=== PATIENT | male | born 1960 | race Caucasian/White ===

== ENCOUNTER → 2018-04-26 | Outpatient (CLI) | payer BC ==
--- NOTE | 2018-04-27 08:30 | CT ---
EXAMINATION TYPE: CT sinus wo con DATE OF EXAM: 04/26/2018 COMPARISON: HISTORY: WEISS WITH SINUS PRESSURE CT DLP: 636.[address] of the paranasal sinuses was performed in the axial and coronal planes. Bone and soft tissue settings are submitted. The paranasal sinuses demonstrate normal aeration and development. Mucous retention cyst right maxillary sinus. Mucosal thickening bilateral maxillary sinuses and to a lesser extent the ethmoid air cells. Remaining sinuses are well-aerated. The osteal meatal units are patent bilaterally. The nasal septum is midline. No bony destructive changes are seen within the field of view. IMPRESSION: Chronic maxillary and ethmoidal sinusitis.
== END ==
LOC: RADCTMAIN 16:45
PROVIDERS: ATTEND Otolaryngology
DX: J32.0 Chronic maxillary sinusitis (principal); J32.2 Chronic ethmoidal sinusitis
CPT/HCPCS: 70486

== ENCOUNTER → 2019-12-08 | Outpatient (CLI) | payer BC ==
--- NOTE | 2019-12-08 10:07 | US ---
EXAMINATION TYPE: US scrotum with doppler. Grayscale and color Doppler Duplex imaging performed of t he scrotum. DATE OF EXAM: 12/08/2019 COMPARISON: NONE CLINICAL HISTORY: N50.819 testicular pain. Intermittent sharp right testicular pain x couple weeks EXAM MEASUREMENTS: TESTICLES: Right Testicle: 4.2 x 2.3 x 3.2 cm Left Testicle: 5.1 x 2.5 x 3.0 cm EPIDIDYMIS HEAD: Right Epididymis: 0.7 x 1.2 x 1.7 cm Left Epididymis: 0.8 x 1.4 x1.3 cm Doppler performed to assess for testicular vascularity; good bilateral color flow and waveforms are s een. There is no evidence of testicular torsion. Presence of hydroceles: right 4.0cm, left 4.3cm Presence of varicoceles: no IMPRESSION: 1. Bilateral hydroceles.
== END | disposition home or self-care (01) ==
LOC: RADUSWWP 09:20
PROVIDERS: ATTEND Family Medicine
DX: N43.3 Hydrocele, unspecified (principal)
CPT/HCPCS: 76870; 93975

== ENCOUNTER 2020-03-21 21:44 | Observation (INO) | payer BC ==
--- NOTE | 2020-03-21 22:11 | ED ---
Chest Pain HPI - General Chief Complaint: Chest Pain Stated Complaint: Chest Pain Time Seen by Provider: 03/21/20 21:59 Source: patient Mode of arrival: ambulatory Limitations: no limitations - History of Present Illness Initial Comments: This patient is 60-year-old man who presents to be evaluated for right upper chest pain. The patient states that it came on to 3 hours before arriving here. He states that he was just at rest, and he noticed a pressure at the right upper chest. The patient states that he phoned his sister who is a nurse who recommended he be evaluated. The patient states the pain is much better though still there. He has had approximately 3 weeks of exertional dyspnea. Patient otherwise has no anginal symptoms. Patient does note he had a stent placed about 7 years ago at the time he was having some jaw pain. MD Complaint: chest pain Onset/Timin -: hour(s) Onset: during rest Pain Location: right chest Pain Radiation: none Severity: moderate Quality: heaviness Consistency: intermittent Improves With: nothing Worsens With: nothing Anginal Symptoms: dyspnea Treatments Prior to Arrival: none - Related Data Home Medications Medication Instructions Recorded Confirmed Aspirin 81 mg PO DAILY 11/22/13 11/22/13 Cyclobenzaprine [Flexeril] 10 mg PO DAILY 11/22/13 11/22/13 Enalapril [Vasotec] 5 mg PO DAILY 11/22/13 11/22/13 Insulin Glargine [Lantus] 40 units SQ HS 11/22/13 11/22/13 Levothyroxine Sodium [Synthroid] 0.5 mg PO DAILY 11/22/13 11/22/13 Metoprolol Succinate [Toprol XL] 25 mg PO BID 11/22/13 11/22/13 Simvastatin [Zocor] 40 mg PO HS 11/22/13 11/22/13 Zolpidem [Ambien] 10 mg PO HS 11/22/13 11/22/13 metFORMIN HCL [Glucophage] 850 mg PO BID 11/22/13 11/22/13 Previous Rx's Medication Instructions Recorded Hydrocodone/Acetaminophen [[place] 1 each PO Q4HR PRN #20 tab 11/22/13 5-325] Ibuprofen [Motrin] 800 mg PO Q6HR PRN #20 tab 11/22/13 Allergies Allergy/AdvReac Type Severity Reaction Status Date / Time No Known Allergies Allergy Verified 03/21/20 21:53 Review of Systems ROS Statement: Those systems with pertinent positive or pertinent negative responses have been documented in the HPI. ROS Other: All systems not noted in ROS Statement are negative. Constitutional: Denies: fever, chills Respiratory: Denies: cough, dyspnea, wheezes Cardiovascular: Reports: as per HPI, chest pain, dyspnea on exertion. Denies: palpitations, orthopnea, edema, syncope Gastrointestinal: Denies: abdominal pain, nausea, vomiting Genitourinary: Denies: dysuria, hematuria Musculoskeletal: Denies: back pain Skin: Denies: rash Neurological: Denies: headache, weakness, numbness EKG Findings - EKG Results: EKG: interpreted by MADELAINE, sinus rhythm (Rate 66 bpm), normal axis, normal QRS, normal ST/T Past Medical History Past Medical History: Coronary Artery Disease (CAD), Diabetes Mellitus Additional Past Medical History / Comment(s): sciatica History of Any Multi-Drug Resistant Organisms: None Reported Past Surgical History: Back Surgery, Heart Catheterization With Stent, Tonsillectomy Past Psychological History: No Psychological Hx Reported Smoking Status: Former smoker Past Alcohol Use History: None Reported Past Drug Use History: None Reported General Exam Limitations: no limitations General appearance: alert, in no apparent distress Head exam: Present: atraumatic, normocephalic Eye exam: Present: normal appearance. Absent: scleral icterus, conjunctival injection ENT exam: Present: normal oropharynx Neck exam: Present: normal inspection Respiratory exam: Present: normal lung sounds bilaterally. Absent: respiratory distress, wheezes, rales, rhonchi, stridor Cardiovascular Exam: Present: regular rate, normal rhythm, systolic murmur (Grade 3/6 systolic ejection murmur). Absent: diastolic murmur, rubs, gallop GI/Abdominal exam: Present: soft. Absent: distended, tenderness, guarding, rebound, rigid, mass Extremities exam: Present: normal inspection, normal capillary refill. Absent: pedal edema, calf tenderness Back exam: Present: normal inspection. Absent: CVA tenderness (R), CVA tenderness (L) Neurological exam: Present: alert Skin exam: Present: warm, dry, intact, normal color. Absent: rash Course Vital Signs 03/21/20 03/21/20 21:49 22:17 Temperature 98.2 F Pulse Rate 69 Pulse Rate [ 81 Denial Resolution Specialist ] Respiratory 16 Rate Blood Pressure 111/69 O2 Sat by Pulse 95 Oximetry Disposition Clinical Impression: Chest pain Disposition: ADMITTED IP TO THIS HOSP Condition: Good Instructions (If sedation given, give patient instructions): Chest Pain (ED) Is patient prescribed a controlled substance at d/c from ED?: No Referrals: Aria Mckinney MD [Primary Care Provider] - 1-2 days
[2020-03-21 22:14] LABS: Basophils # (A) 0.1 k/uL (0-0.2); Basophils % (A) 1 %; Eosinophils # (A) 0.4 k/uL (0-0.7); Eosinophils % (A) 4 %; HCT 48.8 % (39.0-53.0); HGB 15.9 gm/dL (13.0-17.5); Lymphocytes # (A) 3.2 k/uL (1.0-4.8); Lymphocytes % (A) 33 %; MCH 29.4 pg (25.0-35.0); MCHC 32.6 g/dL (31.0-37.0); MCV 90.3 fL (80.0-100.0); Mean Platelet Volume 6.7; Monocytes # (A) 0.7 k/uL (0-1.0); Monocytes % (A) 7 %; Neutrophils # (A) 5.3 k/uL (1.3-7.7); Neutrophils % (A) 54 %; Platelet Count 316 k/uL (150-450); RDW 12.4 % (11.5-15.5); WBC 9.8 k/uL (3.8-10.6)
[2020-03-21 22:27] LABS: ALT 30 U/L (4-49); AST 49 U/L (17-59); African American GFR (CKD) >90 (>60 ml/min/1.73 sqM); Albumin 4.6 g/dL (3.5-5.0); Alkaline Phosphatase 46 U/L (38-126); Amylase 95 U/L (30-110); Anion Gap 8 mmol/L; Blood Urea Nitrogen 25 mg/dL (9-20); Calcium 10.1 mg/dL (8.4-10.2); Carbon Dioxide 25 mmol/L (22-30); Chloride 103 mmol/L (98-107); Glucose 109 mg/dL (74-99); Lipase 167 U/L (23-300); Non-African American GFR(CKD) 80 (>60 ml/min/1.73 sqM); Potassium 4.6 mmol/L (3.5-5.1); Sodium 136 mmol/L (137-145); Total Bilirubin 0.6 mg/dL (0.2-1.3); Total Protein 7.4 g/dL (6.3-8.2)
[2020-03-21 22:31] LABS: D-Dimer 0.19 mg/L FEU (<0.60); Partial Thromboplastin Time 23.9 sec (22.0-30.0); Prothrombin Time 10.2 sec (9.0-12.0)
--- NOTE | 2020-03-21 23:14 | XR ---
EXAMINATION TYPE: XR chest 2V DATE OF EXAM: 03/21/2020 COMPARISON: NONE HISTORY: Right-sided chest pain TECHNIQUE: 2 views FINDINGS: Heart is normal. Lungs are clear of infiltrate. There is no heart failure. There are no hil ar masses. There are chest leads. Bony thorax is intact. IMPRESSION: No active cardiopulmonary disease. Normal heart.
[2020-03-21] MEDS ORDERED: NITROGLYCERIN SL TABS 0.4 MG TAB SUBLINGUAL PRN (23:46)
[2020-03-22] MEDS ORDERED: HYDROcodone/APAP 5-325MG 1 EACH TAB PO PRN (00:03)
--- NOTE | 2020-03-22 02:55 | P.HPIM ---
History of Present Illness H&P Date: 03/22/20 Chief Complaint: Chest pain 60-year-old male with history of coronary artery disease status post CABG and stents most recent stent 7 years ago Patient comes in after experiencing right-sided chest pain lasting an hour and a half around dinnertime not related to any activity, not associated with any nausea vomiting no sweating no palpitations. However he did feel that was heavy to breathe pain felt heavy over the right side of the chest rated at 7 out of 10 in severity and nonradiating. Resolved when he got to the ED and received some medications aspirin and nitro. Patient felt that the pain was similar to his most recent heart attack about 7 years ago. He otherwise reports that recently he's been having some exertional dyspnea that results with resting. 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 Otherwise patient denies any GI bleeding denies any fevers chills coughing denies any upper respiratory infection symptoms In the ED troponins were negative 2 EKG showed no acute changes patient admitted for close monitoring Review of Systems Pertinent positives as noted in HPI. All other systems were reviewed and are negative Past Medical History Past Medical History: Coronary Artery Disease (CAD), Diabetes Mellitus Additional Past Medical History / Comment(s): sciatica History of Any Multi-Drug Resistant Organisms: None Reported Past Surgical History: Back Surgery, Heart Catheterization With Stent, Tonsillectomy Date of Last Stent Placement:: 2012 Past Psychological History: No Psychological Hx Reported Smoking Status: Former smoker Past Alcohol Use History: None Reported Past Drug Use History: None Reported - Past Family History Family Family Medical History: Coronary Artery Disease (CAD) Medications and Allergies Home Medications Medication Instructions Recorded Confirmed Type Aspirin 81 mg PO DAILY 11/22/13 11/22/13 History Cyclobenzaprine [Flexeril] 10 mg PO DAILY 11/22/13 11/22/13 History Enalapril [Vasotec] 5 mg PO DAILY 11/22/13 11/22/13 History Hydrocodone/Acetaminophen [[place] 1 each PO Q4HR PRN #20 tab 11/22/13 Rx 5-325] Ibuprofen [Motrin] 800 mg PO Q6HR PRN #20 tab 11/22/13 Rx Insulin Glargine [Lantus] 40 units SQ HS 11/22/13 11/22/13 History Levothyroxine Sodium [Synthroid] 0.5 mg PO DAILY 11/22/13 11/22/13 History Metoprolol Succinate [Toprol XL] 25 mg PO BID 11/22/13 11/22/13 History Simvastatin [Zocor] 40 mg PO HS 11/22/13 11/22/13 History Zolpidem [Ambien] 10 mg PO HS 11/22/13 11/22/13 History metFORMIN HCL [Glucophage] 850 mg PO BID 11/22/13 11/22/13 History Allergies Allergy/AdvReac Type Severity Reaction Status Date / Time No Known Allergies Allergy Verified 03/21/20 21:53 Physical Exam Vitals: Vital Signs Temp Pulse Pulse Resp BP BP Pulse Ox 03/22/20 00:25 98 F 55 L 18 122/78 98 03/22/20 00:00 61 21 126/82 96 03/21/20 23:00 61 19 121/85 96 03/21/20 22:17 81 03/21/20 22:00 68 19 124/68 97 03/21/20 21:49 98.2 F 69 16 111/69 95 Intake and Output 03/21/20 03/21/20 03/22/20 14:59 22:59 06:59 Other: Weight 99.79 kg 99.79 kg Constitutional: No acute distress, conversant, pleasant Eyes: Anicteric sclerae, moist conjunctiva, no lid-lag Pupils equal round reactive to light ENMT: NC/AT Oropharynx clear, no erythema,or exudates Neck: Supple, FROM, no masses, or JVD No carotid bruits No thyromegaly Lungs: Clear to auscultation Clear to percussion Normal respiratory effort, no accessory muscle use Cardiovascular: Heart regular in rate and rhythm, Systolic murmur, no, gallops, or rubs No peripheral edema Abdominal: Soft Nontender, no guarding, rebound or rigidity Abdomen moving with respiration Normoactive bowel sounds No hepatomegaly, No splenomegaly No palpable mass No abdominal wall hernia noted Skin: Normal temperature, tone, texture, turgor No induration No subcutaneous nodules No rash, lesions No ulcers Extremities: No digital cyanosis No clubbing Pedal pulses intact and symmetrical Radial pulses intact and symmetrical No calf tenderness Psychiatric: Alert and oriented to person, place and time Appropriate affect fair judgement Neuro Muscles Strength 5/5 in all 4 extremities Sensation to light touch grossly present throughout Cranial nerves II-XII grossly intact No focal sensory deficits Lymphatics: no palpable cervical or supraclavicular , or inguinal lymph nodes Results CBC & Chem 7: 03/21/20 22:07 03/21/20 22:07 Labs: Abnormal Lab Results - Last 24 Hours (Table) 03/21/20 Range/Units 22:07 Sodium 136 L (137-145) mmol/L BUN 25 H (9-20) mg/dL Glucose 109 H (74-99) mg/dL Assessment and Plan Assessment: Atypical chest pain rule out acute coronary syndrome Systolic murmur concerning for aortic valvular abnormalities, patient reported that he had established care with cardiology who performed echocardiogram about 2 weeks ago and he is aware of this valvular abnormalities Cardiac monitoring Trend troponins EKG no acute ST changes Aspirin, nitro, statin Cardiology consult Chronic conditions Obstructive sleep apnea patient did not bring his CPAP machine Hypertension resume home meds Diabetes mellitus insulin sliding scale CODE STATUS: Full code DVT prophylaxis: Heparin Subcu 3 times a day Discussed with: Patient, ER, RN Anticipated length of stay less than [address]: Home A total of 65 minutes was spent on the care of this complex patient more than 50% of the time was spent in counseling and care coordination.
[2020-03-22 04:51] LABS: Cholesterol 158 mg/dL (<200); HDL Cholesterol 35 mg/dL (40-60); LDL Cholesterol,Calculated 63 mg/dL (0-99); Triglycerides 299 mg/dL (<150)
[2020-03-22 07:01] LABS: Glucose,Whole Blood 87 mg/dL (75-99)
[2020-03-22] MEDS ORDERED: INSULIN ASPART (NovoLOG) 100 UNIT/ML VIAL SQ SCH (07:30)
[2020-03-22] MEDS ORDERED: HEPARIN SODIUM,PORCINE 5,000 UNIT/ML 1 ML VIAL SQ SCH (08:00)
[2020-03-22 08:27] VITALS: BP 129/85; PULSE 63; RESP 14; TEMP 97.8
[2020-03-22] MEDS ORDERED: ASPIRIN 81 MG PO SCH (09:00)
[2020-03-22] MEDS ORDERED: ASPIRIN 325 MG TAB PO SCH (09:00)
[2020-03-22] MEDS ORDERED: metFORMIN 850 MG TAB PO SCH (09:00)
[2020-03-22] MEDS ORDERED: lisinopriL 10 MG TAB PO SCH (09:00)
[2020-03-22] MEDS ORDERED: LEVOTHYROXINE 50 MCG TAB PO SCH (09:00)
[2020-03-22] MEDS ORDERED: METOPROLOL SUCCINATE (ER) 25 MG TAB.ER.24H PO SCH (09:00)
--- NOTE | 2020-03-22 11:21 | P.DS ---
Providers Date of admission: 03/22/20 00:00 Expected date of discharge: 03/22/20 Attending physician: Crystal Casas MD Consults: 03/21/20 23:47 Consult Physician Routine Consulting Provider: Partha Vargas Consult Reason/Comments: chest pain Do you want consulting provider notified?: Yes Primary care physician: [facility] Course: This is a 60-year-old male with past medical history significant for coronary artery disease status post CABG and stent placement most recently 7 years ago that presented to the emergency room with chest pain. Patient was evaluated in the ER in 12-lead EKG showed no acute ischemic changes. Patient was placed on observation and serial troponin were negative 3 sets. He was seen and evaluated by cardiology and no further testing was recommended at this time. ACS ruled out. Patient will follow-up with Dr. Vargas in the office as directed. Simvastatin was discontinued and patient was started on Lipitor. Below is a dose of his medical problems 1. Chest pain, ACS ruled out 2. Essential hypertension, blood pressure well-controlled 3. Hyperlipidemia discontinue Zocor. Lipitor 4. Coronary artery disease status post CABG and stent placement: Continue optimal medical management Patient will be discharged home in a stable condition. For further details about this hospitalization please refer to the electronic chart. Patient Condition at Discharge: Fair Plan - Discharge Summary Discharge Rx Participant: Yes New Discharge Prescriptions: New Atorvastatin [Lipitor] 40 mg PO HS #30 tab Continue Insulin Glargine [Lantus] 35 units SQ HS Metoprolol Succinate [Toprol XL] 25 mg PO BID Aspirin 81 mg PO DAILY metFORMIN HCL 1,000 mg PO BID Gabapentin 300 mg PO TID Enalapril [Vasotec] 20 mg PO BID Dapagliflozin Propanediol [Farxiga] 10 mg PO DAILY Liraglutide [Victoza 3-Andi] 1.8 mg SQ DAILY Cholecalciferol [Vitamin D3 (25 Mcg = 1000 Iu)] 1,000 unit PO DAILY Ascorbic Acid [Vitamin C] 500 mg PO DAILY Loratadine [Claritin] 10 mg PO DAILY Discontinued Simvastatin [Zocor] 40 mg PO HS Discharge Medication List Aspirin 81 mg PO DAILY 11/22/13 [History] Insulin Glargine [Lantus] 35 units SQ HS 11/22/13 [History] Metoprolol Succinate [Toprol XL] 25 mg PO BID 11/22/13 [History] Ascorbic Acid [Vitamin C] 500 mg PO DAILY 03/22/20 [History] Atorvastatin [Lipitor] 40 mg PO HS #30 tab 03/22/20 [Rx] Cholecalciferol [Vitamin D3 (25 Mcg = 1000 Iu)] 1,000 unit PO DAILY 03/22/20 [History] Dapagliflozin Propanediol [Farxiga] 10 mg PO DAILY 03/22/20 [History] Enalapril [Vasotec] 20 mg PO BID 03/22/20 [History] Gabapentin 300 mg PO TID 03/22/20 [History] Liraglutide [Victoza 3-Andi] 1.8 mg SQ DAILY 03/22/20 [History] Loratadine [Claritin] 10 mg PO DAILY 03/22/20 [History] metFORMIN HCL 1,000 mg PO BID 03/22/20 [History] Follow up Appointment(s)/Referral(s): Partha Vargas MD [STAFF PHYSICIAN] - 04/03/20 4:30 pm Patient Instructions/Handouts: Chest Pain (ED) Discharge Disposition: HOME SELF-CARE
--- NOTE | 2020-03-22 13:30 | P.CRDCN ---
History of Present Illness History of present illness: HISTORY OF PRESENTING ILLNESS This is a pleasant 60-year-old male past medical history significant for coronary artery disease status post PCI in 2013, hypertension, dyslipidemia and diabetes mellitus. He follows in the office with Dr. Vargas. We have been asked to see in consultation for chest pain. He states yesterday he developed right sided chest pain that felt like a heavy tight pressure in the chest. Initially was intermittent, then after a couple hours of coming and going it was more constant in nature. There was no radiation or associated symptoms. The discomfort was not exacerbated by activity or exertion. He continues to have mild discomfort in the right anterior chest wall. He was recently seen in the office and underwent an echocardiogram revealing preserved LV systolic function with ejection fraction 50% with hypokinesia of the lateral wall at the mid wall with the remainder of the LV functioning normally, aortic valve is moderately calcified with moderate aortic stenosis felt. Of 1.73 and a mean gradient of 19 mmHg with mild mitral regurgitation noted. DIAGNOSTICS EKG reveals sinus mechanism with no acute ST or T wave abnormalities noted. Chest xray negative for an acute cardiopulmonary process. Laboratory reviewed, CBC unremarkable, d-dimer 0.19, sodium 136, potassium 4.6, creatinine 1.01, magnesium 2.0, cardiac enzymes negative 3, LDL 63, HDL 35 and triglycerides 299. Current cardiac medications include Toprol 25 mg twice a day, enalapril 20 mg twice a day, aspirin 81 mg daily and simvastatin 40 mg daily. REVIEW OF SYSTEMS At the time of my exam: CONSTITUTIONAL: Denies fever or chills. CARDIOVASCULAR: Denies chest pain, shortness of breath, orthopnea, PND or palpitations. RESPIRATORY: Denies cough. GASTROINTESTINAL: Denies abdominal pain, diarrhea, constipation, nausea or vomiting. MUSCULOSKELETAL: Denies myalgias. NEUROLOGIC: Denies numbness, tingling or weakness. ENDOCRINE: Denies fatigue, weight change, polydipsia or polyurina. GENITOURINARY: Denies burning, hematuria or urgency with micturation. HEMATOLOGIC: Denies history of anemia or bleeding. PHYSICAL EXAMINATION Blood pressure 129/85 heart rate 63 afebrile and maintaining oxygen saturation on room air. CONSTITUTIONAL: No apparent distress. HEENT: Head is normocephalic. Pupils are equal, round. Sclerae anicteric. Mucous membranes of the mouth are moist. No JVD. No carotid bruit. CHEST EXAMINATION: Lungs are clear to auscultation. No chest wall tenderness is noted on palpation or with deep breathing. HEART EXAMINATION: Regular rate and rhythm. S1, S2 heard. Systolic ejection murmur at the base and apex, no gallops or rub. ABDOMEN: Soft, nontender. Positive bowel sounds. EXTREMITIES: 2+ peripheral pulses, no lower extremity edema and no calf t enderness. NEUROLOGIC EXAMINATION: Patient is awake, alert and oriented x3. ASSESSMENT Chest pain, atypical for angina. Acute coronary event has been ruled out. History of coronary artery disease Hypertension Dyslipidemia Diabetes mellitus PLAN Pain is atypical for angina unlikely related to musculoskeletal strain. An acute coronary event has been ruled out. Change simvastatin to [id number] mg daily. Consider vascepa for lowering of triglycerides. Stable for discharge from a cardiac perspective. Follow-up in the office with Dr. Vargas upon discharge. Thank you kindly for this consultation. Nurse Practitioner note has been reviewed, I agree with a documented findings and plan of care. Patient was seen and examined. Past Medical History Past Medical History: Coronary Artery Disease (CAD), Diabetes Mellitus Additional Past Medical History / Comment(s): sciatica History of Any Multi-Drug Resistant Organisms: None Reported Past Surgical History: Back Surgery, Heart Catheterization With Stent, Tonsillectomy Date of Last Stent Placement:: 2012 Past Psychological History: No Psychological Hx Reported Smoking Status: Former smoker Past Alcohol Use History: None Reported Past Drug Use History: None Reported - Past Family History Family Family Medical History: Coronary Artery Disease (CAD) Medications and Allergies Home Medications Medication Instructions Recorded Confirmed Type Aspirin 81 mg PO DAILY 11/22/13 03/22/20 History Insulin Glargine [Lantus] 35 units SQ HS 11/22/13 03/22/20 History Metoprolol Succinate [Toprol XL] 25 mg PO BID 11/22/13 03/22/20 History Ascorbic Acid [Vitamin C] 500 mg PO DAILY 03/22/20 03/22/20 History Atorvastatin [Lipitor] 40 mg PO HS #30 tab 03/22/20 Rx Cholecalciferol [Vitamin D3 (25 1,000 unit PO DAILY 03/22/20 03/22/20 History Mcg = 1000 Iu)] Dapagliflozin Propanediol [Farxiga] 10 mg PO DAILY 03/22/20 03/22/20 History Enalapril [Vasotec] 20 mg PO BID 03/22/20 03/22/20 History Gabapentin 300 mg PO TID 03/22/20 03/22/20 History Liraglutide [Victoza 3-Andi] 1.8 mg SQ DAILY 03/22/20 03/22/20 History Loratadine [Claritin] 10 mg PO DAILY 03/22/20 03/22/20 History metFORMIN HCL 1,000 mg PO BID 03/22/20 03/22/20 History Allergies Allergy/AdvReac Type Severity Reaction Status Date / Time No Known Allergies Allergy Verified 03/22/20 07:55 Physical Exam Vitals: Vital Signs Temp Pulse Pulse Resp BP BP Pulse Ox 03/22/20 03:00 97.2 F L 65 18 117/67 97 03/22/20 00:25 98 F 55 L 18 122/78 98 03/22/20 00:00 61 21 126/82 96 03/21/20 23:00 61 19 121/85 96 03/21/20 22:17 81 03/21/20 22:00 68 19 124/68 97 03/21/20 21:49 98.2 F 69 16 111/69 95 Intake and Output 03/21/20 03/22/20 03/22/20 22:59 06:59 14:59 Intake Total 0 Balance 0 Intake: Blood Product 0 Other: Voiding Method Toilet # Voids 1 Weight 99.79 kg 99.79 kg Results 03/21/20 22:07 03/21/20 22:07 Cardiac Enzymes 03/21/20 03/21/20 03/22/20 Range/Units 22:07 22:07 01:05 AST 49 (17-59) U/L Troponin I <0.012 <0.012 (0.000-0.034) ng/mL 03/22/20 Range/Units 04:31 AST (17-59) U/L Troponin I <0.012 (0.000-0.034) ng/mL Coagulation 03/21/20 Range/Units 22:07 PT 10.2 (9.0-12.0) sec APTT 23.9 (22.0-30.0) sec Lipids 03/22/20 Range/Units 04:31 Triglycerides 299 H (<150) mg/dL Cholesterol 158 (<200) mg/dL HDL Cholesterol 35 L (40-60) mg/dL CBC 03/21/20 Range/Units 22:07 WBC 9.8 (3.8-10.6) k/uL RBC 5.40 (4.30-5.90) m/uL Hgb 15.9 (13.0-17.5) gm/dL Hct 48.8 (39.0-53.0) % Plt Count 316 (150-450) k/uL Comprehensive Metabolic Panel 03/21/20 Range/Units 22:07 Sodium 136 L (137-145) mmol/L Potassium 4.6 (3.5-5.1) mmol/L Chloride 103 (98-107) mmol/L Carbon Dioxide 25 (22-30) mmol/L BUN 25 H (9-20) mg/dL Creatinine 1.01 (0.66-1.25) mg/dL Glucose 109 H (74-99) mg/dL Calcium 10.1 (8.4-10.2) mg/dL AST 49 (17-59) U/L ALT 30 (4-49) U/L Alkaline Phosphatase 46 (38-126) U/L Total Protein 7.4 (6.3-8.2) g/dL Albumin 4.6 (3.5-5.0) g/dL Current Medications Generic Name Dose Route Start Last Admin Trade Name Freq PRN Reason Stop Dose Admin Hydrocodone Bitart/Acetaminophen 1 each 03/22/20 00:03 Hydrocodone/Apap 5-325mg 1 Each Tab PO Q4HR PRN Pain Aspirin 81 mg 03/22/20 09:00 Aspirin 81 Mg PO DAILY [facility] Atorvastatin Calcium 20 mg 03/22/20 21:00 Atorvastatin 20 Mg Tab PO HS [facility] Heparin Sodium (Porcine) 5,000 unit 03/22/20 08:00 Heparin Sodium,Porcine 5,000 Unit/Ml 1 Ml Vial SQ Q8HR [facility] Insulin Aspart 0 unit 03/22/20 07:30 03/22/20 05:41 Insulin Aspart (Novolog) 100 Unit/Ml Vial SQ Not Given AC-TID [facility] Protocol Insulin Detemir 40 unit 03/22/20 21:00 Insulin Detemir (Levemir) 100 Unit/Ml Syr SQ HS [facility] Levothyroxine Sodium 500 mcg 03/22/20 09:00 Levothyroxine 50 Mcg Tab PO DAILY [facility] Lisinopril 10 mg 03/22/20 09:00 Lisinopril 10 Mg Tab PO DAILY [facility] Metoprolol Succinate 25 mg 03/22/20 09:00 Metoprolol Succinate (Er) 25 Mg Tab.Er.24h PO BID [facility] Nitroglycerin 0.4 mg 03/21/20 23:46 Nitroglycerin Sl Tabs 0.4 Mg Tab SUBLINGUAL Q5M PRN Chest Pain Zolpidem Tartrate 10 mg 03/22/20 21:00 Zolpidem 10 Mg Tab PO HS [facility] Intake and Output 03/21/20 03/22/20 03/22/20 22:59 06:59 14:59 Intake Total 0 Balance 0 Intake: Blood Product 0 Other: Voiding Method Toilet # Voids 1 Weight 99.79 kg 99.79 kg 03/21/20 22:07 03/21/20 22:07
[2020-03-22] MEDS ORDERED: ATORVASTATIN 40 MG TAB PO SCH (21:00)
[2020-03-22] MEDS ORDERED: ATORVASTATIN 20 MG TAB PO SCH (21:00)
[2020-03-22] MEDS ORDERED: INSULIN DETEMIR (LEVEMIR) 100 UNIT/ML SYR SQ SCH (21:00)
[2020-03-22] MEDS ORDERED: ZOLPIDEM 10 MG TAB PO SCH (21:00)
== END 2020-03-22 11:43 | disposition home or self-care (01) ==
LOC: EC 21:44 → 6NMEDSUR 03-22 → 3NCARDOBS 03-22 00:18
PROVIDERS: ADMIT Internal Medicine; ATTEND Internal Medicine
DX: R07.89 Other chest pain (principal); R68.84 Jaw pain; R06.00 Dyspnea, unspecified; R01.1 Cardiac murmur, unspecified; I25.10 Atherosclerotic heart disease of native coronary artery without angina pectoris; Z95.1 Presence of aortocoronary bypass graft; Z95.5 Presence of coronary angioplasty implant and graft; I10 Essential (primary) hypertension; G47.33 Obstructive sleep apnea (adult) (pediatric); Z99.89 Dependence on other enabling machines and devices; I35.0 Nonrheumatic aortic (valve) stenosis; E78.5 Hyperlipidemia, unspecified; I25.2 Old myocardial infarction; E11.9 Type 2 diabetes mellitus without complications; M54.30 Sciatica, unspecified side; Z87.891 Personal history of nicotine dependence; Z79.82 Long term (current) use of aspirin; Z79.4 Long term (current) use of insulin; Z79.899 Other long term (current) drug therapy; Z79.891 Long term (current) use of opiate analgesic; Z79.1 Long term (current) use of non-steroidal anti-inflammatories (NSAID); Z79.890 Hormone replacement therapy; Z82.49 Family history of ischemic heart disease and other diseases of the circulatory system
CPT/HCPCS: 96372; 93005 ×2; 99285; 36415; 94660; 85379; 80061; 80053; 82150; 83690; 83735; 84484 ×2; 85025; 85610; 85730; 71046; G0378; J1644

== ENCOUNTER 2022-07-18 11:42 | Day surgery (SDC) | payer BC ==
[2022-07-17 10:19] VITALS: BMI 29.5
[~2022-07-18 11:42] MED LIST: LACTATED RINGERS 1,000 ML IV SCH
[2022-07-18 13:13] VITALS: RESP 16; TEMP 97.5
[2022-07-18 13:27] LABS: Glucose,Whole Blood 111 mg/dL (70-110)
[2022-07-18] MEDS ORDERED: LIDOCAINE 1% (10MG/ML) FOR IV START INTRADERMA ONE (13:27)
[2022-07-18] MEDS ORDERED: PROPOFOL 10 MG/ML 20 ML VIAL IV ONE (14:05)
--- NOTE | 2022-07-18 14:37 | P.PCN ---
Date of Procedure: 07/18/22 Procedure(s) Performed: BRIEF HISTORY: Patient is a 62-year-old pleasant white male scheduled for an elective colonoscopy as a part of screening for colon cancer/positive cologuard. PROCEDURE PERFORMED: Colonoscopy with biopsy and snare polypectomy. PREOPERATIVE DIAGNOSIS: Screening for colon cancer/positive cologuard. IV sedation per Anesthesia. PROCEDURE: After informed consent was obtained, the patient, was brought into the endoscopy unit. IV sedation was administered by Anesthesia under continuous monitoring. Digital rectal examination was normal. Initially the Olympus CF-160 flexible video colonoscope was then inserted in the rectum, gradually advanced into the cecum without any difficulty. Careful examination was performed as the scope was gradually being withdrawn. Ileocecal valve and the appendiceal orifice were visualized and appeared normal. Prep was excellent. Mucosa of the cecum, appeared normal. In the ascending colon there was a 3 mm sessile polyp removed by cold biopsy. In the descending colon there was a 4 mm polyp removed by cold biopsy. In the sigmoid colon there was a 6 mm polyp removed by snare polypectomy. Rest of the ascending colon, transverse colon, descending colon, sigmoid colon, and rectum appeared normal. Retroflexion was performed in the rectum and no lesions were seen. The patient tolerated the procedure well. IMPRESSION: 3 mm ascending colon polyp status post cold biopsy 4 mm descending colon polyp status post cold biopsy 6 mm sigmoid polyp status post polypectomy RECOMMENDATIONS: Findings of this examination were discussed with the patient as well as his family. He was advised to follow with the biopsy results. If the biopsy results and have a repeat colonoscopy in 5 years..
[2022-07-18 15:06] VITALS: BP 127/75; PULSE 64
== END 2022-07-18 15:20 | disposition home or self-care (01) ==
LOC: ORWHC2ENDO 11:42
PROVIDERS: ATTEND Internal Medicine Gastroenterology
DX: D12.2 Benign neoplasm of ascending colon (principal); D12.4 Benign neoplasm of descending colon; D12.5 Benign neoplasm of sigmoid colon; I25.2 Old myocardial infarction; I25.10 Atherosclerotic heart disease of native coronary artery without angina pectoris; Z95.5 Presence of coronary angioplasty implant and graft; I10 Essential (primary) hypertension; E78.5 Hyperlipidemia, unspecified; Z87.891 Personal history of nicotine dependence; E11.9 Type 2 diabetes mellitus without complications; F12.20 Cannabis dependence, uncomplicated; Z79.02 Long term (current) use of antithrombotics/antiplatelets; Z79.82 Long term (current) use of aspirin; Z79.84 Long term (current) use of oral hypoglycemic drugs; Z79.1 Long term (current) use of non-steroidal anti-inflammatories (NSAID); Z79.811 Long term (current) use of aromatase inhibitors; Z98.890 Other specified postprocedural states
CPT/HCPCS: 45385; 45380; 88305; J2704

== ENCOUNTER 2022-10-06 11:03 | Observation (INO) | payer BC ==
[2022-10-06] MEDS ORDERED: NITROGLYCERIN SL TABS 0.4 MG TAB SUBLINGUAL STA (11:43)
[2022-10-06] MEDS ORDERED: SODIUM CHLORIDE 0.9% 500 ML 500 ML IV STA (11:43)
[2022-10-06] MEDS ORDERED: ASPIRIN 81 MG PO STA (11:43)
--- NOTE | 2022-10-06 11:45 | ED ---
General Adult HPI - General Chief complaint: Chest Pain Stated complaint: chest pain going into the neck Time Seen by Provider: 10/06/22 11:40 Source: patient, family, RN notes reviewed, old records reviewed Mode of arrival: ambulatory Limitations: no limitations - History of Present Illness Initial comments: Patient is a 62-year-old male with past medical history remarkable for COPD with prior stent 10 years ago, hypertension, hyperlipidemia, diabetes who presents emergency Department complaining of chest pain. Patient states he initially had chest pain last night. Was sharp, left-sided at that time at approximately 11 PM. Was a little diaphoretic at that time. Took 2 nitroglycerin tablets which resolved his pain. States he woke up this morning and had some chest pressure sensation located across his entire chest. It is not severe. Presents this morning over concern for his chest discomfort and his history of heart attacks. Denies any shortness breath, abdominal pain, nausea, vomiting, diarrhea, fevers, chills, cough. No other acute complaints at this time. Currently states his chest pressure is very mild. - Related Data Home Medications Medication Instructions Recorded Confirmed Aspirin 81 mg PO DAILY 11/22/13 10/06/22 Dapagliflozin Propanediol [Farxiga] 10 mg PO DAILY 03/22/20 10/06/22 Enalapril [Vasotec] 20 mg PO BID 03/22/20 10/06/22 Gabapentin 300 mg PO TID 03/22/20 10/06/22 metFORMIN HCL [Glucophage] 1,000 mg PO BID 03/22/20 10/06/22 Simvastatin [Zocor] 40 mg PO HS 07/17/22 10/06/22 Fish Oil/Dha/Epa [Fish Oil 1,200 1 cap PO BID 10/06/22 10/06/22 mg Fish Oil] Fluticasone Nasal [place] [Flonase 1 spray EA NOSTRIL DAILY PRN 10/06/22 10/06/22 Nasal [place]] Allergies Allergy/AdvReac Type Severity Reaction Status Date / Time No Known Allergies Allergy Verified 10/06/22 12:13 Review of Systems ROS Statement: Those systems with pertinent positive or pertinent negative responses have been documented in the HPI. Review of Systems: CONST: Denies fever EYES: Denies blurry vision ENT: Denies nasal congestion C/V: Endorses mild chest pressure RESP: Denies shortness of breath GI: Denies abdominal pain : Denies dysuria SKIN: Denies rash. MSK: Denies joint pain. NEURO: Denies headache ROS Other: All systems not noted in ROS Statement are negative. Past Medical History Past Medical History: Coronary Artery Disease (CAD), Diabetes Mellitus, Hyperlipidemia, Hypertension, Myocardial Infarction ([place]) Additional Past Medical History / Comment(s): sciatica Last Myocardial Infarction Date:: 2012 History of Any Multi-Drug Resistant Organisms: None Reported Past Surgical History: Back Surgery, Heart Catheterization With Stent, Tonsillectomy Additional Past Surgical History / Comment(s): COLONOSCOPY Past Anesthesia/Blood Transfusion Reactions: No Reported Reaction Date of Last Stent Placement:: 2012 Past Psychological History: No Psychological Hx Reported Smoking Status: Former smoker Past Alcohol Use History: None Reported Past Drug Use History: None Reported - Past Family History Family Family Medical History: Coronary Artery Disease (CAD) General Exam - General Exam Comments Initial Comments: General: Appears in no acute distress. HEAD: Normal with no signs of head trauma. EYES: PERRLA, EOMI, conjunctiva normal, no discharge. ENT: Hearing grossly intact, normal oropharynx. RESPIRATORY: Clear breath sounds bilaterally. No wheezes, rales, or rhonchi. C/V: Regular rate and rhythm. S1 and S2 auscultated, no edema, peripheral pulses 2+ and intact throughout ABD: Abd is soft, nontender, nondistended EXT: Normal range of motion, no obvious deformity SKIN: No rashes or lesions observed on exposed skin. NEURO: Alert and oriented 4. No focal deficits. Limitations: no limitations Course Vital Signs 10/06/22 10/06/22 10/06/22 11:17 11:22 12:00 Temperature 98.0 F Pulse Rate 68 62 59 L Respiratory 20 18 Rate Blood Pressure 138/83 138/83 138/80 O2 Sat by Pulse 97 96 95 Oximetry 10/06/22 10/06/22 10/06/22 12:30 13:00 13:30 Temperature Pulse Rate 54 L 56 L 58 L Respiratory 20 18 20 Rate Blood Pressure 109/72 127/75 143/82 O2 Sat by Pulse 96 95 96 Oximetry 10/06/22 10/06/22 14:00 14:27 Temperature 98.0 F Pulse Rate 68 Respiratory 20 Rate Blood Pressure 159/92 O2 Sat by Pulse 96 Oximetry Medical Decision Making - Medical Decision Making Was pt. sent in by a medical professional or institution (, PA, HOUSEKEEPING AID, urgent care, hospital, or skilled nursing...) When possible be specific @ -No Did you speak to anyone other than the patient for history (EMS, parent, family, police, friend...)? What history was obtained from this source @ -No Did you review nursing and triage notes (agree or disagree)? Why? @ -I reviewed and agree with nursing and triage notes Were old charts reviewed (outside hosp., previous admission, EMS record, old EKG, old radiological studies, urgent care reports/EKG's, skilled nursing records)? Report findings @ -Old EKGs reviewed from February 2020 Differential Diagnosis (chest pain, altered mental status, abdominal pain women, abdominal pain men, vaginal bleeding, weakness, fever, dyspnea, syncope, headache, dizziness, GI bleed, back pain, seizure, CVA, palpatations, mental health, musculoskeletal)? @ -Differential Chest Pain: Stable Angina, Unstable Angina, STEMI, NSTEMI Aortic Dissection, Pneumothorax, Musculoskeletal, Esophageal Spasm GERD, Cholecystitis, Pancreatitis, Zoster, this is not meant to be an all-inclusive list. EKG interpreted by me (3pts min.). @ -As above X-rays interpreted by me (1pt min.). @ -Chest x-ray reveals no obvious acute cardio pulmonary process. CT interpreted by me (1pt min.). @ -None done U/S interpreted by me (1pt. min.). @ -None done What testing was considered but not performed or refused? (CT, X-rays, U/S, labs)? Why? @ -None What meds were considered but not given or refused? Why? @ -None Did you discuss the management of the patient with other professionals (professionals i.e. , PA, HOUSEKEEPING AID, lab, RT, psych nurse, social media strategist, cloth wire weaver, teacher, public relations officer, ed case manager)? Give summary @ -Discussed with the admitting physician, Dr. Blankenship who accepted the patient. Was smoking cessation discussed for >3mins.? @ -No Was critical care preformed (if so, how long)? @ -Yes, 35 minutes Were there social determinants of health that impacted care today? How? (Homelessness, low income, unemployed, alcoholism, drug addiction, transportation, low edu. Level, literacy, decrease access to med. care, detention, rehab)? @ -No Was there de-escalation of care discussed even if they declined (Discuss DNR or withdrawal of care, Hospice)? DNR status @ -No What co-morbidities impacted this encounter? (DM, HTN, Smoking, COPD, CAD, Cancer, CVA, ARF, Chemo, Hep., AIDS, mental health diagnosis, sleep apnea, morbid obesity)? @ -History of CAD with single previous cardiac stent Was patient admitted / discharged? Hospital course, mention meds given and route, prescriptions, significant lab abnormalities, going to OR and other pertinent info. @ -Based on the patient's presentation and physical exam, I'm concerned for acute pulmonary etiology for his current symptoms. We will obtain cardiac labs, EKG, chest x-ray. Patient was in agreement this plan. He will receive an aspirin, additional nitroglycerin tablets to see if it helps with this very mild chest pressure. He was in agreement this plan. Vital signs within acceptable limits. EKG shows J-point elevation but no signs concerning for ST segment elevation at this time as does appear within acceptable limits. There is new T-wave inversions in the lateral precordial leads. Repeat EKG over an hour later shows no dynamic changes. Patient does have a history of J-point elevation in V2 and V3. One nitroglycerin tablet did help with the patient's symptoms and therefore he was placed on nitro glycerin ointment. Patient's labs are remarkable for troponin of 0.012. Remainder of the labs are within acceptable limits. Chest x-ray shows no obvious findings. I updated the patient. He is symptom-free at this time. We will however based on his heart score being moderate admit him for cardiac observation. I will place him on a heparin drip empirically for acs. We will continue to monitor his troponin. Echo was ordered. Cardiology is consulted. Patient was in agreement this plan. I spoke with the admitting physician, Dr. Blankenship accepted the patient. Undiagnosed new problem with uncertain prognosis? @ -No Drug Therapy requiring intensive monitoring for toxicity (Heparin, Nitro, Insulin, Cardizem)? @ -Heparin Were any procedures done? @ -No Diagnosis/symptom? @ -Chest pain, relieved with nitroglycerin, T-wave inversions Acute, or Chronic, or Acute on Chronic? @ -Acute Uncomplicated (without systemic symptoms) or Complicated (systemic symptoms)? @ -Complicated Side effects of treatment? @ -No Exacerbation, Progression, or Severe Exacerbation? @ -No Poses a threat to life or bodily function? How? (Chest pain, [place], [place], pneumonia, PE, COPD, DKA, ARF, appy, cholecystitis, CVA, Diverticulitis, Homicidal, Suicidal, threat to staff... and all critical care pts) @ -Yes, potentially could result in significant morbidity and mortality. - Lab Data Result diagrams: 10/06/22 11:44 10/06/22 11:44 Lab Results 10/06/22 10/06/22 10/06/22 Range/Units 11:44 11:44 11:44 WBC 6.8 (3.8-10.6) k/uL RBC 5.51 (4.30-5.90) m/uL Hgb 16.7 (13.0-17.5) gm/dL Hct 47.4 (39.0-53.0) % MCV 86.1 (80.0-100.0) fL MCH 30.3 (25.0-35.0) pg MCHC 35.2 (31.0-37.0) g/dL RDW 12.7 (11.5-15.5) % Plt Count 210 (150-450) k/uL MPV 7.3 Neutrophils % 63 % Lymphocytes % 23 % Monocytes % 7 % Eosinophils % 4 % Basophils % 0 % Neutrophils # 4.3 (1.3-7.7) k/uL Lymphocytes # 1.6 (1.0-4.8) k/uL Monocytes # 0.5 (0-1.0) k/uL Eosinophils # 0.3 (0-0.7) k/uL Basophils # 0.0 (0-0.2) k/uL PT 10.3 (9.0-12.0) sec INR 1.0 (<1.2) APTT 24.0 (22.0-30.0) sec Sodium 136 L (137-145) mmol/L Potassium 4.5 (3.5-5.1) mmol/L Chloride 103 (98-107) mmol/L Carbon Dioxide 22 (22-30) mmol/L Anion Gap 11 mmol/L BUN 21 H (9-20) mg/dL Creatinine 0.63 L (0.66-1.25) mg/dL Est GFR (CKD-EPI)AfAm >90 (>60 ml/min/1.73 sqM) Est GFR (CKD-EPI)NonAf >90 (>60 ml/min/1.73 sqM) Glucose 186 H (74-99) mg/dL Calcium 9.4 (8.4-10.2) mg/dL Magnesium 1.9 (1.6-2.3) mg/dL Total Bilirubin 0.6 (0.2-1.3) mg/dL AST 36 (17-59) U/L ALT 31 (4-49) U/L Alkaline Phosphatase 44 (38-126) U/L Troponin I (0.000-0.034) ng/mL NT-Pro-B Natriuret Pep pg/mL Total Protein 6.8 (6.3-8.2) g/dL Albumin 4.2 (3.5-5.0) g/dL 10/06/22 10/06/22 Range/Units 11:44 11:44 WBC (3.8-10.6) k/uL RBC (4.30-5.90) m/uL Hgb (13.0-17.5) gm/dL Hct (39.0-53.0) % MCV (80.0-100.0) fL MCH (25.0-35.0) pg MCHC (31.0-37.0) g/dL RDW (11.5-15.5) % Plt Count (150-450) k/uL MPV Neutrophils % % Lymphocytes % % Monocytes % % Eosinophils % % Basophils % % Neutrophils # (1.3-7.7) k/uL Lymphocytes # (1.0-4.8) k/uL Monocytes # (0-1.0) k/uL Eosinophils # (0-0.7) k/uL Basophils # (0-0.2) k/uL PT (9.0-12.0) sec INR (<1.2) APTT (22.0-30.0) sec Sodium (137-145) mmol/L Potassium (3.5-5.1) mmol/L Chloride (98-107) mmol/L Carbon Dioxide (22-30) mmol/L Anion Gap mmol/L BUN (9-20) mg/dL Creatinine (0.66-1.25) mg/dL Est GFR (CKD-EPI)AfAm (>60 ml/min/1.73 sqM) Est GFR (CKD-EPI)NonAf (>60 ml/min/1.73 sqM) Glucose (74-99) mg/dL Calcium (8.4-10.2) mg/dL Magnesium (1.6-2.3) mg/dL Total Bilirubin (0.2-1.3) mg/dL AST (17-59) U/L ALT (4-49) U/L Alkaline Phosphatase (38-126) U/L Troponin I 0.012 (0.000-0.034) ng/mL NT-Pro-B Natriuret Pep 65 pg/mL Total Protein (6.3-8.2) g/dL Albumin (3.5-5.0) g/dL - EKG Data -: EKG Interpreted by Me EKG Comments: 12-lead Electrocardiogram Interpretation Note EKG was reviewed and interpreted by myself. 12-lead ECG performed at 1117 is interpreted by me as revealing sinus bradycardia at a rate of 59 beats per min irving. [place] is normal. RI interval is 144 ms, QRS duration is 102 ms the QTC is 390 ms.. Patient appears to J-point elevation as well as new or T wave inversions in V5 and V6. J-point elevation appears chronically compared with EKGs from February 2020. J-point elevation seen then in leads V2 through V3. Currently appears to be in V2, V3 and possibly V4.. R wave progression across the precordium was satisfactory. By my interpretation this EKG is non-diagnostic for acute ischemia. 12-lead Electrocardiogram Interpretation Note EKG was reviewed and interpreted by myself. 12-lead ECG performed at 1249 is interpreted by me as revealing sinus bradycardia at a rate of 54 beats per minute. [place] is normal. RI interval is 147 ms, QRS ration is 102 ms, QTc is 390 ms.. Patient has what appears to be J-point elevation as well as T-wave inversions in lateral precordial leads. Patient does have a history of some J- point elevation in V2-V4 an EKG from 2019. T-wave inversions appear more acute. No dynamic changes from earlier EKG.. R wave progression across the precordium was satisfactory. Critical Care Time Critical Care Time: Yes Total Critical Care Time: 35 Critical Care Time: Upon my evaluation, this patient had a high probability of imminent or life-thre atening deterioration due to chest pain, heparin initiation, which required my direct attention, intervention, and personal management. I have personally provided 35 minutes of critical care time exclusive of time spent on separately billable procedures. Time includes review of laboratory data, radiology results, discussion with consultants, and monitoring for poten tial decompensation. Interventions were performed as documented in my note. Disposition Clinical Impression: Chest pain Disposition: ADMITTED IP TO THIS HOSP Condition: Stable Time of Disposition: 13:00
[2022-10-06 12:02] LABS: ALT 31 U/L (4-49); AST 36 U/L (17-59); African American GFR (CKD) >90 (>60 ml/min/1.73 sqM); Albumin 4.2 g/dL (3.5-5.0); Alkaline Phosphatase 44 U/L (38-126); Anion Gap 11 mmol/L; Blood Urea Nitrogen 21 mg/dL (9-20); Calcium 9.4 mg/dL (8.4-10.2); Carbon Dioxide 22 mmol/L (22-30); Chloride 103 mmol/L (98-107); Glucose 186 mg/dL (74-99); Magnesium 1.9 mg/dL (1.6-2.3); Non-African American GFR(CKD) >90 (>60 ml/min/1.73 sqM); Potassium 4.5 mmol/L (3.5-5.1); Sodium 136 mmol/L (137-145); Total Bilirubin 0.6 mg/dL (0.2-1.3); Total Protein 6.8 g/dL (6.3-8.2)
[2022-10-06 12:05] LABS: Prothrombin Time 10.3 sec (9.0-12.0)
[2022-10-06 12:07] LABS: Basophils % (A) 0 %; Eosinophils # (A) 0.3 k/uL (0-0.7); Eosinophils % (A) 4 %; HCT 47.4 % (39.0-53.0); HGB 16.7 gm/dL (13.0-17.5); Lymphocytes # (A) 1.6 k/uL (1.0-4.8); Lymphocytes % (A) 23 %; MCH 30.3 pg (25.0-35.0); MCHC 35.2 g/dL (31.0-37.0); MCV 86.1 fL (80.0-100.0); Mean Platelet Volume 7.3; Monocytes # (A) 0.5 k/uL (0-1.0); Monocytes % (A) 7 %; Neutrophils # (A) 4.3 k/uL (1.3-7.7); Neutrophils % (A) 63 %; Platelet Count 210 k/uL (150-450); RBC 5.51 m/uL (4.30-5.90); RDW 12.7 % (11.5-15.5); WBC 6.8 k/uL (3.8-10.6)
--- NOTE | 2022-10-06 12:11 | XR ---
EXAMINATION TYPE: XR chest 2V DATE OF EXAM: 10/06/2022 COMPARISON: NONE TECHNIQUE: PA and lateral views submitted. HISTORY: Chest Pain FINDINGS: The lungs are clear and there is no pneumothorax, pleural effusion, or focal pneumonia. Heart size normal and no overt failure. Osseous structures demonstrate hypertrophic and degenerative changes of the spine. Hyperinflation suggests COPD. IMPRESSION: 1. No acute process.
[2022-10-06] MEDS ORDERED: HEPARIN SODIUM 1,000 UN/ML (10ML VL) IV PRN (12:57)
[2022-10-06] MEDS ORDERED: HEPARIN SODIUM 1,000 UN/ML (10ML VL) IV ONE (12:57)
[2022-10-06] MEDS ORDERED: HEPARIN SOD,PORK IN 0.45% NACL 25,000 UNIT in 0.45% NACL 1 250ML.BAG IV SCH (13:00)
[2022-10-06] MEDS ORDERED: FLUTICASONE 50MCG/SPRAY NASAL 16GM EA NOSTRIL PRN (13:23)
[2022-10-06] MEDS ORDERED: NALOXONE 0.4 MG/ML 1 ML VIAL IV PRN (13:43)
[2022-10-06 16:29] LABS: Glucose,Whole Blood 169 mg/dL (70-110)
[2022-10-06] MEDS: GABAPENTIN 300 MG CAP PO SCH ×2 (17:12→19:46)
[2022-10-06] MEDS: NITROGLYCERIN OINT 1 INCH/GM PACKET TOPICAL SCH ×2 (17:12→23:35)
[2022-10-06] MEDS: metFORMIN 500 MG TAB PO SCH (17:12)
[2022-10-06] MEDS: lisinopriL 20 MG TAB PO SCH (19:46)
[2022-10-06 19:58] LABS: Glucose,Whole Blood 102 mg/dL (70-110)
[2022-10-06] MEDS: ATORVASTATIN 20 MG TAB PO SCH (20:23)
--- NOTE | 2022-10-06 23:19 | P.HPIM ---
History of Present Illness H&P Date: 10/06/22 Chief Complaint: Chest pain This is a pleasant 62-year-old patient follows Dr. Cruz. Chronic stable medical conditions include sciatica, hypertension, hyperlipidemia, diabetes. Patient in 2012 had a stent placed by Dr. Khan. Also 6 months ago underwent a nuclear stress is that was negative. Last night patient developed sharp sternal pain with some pain radiating to the neck. I'll for 2 hours patient took a nitroglycerin that relieved the pain. This morning patient again developed a heaviness in the chest pain under the left arm. Tired. This was similar to his prior presentation. Decided to come to the ER. Initial troponin is negative. Cardiac consulted. Review of systems: GEN.: Tired EYES: None HEENT: None NECK: None RESPIRATORY: None CARDIOVASCULAR: As above GASTROINTESTINAL: None GENITOURINARY: None MUSCULOSKELETAL: None LYMPHATICS: None HEMATOLOGICAL: None PSYCHIATRY: None NEUROLOGICAL: None Past medical history to include: CAD with stent 2013, diabetes, hypertension, hyperlipidemia, sciatica, back surgery 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 No alcohol. Does take marijuana at night Physical examination: VITAL SIGNS: 98.2, 60, 19, 1 46 x 39, 97% room air] GENERAL: BMI 30.4, declining but awake not in distress. EYES: Pupils equal. Conjunctiva normal. HEENT: External appearance of nose and ears normal, oral cavity grossly normal. NECK: JVD not raised; masses not palpable. HEART: First and second heart sounds are normal; no edema. LUNGS: Respiratory rate normal; clear to auscultation. ABDOMEN: Soft, nontender, liver spleen not palpable, no masses palpable. PSYCH: Alert and oriented x3; mood and affect normal. MUSCULOSKELETAL:No Clubbing/cyanosis;muscles-grossly intact NEUROLOGICAL: Cranial nerves grossly intact; no facial asymmetry, power and sensation grossly intact. LYMPHATICS: No lymph nodes palpable in the axilla and neck INVESTIGATIONS, reviewed in the clinical context: White count 6.8 hemoglobin 16.7 platelets 210 sodium 136 potassium 4.5 BUN 21 creatinine 0.6 Troponin I: 0.012, less than 0.012, 0.012 Chest x-ray film personally reviewed by me-mild hyperinflation EKG tracing personally reviewed by me: Normal sinus rhythm. Q waves in 1 aVL and V6 to V5. Abnormal T waves in the same lateral leads. Assessment and plan: -Unstable angina in a patient known coronary artery disease. Presentation similar to his prior heart attack. Pain was present after relief with nitroglycerin A Telemetry. Serial enzymes. Cardiology consulted. Will probably need a nuclear stress test and/or cardiac catheterization based on presentation Aspirin. Nitropaste. Cardiology consulted. Telemetry. -Diabetes mellitus type 2 on oral hypoglycemic farxiga Glucophage. Follow Accu-Cheks with sliding scale -Hyperlipidemia Zocor 40 mg daily at bedtime -Essential hypertension Vasotec 20 mg twice a day -IV heparin monitoring Follow PTT Care was discussed with the patient. Questions answered. Cardiology consulted. Past Medical History Past Medical History: Coronary Artery Disease (CAD), Diabetes Mellitus, Hyperlipidemia, Hypertension, Myocardial Infarction ([place]) Additional Past Medical History / Comment(s): sciatica Last Myocardial Infarction Date:: 2012 History of Any Multi-Drug Resistant Organisms: None Reported Past Surgical History: Back Surgery, Heart Catheterization With Stent, Tonsillectomy Additional Past Surgical History / Comment(s): COLONOSCOPY Past Anesthesia/Blood Transfusion Reactions: No Reported Reaction Date of Last Stent Placement:: 2012 Past Psychological History: No Psychological Hx Reported Smoking Status: Former smoker Past Alcohol Use History: None Reported Past Drug Use History: None Reported - Past Family History Family Family Medical History: Coronary Artery Disease (CAD) Medications and Allergies Home Medications Medication Instructions Recorded Confirmed Type Aspirin 81 mg PO DAILY 11/22/13 10/06/22 History Dapagliflozin Propanediol [Farxiga] 10 mg PO DAILY 03/22/20 10/06/22 History Enalapril [Vasotec] 20 mg PO BID 03/22/20 10/06/22 History Gabapentin 300 mg PO TID 03/22/20 10/06/22 History metFORMIN HCL [Glucophage] 1,000 mg PO BID 03/22/20 10/06/22 History Simvastatin [Zocor] 40 mg PO HS 07/17/22 10/06/22 History Fish Oil/Dha/Epa [Fish Oil 1,200 1 cap PO BID 10/06/22 10/06/22 History mg Fish Oil] Fluticasone Nasal [place] [Flonase 1 spray EA NOSTRIL DAILY PRN 10/06/22 10/06/22 History Nasal [place]] Allergies Allergy/AdvReac Type Severity Reaction Status Date / Time No Known Allergies Allergy Verified 10/06/22 12:13 Physical Exam Vitals: Vital Signs Temp Pulse Resp BP Pulse Ox 10/06/22 14:45 97.8 F 20 97 10/06/22 14:27 98.0 F 10/06/22 14:00 68 20 159/92 96 10/06/22 13:30 58 L 20 143/82 96 10/06/22 13:00 56 L 18 127/75 95 10/06/22 12:30 54 L 20 109/72 96 10/06/22 12:00 59 L 18 138/80 95 10/06/22 11:22 62 138/83 96 10/06/22 11:17 98.0 F 68 20 138/83 97 Intake and Output 10/06/22 10/06/22 10/06/22 06:59 14:59 22:59 Other: Weight 90.718 kg Results CBC & Chem 7: 10/06/22 11:44 10/06/22 11:44 Labs: Abnormal Lab Results - Last 24 Hours (Table) 10/06/22 Range/Units 11:44 Sodium 136 L (137-145) mmol/L BUN 21 H (9-20) mg/dL Creatinine 0.63 L (0.66-1.25) mg/dL Glucose 186 H (74-99) mg/dL
[2022-10-07 06:11] LABS: Glucose,Whole Blood 121 mg/dL (70-110)
[2022-10-07] MEDS: metFORMIN 500 MG TAB PO SCH ×2 (06:29→17:12)
[2022-10-07 08:04] LABS: Prothrombin Time 10.6 sec (9.0-12.0)
[2022-10-07] MEDS ORDERED: CAFFEINE CITRATE 60 MG/3 ML VIAL IV PRN ×2 (08:24→08:50)
[2022-10-07] MEDS ORDERED: AMINOPHYLLINE 500 MG/20 ML VIAL IV PRN ×2 (08:24→08:50)
[2022-10-07] MEDS ORDERED: REGADENOSON 0.4 MG/5 ML SYRINGE IV PRN ×2 (08:24→08:50)
[2022-10-07 08:26] LABS: African American GFR (CKD) >90 (>60 ml/min/1.73 sqM); Anion Gap 6 mmol/L; Blood Urea Nitrogen 19 mg/dL (9-20); Calcium 9.1 mg/dL (8.4-10.2); Carbon Dioxide 27 mmol/L (22-30); Chloride 104 mmol/L (98-107); Glucose 135 mg/dL (74-99); Non-African American GFR(CKD) >90 (>60 ml/min/1.73 sqM); Potassium 4.2 mmol/L (3.5-5.1); Sodium 137 mmol/L (137-145)
[2022-10-07] MEDS: GABAPENTIN 300 MG CAP PO SCH ×3 (08:46→20:29)
[2022-10-07] MEDS: ASPIRIN 81 MG PO SCH (08:46)
[2022-10-07] MEDS: DAPAGLIFLOZIN PROPANEDIOL 10 MG TABLET PO SCH (08:46)
[2022-10-07] MEDS: lisinopriL 20 MG TAB PO SCH ×2 (08:46→20:29)
[2022-10-07 08:47] LABS: Basophils % (A) 0 %; Eosinophils # (A) 0.5 k/uL (0-0.7); Eosinophils % (A) 7 %; HGB 17.3 gm/dL (13.0-17.5); Lymphocytes # (A) 2.6 k/uL (1.0-4.8); Lymphocytes % (A) 36 %; MCH 30.3 pg (25.0-35.0); MCHC 34.6 g/dL (31.0-37.0); MCV 87.4 fL (80.0-100.0); Mean Platelet Volume 7.3; Monocytes # (A) 0.5 k/uL (0-1.0); Monocytes % (A) 7 %; Neutrophils # (A) 3.5 k/uL (1.3-7.7); Neutrophils % (A) 47 %; Platelet Count 202 k/uL (150-450); RBC 5.72 m/uL (4.30-5.90); RDW 12.8 % (11.5-15.5); WBC 7.4 k/uL (3.8-10.6)
[2022-10-07] MEDS: NITROGLYCERIN OINT 1 INCH/GM PACKET TOPICAL SCH ×4 (08:48→21:31)
[2022-10-07] MEDS ORDERED: HYDROmorphone 0.5 MG/0.5 ML SYRINGE IVP STA (09:58)
[2022-10-07 11:43] LABS: Glucose,Whole Blood 123 mg/dL (70-110)
--- NOTE | 2022-10-07 12:24 | P.CRDCN ---
History of Present Illness Consult date: 10/07/22 Consult reason: atrial fibrillation (With RVR) History of present illness: HISTORY OF PRESENTING ILLNESS This is a 62-year-old male patient of Dr. Vargas with past medical history significant for coronary artery disease status post PCI in 2012, aortic stenosis, hypertension, dyslipidemia and diabetes mellitus. We have been asked to see in consultation for chest pain. Patient states that he developed left- sided chest pain into the left arm that started while he was at rest. That he woke up in the morning had chest pain again located in the entire chest but not as severe. He thought that this was similar to chest pain he had in the past w ith PCI. EKG reveals sinus rhythm with no acute ST or T wave abnormalities noted. Chest xray negative for an acute cardiopulmonary process. WBC 7.4, hemoglobin 17.3, platelet count 202. Electrolytes normal. BUN 19 creatinine 0.73. Troponins negative 3. ProBNP 65 Current cardiac medications include aspirin 81 mg daily, Vasotec 20 mg twice daily, simvastatin 40 mg at bedtime. Patient is also on Farxiga 10 mg daily, metformin 1000 mg bid. PCI stent in the proximal circumflex 07/2012 Echocardiogram 05/2022 EF 45%, mild AR, moderate left ear, dilated aorta at 3.8 cm Lexiscan stress test 04/2020 moderate basal inferior scar REVIEW OF SYSTEMS At the time of my exam: CONSTITUTIONAL: Denies fever or chills. CARDIOVASCULAR: Denies chest pain, shortness of breath, orthopnea, PND or palpitations. RESPIRATORY: Denies cough. GASTROINTESTINAL: Denies abdominal pain, diarrhea, constipation, nausea or vomiting. MUSCULOSKELETAL: Denies myalgias. NEUROLOGIC: Denies numbness, tingling or weakness. ENDOCRINE: Denies fatigue, weight change, polydipsia or polyurina. GENITOURINARY: Denies burning, hematuria or urgency with micturation. HEMATOLOGIC: Denies history of anemia or bleeding. PHYSICAL EXAMINATION VS reviewed CONSTITUTIONAL: No apparent distress. HEENT: Head is normocephalic. Pupils are equal, round. Sclerae anicteric. Mucous membranes of the mouth are moist. No JVD. No carotid bruit. CHEST EXAMINATION: Lungs are clear to auscultation. No chest wall tenderness is noted on palpation or with deep breathing. HEART EXAMINATION: Regular rate and rhythm. S1, S2 heard. Systolic ejection murmur at the base and apex, no gallops or rub. ABDOMEN: Soft, nontender. Positive bowel sounds. EXTREMITIES: 2+ peripheral pulses, no lower extremity edema and no calf tenderness. NEUROLOGIC EXAMINATION: Patient is awake, alert and oriented x3. ASSESSMENT Chest pain, atypical for angina. Acute coronary event has been ruled out. History of coronary artery disease Hypertension Dyslipidemia Diabetes mellitus PLAN Pain is atypical for angina unlikely, pain related to musculoskeletal strain. An acute coronary event has been ruled out. Discontinue heparin drip Continue home cardiac medications Patient will be scheduled for Lexiscan stress test tomorrow as he had coffee this morning. If stress test is within normal limits, patient will be cleared for discharge home tomorrow and may follow-up in the office with Dr. Vargas. Thank you kindly for this consultation. Nurse Practitioner note has been reviewed, I agree with a documented findings and plan of care. Patient was seen and examined. Past Medical History Past Medical History: Coronary Artery Disease (CAD), Diabetes Mellitus, Hyperlipidemia, Hypertension, Myocardial Infarction (DE) Additional Past Medical History / Comment(s): sciatica Last Myocardial Infarction Date:: 2012 History of Any Multi-Drug Resistant Organisms: None Reported Past Surgical History: Back Surgery, Heart Catheterization With Stent, Tonsillectomy Additional Past Surgical History / Comment(s): COLONOSCOPY Past Anesthesia/Blood Transfusion Reactions: No Reported Reaction Date of Last Stent Placement:: 2012 Past Psychological History: No Psychological Hx Reported Smoking Status: Former smoker Past Alcohol Use History: None Reported Past Drug Use History: None Reported - Past Family History Family Family Medical History: Coronary Artery Disease (CAD) Medications and Allergies Home Medications Medication Instructions Recorded Confirmed Type Aspirin 81 mg PO DAILY 11/22/13 10/06/22 History Dapagliflozin Propanediol [Farxiga] 10 mg PO DAILY 03/22/20 10/06/22 History Enalapril [Vasotec] 20 mg PO BID 03/22/20 10/06/22 History Gabapentin 300 mg PO TID 03/22/20 10/06/22 History metFORMIN HCL [Glucophage] 1,000 mg PO BID 03/22/20 10/06/22 History Simvastatin [Zocor] 40 mg PO HS 07/17/22 10/06/22 History Fish Oil/Dha/Epa [Fish Oil 1,200 1 cap PO BID 10/06/22 10/06/22 History mg Fish Oil] Fluticasone Nasal [place] [Flonase 1 spray EA NOSTRIL DAILY PRN 10/06/22 10/06/22 History Nasal [place]] Allergies Allergy/AdvReac Type Severity Reaction Status Date / Time No Known Allergies Allergy Verified 10/06/22 12:13 Physical Exam Vitals: Vital Signs Temp Pulse Pulse Resp BP BP Pulse Ox 10/07/22 09:45 61 152/77 10/07/22 08:53 98 10/07/22 08:00 98.1 F 63 18 142/74 96 10/07/22 03:54 98.3 F 65 18 137/71 97 10/06/22 23:36 98.1 F 64 19 126/62 96 10/06/22 20:00 98.2 F 60 19 146/79 97 10/06/22 14:46 62 20 10/06/22 14:45 97.8 F 62 20 128/79 97 10/06/22 14:27 98.0 F 10/06/22 14:00 68 20 159/92 96 10/06/22 13:30 58 L 20 143/82 96 10/06/22 13:00 56 L 18 127/75 95 10/06/22 12:30 54 L 20 109/72 96 Intake and Output 10/06/22 10/07/22 10/07/22 22:59 06:59 14:59 Intake Total 240.167 180 Balance 240.167 180 Intake: Intake, IV Titration 60.167 Amount Heparin Sod,Pork in 0.45% 60.167 NaCl 25,000 unit In 0.45 % NaCl 1 250ml.bag @ 11. 023 UNITS/KG/HR 10 mls/hr IV .Q24H [facility] Rx#: [id number] Oral 180 180 Other: Voiding Method Toilet Toilet Toilet # Voids 1 2 Results 10/07/22 07:18 10/07/22 07:18 Cardiac Enzymes 10/06/22 10/06/22 10/06/22 Range/Units 11:44 15:32 18:26 Troponin I 0.012 <0.012 0.012 (0.000-0.034) ng/mL 10/07/22 Range/Units 10:04 Troponin I <0.012 (0.000-0.034) ng/mL Coagulation 10/06/22 10/07/22 10/07/22 Range/Units 18:26 00:28 07:18 PT 10.6 (9.0-12.0) sec APTT 37.8 H 48.3 H (22.0-30.0) sec 10/07/22 Range/Units 07:18 PT (9.0-12.0) sec APTT 49.9 H (22.0-30.0) sec CBC 10/07/22 Range/Units 07:18 WBC 7.4 (3.8-10.6) k/uL RBC 5.72 (4.30-5.90) m/uL Hgb 17.3 (13.0-17.5) gm/dL Hct 50.0 (39.0-53.0) % Plt Count 202 (150-450) k/uL Comprehensive Metabolic Panel 10/07/22 Range/Units 07:18 Sodium 137 (137-145) mmol/L Potassium 4.2 (3.5-5.1) mmol/L Chloride 104 (98-107) mmol/L Carbon Dioxide 27 (22-30) mmol/L BUN 19 (9-20) mg/dL Creatinine 0.73 (0.66-1.25) mg/dL Glucose 135 H (74-99) mg/dL Calcium 9.1 (8.4-10.2) mg/dL Current Medications Generic Name Dose Route Start Last Admin Trade Name Freq PRN Reason Stop Dose Admin Aminophylline 100 mg 10/07/22 08:50 Aminophylline 500 Mg/20 Ml Vial IV 10/07/22 12:50 ONCE PRN Patient Response Aspirin 81 mg 10/07/22 09:00 10/07/22 08:46 Aspirin 81 Mg PO 81 mg DAILY [facility] Administration Atorvastatin Calcium 20 mg 10/06/22 21:00 10/06/22 20:23 Atorvastatin 20 Mg Tab PO Not Given HS [facility] Caffeine Citrate 60 mg 10/07/22 08:50 Caffeine Citrate 60 Mg/3 Ml Vial IV 10/07/22 12:50 ONCE PRN Patient Response Dapagliflozin 10 mg 10/07/22 09:00 10/07/22 08:46 Dapagliflozin Propanediol 10 Mg Tablet PO 10 mg DAILY [facility] Administration Fluticasone Propionate 1 spray 10/06/22 13:23 Fluticasone 50mcg/[place] Nasal 16gm EA NOSTRIL DAILY PRN Allergy Symptoms Gabapentin 300 mg 10/06/22 16:00 10/07/22 08:46 Gabapentin 300 Mg Cap PO 300 mg TID [facility] Administration Heparin Sodium (Porcine) 0 unit 10/06/22 12:57 Heparin Sodium 1,000 Un/Ml (10ml Vl) IV PER PROTOCOL PRN Low PTT Protocol Heparin Sodium/Sodium Chloride 250 mls @ 10 mls/hr 10/06/22 13:00 10/06/22 19:48 25,000 unit/ Sodium Chloride IV 13.23 units/kg/hr .Q24H [facility] 12 mls/hr Titration Protocol 11.023 UNITS/KG/HR Lisinopril 40 mg 10/06/22 21:00 10/07/22 08:46 Lisinopril 20 Mg Tab PO 40 mg BID [facility] Administration Metformin HCl 1,000 mg 10/06/22 17:30 10/07/22 06:29 Metformin 500 Mg Tab PO 1,000 mg BID-W/MEALS [facility] Administration Naloxone HCl 0.2 mg 10/06/22 13:43 Naloxone 0.4 Mg/Ml 1 Ml Vial IV Q2M PRN Opioid Reversal Nitroglycerin 0.5 inch 10/06/22 16:00 10/07/22 09:46 Nitroglycerin Oint 1 Inch/Gm Packet TOPICAL 0.5 inch Q8HR [facility] Administration Regadenoson 0.4 mg 10/07/22 08:50 Regadenoson 0.4 Mg/5 Ml Syringe IV 10/07/22 12:50 ONCE PRN Per Protocol Intake and Output 10/06/22 10/07/22 10/07/22 22:59 06:59 14:59 Intake Total 240.167 180 Balance 240.167 180 Intake: Intake, IV Titration 60.167 Amount Heparin Sod,Pork in 0.45% 60.167 NaCl 25,000 unit In 0.45 % NaCl 1 250ml.bag @ 11. 023 UNITS/KG/HR 10 mls/hr IV .Q24H [facility] Rx#: [id number] Oral 180 180 Other: Voiding Method Toilet Toilet Toilet # Voids 1 2 10/07/22 07:18 10/07/22 07:18
[2022-10-07 16:25] LABS: Glucose,Whole Blood 103 mg/dL (70-110)
--- NOTE | 2022-10-07 17:22 | CA ---
Transthoracic Echo Report Name: Manuel Cano Age: 62 Gender: M : 1960 Exam Date: 10/07/2022 08:01 Exam Location: [facility] Ht (in): 68 Wt (lb): 200 Ordering Physician: Noam Ledesma MD Attending/Referring Phys: Hospice Consultant Kristin Flowers RDCS Procedure CPT: Indications: Chest Pain Cardiac Hx: Technical Quality: Fair Contrast 1: Total Dose (mL): Contrast 2: Total Dose (mL): MEASUREMENTS (Male / Female) Normal Values 2D ECHO LV Diastolic Diameter PLAX 4.5 cm 4.2 - 5.9 / 3.9 - 5.3 cm LV Systolic Diameter PLAX 2.9 cm IVS Diastolic Thickness 1.7 cm 0.6 - 1.0 / 0.6 - 0.9 cm LVPW Diastolic Thickness 1.4 cm 0.6 - 1.0 / 0.6 - 0.9 cm LV Relative Wall Thickness 0.7 RV Internal Dim ED PLAX 2.9 cm LVOT Diameter 2.0 cm LA Volume 92.7 cm??? 18 - 58 / 22 - 52 cm??? M-MODE Aortic Root Diameter MM 3.7 cm LA Systolic Diameter MM 4.6 cm LA Ao Ratio MM 1.3 AV Cusp Separation MM 1.2 cm DOPPLER AV Peak Velocity 414.4 cm/s AV Peak Gradient 68.7 mmHg AV Mean Velocity 277.2 cm/s AV Mean Gradient 38.9 mmHg AV Velocity Time Integral 94.3 cm LVOT Peak Velocity 109.2 cm/s LVOT Peak Gradient 4.8 mmHg LVOT Velocity Time Integral 29.6 cm LVOT Stroke Volume 90.8 cm??? LVOT Stroke Volume Index 44.4 ml/m??? LVOT Cardiac Index 2664.2 cm???/min???m??? AV Area Cont Eq vti 1.0 cm??? AV Area Cont Eq pk 0.8 cm??? MV Peak Velocity 161.4 cm/s MV Peak Gradient 10.4 mmHg MV Mean Velocity 85.5 cm/s MV Mean Gradient 3.5 mmHg MV Velocity Time Integral 44.2 cm MV Area PHT 4.0 cm??? Mitral E Point Velocity 116.8 cm/s Mitral A Point Velocity 133.6 cm/s Mitral E to A Ratio 0.9 MV Deceleration Time 183.3 ms MV E' Velocity 4.0 cm/s Mitral E to MV E' Ratio 29.3 TR Peak Velocity 254.0 cm/s TR Peak Gradient 25.8 mmHg Right Ventricular Systolic Press 30.8 mmHg FINDINGS Left Ventricle Severely increased left ventricular wall thickness. Left ventricular cavity size normal. Normal left ventricular systolic function with no obvious regional wall motion abnormalities. Left ventricular ejection fraction is estimated at 55-60 %. Right Ventricle Normal right ventricular size and function. Right ventricular systolic pressure within normal limits. Right Atrium Normal right atrial size. Left Atrium Severely increased left atrial volume. Mildly increased left atrial area. Mitral Valve Structurally normal mitral valve. Mitral valve thickened. Mild mitral annular calcification. Mild mitral regurgitation. Aortic Valve [id number] aortic stenosis with a peak gradient of 69 mmHg and a mean gradient of 39 mmHg. Trace aortic regurgitation. Tricuspid Valve Structurally normal tricuspid valve. Mild tricuspid regurgitation. Pulmonic Valve Structurally normal pulmonic valve. Pericardium No pericardial effusion. Aorta Normal size aortic root and proximal ascending aorta. CONCLUSIONS Preserved LV systolic function Heavily calcified aortic valve with severe stenosis Previewed by: Dr. Eric Sharma MD (Electronically Signed) Final Date: 07 October 2022 17:21
--- NOTE | 2022-10-07 19:18 | P.PN ---
Progress Note - Text Progress Note Date: 10/07/22 Chief Complaint: Chest pain This is a pleasant 62-year-old patient follows Dr. Cruz. Chronic stable medical conditions include sciatica, hypertension, hyperlipidemia, diabetes. Patient in 2012 had a stent placed by Dr. Khan. Also 6 months ago underwent a nuclear stress is that was negative. Last night patient developed sharp sternal pain with some pain radiating to the neck. I'll for 2 hours patient took a nitroglycerin that relieved the pain. This morning patient again developed a heaviness in the chest pain under the left arm. Tired. This was similar to his prior presentation. Decided to come to the ER. Initial troponin is negative. Cardiac consulted. Admitted with unstable angina. 10/07/2022: Patient scheduled for a stress test tomorrow. Had some episode of chest pressure earlier today. Has a Nitropaste. Seen by cardiology. IV heparin was discontinued by currently. 4 nuclear stress test tomorrow. Active Medications Aspirin (Aspirin 81 Mg) 81 mg PO DAILY [facility] Last Admin: 10/07/22 08:46 Dose: 81 mg Atorvastatin Calcium (Atorvastatin 20 Mg Tab) 20 mg PO HS [facility] Last Admin: 10/06/22 20:23 Dose: Not Given Dapagliflozin (Dapagliflozin Propanediol 10 Mg Tablet) 10 mg PO DAILY [facility] Last Admin: 10/07/22 08:46 Dose: 10 mg Fluticasone Propionate (Fluticasone 50mcg/[place] Nasal 16gm) 1 spray EA NOSTRIL DAILY PRN PRN Reason: Allergy Symptoms Gabapentin (Gabapentin 300 Mg Cap) 300 mg PO TID [facility] Last Admin: 10/07/22 17:12 Dose: 300 mg Lisinopril (Lisinopril 20 Mg Tab) 40 mg PO BID [facility] Last Admin: 10/07/22 08:46 Dose: 40 mg Metformin HCl (Metformin 500 Mg Tab) 1,000 mg PO BID-W/MEALS [facility] Last Admin: 10/07/22 17:12 Dose: 1,000 mg Naloxone HCl (Naloxone 0.4 Mg/Ml 1 Ml Vial) 0.2 mg IV Q2M PRN PRN Reason: Opioid Reversal Nitroglycerin (Nitroglycerin Oint 1 Inch/Gm Packet) 0.5 inch TOPICAL Q8HR [facility] Last Admin: 10/07/22 17:12 Dose: 0.5 inch Past medical history to include: CAD with stent 2013, diabetes, hypertension, hyperlipidemia, sciatica, back surgery 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 No alcohol. Does take marijuana at night Physical examination: VITAL SIGNS: 98.1, 63, 16, 142/74, 96 when room air GENERAL: BMI 30.4, up in a recliner, comfortable EYES: Pupils equal. Conjunctiva normal. HEENT: External appearance of nose and ears normal, oral cavity grossly normal. NECK: JVD not raised; masses not palpable. HEART: First and second heart sounds are normal; no edema. LUNGS: Respiratory rate normal; clear to auscultation. ABDOMEN: Soft, nontender, liver spleen not palpable, no masses palpable. PSYCH: Alert and oriented x3; mood and affect normal. INVESTIGATIONS, reviewed in the clinical context: October 07: White count 7.4 hemoglobin 17.3 platelets 202 potassium 4.2 creatinine 0.73 White count 6.8 hemoglobin 16.7 platelets 210 sodium 136 potassium 4.5 BUN 21 creatinine 0.6 Troponin I: 0.012, less than 0.012, 0.012 Chest x-ray film personally reviewed by me-mild hyperinflation EKG tracing personally reviewed by me: Normal sinus rhythm. Q waves in 1 aVL and V6 to V5. Abnormal T waves in the same lateral leads. Assessment and plan: -Unstable angina in a patient known coronary artery disease. Presentation similar to his prior heart attack. relief with nitroglycerin A: Uncontrolled, episode of chest pressure this morning Telemetry. Serial enzymes. Cardiology consulted. Aspirin. Nitropaste. Follow with Cardiology . Telemetry. 4 nuclear stress test tomorrow -Diabetes mellitus type 2 on oral hypoglycemic farxiga Glucophage. Follow Accu-Cheks with sliding scale -Hyperlipidemia Zocor 40 mg daily at bedtime -Essential hypertension Vasotec 20 mg twice a day -IV heparin discontinued Discussed with patient, family at the bedside. 4 nuclear stress test tomorrow.
[2022-10-07] MEDS: ATORVASTATIN 20 MG TAB PO SCH (19:49)
[2022-10-07 20:02] LABS: Glucose,Whole Blood 103 mg/dL (70-110)
[2022-10-08 05:58] LABS: Glucose,Whole Blood 126 mg/dL (70-110)
[2022-10-08] MEDS: metFORMIN 500 MG TAB PO SCH (06:05)
[2022-10-08] MEDS: DAPAGLIFLOZIN PROPANEDIOL 10 MG TABLET PO SCH (07:43)
[2022-10-08] MEDS: lisinopriL 20 MG TAB PO SCH (07:43)
[2022-10-08] MEDS: GABAPENTIN 300 MG CAP PO SCH (07:43)
[2022-10-08] MEDS: ASPIRIN 81 MG PO SCH (07:43)
[2022-10-08] MEDS: NITROGLYCERIN OINT 1 INCH/GM PACKET TOPICAL SCH (07:47)
[2022-10-08 08:00] VITALS: RESP 18; TEMP 98.4
--- NOTE | 2022-10-08 10:54 | P.PN ---
Subjective Progress Note Date: 10/08/22 HISTORY OF PRESENTING ILLNESS This is a 62-year-old male patient of Dr. Vargas with past medical history sig nificant for coronary artery disease status post PCI in 2012, aortic stenosis, hypertension, dyslipidemia and diabetes mellitus. We have been asked to see in consultation for chest pain. Patient states that he developed left-sided chest pain into the left arm that started while he was at rest. That he woke up in the morning had chest pain again located in the entire chest but not as severe. He thought that this was similar to chest pain he had in the past with PCI. EKG reveals sinus rhythm with no acute ST or T wave abnormalities noted. Chest xray negative for an acute cardiopulmonary process. WBC 7.4, hemoglobin 17.3, platelet count 202. Electrolytes normal. BUN 19 creatinine 0.73. Troponins negative 3. ProBNP 65 Current cardiac medications include aspirin 81 mg daily, Vasotec 20 mg twice daily, simvastatin 40 mg at bedtime. Patient is also on Farxiga 10 mg daily, metformin 1000 mg bid. PCI stent in the proximal circumflex 07/2012 Echocardiogram 05/2022 EF 45%, mild AR, moderate left ear, dilated aorta at 3.8 cm Lexiscan stress test 04/2020 moderate basal inferior scar 10/08 Patient is scheduled for Lexiscan stress test today. Vital signs at been stable. ASSESSMENT Chest pain, atypical for angina. Acute coronary event has been ruled out. History of coronary artery disease Hypertension Dyslipidemia Diabetes mellitus PLAN Continue home cardiac medications Patient scheduled for Lexiscan stress test today. If stress test is within normal limits, patient will be cleared for discharge home tomorrow and may follow-up in the office with Dr. Vargas. Thank you kindly for this consultation. Nurse Practitioner note has been reviewed, I agree with a documented findings and plan of care. Patient was seen and examined. Objective - Vital Signs Vital signs: Vital Signs Temp 98.4 F 10/08/22 07:45 Pulse 61 10/08/22 07:45 Resp 18 10/08/22 07:45 BP 152/77 10/08/22 07:45 Pulse Ox 96 10/08/22 07:45 FiO2 Intake & Output 10/07/22 10/08/22 10/08/22 18:59 06:59 18:59 Intake Total 660 Balance 660 Intake: Oral 660 Other: Voiding Method Toilet Toilet Toilet # Voids 2 - Labs CBC & Chem 7: 10/07/22 07:18 10/07/22 07:18 Labs: Abnormal Lab Results - Last 24 Hours (Table) 10/07/22 10/08/22 Range/Units 11:42 05:56 POC Glucose (mg/dL) 123 H 126 H (70-110) mg/dL
[2022-10-08 11:36] VITALS: BP 136/79; PULSE 68
[2022-10-08 11:48] LABS: Glucose,Whole Blood 112 mg/dL (70-110)
--- NOTE | 2022-10-08 11:52 | CA ---
Lexiscan Nuclear Stress Test Report Name: Manuel Cano Exam Date: 10/08/2022 09:59 Exam Location: [place] Stress Ht (in): 68 Wt (lb): 200 BSA: 2.04 Ordering Phys: Waleska Dee Referring Phys: WALESKA DEE,, Technologist: Hasmukh Redding Age: 62 Gender: M : 1960 Procedure CPT: Indications: Reflex order-Stress test ICD-10 Codes: Patient History: Medications: SEE CHART Meds past 24 hrs: Pretest Chest Pain: STRESS TEST Lexiscan Protocol Exercise Duration (min:sec): 02:[address] Depressions (mm): Angina Score: Duran Score: Resting HR (bpm): 62 Peak HR (bpm): 98 Resting BP (mmHg): 128 / 71 Peak BP (mmHg): 120 / 66 MPHR: 157 Target HR: 133 % MPHR: 62 METS: 1.0 Total Dose: Peak Dose: Atropine: Double Product: 71226 BP Response: Stress Termination: PROTOCOL COMPLETE Stress Symptoms: NO SYMPTOMS Stress Summary: ECG ANALYSIS Resting ECG: Stress ECG: CONCLUSIONS Baseline heart rate is 60 beats a minute, Baseline blood pressure 128/71 mmHg Baseline EKG showed sinus mechanism normal SC narrow QRS biphasic ST segments and T-wave inversions inferolaterally including lateral precordial leads Patient received Lexiscan infusion per protocol No significant change in heart rate and blood pressure No new EKG changes Nuclear portion of the stress test will be reported separately Dr. Eric Sharma MD (Electronically Signed) Final Date: 08 October 2022 11:51
--- NOTE | 2022-10-08 12:01 | NM ---
EXAMINATION TYPE: NM stress lexiscan cardiolite DATE OF EXAM: 10/08/2022 COMPARISON: NONE HISTORY: Chest pain TECHNIQUE: After the intravenous administration of 10.3 mCi Tc 99m Sestamibi - Cardiolite resting SP ECT images acquired 45 minutes post injection. The patient received 0.4mg Lexiscan, 24.8 mCi Tc 99m Sestamibi - Stress images obtained [address] injection FINDINGS: Review of stress and rest SPECT images demonstrates large area of fixed defect involving the lateral inferior wall. Corresponding abnormal wall motion. Gated analysis an estimated left ventricular ejec tion fraction of 51 %. IMPRESSION: A large predominantly fixed defect involving the lateral inferior wall. Tiny area of stress-induced r eversible ischemia not entirely excluded correlate clinically.
--- NOTE | 2022-10-12 23:26 | P.DS ---
Providers Date of admission: 10/06/22 13:43 Expected date of discharge: 10/12/22 Attending physician: Kuldip Blankenship Consults: 10/06/22 12:57 Consult Physician Urgent Consulting Provider: [facility] Consult Reason/Comments: chest pain Do you want consulting provider notified?: Yes Primary care physician: Cassius Beaumont Hospital Course: Chief Complaint: Chest pain This is a pleasant 62-year-old patient follows Dr. Cruz. Chronic stable medical conditions include sciatica, hypertension, hyperlipidemia, diabetes. Patient in 2012 had a stent placed by Dr. Khan. Also 6 months ago underwent a nuclear stress is that was negative. Last night patient developed sharp sternal pain with some pain radiating to the neck. I'll for 2 hours patient took a nitroglycerin that relieved the pain. This morning patient again developed a heaviness in the chest pain under the left arm. Tired. This was similar to his prior presentation. Decided to come to the ER. Initial troponin is negative. Cardiac consulted. Admitted with unstable angina. 10/07/2022: Patient scheduled for a stress test tomorrow. Had some episode of chest pressure earlier today. Has a Nitropaste. Seen by cardiology. IV heparin was discontinued by currently. 4 nuclear stress test tomorrow. 10/08/2022: No further symptoms. Did ambulate. Stress test showed large fixed defect involving the lateral inferior wall. Tiny area of stress-induced not entirely excluded. Given patient other convincing presenting complaint and history discussed with the patient and starting at 15 mg of Imdur. Told him to return to the ER if symptoms to rebound. 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 Questions answered. Past medical history to include: CAD with stent 2012, diabetes, hypertension, hyperlipidemia, sciatica, back surgery 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 No alcohol. Does take marijuana at night Physical examination: VITAL SIGNS: 98.4, 68, 18, 136/79, 96% room air GENERAL: BMI 30.4, up in a recliner, comfortable EYES: Pupils equal. Conjunctiva normal. HEENT: External appearance of nose and ears normal, oral cavity grossly normal. NECK: JVD not raised; masses not palpable. HEART: First and second heart sounds are normal; no edema. LUNGS: Respiratory rate normal; clear to auscultation. ABDOMEN: Soft, nontender, liver spleen not palpable, no masses palpable. PSYCH: Alert and oriented x3; mood and affect normal. INVESTIGATIONS, reviewed in the clinical context: Lexiscan stress test: Large fixed defect in the anterolateral wall. Tiny reversible area cannot be ruled out. October 07: White count 7.4 hemoglobin 17.3 platelets 202 potassium 4.2 creatinine 0.73 White count 6.8 hemoglobin 16.7 platelets 210 sodium 136 potassium 4.5 BUN 21 creatinine 0.6 Troponin I: 0.012, less than 0.012, 0.012 Chest x-ray film personally reviewed by me-mild hyperinflation EKG tracing personally reviewed by me: Normal sinus rhythm. Q waves in 1 aVL and V6 to V5. Abnormal T waves in the same lateral leads. Assessment and plan: -Possible Unstable angina in a patient known coronary artery disease. Presentation similar to his prior heart attack. relief with nitroglycerin A: Uncontrolled, episode of chest pressure following day. Nuclear stress test showing a large fixed affect. Tiny reversible area cannot be ruled out. Aspirin. . Follow with Dr. Khan. . Imdur ER 50 mg daily added. -Diabetes mellitus type 2 on oral hypoglycemic farxiga Glucophage. Follow Accu-Cheks with sliding scale -Hyperlipidemia Zocor 40 mg daily at bedtime -Essential hypertension Vasotec 20 mg twice a day -IV heparin discontinued Disposition: Home Plan - Discharge Summary Discharge Rx Participant: No New Discharge Prescriptions: New Isosorbide Mononitrate ER [Imdur] 15 mg PO DAILY #30 tab Continue Aspirin 81 mg PO DAILY metFORMIN HCL [Glucophage] 1,000 mg PO BID Gabapentin 300 mg PO TID Enalapril [Vasotec] 20 mg PO BID Dapagliflozin Propanediol [Farxiga] 10 mg PO DAILY Simvastatin [Zocor] 40 mg PO HS Fluticasone Nasal [place] [Flonase Nasal [place]] 1 spray EA NOSTRIL DAILY PRN PRN Reason: Allergy Symptoms Fish Oil/Dha/Epa [Fish Oil 1,200 mg Fish Oil] 1 cap PO BID Discharge Medication List Aspirin 81 mg PO DAILY 11/22/13 [History] Dapagliflozin Propanediol [Farxiga] 10 mg PO DAILY 03/22/20 [History] Enalapril [Vasotec] 20 mg PO BID 03/22/20 [History] Gabapentin 300 mg PO TID 03/22/20 [History] metFORMIN HCL [Glucophage] 1,000 mg PO BID 03/22/20 [History] Simvastatin [Zocor] 40 mg PO HS 07/17/22 [History] Fish Oil/Dha/Epa [Fish Oil 1,200 mg Fish Oil] 1 cap PO BID 10/06/22 [History] Fluticasone Nasal [place] [Flonase Nasal [place]] 1 spray EA NOSTRIL DAILY PRN 10/06/22 [History] Isosorbide Mononitrate ER [Imdur] 15 mg PO DAILY #30 tab 10/08/22 [Rx] Follow up Appointment(s)/Referral(s): Cassius Cruz DO [Primary Care Provider] - 1-2 days (patient to call and make appointment ) Partha Vargas MD [STAFF PHYSICIAN] - 10/22/22 2:45 pm Patient Instructions/Handouts: Chest Pain (DC) Discharge Disposition: HOME SELF-CARE
== END 2022-10-08 14:07 | disposition home or self-care (01) ==
LOC: EC 11:03 → 3SCARD 13:43 → INTOOBSV 13:43 → 3SCARD 14:05 → UNDODISIN 10-08 14:07
PROVIDERS: ADMIT Hospitalist; ATTEND Hospitalist
DX: I25.110 Atherosclerotic heart disease of native coronary artery with unstable angina pectoris (principal); R00.1 Bradycardia, unspecified; J44.9 Chronic obstructive pulmonary disease, unspecified; I10 Essential (primary) hypertension; E78.5 Hyperlipidemia, unspecified; E11.9 Type 2 diabetes mellitus without complications; I25.2 Old myocardial infarction; I77.819 Aortic ectasia, unspecified site; F12.90 Cannabis use, unspecified, uncomplicated; I35.0 Nonrheumatic aortic (valve) stenosis; I08.3 Combined rheumatic disorders of mitral, aortic and tricuspid valves; E66.9 Obesity, unspecified; Z79.82 Long term (current) use of aspirin; Z79.84 Long term (current) use of oral hypoglycemic drugs; Z79.899 Other long term (current) drug therapy; Z87.891 Personal history of nicotine dependence; Z82.49 Family history of ischemic heart disease and other diseases of the circulatory system; Z95.5 Presence of coronary angioplasty implant and graft; Z68.30 Body mass index [BMI] 30.0-30.9, adult
CPT/HCPCS: 96366 ×2; 96375; 96361; 96365; 99291; 36415; 94760 ×2; 93005; 93017; 93306; 83880; 80053; 80048; 83735; 84484 ×2; 85025 ×2; 85610 ×2; 85730 ×2; 71046; 78452; G0378 ×3; A9500; J1644 ×2; J2785; J1170

== ENCOUNTER 2022-10-14 16:55 | Observation (INO) | payer BC ==
--- NOTE | 2022-10-14 17:23 | ED ---
General Adult HPI - General Stated complaint: recheck Time Seen by Provider: 10/14/22 17:23 Source: RN notes reviewed - History of Present Illness Initial comments: 62-year-old male presents to the emergency department with a chief complaint of chest pain. Patient reports coming symptoms of shortness of breath with this. 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 - Related Data Home Medications Medication Instructions Recorded Confirmed Aspirin 81 mg PO DAILY 11/22/13 10/14/22 Dapagliflozin Propanediol [Farxiga] 10 mg PO DAILY 03/22/20 10/14/22 Enalapril [Vasotec] 20 mg PO BID 03/22/20 10/14/22 Gabapentin 300 mg PO TID 03/22/20 10/14/22 metFORMIN HCL [Glucophage] 1,000 mg PO BID 03/22/20 10/14/22 Simvastatin [Zocor] 40 mg PO HS 07/17/22 10/14/22 Fish Oil/Dha/Epa [Fish Oil 1,200 1 cap PO BID 10/06/22 10/14/22 mg Fish Oil] Fluticasone Nasal [place] [Flonase 1 spray EA NOSTRIL DAILY PRN 10/06/22 10/14/22 Nasal [place]] Isosorbide Mononitrate ER [Imdur] 15 mg PO DAILY 10/14/22 10/14/22 Previous Rx's Medication Instructions Recorded Nitroglycerin Sl Tabs [Nitrostat] 0.4 mg SUBLINGUAL Q5M PRN #30 tab 10/16/22 Sennosides [Senokot] 17.2 mg PO HS tab 10/16/22 Allergies Allergy/AdvReac Type Severity Reaction Status Date / Time No Known Allergies Allergy Verified 10/14/22 20:58 Review of Systems ROS Statement: Those systems with pertinent positive or pertinent negative responses have been documented in the HPI. ROS Other: All systems not noted in ROS Statement are negative. Past Medical History Past Medical History: Coronary Artery Disease (CAD), Diabetes Mellitus, Hype rlipidemia, Hypertension, Myocardial Infarction ([place]) Additional Past Medical History / Comment(s): sciatica Last Myocardial Infarction Date:: 2012 History of Any Multi-Drug Resistant Organisms: None Reported Past Surgical History: Back Surgery, Heart Catheterization With Stent, Tonsillectomy Additional Past Surgical History / Comment(s): COLONOSCOPY Past Anesthesia/Blood Transfusion Reactions: No Reported Reaction Date of Last Stent Placement:: 2012 Past Psychological History: No Psychological Hx Reported Smoking Status: Former smoker Past Alcohol Use History: None Reported Past Drug Use History: None Reported - Past Family History Family Family Medical History: Coronary Artery Disease (CAD) General Exam - General Exam Comments Initial Comments: Visual Physical Exam Vital signs reviewed General: Well-appearing, nontoxic, no acute distress. Head: Normocephalic, atraumatic Eyes: PERRLA, EOMI ENT: Airway patent Chest: Nonlabored breathing Skin: No visual rash, normal skin tone Neuro: Alert and oriented 3 Musculoskeletal: No gross abnormalities Course Vital Signs 10/14/22 10/14/22 10/14/22 17:21 21:38 23:44 Temperature 97.9 F Pulse Rate 60 62 62 Respiratory 18 19 18 Rate Blood Pressure 136/85 142/73 133/78 O2 Sat by Pulse 97 96 Oximetry Medical Decision Making - Lab Data Result diagrams: 10/14/22 17:47 10/14/22 17:47 Lab Results 10/14/22 10/14/22 10/14/22 Range/Units 17:47 17:47 17:47 WBC 6.6 (3.8-10.6) k/uL RBC 5.42 (4.30-5.90) m/uL Hgb 16.9 (13.0-17.5) gm/dL Hct 46.9 (39.0-53.0) % MCV 86.5 (80.0-100.0) fL MCH 31.1 (25.0-35.0) pg MCHC 36.0 (31.0-37.0) g/dL RDW 12.3 (11.5-15.5) % Plt Count 222 (150-450) k/uL MPV 7.3 Neutrophils % 48 % Lymphocytes % 35 % Monocytes % 11 % Eosinophils % 3 % Basophils % 1 % Neutrophils # 3.2 (1.3-7.7) k/uL Lymphocytes # 2.3 (1.0-4.8) k/uL Monocytes # 0.7 (0-1.0) k/uL Eosinophils # 0.2 (0-0.7) k/uL Basophils # 0.0 (0-0.2) k/uL PT (9.0-12.0) sec INR (<1.2) APTT (22.0-30.0) sec Sodium 137 (137-145) mmol/L Potassium 4.6 (3.5-5.1) mmol/L Chloride 106 (98-107) mmol/L Carbon Dioxide 20 L (22-30) mmol/L Anion Gap 11 mmol/L BUN 21 H (9-20) mg/dL Creatinine 0.91 (0.66-1.25) mg/dL Est GFR (CKD-EPI)AfAm >90 (>60 ml/min/1.73 sqM) Est GFR (CKD-EPI)NonAf 89 (>60 ml/min/1.73 sqM) Glucose 95 (74-99) mg/dL Calcium 9.1 (8.4-10.2) mg/dL Total Bilirubin 0.8 (0.2-1.3) mg/dL AST 32 (17-59) U/L ALT 30 (4-49) U/L Alkaline Phosphatase 44 (38-126) U/L Troponin I <0.012 (0.000-0.034) ng/mL Total Protein 7.5 (6.3-8.2) g/dL Albumin 4.6 (3.5-5.0) g/dL Urine Color Urine Appearance (Clear) Urine pH (5.0-8.0) Ur Specific [place] (1.001-1.035) Urine Protein (Negative) Urine Glucose (UA) (Negative) Urine Ketones (Negative) Urine Blood (Negative) Urine Nitrite (Negative) Urine Bilirubin (Negative) Urine Urobilinogen (<2.0) mg/dL Ur Leukocyte Esterase (Negative) 10/14/22 10/14/22 Range/Units 17:47 19:58 WBC (3.8-10.6) k/uL RBC (4.30-5.90) m/uL Hgb (13.0-17.5) gm/dL Hct (39.0-53.0) % MCV (80.0-100.0) fL MCH (25.0-35.0) pg MCHC (31.0-37.0) g/dL RDW (11.5-15.5) % Plt Count (150-450) k/uL MPV Neutrophils % % Lymphocytes % % Monocytes % % Eosinophils % % Basophils % % Neutrophils # (1.3-7.7) k/uL Lymphocytes # (1.0-4.8) k/uL Monocytes # (0-1.0) k/uL Eosinophils # (0-0.7) k/uL Basophils # (0-0.2) k/uL PT 11.2 (9.0-12.0) sec INR 1.1 (<1.2) APTT 24.7 (22.0-30.0) sec Sodium (137-145) mmol/L Potassium (3.5-5.1) mmol/L Chloride (98-107) mmol/L Carbon Dioxide (22-30) mmol/L Anion Gap mmol/L BUN (9-20) mg/dL Creatinine (0.66-1.25) mg/dL Est GFR (CKD-EPI)AfAm (>60 ml/min/1.73 sqM) Est GFR (CKD-EPI)NonAf (>60 ml/min/1.73 sqM) Glucose (74-99) mg/dL Calcium (8.4-10.2) mg/dL Total Bilirubin (0.2-1.3) mg/dL AST (17-59) U/L ALT (4-49) U/L Alkaline Phosphatase (38-126) U/L Troponin I (0.000-0.034) ng/mL Total Protein (6.3-8.2) g/dL Albumin (3.5-5.0) g/dL Urine Color Yellow Urine Appearance Clear (Clear) Urine pH 5.0 (5.0-8.0) Ur Specific [place] 1.019 (1.001-1.035) Urine Protein Negative (Negative) Urine Glucose (UA) 4+ H (Negative) Urine Ketones Negative (Negative) Urine Blood Negative (Negative) Urine Nitrite Negative (Negative) Urine Bilirubin Negative (Negative) Urine Urobilinogen <2.0 (<2.0) mg/dL Ur Leukocyte Esterase Negative (Negative) Disposition Disposition: ADMITTED IP TO THIS HOSP
[2022-10-14 18:03] LABS: INR 1.1 (<1.2); Partial Thromboplastin Time 24.7 sec (22.0-30.0); Prothrombin Time 11.2 sec (9.0-12.0)
[2022-10-14 18:09] LABS: ALT 30 U/L (4-49); AST 32 U/L (17-59); African American GFR (CKD) >90 (>60 ml/min/1.73 sqM); Albumin 4.6 g/dL (3.5-5.0); Alkaline Phosphatase 44 U/L (38-126); Anion Gap 11 mmol/L; Blood Urea Nitrogen 21 mg/dL (9-20); Calcium 9.1 mg/dL (8.4-10.2); Carbon Dioxide 20 mmol/L (22-30); Chloride 106 mmol/L (98-107); Glucose 95 mg/dL (74-99); Non-African American GFR(CKD) 89 (>60 ml/min/1.73 sqM); Potassium 4.6 mmol/L (3.5-5.1); Sodium 137 mmol/L (137-145); Total Bilirubin 0.8 mg/dL (0.2-1.3); Total Protein 7.5 g/dL (6.3-8.2)
--- NOTE | 2022-10-14 18:10 | XR ---
EXAMINATION TYPE: XR chest 2V DATE OF EXAM: 10/14/2022 6:05 PM COMPARISON: Chest radiographs from 10/06/2022. TECHNIQUE: XR chest 2V Frontal and lateral views of the chest. CLINICAL INDICATION:Male, 62 years old with history of chest pain; FINDINGS: Lungs/Pleura: There is no evidence of pleural effusion, focal consolidation, or pneumothorax. Pulmonary vascularity: Unremarkable. Heart/mediastinum: Cardiomediastinal silhouette is unremarkable. Musculoskeletal: Multiple level degenerative disc disease changes seen throughout the spine. No acute osseous abnormality. IMPRESSION: No acute cardiopulmonary disease/process.
[2022-10-14 18:15] LABS: Basophils % (A) 1 %; Eosinophils # (A) 0.2 k/uL (0-0.7); Eosinophils % (A) 3 %; HCT 46.9 % (39.0-53.0); HGB 16.9 gm/dL (13.0-17.5); Lymphocytes # (A) 2.3 k/uL (1.0-4.8); Lymphocytes % (A) 35 %; MCH 31.1 pg (25.0-35.0); MCV 86.5 fL (80.0-100.0); Mean Platelet Volume 7.3; Monocytes # (A) 0.7 k/uL (0-1.0); Monocytes % (A) 11 %; Neutrophils # (A) 3.2 k/uL (1.3-7.7); Neutrophils % (A) 48 %; Platelet Count 222 k/uL (150-450); RBC 5.42 m/uL (4.30-5.90); RDW 12.3 % (11.5-15.5); WBC 6.6 k/uL (3.8-10.6)
[2022-10-14 20:04] LABS: Appearance,Urine Clear (Clear); Bilirubin,Urine Negative (Negative); Blood,Urine Negative (Negative); Color,Urine Yellow; Glucose,Urine (UA) 4+ (Negative); Ketones,Urine Negative (Negative); Leukocyte Esterase,Urine Negative (Negative); Nitrite,Urine Negative (Negative); Protein,Urine Negative (Negative); Specific Gravity,Urine 1.019 (1.001-1.035); Urobilinogen,Urine <2.0 mg/dL (<2.0)
[2022-10-14] MEDS ORDERED: NITROGLYCERIN SL TABS 0.4 MG TAB SUBLINGUAL PRN (20:21)
[2022-10-14] MEDS ORDERED: HEPARIN SODIUM 1,000 UN/ML (10ML VL) IV ONE (20:21)
[2022-10-14] MEDS ORDERED: HEPARIN SOD,PORK IN 0.45% NACL 25,000 UNIT in 0.45% NACL 1 250ML.BAG IV SCH (20:30)
[2022-10-14] MEDS: SODIUM CHLORIDE 0.9% 1,000 ML IV SCH (21:31)
[2022-10-14] MEDS ORDERED: DEXTROSE 50% SYRINGE 50 ML IVP PRN ×2 (22:10)
[2022-10-14] MEDS: ATORVASTATIN 20 MG TAB PO SCH (23:25)
[2022-10-14 23:35] LABS: Glucose,Whole Blood 126 mg/dL (70-110)
[2022-10-14] MEDS: GABAPENTIN 300 MG CAP PO SCH (23:42)
[2022-10-15] MEDS: INSULIN ASPART (NovoLOG) 100 UNIT/ML VIAL SQ SCH ×5 (00:13→20:57)
[2022-10-15 06:01] LABS: Glucose,Whole Blood 92 mg/dL (70-110)
[2022-10-15] MEDS: SODIUM CHLORIDE 0.9% 1,000 ML IV SCH ×2 (06:21→17:58)
[2022-10-15] MEDS ORDERED: NITROGLYCERIN SL TABS 0.4 MG TAB SUBLINGUAL PRN (07:40)
[2022-10-15] MEDS ORDERED: ATORVASTATIN 80 MG TAB PO STA (07:40)
[2022-10-15] MEDS ORDERED: ASPIRIN 325 MG TAB PO STA (07:40)
[2022-10-15] MEDS ORDERED: ALPRAZolam 0.25 MG TAB PO PRN (07:40)
[2022-10-15] MEDS ORDERED: ALPRAZolam 0.5 MG TAB PO PRN (07:40)
[2022-10-15] MEDS: DAPAGLIFLOZIN PROPANEDIOL 10 MG TABLET PO SCH (07:49)
[2022-10-15] MEDS: ISOSORBIDE MONONITRATE ER 15 MG TAB PO SCH (08:08)
[2022-10-15] MEDS: lisinopriL 20 MG TAB PO SCH ×2 (08:08→19:51)
[2022-10-15] MEDS: ASPIRIN 325 MG TAB PO SCH (08:09)
--- NOTE | 2022-10-15 08:55 | P.CRDCN ---
History of Present Illness Consult date: 10/15/22 Consult reason: chest pain History of present illness: HISTORY OF PRESENTING ILLNESS This is a 62-year-old male patient of Dr. Vargas with past medical history significant for coronary artery disease status post PCI in 2012, aortic stenosis, hypertension, dyslipidemia and diabetes mellitus. We have been asked to see in consultation for chest pain. Patient was recently hospitalized on 10/06 for chest pain that time he was evaluated and scheduled for Lexiscan stress test which revealed a large predominantly fixed defect involving the lateral i nferior wall. Tiny area of stress-induced reversible ischemia not entirely excluded correlate clinically. Patient was cleared for discharge and follow up with Dr. Vargas and he was scheduled for an appointment on 10/22. Unfortunately, she presented to the emergency center yesterday with complaints of chest pain along with shortness of breath. EKG reveals sinus rhythm with no acute ST or T wave abnormalities noted. Chest xray negative for an acute cardiopulmonary process. CBC is normal. Potassium 4.6, BUN 21 creatinine 0.91. Troponin negative 2. Blood sugar 126. Liver function tests within normal limits. Urine showed 4+ glucose. Current cardiac medications include aspirin 81 mg daily, Vasotec 20 mg twice daily, simvastatin 40 mg at bedtime. Patient is also on Farxiga 10 mg daily, metformin 1000 mg bid. PCI stent in the proximal circumflex 07/2012 Echocardiogram 10/07/2022 revealed preserved LV systolic function. Heavily calcified aortic valve with severe stenosis REVIEW OF SYSTEMS At the time of my exam: CONSTITUTIONAL: Denies fever or chills. CARDIOVASCULAR: Denies chest pain, shortness of breath, orthopnea, PND or palpitations. RESPIRATORY: Denies cough. GASTROINTESTINAL: Denies abdominal pain, diarrhea, constipation, nausea or vomiting. MUSCULOSKELETAL: Denies myalgias. NEUROLOGIC: Denies numbness, tingling or weakness. ENDOCRINE: Denies fatigue, weight change, polydipsia or polyurina. GENITOURINARY: Denies burning, hematuria or urgency with micturation. HEMATOLOGIC: Denies history of anemia or bleeding. PHYSICAL EXAMINATION VS reviewed CONSTITUTIONAL: No apparent distress. HEENT: Head is normocephalic. Pupils are equal, round. Sclerae anicteric. Mucous membranes of the mouth are moist. No JVD. No carotid bruit. CHEST EXAMINATION: Lungs are clear to auscultation. No chest wall tenderness is noted on palpation or with deep breathing. HEART EXAMINATION: Regular rate and rhythm. S1, S2 heard. 4/6 Systolic ejection murmur, no gallops or rub. ABDOMEN: Soft, nontender. Positive bowel sounds. EXTREMITIES: 2+ peripheral pulses, no lower extremity edema and no calf tenderness. NEUROLOGIC EXAMINATION: Patient is awake, alert and oriented x3. ASSESSMENT Chest pain with normal troponins History of coronary artery disease Hypertension Dyslipidemia Diabetes mellitus PLAN Heparin drip may be discontinued Patient scheduled for cardiac catheterization today. If this is found to have no progression of disease, patient will be scheduled for TRAY for further evaluation of the aortic stenosis, Continue home cardiac medications Further recommendations as patient progresses Thank you kindly for this consultation. Nurse Practitioner note has been reviewed, I agree with a documented findings and plan of care. Patient was seen and examined. Past Medical History Past Medical History: Coronary Artery Disease (CAD), Diabetes Mellitus, Hyperlipidemia, Hypertension, Myocardial Infarction ([place]) Additional Past Medical History / Comment(s): sciatica Last Myocardial Infarction Date:: 2012 History of Any Multi-Drug Resistant Organisms: None Reported Past Surgical History: Back Surgery, Heart Catheterization With Stent, Tonsillectomy Additional Past Surgical History / Comment(s): COLONOSCOPY Past Anesthesia/Blood Transfusion Reactions: No Reported Reaction Date of Last Stent Placement:: 2012 Past Psychological History: No Psychological Hx Reported Smoking Status: Former smoker Past Alcohol Use History: None Reported Additional Past Alcohol Use History / Comment(s): QUIT SMOKING 30 YEARS AGO Past Drug Use History: None Reported Additional Drug Use History / Comment(s): USES MARIJUANA AT NIGHT-INSTRUCTED TO REFRAIN FROM USE FOR AT LEAST 24 HOURS PRIOR TO PROCEDURE - Past Family History Family Family Medical History: Coronary Artery Disease (CAD) Medications and Allergies Home Medications Medication Instructions Recorded Confirmed Type Aspirin 81 mg PO DAILY 11/22/13 10/14/22 History Dapagliflozin Propanediol [Farxiga] 10 mg PO DAILY 03/22/20 10/14/22 History Enalapril [Vasotec] 20 mg PO BID 03/22/20 10/14/22 History Gabapentin 300 mg PO TID 03/22/20 10/14/22 History metFORMIN HCL [Glucophage] 1,000 mg PO BID 03/22/20 10/14/22 History Simvastatin [Zocor] 40 mg PO HS 07/17/22 10/14/22 History Fish Oil/Dha/Epa [Fish Oil 1,200 1 cap PO BID 10/06/22 10/14/22 History mg Fish Oil] Fluticasone Nasal [place] [Flonase 1 spray EA NOSTRIL DAILY PRN 10/06/22 10/14/22 History Nasal [place]] Isosorbide Mononitrate ER [Imdur] 15 mg PO DAILY 10/14/22 10/14/22 History Allergies Allergy/AdvReac Type Severity Reaction Status Date / Time No Known Allergies Allergy Verified 10/14/22 20:58 Physical Exam Vitals: Vital Signs Temp Pulse Pulse Resp BP BP Pulse Ox 10/15/22 06:35 97.6 F 53 L 16 148/74 96 10/15/22 01:51 98.1 F 53 L 17 162/88 98 10/14/22 23:44 62 18 133/78 10/14/22 21:38 62 19 142/73 96 10/14/22 17:21 97.9 F 60 18 136/85 97 Intake and Output 10/14/22 10/15/22 10/15/22 22:59 06:59 14:59 Intake Total 82.167 Balance 82.167 Intake: Intake, IV Titration 82.167 Amount Heparin Sod,Pork in 0.45% 82.167 NaCl 25,000 unit In 0.45 % NaCl 1 250ml.bag @ 11. 023 UNITS/KG/HR 10 mls/hr IV .Q24H [facility] Rx#: [id number] Other: Voiding Method Toilet # Voids 2 Weight 90.718 kg 90.718 kg Results 10/14/22 17:47 10/14/22 17:47 Cardiac Enzymes 10/14/22 10/14/22 10/14/22 Range/Units 17:47 17:47 21:03 AST 32 (17-59) U/L Troponin I <0.012 0.013 (0.000-0.034) ng/mL 10/15/22 Range/Units 00:49 AST (17-59) U/L Troponin I 0.017 (0.000-0.034) ng/mL Coagulation 10/14/22 10/15/22 Range/Units 17:47 04:42 PT 11.2 (9.0-12.0) sec APTT 24.7 48.8 H (22.0-30.0) sec CBC 10/14/22 Range/Units 17:47 WBC 6.6 (3.8-10.6) k/uL RBC 5.42 (4.30-5.90) m/uL Hgb 16.9 (13.0-17.5) gm/dL Hct 46.9 (39.0-53.0) % Plt Count 222 (150-450) k/uL Comprehensive Metabolic Panel 10/14/22 Range/Units 17:47 Sodium 137 (137-145) mmol/L Potassium 4.6 (3.5-5.1) mmol/L Chloride 106 (98-107) mmol/L Carbon Dioxide 20 L (22-30) mmol/L BUN 21 H (9-20) mg/dL Creatinine 0.91 (0.66-1.25) mg/dL Glucose 95 (74-99) mg/dL Calcium 9.1 (8.4-10.2) mg/dL AST 32 (17-59) U/L ALT 30 (4-49) U/L Alkaline Phosphatase 44 (38-126) U/L Total Protein 7.5 (6.3-8.2) g/dL Albumin 4.6 (3.5-5.0) g/dL Current Medications Generic Name Dose Route Start Last Admin Trade Name Freq PRN Reason Stop Dose Admin Aspirin 325 mg 10/15/22 09:00 Aspirin 325 Mg Tab PO DAILY [facility] Atorvastatin Calcium 20 mg 10/14/22 22:15 10/14/22 23:25 Atorvastatin 20 Mg Tab PO Not Given HS BENSON Dapagliflozin 10 mg 10/15/22 09:00 Dapagliflozin Propanediol 10 Mg Tablet PO DAILY BENSON Dextrose/Water 25 ml 10/14/22 22:10 Dextrose 50% Syringe 50 Ml IVP PER PROTOCOL PRN Hypoglycemia Protocol Dextrose/Water 50 ml 10/14/22 22:10 Dextrose 50% Syringe 50 Ml IVP PER PROTOCOL PRN Hypoglycemia Protocol Gabapentin 300 mg 10/14/22 22:15 10/14/22 23:42 Gabapentin 300 Mg Cap PO 300 mg TID BENSON Administration Sodium Chloride 1,000 mls @ 100 mls/hr 10/14/22 20:30 10/15/22 06:21 Saline 0.9% IV Not Given .Q10H [facility] Heparin Sodium/Sodium Chloride 250 mls @ 10 mls/hr 10/14/22 20:30 10/15/22 05:48 25,000 unit/ Sodium Chloride IV 11.02 units/kg/hr .Q24H [facility] 10 mls/hr Titration Protocol 11.023 UNITS/KG/HR Insulin Aspart 0 unit 10/14/22 22:10 10/15/22 06:02 Insulin Aspart (Novolog) 100 Unit/Ml Vial SQ Not Given ACHS [facility] Protocol Isosorbide Mononitrate 15 mg 10/15/22 09:00 Isosorbide Mononitrate Er 15 Mg Tab PO DAILY [facility] Lisinopril 40 mg 10/15/22 09:00 Lisinopril 20 Mg Tab PO BID [facility] Nitroglycerin 0.4 mg 10/14/22 20:21 Nitroglycerin Sl Tabs 0.4 Mg Tab SUBLINGUAL Q5M PRN Chest Pain Intake and Output 10/14/22 10/15/22 10/15/22 22:59 06:59 14:59 Intake Total 82.167 Balance 82.167 Intake: Intake, IV Titration 82.167 Amount Heparin Sod,Pork in 0.45% 82.167 NaCl 25,000 unit In 0.45 % NaCl 1 250ml.bag @ 11. 023 UNITS/KG/HR 10 mls/hr IV .Q24H [facility] Rx#: [id number] Other: Voiding Method Toilet # Voids 2 Weight 90.718 kg 90.718 kg 10/14/22 17:47 10/14/22 17:47
[2022-10-15] MEDS ORDERED: IV FLUID CONTINUATION 1,000 ML IV ONE (10:10)
[2022-10-15] MEDS ORDERED: MIDAZOLAM 2 MG/2 ML VIAL IV ONE (10:38)
[2022-10-15] MEDS ORDERED: fentaNYL (PF) 50 MCG/ML 2 ML AMP IV ONE (10:38)
[2022-10-15] MEDS ORDERED: LIDOCAINE 1% INJ 10MG/ML (5 ML VIAL-PF) SQ ONE (10:41)
[2022-10-15] MEDS ORDERED: VERAPAMIL SYRINGE (5 MG/10 ML) INTRAARTER ONE (10:43)
[2022-10-15] MEDS ORDERED: HEPARIN SODIUM 1,000 UN/ML (10ML VL) IV ONE ×2 (10:48)
[2022-10-15] MEDS ORDERED: IOPAMIDOL-370 100ML BTL INJ ONE (11:20)
[2022-10-15 11:27] LABS: Chol/HDL Ratio 3.74 Ratio
[2022-10-15 11:52] LABS: Glucose,Whole Blood 96 mg/dL (70-110)
--- NOTE | 2022-10-15 12:26 | CC ---
CARDIAC CATHETERIZATION REPORT INDICATIONS: Unstable angina. HISTORY OF PRESENT ILLNESS: This is a 62-year-old gentleman with history of coronary artery disease status post angioplasty with stent placement of circumflex coronary artery and aortic stenosis, who was admitted to hospital with chest pain, had a stress test that showed a small area of ischemia involving inferior wall, was discharged home, comes back in with episodes of chest pressure. He also has shortness of breath with activity. Given the persistent symptoms, I advised him to undergo cardiac catheterization. The patient had been explained of risks, benefits and alternatives, understood and accepted. PROCEDURE NOTE: After obtaining informed consent, left heart catheterization and coronary angiogram were performed via right radial artery using standard Javier catheters. The patient tolerated the procedure well without any obvious immediate complications. The patient received moderate conscious sedation. Total sedation time was 24 minutes. The right radial artery access was obtained using Seldinger technique. A 6-Greek sheath was placed. Catheters and wires were floated into the ascending aorta under fluoroscopic guidance. The patient received verapamil and IV heparin per protocol and a TR band was placed for hemostasis. FINDINGS: 1. Right Coronary Artery: Right coronary artery is totally occluded in its midportion with extensive [id number] collaterals. 2. Left Main Coronary Artery: Left main coronary artery is a normal-sized vessel and is free of stenosis, divides into left anterior descending coronary artery and circumflex coronary artery. Circ was previously stented and the stented segment appears patent. There is a 30% to 40% stenosis in the circumflex coronary artery beyond the stent. The diagonal branch also has a 30% to 40% focal stenosis. CONCLUSION: 1. Patent stent within the circumflex coronary artery. 2. 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 PLAN: The patient does not have significant obstructive CAD to explain his symptoms. The right coronary artery occlusion seems to be chronic as on the previous angiogram also we see collaterals from left to right, but there was no right coronary angiogram at that time. The patient has severe aortic stenosis on an echocardiogram that was done on recent admission. It is possible his symptoms are related to it. I will perform a transesophageal echo on him tomorrow and if necessary refer him to cardiothoracic surgeon. MMODL / IJN: [id number] /
[2022-10-15 17:22] LABS: Glucose,Whole Blood 91 mg/dL (70-110)
[2022-10-15] MEDS: ATORVASTATIN 20 MG TAB PO SCH (19:51)
[2022-10-15] MEDS: GABAPENTIN 300 MG CAP PO SCH (19:51)
[2022-10-15 20:47] LABS: Glucose,Whole Blood 168 mg/dL (70-110)
[2022-10-15] MEDS ORDERED: SENNOSIDES 8.6 MG TAB PO SCH (21:00)
--- NOTE | 2022-10-15 21:44 | P.HPIM ---
History of Present Illness H&P Date: 10/14/22 Chief Complaint: Chest pain This is a pleasant 62-year-old patient follows Dr. Cruz. Chronic stable medical conditions include sciatica, hypertension, hyperlipidemia, diabetes. 2012 had a stent placed by Dr. Khan. Also 6 months ago underwent a nuclear stress is that was negative. Patient was just here from October 06 through October 12. Presented with chest pain. Nuclear stress test was negative. Showing some jona-infarct possible ischemia. Discharged on Imdur 15 mg. Patient was discharged. Continue to have chest pain with radiation. Especially with activity. Went to his family doctor's office. He consented to the ER. Patient be admitted with unstable angina. IV heparin. Made nothing by mouth after midnight for possible cardiac cath tomorrow. 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 No alcohol. Does take marijuana at night Physical examination: VITAL SIGNS: 97.9, 16, 18, 136/85, 97% room air] GENERAL: BMI 30.4, in bed, comfortable EYES: Pupils equal. Conjunctiva normal. HEENT: External appearance of nose and ears normal, oral cavity grossly normal. NECK: JVD not raised; masses not palpable. HEART: First and second heart sounds are normal; no edema. LUNGS: Respiratory rate normal; clear to auscultation. ABDOMEN: Soft, nontender, liver spleen not palpable, no masses palpable. PSYCH: Alert and oriented x3; mood and affect normal. MUSCULOSKELETAL:No Clubbing/cyanosis;muscles-grossly intact NEUROLOGICAL: Cranial nerves grossly intact; no facial asymmetry, power and sensation grossly intact. LYMPHATICS: No lymph nodes palpable in the axilla and neck INVESTIGATIONS, reviewed in the clinical context: October 14: White count 6.6-year-old woman 16.9 platelets 222 potassium 4.6 creatinine 0.91 Troponin I less than 0.012 EKG tracing personally reviewed by me-flipped T waves in a lateral leads Chest x-ray film personally reviewed by me-mild hyperinflation Lexiscan stress test [October 08]: Large fixed defect in the anterolateral wall. Tiny reversible area cannot be ruled out. Assessment and plan: -Possible Unstable angina in a patient known coronary artery disease. Presentation similar to his prior heart attack. relief with nitroglycerin A: Unstable angina Nuclear stress test showing a large fixed affect. Recently. Tiny reversible area cannot be ruled out. Aspirin. . IV heparin. Cartilage E consulted. From a cardiac cath in the morning -Diabetes mellitus type 2 on oral hypoglycemic farxiga Glucophage hold. Follow Accu-Cheks with sliding scale -Hyperlipidemia Zocor 40 mg daily at bedtime -Essential hypertension Vasotec 20 mg twice a day -IV heparin Discussed. Possible cardiac cath in the morning. Past Medical History Past Medical History: Coronary Artery Disease (CAD), Diabetes Mellitus, Hyperlip idemia, Hypertension, Myocardial Infarction ([place]) Additional Past Medical History / Comment(s): sciatica Last Myocardial Infarction Date:: 2012 History of Any Multi-Drug Resistant Organisms: None Reported Past Surgical History: Back Surgery, Heart Catheterization With Stent, Tonsillectomy Additional Past Surgical History / Comment(s): COLONOSCOPY Past Anesthesia/Blood Transfusion Reactions: No Reported Reaction Date of Last Stent Placement:: 2012 Past Psychological History: No Psychological Hx Reported Smoking Status: Former smoker Past Alcohol Use History: None Reported Past Drug Use History: None Reported - Past Family History Family Family Medical History: Coronary Artery Disease (CAD) Medications and Allergies Home Medications Medication Instructions Recorded Confirmed Type Aspirin 81 mg PO DAILY 11/22/13 10/14/22 History Dapagliflozin Propanediol [Farxiga] 10 mg PO DAILY 03/22/20 10/14/22 History Enalapril [Vasotec] 20 mg PO BID 03/22/20 10/14/22 History Gabapentin 300 mg PO TID 03/22/20 10/14/22 History metFORMIN HCL [Glucophage] 1,000 mg PO BID 03/22/20 10/14/22 History Simvastatin [Zocor] 40 mg PO HS 07/17/22 10/14/22 History Fish Oil/Dha/Epa [Fish Oil 1,200 1 cap PO BID 10/06/22 10/14/22 History mg Fish Oil] Fluticasone Nasal [place] [Flonase 1 spray EA NOSTRIL DAILY PRN 10/06/22 10/14/22 History Nasal [place]] Isosorbide Mononitrate ER [Imdur] 15 mg PO DAILY 10/14/22 10/14/22 History Allergies Allergy/AdvReac Type Severity Reaction Status Date / Time No Known Allergies Allergy Verified 10/14/22 20:58 Physical Exam Vitals: Vital Signs Temp Pulse Resp BP Pulse Ox 10/14/22 21:38 62 19 142/73 96 10/14/22 17:21 97.9 F 60 18 136/85 97 Intake and Output 10/14/22 10/14/22 10/14/22 06:59 14:59 22:59 Other: Weight 90.718 kg Results CBC & Chem 7: 10/14/22 17:47 10/14/22 17:47 Labs: Abnormal Lab Results - Last 24 Hours (Table) 10/14/22 10/14/22 Range/Units 17:47 19:58 Carbon Dioxide 20 L (22-30) mmol/L BUN 21 H (9-20) mg/dL Urine Glucose (UA) 4+ H (Negative)
--- NOTE | 2022-10-15 21:46 | P.PN ---
Progress Note - Text Progress Note Date: 10/15/22 Chief Complaint: Chest pain This is a pleasant 62-year-old patient follows Dr. Cruz. Chronic stable medical conditions include sciatica, hypertension, hyperlipidemia, diabetes. 2012 had a stent placed by Dr. Khan. Also 6 months ago underwent a nuclear stress is that was negative. Patient was just here from October 06 through October 12. Presented with chest pain. Nuclear stress test was negative. Showing some jona-infarct possible ischemia. Discharged on Imdur 15 mg. Patient was discharged. Continue to have chest pain with radiation. Especially with activity. Went to his family doctor's office. He consented to the ER. Patient be admitted with unstable angina. IV heparin. Made nothing by mouth after midnight for possible cardiac cath tomorrow. October 15: Patient underwent a cardiac catheterization today. No blockage. No significant aortic stenosis. Cardiac ALLERGIES planning to proceed with TRAY tomorrow. Discussed with the patient and family the bedside. Questions answered. Active Medications Alprazolam (Alprazolam 0.25 Mg Tab) 0.25 mg PO Q6HR PRN PRN Reason: Mild Anxiety Alprazolam (Alprazolam 0.5 Mg Tab) 0.5 mg PO Q6HR PRN PRN Reason: Moderate Anxiety Aspirin (Aspirin 325 Mg Tab) 325 mg PO DAILY [facility] Last Admin: 10/15/22 08:09 Dose: 325 mg Atorvastatin Calcium (Atorvastatin 20 Mg Tab) 20 mg PO HS [facility] Last Admin: 10/15/22 19:51 Dose: Not Given Dapagliflozin (Dapagliflozin Propanediol 10 Mg Tablet) 10 mg PO DAILY [facility] Last Admin: 10/15/22 07:49 Dose: Not Given Dextrose/Water (Dextrose 50% Syringe 50 Ml) 25 ml IVP PER PROTOCOL PRN; Protocol PRN Reason: Hypoglycemia Dextrose/Water (Dextrose 50% Syringe 50 Ml) 50 ml IVP PER PROTOCOL PRN; Protocol PRN Reason: Hypoglycemia Gabapentin (Gabapentin 300 Mg Cap) 300 mg PO TID [facility] Last Admin: 10/15/22 19:51 Dose: 300 mg Sodium Chloride (Saline 0.9%) 1,000 mls @ 100 mls/hr IV .Q10H [facility] Last Admin: 10/15/22 17:58 Dose: Not Given Heparin Sodium (Porcine) 10, (000 unit/ Sodium Chloride) 1,001 mls @ 999 mls/hr IRRIGATION ONCE PRN PRN Reason: INTRA-OP Stop: 10/16/22 23:00 Heparin Sodium (Porcine) 2,500 (unit/ Sodium Chloride) 250.5 mls @ 250 mls/hr IRRIGATION ONCE PRN PRN Reason: INTRA-OP Stop: 10/16/22 23:00 Insulin Aspart (Insulin Aspart (Novolog) 100 Unit/Ml Vial) 0 unit SQ ACHS [facility]; Protocol Last Admin: 10/15/22 20:57 Dose: Not Given Isosorbide Mononitrate (Isosorbide Mononitrate Er 15 Mg Tab) 15 mg PO DAILY [facility] Last Admin: 10/15/22 08:08 Dose: 15 mg Lisinopril (Lisinopril 20 Mg Tab) 40 mg PO BID [facility] Last Admin: 10/15/22 19:51 Dose: 40 mg Nitroglycerin (Nitroglycerin Sl Tabs 0.4 Mg Tab) 0.4 mg SUBLINGUAL Q5M PRN PRN Reason: Chest Pain Nitroglycerin (Nitroglycerin Sl Tabs 0.4 Mg Tab) 0.4 mg SUBLINGUAL Q5M PRN PRN Reason: Chest Pain Senna (Sennosides 8.6 Mg Tab) 17.2 mg PO HS [facility] Last Admin: 10/15/22 19:51 Dose: 17.2 mg Past medical history to include: CAD with stent 2012, diabetes, hypertension, hyperlipidemia, sciatica, back surgery 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 No alcohol. Does take marijuana at night Physical examination: VITAL SIGNS: 97.9, 60, 18, 136/85, 97% room air GENERAL: BMI 30.4, in bed, comfortable EYES: Pupils equal. Conjunctiva normal. HEENT: External appearance of nose and ears normal, oral cavity grossly normal. NECK: JVD not raised; masses not palpable. HEART: First and second heart sounds are normal; no edema. LUNGS: Respiratory rate normal; clear to auscultation. ABDOMEN: Soft, nontender, liver spleen not palpable, no masses palpable. PSYCH: Alert and oriented x3; mood and affect normal. MUSCULOSKELETAL:No Clubbing/cyanosis;muscles-grossly intact INVESTIGATIONS, reviewed in the clinical context: October 14: White count 6.6-year-old woman 16.9 platelets 222 potassium 4.6 creatinine 0.91 Troponin I less than 0.012, 0.013, 0.017 EKG tracing personally reviewed by me-flipped T waves in a lateral leads Chest x-ray film personally reviewed by me-mild hyperinflation Lexiscan stress test [October 08]: Large fixed defect in the anterolateral wall. Tiny reversible area cannot be ruled out. Assessment and plan: -Possible Unstable angina in a patient known coronary artery disease. Presentation similar to his prior heart attack. relief with nitroglycerin A: Unstable angina Nuclear stress test showing a large fixed affect. Recently. Tiny reversible area cannot be ruled out. Cardiac catheterization shows: No major obstruction. Patient stent. Significant aortic stenosis. Plan for TRAY tomorrow. -Diabetes mellitus type 2 on oral hypoglycemic farxiga Glucophage hold. Follow Accu-Cheks with sliding scale -Hyperlipidemia Zocor 40 mg daily at bedtime -Essential hypertension Vasotec 20 mg twice a day -IV heparin monitoring Continue current medications. Discuss. TRAY in the morning.
[2022-10-16] MEDS: SODIUM CHLORIDE 0.9% 1,000 ML IV SCH ×2 (02:57→11:59)
[2022-10-16 05:59] LABS: Glucose,Whole Blood 103 mg/dL (70-110)
[2022-10-16] MEDS: INSULIN ASPART (NovoLOG) 100 UNIT/ML VIAL SQ SCH ×2 (06:00→12:38)
[2022-10-16] MEDS ORDERED: HEPARIN SODIUM,PORCINE 10,000 UNIT in SODIUM CHLORIDE 0.9% 1,000 ML IRRIGATION PRN (07:00)
[2022-10-16] MEDS ORDERED: HEPARIN SODIUM,PORCINE 2,500 UNIT in SODIUM CHLORIDE 0.9% 250 ML IRRIGATION PRN (07:00)
[2022-10-16] MEDS: lisinopriL 20 MG TAB PO SCH (09:59)
[2022-10-16] MEDS: ASPIRIN 325 MG TAB PO SCH (09:59)
[2022-10-16] MEDS: DAPAGLIFLOZIN PROPANEDIOL 10 MG TABLET PO SCH (09:59)
[2022-10-16] MEDS: ISOSORBIDE MONONITRATE ER 15 MG TAB PO SCH (09:59)
[2022-10-16] MEDS: GABAPENTIN 300 MG CAP PO SCH (10:00)
[2022-10-16] MEDS ORDERED: fentaNYL (PF) 50 MCG/ML 2 ML AMP ONE (10:25)
[2022-10-16] MEDS ORDERED: SODIUM CHLORIDE 0.9% 500 ML 500 ML IV ONE (10:48)
[2022-10-16] MEDS ORDERED: BENZOCAINE SPRAY 1 CAN TOPICAL ONE (10:56)
[2022-10-16] MEDS ORDERED: MIDAZOLAM 2 MG/2 ML VIAL IV ONE (11:00)
[2022-10-16] MEDS ORDERED: fentaNYL (PF) 50 MCG/ML 2 ML AMP IV ONE (11:00)
[2022-10-16 12:35] LABS: Glucose,Whole Blood 119 mg/dL (70-110)
[2022-10-16 12:41] VITALS: TEMP 98
[2022-10-16 12:43] VITALS: BP 113/63; PULSE 56; RESP 16
--- NOTE | 2022-10-16 12:48 | P.PN ---
Subjective Progress Note Date: 10/16/22 HISTORY OF PRESENTING ILLNESS This is a 62-year-old male patient of Dr. Vargas with past medical history sig nificant for coronary artery disease status post PCI in 2012, aortic stenosis, hypertension, dyslipidemia and diabetes mellitus. We have been asked to see in consultation for chest pain. Patient was recently hospitalized on 10/06 for chest pain that time he was evaluated and scheduled for Lexiscan stress test which revealed a large predominantly fixed defect involving the lateral inferior wall. Tiny area of stress-induced reversible ischemia not entirely excluded correlate clinically. Patient was cleared for discharge and follow up with Dr. Vargas and he was scheduled for an appointment on 10/22. Unfortunately, she presented to the emergency center yesterday with complaints of chest pain along with shortness of breath. EKG reveals sinus rhythm with no acute ST or T wave abnormalities noted. Chest xray negative for an acute cardiopulmonary process. CBC is normal. Potassium 4.6, BUN 21 creatinine 0.91. Troponin negative 2. Blood sugar 126. Liver function tests within normal limits. Urine showed 4+ glucose. Current cardiac medications include aspirin 81 mg daily, Vasotec 20 mg twice daily, simvastatin 40 mg at bedtime. Patient is also on Farxiga 10 mg daily, metformin 1000 mg bid. PCI stent in the proximal circumflex 07/2012 Echocardiogram 10/07/2022 revealed preserved LV systolic function. Heavily calcified aortic valve with severe stenosis 10/16 Today, patient underwent TRAY PHYSICAL EXAMINATION VS reviewed CONSTITUTIONAL: No apparent distress. HEENT: Head is normocephalic. Pupils are equal, round. Sclerae anicteric. Mucous membranes of the mouth are moist. No JVD. No carotid bruit. CHEST EXAMINATION: Lungs are clear to auscultation. No chest wall tenderness is noted on palpation or with deep breathing. HEART EXAMINATION: Regular rate and rhythm. S1, S2 heard. 4/6 Systolic ejection murmur, no gallops or rub. ABDOMEN: Soft, nontender. Positive bowel sounds. EXTREMITIES: 2+ peripheral pulses, no lower extremity edema and no calf tenderness. NEUROLOGIC EXAMINATION: Patient is awake, alert and oriented x3. ASSESSMENT Chest pain with normal troponins History of coronary artery disease Hypertension Dyslipidemia Diabetes mellitus PLAN Patient is cleared for discharge from cardiology and may follow-up in the office in 3 weeks. Continue current cardiac medications. Nurse Practitioner note has been reviewed, I agree with a documented findings and plan of care. Patient was seen and examined. Objective - Vital Signs Vital signs: Vital Signs Temp 98 F 10/16/22 11:25 Pulse 56 L 10/16/22 12:42 Resp 16 10/16/22 12:42 BP 113/63 10/16/22 12:42 Pulse Ox 95 10/16/22 12:42 FiO2 Intake & Output 10/15/22 10/16/22 10/16/22 18:59 06:59 18:59 Intake Total 580 100 Balance 580 100 Intake: IV 100 100 Oral 480 Other: Voiding Method Toilet # Voids 1 2 - Labs CBC & Chem 7: 10/14/22 17:47 10/14/22 17:47 Labs: Abnormal Lab Results - Last 24 Hours (Table) 10/15/22 10/16/22 Range/Units 20:45 12:33 POC Glucose (mg/dL) 168 H 119 H (70-110) mg/dL
--- NOTE | 2022-10-16 16:20 | P.DS ---
Providers Date of admission: 10/14/22 20:22 Expected date of discharge: 10/16/22 Attending physician: Kuldip Blankenship Consults: 10/14/22 20:22 Consult Physician Routine Consulting Provider: Partha Vargas Consult Reason/Comments: chest pain Do you want consulting provider notified?: Yes Primary care physician: [facility] Course: Chief Complaint: Chest pain This is a pleasant 62-year-old patient follows Dr. Cruz. Chronic stable medical conditions include sciatica, hypertension, hyperlipidemia, diabetes. 2012 had a stent placed by Dr. Khan. Also 6 months ago underwent a nuclear stress is that was negative. Patient was just here from October 06 through October 12. Presented with chest pain. Nuclear stress test was negative. Showing some jona-infarct possible ischemia. Discharged on Imdur 15 mg. Patient was discharged. Continue to have chest pain with radiation. Especially with activity. Went to his family doctor's office. He consented to the ER. Patient be admitted with unstable angina. IV heparin. Made nothing by mouth after midnight for possible cardiac cath tomorrow. October 15: Patient underwent a cardiac catheterization today. No blockage. significant aortic stenosis. Cardiac ALLERGIES planning to proceed with TRAY tomorrow. Discussed with the patient and family the bedside. Questions answered. October 16: Patient underwent TRAY today. Formal report pending. Significant aortic stenosis. 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 More details as per surgery. He will follow-up with his weaving supervisor in the office. Also discussed with his and sister. Told to take it easy with his activity outpatient. 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 No alcohol. Does take marijuana at night Physical examination: VITAL SIGNS: 98, 56, 16, 113/73, 95% room air GENERAL: BMI 30.4, in bed, comfortable EYES: Pupils equal. Conjunctiva normal. HEENT: External appearance of nose and ears normal, oral cavity grossly normal. NECK: JVD not raised; masses not palpable. HEART: First and second heart sounds are normal; no edema. LUNGS: Respiratory rate normal; clear to auscultation. ABDOMEN: Soft, nontender, liver spleen not palpable, no masses palpable. PSYCH: Alert and oriented x3; mood and affect normal. MUSCULOSKELETAL:No Clubbing/cyanosis;muscles-grossly intact INVESTIGATIONS, reviewed in the clinical context: October 14: White count 6.6-year-old woman 16.9 platelets 222 potassium 4.6 creatinine 0.91 Troponin I less than 0.012, 0.013, 0.017 EKG tracing personally reviewed by me-flipped T waves in a lateral leads Chest x-ray film personally reviewed by me-mild hyperinflation Lexiscan stress test [October 08]: Large fixed defect in the anterolateral wall. Tiny reversible area cannot be ruled out. Assessment and plan: -Possible Unstable angina in a patient known coronary artery disease. Presentation similar to his prior heart attack. relief with nitroglycerin A: Unstable angina Nuclear stress test showing a large fixed affect. Recently. Tiny reversible area cannot be ruled out. Cardiac catheterization shows: No major obstruction. Patient stent. Significant aortic stenosis. TRAY: Formal results pending -Significant aortic stenosis Follow-up with cardiology/cardiothoracic surgery outpatient -Diabetes mellitus type 2 on oral hypoglycemic farxiga Glucophage hold. Follow Accu-Cheks with sliding scale -Hyperlipidemia Zocor 40 mg daily at bedtime -Essential hypertension Vasotec 20 mg twice a day Disposition: Home Plan - Discharge Summary New Discharge Prescriptions: New Nitroglycerin Sl Tabs [Nitrostat] 0.4 mg SUBLINGUAL Q5M PRN #30 tab PRN Reason: Chest Pain Sennosides [Senokot] 17.2 mg PO HS tab Continue Aspirin 81 mg PO DAILY metFORMIN HCL [Glucophage] 1,000 mg PO BID Gabapentin 300 mg PO TID Enalapril [Vasotec] 20 mg PO BID Dapagliflozin Propanediol [Farxiga] 10 mg PO DAILY Simvastatin [Zocor] 40 mg PO HS Isosorbide Mononitrate ER [Imdur] 15 mg PO DAILY Fluticasone Nasal [place] [Flonase Nasal [place]] 1 spray EA NOSTRIL DAILY PRN PRN Reason: Allergy Symptoms Fish Oil/Dha/Epa [Fish Oil 1,200 mg Fish Oil] 1 cap PO BID Discharge Medication List Aspirin 81 mg PO DAILY 11/22/13 [History] Dapagliflozin Propanediol [Farxiga] 10 mg PO DAILY 03/22/20 [History] Enalapril [Vasotec] 20 mg PO BID 03/22/20 [History] Gabapentin 300 mg PO TID 03/22/20 [History] metFORMIN HCL [Glucophage] 1,000 mg PO BID 03/22/20 [History] Simvastatin [Zocor] 40 mg PO HS 07/17/22 [History] Fish Oil/Dha/Epa [Fish Oil 1,200 mg Fish Oil] 1 cap PO BID 10/06/22 [History] Fluticasone Nasal [place] [Flonase Nasal [place]] 1 spray EA NOSTRIL DAILY PRN 10/06/22 [History] Isosorbide Mononitrate ER [Imdur] 15 mg PO DAILY 10/14/22 [History] Nitroglycerin Sl Tabs [Nitrostat] 0.4 mg SUBLINGUAL Q5M PRN #30 tab 10/16/22 [Rx] Sennosides [Senokot] 17.2 mg PO HS tab 10/16/22 [Rx] Follow up Appointment(s)/Referral(s): Cassius Cruz DO [Primary Care Provider] - 1-2 days Partha Vargas MD [STAFF PHYSICIAN] - 10/22/22 2:45 pm Patient Instructions/Handouts: *Surgery [facility] - After Heart Catheterization - [place] Instructions, Transesophageal Echocardiogram (DC) Activity/Diet/Wound Care/Special Instructions: dc if ok with cardiology Discharge Disposition: HOME SELF-CARE
--- NOTE | 2022-10-16 22:20 | ECHOT ---
TRANSESOPHAGEAL ECHOCARDIOGRAM INDICATIONS: Aortic stenosis. PROCEDURE NOTE: After obtaining informed consent, transesophageal echocardiogram is performed in left lateral position using an Omniplane probe. Local and IV sedation were obtained using Xylocaine spray, Versed, and fentanyl. Total sedation time was 10 minutes. FINDINGS: 1. Aortic valve is a bicuspid valve, heavily calcified with severe restriction in leaflet mobility with a planimetry valve area of 0.5 square cm consistent with severe aortic stenosis. There is mild aortic regurgitation noted. Aorta shows [id number]-[id number] atherosclerotic changes. There is no evidence of aortic aneurysm. 2. Mitral valve appears anatomically normal. There is mild mitral regurgitation noted. Tricuspid valve shows mild tricuspid regurgitation. Interatrial septum, there is no evidence of riry-aw-asfnd shunt by color-flow Doppler or [id number]-[id number] shunt by agitated saline contrast study. 3. Left ventricle has normal size and systolic function. 4. Left atrium appears mildly enlarged, right atrium right ventricle seen within normal limits. 5. Interatrial septum, there is no evidence of pdig-ib-srszc shunt by color-flow Doppler or gcvwv-wu-lokg shunt by agitated saline contrast study. CONCLUSION: Severe aortic stenosis involving a bicuspid aortic valve with a planimetry valve area of 0.5 sq cm. PLAN: Patient will follow up with Dr. Vargas next week to discuss about his aortic valve replacement options. The patient had a cardiac catheterization yesterday. MMODL / IJN: [id number] /
== END 2022-10-16 13:20 | disposition home or self-care (01) ==
LOC: EC 16:55 → 6NMEDSUR 20:22
PROVIDERS: ADMIT Hospitalist; ATTEND Hospitalist
DX: R07.89 Other chest pain (principal); Q23.1 Congenital insufficiency of aortic valve; I25.10 Atherosclerotic heart disease of native coronary artery without angina pectoris; I10 Essential (primary) hypertension; E78.5 Hyperlipidemia, unspecified; I25.2 Old myocardial infarction; E11.9 Type 2 diabetes mellitus without complications; M54.30 Sciatica, unspecified side; Z79.82 Long term (current) use of aspirin; Z79.84 Long term (current) use of oral hypoglycemic drugs; Z79.899 Other long term (current) drug therapy; Z87.891 Personal history of nicotine dependence; Z95.5 Presence of coronary angioplasty implant and graft; Z98.890 Other specified postprocedural states; Z82.49 Family history of ischemic heart disease and other diseases of the circulatory system
CPT/HCPCS: 96366 ×2; 96376; 96365; 99285; 36415; 93005; 93312; 93320; 93325; 93454; 80061; 80053; 84484 ×2; 85025; 85610; 85730 ×3; 81003; 71046; G0378 ×3; C1769; C1894; J2250 ×2; J2001; J3010 ×2; J1644 ×3; Q9967

== ENCOUNTER → 2022-10-29 | Outpatient (CLI) | payer BC ==
[2022-10-29 10:22] LABS: Partial Thromboplastin Time 24.8 sec (22.0-30.0); Prothrombin Time 10.8 sec (9.0-12.0)
--- NOTE | 2022-10-29 10:26 | P.PN ---
Progress Note - Text Progress Note Date: 10/29/22 5 meter walk test completed without difficulty: #1 3.07 sec #2 2.70 sec #3 2.85 sec STS risk to be calculated and discussed with the patient once testing has been completed.
--- NOTE | 2022-10-29 13:44 | US ---
EXAMINATION TYPE: US carotid duplex BILAT DATE OF EXAM: 10/29/2022 COMPARISON: NONE CLINICAL INDICATION: Male, 62 years old with history of OPEN HEART; open heart TECHNIQUE: Carotid duplex ultrasound examination. Indirect Doppler criteria was utilized. FINDINGS: EXAM MEASUREMENTS: RIGHT: Peak Systolic Velocity (PSV) cm/sec ----- Right CCA: 53.3 ----- Right ICA: 102.6 ----- Right ECA: 162.8 ICA/CCA ratio: 2.0 RIGHT: End Diastole cm/sec ----- Right CCA: 13.9 ----- Right ICA: 22.3 ----- Right ECA: 18.9 LEFT: Peak Systolic Velocity (PSV) cm/sec ----- Left CCA: 59.9 ----- Left ICA: 118.5 ----- Left ECA: 138.3 ICA/CCA ratio: 2.0 LEFT: End Diastole cm/sec ----- Left CCA: 17.7 ----- Left ICA: 24.1 ----- Left ECA: 23.6 VERTEBRALS (direction of flow): Right Vertebral: Antegrade Left Vertebral: Antegrade Rhythm: Normal KITCHEN HELPER NOTES: Herterogenous plaque bilateral bulbs with no significant stenosis seen IMPRESSION: Heterogeneous plaque bilaterally with findings suggestive of a 50-69% stenosis bilaterally. Criteria for Assigning % of Stenosis / Diameter reduction (Estimation based on the indirect measurements of the internal carotid artery velocities (ICA PSV). 1. Normal (no stenosis)=ICA PSV < 125 cm/s: ratio < 2.0: ICA EDV<40 cm/s. 2. Less than 50% stenosis=ICA PSV < 125 cm/s: ratio < 2.0: ICA EDV<40 cm/s. 3. 50 to 69% stenosis=ICA PSV of 125 to 230 cm/s: ration 2.0 ? 4.0: ICA EDV 40-100 cm/s. 4. Greater than 70% stenosis to near occlusion= ICA PSV > 230 cm/s: ratio > 4.0: ICA EDV > 100 cm/s. 5. Near occlusion= ICA PSV velocities may be low or undetectable: variable ratio and ICA EDV. 6. Total occlusion=unable to detect flow.
--- NOTE | 2022-10-29 15:28 | US ---
EXAMINATION TYPE: US vein mapping BILAT DATE OF EXAM: 10/29/2022 11:09 AM COMPARISON: NONE CLINICAL INDICATION: Male, 62 years old with history of OPEN HEART; open heart SIDE PERFORMED: Bilateral TECHNIQUE: Lower extremity saphenous vein is examined and measured utilizing real time linear array sonography. Patient History: Heart Disease: y Discoloration: n Hypertension: y Diabetes: y Varicosities: n Edema: n DUPLEX FINDINGS: Greater Saphenous: Color flow seen Measurements in mm: Right Greater Saphenous: Groin: 7.3 x 7.2 mm High Thigh: 3.0 x 3.9 mm Mid Thigh: 3.3 x 4.4 mm Above Knee: 2.8 x 3.5 mm Knee: 2.3 x 3.1 mm Below Knee: 2.9 x 3.3 mm Mid Calf: 2.4 x 4.2 mm At Ankle: 2.8 x 5.0 mm Left Greater Saphenous: Groin: 5.4 x 6.8 mm High Thigh: 2.8 x 3.0 mm Mid Thigh: 2.7 x 3.1 mm Above Knee: 2.9 x 3.2 mm Knee: 3.5 x 4.1 mm Below Knee: 3.1 x 4.8 mm Mid Calf: 1.9 x 4.1 mm At Ankle: 2.9 x 3.7 mm IMPRESSION: 1. Bilateral GSV measurements listed above. 2. Performing surgeon to determine viability as conduit.
--- NOTE | 2022-10-29 15:29 | US ---
EXAMINATION TYPE: Pre-Operative Non-Invasive Evaluation of the hand for Potential Radial Artery Melissa sosa, Measurements only DATE OF EXAM: 10/29/2022 10:43 AM CLINICAL INDICATION: Male, 62 years old with history of OPEN HEART; open heart SIDE PERFORMED: Bilat TECHNIQUE: Radial artery is measured utilizing real time linear array sonography. Dominant hand: Right Duplex Findings: Radial Artery: Color flow seen Measurements in mm, transverse view: Right Radial Proximal: 3.3 x 4.1 mm Mid: 3.0 x 3.3 mm Distal: 2.9 x 3.5 mm Left Radial Proximal: 3.5 x 4.2 mm Mid: 2.9 x 3.9 mm Distal: 2.6 x 2.9 mm IMPRESSION: 1. Bilateral radial artery measurements listed above. 2. Performing surgeon to determine viability as conduit.
[2022-10-29 15:46] LABS: Appearance,Urine Clear (Clear); Bilirubin,Urine Negative (Negative); Blood,Urine Negative (Negative); Color,Urine Yellow (Yellow); Ketones,Urine Negative (Negative); Nitrite,Urine Negative (Negative); Specific Gravity,Urine 1.019 (1.001-1.030); Urobilinogen,Urine 0.2 (0.2,1.0)
[2022-10-29 15:52] LABS: HCT 46.6 % (39.6-50.0); HGB 16.1 g/dL (13.0-17.0); MCHC 34.5 g/dL (32.0-37.0); MCV 86.8 fL (80.0-97.0); Mean Platelet Volume 10.1 fL (9.5-12.2); NRBC Per 100 WBC 0 /100 WBCS (0.0-0.0); Platelet Count 228 X 10*3/uL (140-440); RBC 5.37 X 10*6/uL (4.40-5.60); RDW 12.4 % (11.5-14.5); WBC 6.99 X 10*3/uL (4.50-10.00)
[2022-10-29 16:09] LABS: ALT 26 U/L (10-49); AST 38 U/L (14-35); Albumin 4.7 g/dL (3.8-4.9); Albumin/Globulin Ratio 1.96 (1.60-3.17); Alkaline Phosphatase 48 U/L (41-126); BUN/Creat Ratio 25.56 Ratio (12.00-20.00); Calcium 10.3 mg/dL (8.7-10.3); Carbon Dioxide 23.2 mmol/L (20.0-27.5); Chloride 102 mmol/L (96-109); Chol/HDL Ratio 2.91 Ratio; Globulin 2.4 g/dL (1.6-3.3); Glucose 117 mg/dL (70-110); Magnesium 1.9 mg/dL (1.5-2.4); Non-African American GFR(CKD) 90.6 (60.0-200.0); Potassium 4.3 mmol/L (3.5-5.5); Sodium 138 mmol/L (135-145); Total Protein 7.1 g/dL (6.2-8.2); VLDL Calculation 16.24 mg/dL (5.00-40.00)
[2022-10-29 19:01] LABS: Hepatitis A Antibody IgM Nonreactive (Nonreactive); Hepatitis B Core IgM Nonreactive (Nonreactive); Hepatitis B Surface Antigen Nonreactive (Nonreactive); Hepatitis C IgG Antibody Nonreactive (Nonreactive)
[2022-10-29 23:29] LABS: Microalbumin Creatinine Ratio <30 mg/g Creat (0-30); Urine Creatinine 32.8 mg/dL (39.0-259.0)
--- NOTE | 2022-10-31 07:31 | US ---
EXAMINATION TYPE: US arterial LE multi level DATE OF EXAM: 10/29/2022 12:41 PM CLINICAL INDICATION: Male, 62 years old with history of OPEN HEART; open heart History of: Smoker: n Hypertension: y Diabetic: y Hyperlipidemia: n TIA/CVA: y Previous Vascular Surgery: n CAD: n [place]: n Vascular Ulcers: n Claudication: n Gangrene: n Doppler Waveforms: Right: Multiphasic Left: Multiphasic Ankle-Brachial Indices: Right: 1.0 Left: 1.0 Toe Brachial Indices: Right: 0.8 Left: 0.8 IMPRESSION: Normal ankle-brachial indices bilaterally. No evidence for significant peripheral arteri al disease.
== END | disposition home or self-care (01) ==
LOC: LABWHC1 09:01
PROVIDERS: ATTEND Thoracic Surgery (Cardiothoracic Vascular Surgery)
DX: E11.65 Type 2 diabetes mellitus with hyperglycemia (principal); E78.5 Hyperlipidemia, unspecified
CPT/HCPCS: 36415; 80053; 80061; 80074; 81003; 82043; 82570; 83036; 83735; 84443; 85027; 85610; 85730; 87070; 87086; 93880; 93923; 93930; 93970; 94150

== ENCOUNTER 2022-11-04 05:33 | Inpatient (IN) | payer BC ==
[~2022-11-04 05:33] MED LIST changes: +ALBUMIN HUMAN 25% 50 ML IV ONE; +ALBUMIN HUMAN 5% 500 ML IVPB ONE; +ASPIRIN 325 MG TAB PO ONE; +ATORVASTATIN 10 MG TAB PO ONE; +CALCIUM CHLORIDE 100 MG/ML 10 ML SYRINGE IV ONE; +CARDIOPLEGIC SOLN (K+ 16 MEQ/L 1,000 ML with SODIUM BICARB (1 MEQ/ML) 20 ML, LIDOCAINE ... PERFUSION ONE; +CHLORHEXIDINE GLUCONATE 15 ML CUP MUCOUS MEM ONE; +CLEVIDIPINE BUTYRATE 25 MG in EMPTY BAG 1 BAG IV ONE; +DILTIAZEM 125 MG in SODIUM CHLORIDE 0.9% 100 ML IV ONE; +HEPARIN SODIUM 1,000 UN/ML (10ML VL) IV ONE; +HEPARIN SODIUM,PORCINE 5,000 UNIT in SODIUM CHLORIDE 0.9% 500 ML 500 ML IV ONE; +INSULIN REGULAR 100 UNIT in SODIUM CHLORIDE 0.9% 100 ML IV ONE; +LACTATED RINGERS 1,000 ML IV ONE; -LACTATED RINGERS 1,000 ML IV SCH; +MAGNESIUM SULFATE 16.24 MEQ in EMPTY SYRINGE 1 SYR IV ONE; +MANNITOL 25% 12.5 GM/50 ML VIAL IV ONE; +METOPROLOL TARTRATE 12.5 MG TAB PO ONE; +NITROGLYCERIN SL TABS 0.4 MG TAB SUBLINGUAL ONE; +NITROGLYCERIN-D5W PMX 25 MG/250 ML BTL IV ONE; +NITROGLYCERIN-D5W PMX 50 MG in DEXTROSE/WATER 1 250ML.BAG IV ONE; +NOREPINEPHRINE 4 MG in SODIUM CHLORIDE 0.9% 250 ML IV ONE; +PAPAVERINE 360 MG in SODIUM CHLORIDE 0.9% 90 ML IV ONE; +PHENYLEPHRINE 10 MG/ML VIAL IV ONE; +PHENYLEPHRINE 40 MG in SODIUM CHLORIDE 0.9% 250 ML IV ONE; +PROTAMINE SULFATE 10 MG/ML 25 ML VIAL IV ONE; +PROTAMINE SULFATE 250 MG in EMPTY BAG 1 BAG IV ONE; +SODIUM BICARB 8.4% 50 ML SYR (1 MEQ/ML) IV ONE; +SODIUM CHLORIDE 0.9% 1,000 ML IV ONE; +TRANEXAMIC ACID 2,000 MG in SODIUM CHLORIDE 0.9% 80 ML IV ONE; +ceFAZolin 1,000 MG in SODIUM CHLORIDE 0.9% IRRIGATIO 1,000 ML IRRIGATION ONE; +propofoL 1,000 MG/100 ML VIAL IV ONE
[2022-11-04] MEDS ORDERED: LACTATED RINGERS 1,000 ML IV ONE (05:45)
[2022-11-04 06:18] LABS: Glucose,Whole Blood 106 mg/dL (70-110)
[2022-11-04] MEDS ORDERED: ONDANSETRON 4 MG/2 ML VIAL ONE (06:23)
[2022-11-04] MEDS ORDERED: LIDOCAINE 2% SYG (PF) 100 MG/5 ML ONE (07:44)
[2022-11-04] MEDS ORDERED: MIDAZOLAM HCL 10 MG/10 ML VIAL ONE (07:44)
[2022-11-04] MEDS ORDERED: ALBUMIN HUMAN 5% (12.5gm) 250 ML BOTTLE IVPB ONE (07:44)
[2022-11-04] MEDS ORDERED: HEPARIN SODIUM,PORCINE 5,000 UNIT/ML 1 ML VIAL ONE (07:44)
[2022-11-04] MEDS ORDERED: PROTAMINE SULFATE 10 MG/ML 5 ML VIAL IV ONE (07:44)
[2022-11-04] MEDS ORDERED: ePHEDrine 50 MG/ML 1 ML VIAL ONE (07:44)
[2022-11-04] MEDS ORDERED: PHENYLEPHRINE-0.9% NACL SYG 1,000 MCG/10 ML SYRINGE ONE (07:44)
[2022-11-04] MEDS ORDERED: MAGNESIUM SULFATE 4 MEQ/ML 10ML VIAL ONE (07:44)
[2022-11-04] MEDS ORDERED: PROTAMINE SULFATE 10 MG/ML 25 ML VIAL IV ONE (07:44)
[2022-11-04] MEDS ORDERED: NITROGLYCERIN-D5W PMX 25 MG/250 ML BTL IV ONE (07:44)
[2022-11-04] MEDS ORDERED: fentaNYL (PF) 50 MCG/ML 50 ML VIAL ONE (07:44)
[2022-11-04] MEDS ORDERED: PROPOFOL 10 MG/ML 20 ML VIAL IV ONE (07:44)
[2022-11-04] MEDS ORDERED: TRANEXAMIC ACID IN NACL,ISO-OS 1,000 MG/100 ML BAG ONE (07:44)
[2022-11-04] MEDS ORDERED: ELECTROLYTE-R (PH 7.4) 1,000 ML IV.SOLN IV ONE (07:44)
[2022-11-04] MEDS ORDERED: CALCIUM CHLORIDE 100 MG/ML 10 ML SYRINGE ONE (07:44)
[2022-11-04] MEDS ORDERED: VECURONIUM 10 MG VIAL IV ONE (07:44)
[2022-11-04] MEDS ORDERED: HEPARIN SODIUM,PORCINE 10,000 UNIT/ML 1 ML VIAL ONE (07:44)
[2022-11-04 08:45] LABS: ABG Ionized Calcium 4.7 mg/dL (4.5-5.3); ABG Oxygen Saturation 97.8 % (94-97); ABG PCO2 36 mmHg (35-45); ABG PH 7.43 (7.35-7.45); ABG PO2 216 mmHg (83-108); ABG Potassium Whole Blood 3.7 mmol/L (3.4-4.5); ABG Sodium Whole Blood 141 mmol/L (135-146)
[2022-11-04 08:46] LABS: ABG HCO3 23 mmol/L (21-25); ABG Ionized Calcium 4.7 mg/dL (4.5-5.3); ABG Oxygen Saturation 97.9 % (94-97); ABG PCO2 35 mmHg (35-45); ABG PH 7.43 (7.35-7.45); ABG PO2 214 mmHg (83-108); ABG Potassium Whole Blood 3.7 mmol/L (3.4-4.5); ABG Sodium Whole Blood 141 mmol/L (135-146); ABG TCO2 24 mmol/L (19-24)
[2022-11-04 08:59] LABS: ABG HCO3 24 mmol/L (21-25); ABG Ionized Calcium 4.7 mg/dL (4.5-5.3); ABG Oxygen Saturation 99.1 % (94-97); ABG PCO2 40 mmHg (35-45); ABG PH 7.38 (7.35-7.45); ABG PO2 187 mmHg (83-108); ABG Potassium Whole Blood 3.8 mmol/L (3.4-4.5); ABG Sodium Whole Blood 140 mmol/L (135-146); ABG TCO2 25 mmol/L (19-24)
[2022-11-04 09:39] LABS: Glucose,Whole Blood 117 mg/dL (70-110)
[2022-11-04 10:00] LABS: Glucose,Whole Blood 116 mg/dL (70-110)
[2022-11-04 10:03] LABS: ABG HCO3 23 mmol/L (21-25); ABG Ionized Calcium 4.7 mg/dL (4.5-5.3); ABG PCO2 40 mmHg (35-45); ABG PH 7.37 (7.35-7.45); ABG PO2 194 mmHg (83-108); ABG Potassium Whole Blood 3.8 mmol/L (3.4-4.5); ABG Sodium Whole Blood 140 mmol/L (135-146); ABG TCO2 24 mmol/L (19-24)
[2022-11-04 10:50] LABS: ABG HCO3 25 mmol/L (21-25); ABG Ionized Calcium 4.1 mg/dL (4.5-5.3); ABG PCO2 34 mmHg (35-45); ABG PH 7.46 (7.35-7.45); ABG Potassium Whole Blood 4.4 mmol/L (3.4-4.5); ABG Sodium Whole Blood 138 mmol/L (135-146); ABG TCO2 26 mmol/L (19-24)
[2022-11-04 10:56] LABS: Glucose,Whole Blood 109 mg/dL (70-110)
[2022-11-04 11:32] LABS: ABG HCO3 22 mmol/L (21-25); ABG Ionized Calcium 4.4 mg/dL (4.5-5.3); ABG Oxygen Saturation 98.6 % (94-97); ABG PCO2 32 mmHg (35-45); ABG PH 7.45 (7.35-7.45); ABG PO2 352 mmHg (83-108); ABG Potassium Whole Blood 4.3 mmol/L (3.4-4.5); ABG Sodium Whole Blood 139 mmol/L (135-146); ABG TCO2 23 mmol/L (19-24)
[2022-11-04 11:37] LABS: Glucose,Whole Blood 122 mg/dL (70-110)
[2022-11-04 12:02] LABS: ABG HCO3 23 mmol/L (21-25); ABG Ionized Calcium 4.5 mg/dL (4.5-5.3); ABG Oxygen Saturation 99.6 % (94-97); ABG PCO2 37 mmHg (35-45); ABG PO2 323 mmHg (83-108); ABG Potassium Whole Blood 4.7 mmol/L (3.4-4.5); ABG Sodium Whole Blood 139 mmol/L (135-146); ABG TCO2 24 mmol/L (19-24)
[2022-11-04 12:09] LABS: Glucose,Whole Blood 124 mg/dL (70-110)
[2022-11-04 13:16] LABS: ABG HCO3 22 mmol/L (21-25); ABG Ionized Calcium 4.9 mg/dL (4.5-5.3); ABG PCO2 37 mmHg (35-45); ABG PH 7.39 (7.35-7.45); ABG Potassium Whole Blood 4.5 mmol/L (3.4-4.5); ABG Sodium Whole Blood 139 mmol/L (135-146); ABG TCO2 23 mmol/L (19-24)
[2022-11-04 14:02] LABS: ABG HCO3 22 mmol/L (21-25); ABG Ionized Calcium 4.3 mg/dL (4.5-5.3); ABG Oxygen Saturation 98.1 % (94-97); ABG PCO2 37 mmHg (35-45); ABG PH 7.38 (7.35-7.45); ABG PO2 105 mmHg (83-108); ABG Potassium Whole Blood 3.9 mmol/L (3.4-4.5); ABG Sodium Whole Blood 141 mmol/L (135-146); ABG TCO2 23 mmol/L (19-24)
[2022-11-04 14:03] LABS: ABG Base Excess 0.6 mmol/L; ABG Hematocrit 46 % (34.0-46.0)
[2022-11-04 14:05] LABS: ABG Base Excess 1.4 mmol/L; ABG Hematocrit 46 % (34.0-46.0)
[2022-11-04 14:07] LABS: ABG Base Excess 2.1 mmol/L; ABG Hematocrit 45 % (34.0-46.0)
[2022-11-04 14:08] LABS: ABG Hematocrit 31 % (34.0-46.0); ABG PO2 >420 mmHg (83-108)
[2022-11-04 14:09] LABS: ABG Hematocrit 36 % (34.0-46.0)
[2022-11-04 14:10] LABS: ABG Base Excess 1.9 mmol/L; ABG Hematocrit 36 % (34.0-46.0)
[2022-11-04 14:13] LABS: ABG Hematocrit 36 % (34.0-46.0)
[2022-11-04] MEDS ORDERED: IPRATROPIUM-ALBUTEROL 3 ML NEB INHALATION PRN (14:30)
[2022-11-04] MEDS ORDERED: DEXMEDETOMIDINE/0.9% NACL(PMX) 400 MCG in EMPTY BAG 1 BAG IV SCH (14:30)
[2022-11-04] MEDS ORDERED: DEXTROSE 5% IN WATER 100 ML with AMIODARONE 150 MG IV PRN (14:30)
[2022-11-04] MEDS ORDERED: INSULIN REGULAR 100 UNIT in SODIUM CHLORIDE 0.9% 100 ML IV SCH (14:30)
[2022-11-04] MEDS ORDERED: AMIODARONE 360 MG in DEXTROSE 5% IN WATER 200 ML IV PRN ×2 (14:30)
[2022-11-04] MEDS ORDERED: ONDANSETRON 4 MG/2 ML VIAL IVP PRN (14:30)
[2022-11-04] MEDS ORDERED: AMIODARONE 450 MG in DEXTROSE 5% IN WATER 250 ML IV PRN ×2 (14:30)
[2022-11-04] MEDS ORDERED: NITROGLYCERIN-D5W PMX 50 MG in DEXTROSE/WATER 1 250ML.BAG IV SCH (14:30)
[2022-11-04] MEDS ORDERED: BENZOCAINE/MENTHOL LOZENG 1 EACH LOZENGE MUCOUS MEM PRN (14:30)
[2022-11-04] MEDS ORDERED: METOCLOPRAMIDE 5 MG/ML 2 ML VIAL IVP PRN (14:30)
[2022-11-04] MEDS ORDERED: DEXTROSE 50% SYRINGE 50 ML IVP PRN ×2 (14:30)
[2022-11-04] MEDS ORDERED: hydrALAZINE HCL 20 MG/ML 1 ML VIAL IVP PRN (14:30)
[2022-11-04] MEDS ORDERED: DILTIAZEM 125 MG in SODIUM CHLORIDE 0.9% 100 ML IV SCH (14:30)
[2022-11-04] MEDS ORDERED: Magnesium Replacement Protocol 1 EACH MISC MISCELLANE PRN (14:30)
[2022-11-04] MEDS ORDERED: CLEVIDIPINE BUTYRATE 25 MG in EMPTY BAG 1 BAG IV SCH (14:30)
[2022-11-04] MEDS ORDERED: Potassium Replacement Protocol 1 EACH MISC MISCELLANE PRN (14:30)
[2022-11-04] MEDS ORDERED: MD COMMUNICATION TO PHARMACY 1 EACH MISC PO PRN (14:43)
[2022-11-04 14:59] LABS: Glucose,Whole Blood 94 mg/dL (70-110)
[2022-11-04] MEDS: PHENYLEPHRINE 40 MG in SODIUM CHLORIDE 0.9% 250 ML IV SCH (15:00)
[2022-11-04] MEDS: LACTATED RINGERS 1,000 ML IV SCH (15:00)
--- NOTE | 2022-11-04 15:06 | P.OP ---
Date of Procedure: 11/04/22 Preoperative Diagnosis: Aortic stenosis, coronary artery disease Postoperative Diagnosis: Same Procedure(s) Performed: Aortic valve replacement with 27 mm Avalus bovine pericardial valve, CABG 4 with sequential CALVIN to LAD and diagonal, left radial artery graft to third obtuse marginal (distal circumflex), saphenous vein graft to descending coronary artery, endovascular left radial harvest, endovascular left greater saphenous vein harvest, ligation of the left atrial appendage with 35 mm AtriCure clip, epi-aortic ultrasound Implants: 27 mm bovine pericardial valve (Medtronic Avalus) Anesthesia: GETA Surgeon: Melquiades Wolf Coke Burner #1: Dharmesh Yao Estimated Blood Loss (ml): 500 IV fluids (ml): 2,500 Urine output (ml): 300 Pathology: other (Aortic valve) Condition: stable Disposition: ICU Indications for Procedure: 59 male presents with shortness of breath and was found to have left main coronary artery stenosis, stenosis of the diagonal coronary artery, complete occlusion of the right coronary artery and severe ossific aortic stenosis. It was unclear if this was bicuspid or tricuspid valve. It was felt best served by surgery his young age and low risk. Elective surgery was scheduled. Operative Findings: Aorta was less than 4 cm in diameter but thin. Aortic valve was tricuspid and heavily calcified. Coronary targets were good. Conduits were adequate. Radial was somewhat short to reach the distal circumflex coronary artery was decided to take him off the CALVIN proximally rather than try to stretch it to the aorta. LV was hypertrophic hyperdynamic. Description of Procedure: The patient was brought to the operating room and placed supine on the operating table. Gen. anesthesia was induced. Interventional monitoring lines been started preoperative holding area. Anterior torso bilateral lower extremities and left upper extremity were sterilely prepped and draped. TRAY left greater saphenous vein was harvested from the left thigh using endovascular vein harvest technique. Simultaneously the left radial artery was harvested from the forearm using endovascular harvest technique. Simultaneously midline sternotomy was performed a left hemisternum was retracted upwards and the left internal mammary artery harvested on a vascularized pedicle, left intact on its origin from the subclavian and divided distally. Left pleural space was drained with a 32- Nepali chest tube. Standard sternal retractor was placed. Pericardium was opened in the midline. Heart was exposed with pericardial sutures. Epi-aortic ultrasound was performed and the majority the ascending aorta was felt to be relatively normal. There was some calcification in the root of the aorta. Patient was heparinized and cannulated for cardiopulmonary bypass with a 7 mm soft flow cannula in the distal ascending aorta and a two-stage venous cannula through the right atrium into the inferior vena cava. Antegrade and retrograde cardioplegia line was placed in standard fashion. Patient was placed on cardiopulmonary bypass and stabilized. Pursestring suture was placed in the right superior pulmonary vein. 35mm AtriCure was applied to the base of the left atrial appendage. Aorta was crossclamped and the heart was arrested with cold crystalloid cardioplegia followed by retrograde cardioplegia. We dosing w ith retrograde cardioplegia was performed at appropriate time intervals. We began with the saphenous vein graft to the posterior descending coronary artery. Posterior descending coronary artery was a 1.5 mm vessel which was fairly proximally. It easily accepted a 1.5 mm probe proximally and distally. Saphenous vein was anastomosed in end-to-side fashion with running 7-0 Prolene suture. On completion anastomosis suture was tied with good result and hemostasis following probing the anastomosis to confirm patency. The graft was flushed with cold blood cardioplegia which flowed easily and there was no significant leak. Large obtuse marginal branch which was third obtuse marginal branch was identified and opened. It was just past the obtuse margin on the inferior wall of the heart. It was a 1.75 mm vessel and easily probed proximally and distally. Radial artery and been prepared on the back table was anastomosed in end-to-side fashion with running 7-0 Prolene suture. On completion anastomosis vessel was probed and anastomosis patency confirmed. Suture was tied with good result and hemostasis with insufflation with cold blood cardioplegia. Radial graft was wrapped around the left side of the heart and was just a little short for the ascending aorta. It was decided we would likely bring this off the CALVIN. Left internal mammary artery was now brought through a/and the per icardium into the pericardial space. The LAD was grafted fairly proximally. There was 2.5 mm vessel. Side to side anastomosis between the CALVIN and LAD was performed with running 8-0 Prolene suture. Patient stenosis it was probed and noted to be is tied and inflow opened briefly and good hemostasis noted. DONALD pedicle was tacked surrounding epicardium with 6-0 silk suture. Distal portion of the CALVIN was now used to graft the diagonal midportion. The diagonal was a 1.5 mm vessel. Was opened and side anastomosis between the CALVIN and the diagonal was performed with running completion anastomosis it was probed and noted be patent. Suture was tied with good resultant hemostasis. Inflow was opened briefly graft was noted to flow well no leaks. CALVIN was re-occluded with bulldog clamp and the DONALD pedicle was tacked surrounding epicardium with 6-0 silk sutures. Length of the CALVIN graft was good and there was no kinking. Next the aorta was opened transversely. The aortic valve was visualized it was a heavily calcified tricuspid valve. The valve was excised and the annulus decalcified. There was calcium extending down onto the base of the anterior leaflet of the mitral valve and decalcified. The annulus was sized and a 27 mm bovine pericardial valve (Medtronic Avalus) was chosen appropriately washed. Differential valve sutures of 2-0 Tycron were placed with pledgets on the ventricular side. These were passed through the sewing ring of the valve and it was seated without difficulty. She is were tied and cut and the valve was noted to seat well. Coronary ostia were well above the valve annulus. Copious irrigation of the aortic root vent performed intermittently throughout the valve excision and debridement. The annulus was again irrigated now. Aorta was closed with a 2 layer running closure of 4-0 Prolene suture. This was reinforced with some CoSeal. Oxygen anastomosis of the vein graft off the ascending aorta was performed with running 6-0 Prolene suture to a 4 mm punch hole. On completion of this the patient was placed in Trendelenburg and the cross-clamp was removed. The vein graft was de-aired with a needle hole and flow was opened to the posterior descending coronary artery. Radial artery graft was now jumped off the CALVIN as it entered the pericardial space. Longitudinal incision was performed and the CALVIN and the anastomosis was performed side and to the radial artery using running 8-0 Prolene suture. On completion it was de-aired by backbleeding and suture was tied and the inflow was open. Atrial and ventricular pacing wires were placed and the patient was paced. Good hemostasis was noted throughout. Retrograde cardioplegia line was removed. De-airing was performed under TRAY guidance with a 18-gauge Angiocath in the apex of the left ventricle. Once good de-airing had been completed Angiocath was removed and the aortic vent line was removed and pursestring suture tied with good result and hemostasis. Patient had been cooled to 34 and was rewarmed to systemic temperature. We then weaned from cardiopulmonary bypass without the use of inotropic support. Ventricular function appeared good although the LV was quite hypertrophic and stiff. Patient responded well to volume support. Heparin was reversed with protamine and the patient was decannulated in standard fashion. Aortic cannulation site was reinforced with a 40 pledgeted suture. Good hemostasis was obtained throughout. Left pleural space was drained with 32-Nepali chest tube. The mediastinum was drained with 236-Nepali chest tubes. This was irrigated with antibiotic solution. Sternum was closed with 8 sternal wires. Fascia was closed with 0 Ethibond. Subcutaneous and subcuticular closed with layers of Vicryl suture in the arm leg and chest. Dry sterile dressings were applied the patient was transferred to the ICU in stable condition.
[2022-11-04 15:15] LABS: Ionized Calcium 4.9 mg/dL (4.5-5.3)
[2022-11-04 15:22] LABS: Glucose,Whole Blood 83 mg/dL (70-110)
[2022-11-04 15:22] LABS: ALT 20 U/L (4-49); AST 58 U/L (17-59); African American GFR (CKD) >90 (>60 ml/min/1.73 sqM); Albumin 3.4 g/dL (3.5-5.0); Alkaline Phosphatase 26 U/L (38-126); Anion Gap 11 mmol/L; Blood Urea Nitrogen 16 mg/dL (9-20); Calcium 7.6 mg/dL (8.4-10.2); Carbon Dioxide 21 mmol/L (22-30); Chloride 108 mmol/L (98-107); Glucose 91 mg/dL (74-99); Magnesium 3.8 mg/dL (1.6-2.3); Non-African American GFR(CKD) >90 (>60 ml/min/1.73 sqM); Potassium 4.1 mmol/L (3.5-5.1); Sodium 140 mmol/L (137-145); Total Bilirubin 0.8 mg/dL (0.2-1.3); Total Protein 5.1 g/dL (6.3-8.2)
[2022-11-04 15:24] LABS: Basophils % (A) 0 %; Eosinophils # (A) 0.1 k/uL (0-0.7); Eosinophils % (A) 1 %; HCT 36.5 % (39.0-53.0); Lymphocytes # (A) 1.5 k/uL (1.0-4.8); Lymphocytes % (A) 15 %; MCH 29.8 pg (25.0-35.0); MCHC 33.3 g/dL (31.0-37.0); MCV 89.5 fL (80.0-100.0); Mean Platelet Volume 7.2; Monocytes # (A) 0.4 k/uL (0-1.0); Monocytes % (A) 4 %; Neutrophils # (A) 7.8 k/uL (1.3-7.7); Neutrophils % (A) 78 %; Platelet Count 128 k/uL (150-450); RBC 4.08 m/uL (4.30-5.90); RDW 12.6 % (11.5-15.5); WBC 9.9 k/uL (3.8-10.6)
[2022-11-04 15:25] LABS: HGB 12.2 gm/dL (13.0-17.5)
--- NOTE | 2022-11-04 15:27 | XR ---
EXAMINATION TYPE: XR chest 1V portable DATE OF EXAM: 11/04/2022 3:19 PM COMPARISON: Chest radiographs from 10/14/2022 TECHNIQUE: XR chest 1V portable Portable AP radiograph of the chest. CLINICAL INDICATION:Male, 62 years old with history of Post Operative Cardiac Surgery; FINDINGS: Lungs/Pleura: No sizable pleural effusion or pneumothorax. Bibasilar linear atelectasis. Pulmonary vascularity: Unremarkable. Heart/mediastinum: Cardiomediastinal silhouette is enlarged. Left atrial appendage occlusion device. Post CABG changes. Musculoskeletal: No acute osseous pathology. Midline sternotomy wires are noted. Other findings: None Lines/Tubes: Endotracheal tube with distal tip 4.9 cm above the marli Nasogastric tube with its distal tip and side-port projecting under the diaphragm. Right IJ [place]-Marnie catheter identified with distal tip at the region of the main pulmonary artery. Mediastinal drain identified. Left chest tube identified with tip directed towards the hilum. IMPRESSION: Postop cardiac surgery. Appropriate position of support lines and tubes without evidence for pneumoth orax. Bibasilar linear atelectasis.
[2022-11-04 15:29] LABS: INR 1.2 (<1.2); Partial Thromboplastin Time 29.2 sec (22.0-30.0); Prothrombin Time 12.4 sec (9.0-12.0)
[2022-11-04] MEDS ORDERED: MUPIROCIN 2% OINT 22 GM TUBE NASAL ONE (15:30)
[2022-11-04 15:31] LABS: Glucose,Whole Blood 82 mg/dL (70-110)
[2022-11-04 15:43] LABS: ABG Base Excess -3.7 mmol/L; ABG HCO3 22 mmol/L (21-25); ABG PCO2 43 mmHg (35-45); ABG PH 7.33 (7.35-7.45); ABG PO2 242 mmHg (83-108); ABG TCO2 24 mmol/L (19-24); Allen Test Performed? Yes
[2022-11-04 15:49] LABS: Glucose,Whole Blood 87 mg/dL (70-110)
[2022-11-04] MEDS: IPRATROPIUM-ALBUTEROL 3 ML NEB INHALATION SCH ×2 (16:23→20:27)
[2022-11-04] MEDS: ALBUMIN HUMAN 5% 250 ML in EMPTY BAG 1 BAG IVPB PRN (16:38)
[2022-11-04 16:48] LABS: Glucose,Whole Blood 92 mg/dL (70-110)
[2022-11-04] MEDS: GABAPENTIN 300 MG CAP PO SCH ×2 (17:06→21:41)
[2022-11-04] MEDS: HEPARIN SODIUM,PORCINE/PF 5,000 UNIT/0.5 ML SYRINGE SQ SCH ×2 (17:07→23:53)
[2022-11-04] MEDS: ACETAMINOPHEN IV (For NPO) 1,000 MG in EMPTY BAG 1 BAG IVPB SCH ×2 (17:35→23:14)
[2022-11-04] MEDS: KETOROLAC 15 MG/ML 1 ML VIAL IVP SCH ×2 (17:36→23:53)
[2022-11-04 17:57] LABS: Glucose,Whole Blood 113 mg/dL (70-110)
[2022-11-04 18:02] LABS: Basophils % (A) 0 %; Eosinophils # (A) 0.1 k/uL (0-0.7); Eosinophils % (A) 1 %; HCT 32.8 % (39.0-53.0); HGB 10.9 gm/dL (13.0-17.5); Lymphocytes # (A) 0.9 k/uL (1.0-4.8); Lymphocytes % (A) 9 %; MCH 29.9 pg (25.0-35.0); MCHC 33.3 g/dL (31.0-37.0); MCV 89.9 fL (80.0-100.0); Mean Platelet Volume 9.2; Monocytes # (A) 0.8 k/uL (0-1.0); Monocytes % (A) 8 %; Neutrophils # (A) 8.2 k/uL (1.3-7.7); Neutrophils % (A) 82 %; Platelet Count 130 k/uL (150-450); RBC 3.65 m/uL (4.30-5.90); RDW 12.7 % (11.5-15.5); WBC 10.1 k/uL (3.8-10.6)
[2022-11-04] MEDS ORDERED: CARDIOPLEGIC SOLN (K+ 16 MEQ/L 1,000 ML with SODIUM BICARB (1 MEQ/ML) 20 ML, LIDOCAINE ... PERFUSION ONE ×3 (18:15)
--- NOTE | 2022-11-04 18:23 | P.CNPUL ---
History of Present Illness Consult date: 11/04/22 Chief complaint: Postthoracotomy, well-developed placement and bypass surgery History of present illness: I am seeing this 62-year-old male patient in the intensive care unit following his cardiac surgery. The patient is known to have symptomatic aortic stenosis and coronary artery disease. The patient underwent four-vessel bypass surgery including CALVIN to LAD and diagonal, radial graft to acute marginal, SVG to descending coronary artery and the patient also underwent a 27 mm bovine pericardial valve insertion. Currently the patient is in the intensive care unit. The patient is sedated on propofol. The patient has, comfortable and sickness a mechanical ventilator. The patient was assist-control at the rate of 14, tidal volume of 500, FiO2 of 100% with a PEEP of 5. The blood gas showed a pH of 7.33 with a pCO2 of 43 and pO2 of 242. FiO2 was dropped down to 50% and the patient's rate is currently at 20. Chest x-ray shows adequate expansion of both lungs clear no pneumothorax. Leroy-Marnie catheter was advanced. ET tube is in a good location. The patient has mediastinal and left pleural chest tube. No pneumothorax and no air leak. The patient has put out approximately 200 mL from the mediastinal and the left pleural chest tubes. Estimated blood loss intraoperatively was 500 mL and the patient's current hemoglobin is at 10.9. The current hemodynamic parameters showed PEA pressures of 38/15, cardiac operative 5.4 with an index of 2.7. The patient is on a Cardizem drip at 5 mg an hour regarding the radial harvesting. The patient is producing adequate amount of urine output. Cardiac rhythm is sinus. Review of Systems ROS unobtainable: due to endotracheal tube Past Medical History Past Medical History: Coronary Artery Disease (CAD), Diabetes Mellitus, Hyperlipidemia, Hypertension, Myocardial Infarction ([place]) Additional Past Medical History / Comment(s): sciatica Last Myocardial Infarction Date:: 2012 History of Any Multi-Drug Resistant Organisms: None Reported Past Surgical History: Back Surgery, Heart Catheterization With Stent, Tonsillectomy Additional Past Surgical History / Comment(s): COLONOSCOPY Past Anesthesia/Blood Transfusion Reactions: No Reported Reaction Date of Last Stent Placement:: 2012 Past Psychological History: No Psychological Hx Reported Smoking Status: Former smoker Past Alcohol Use History: None Reported Past Drug Use History: None Reported - Past Family History Family Family Medical History: Coronary Artery Disease (CAD) Medications and Allergies Home Medications Medication Instructions Recorded Confirmed Type Aspirin 81 mg PO DAILY 11/22/13 11/04/22 History Dapagliflozin Propanediol [Farxiga] 10 mg PO DAILY 03/22/20 11/04/22 History Enalapril [Vasotec] 20 mg PO BID 03/22/20 11/04/22 History Gabapentin 300 mg PO TID 03/22/20 11/04/22 History metFORMIN HCL [Glucophage] 1,000 mg PO BID 03/22/20 11/04/22 History Simvastatin [Zocor] 40 mg PO HS 07/17/22 11/04/22 History Fish Oil/Dha/Epa [Fish Oil 1,200 1 cap PO BID 10/06/22 11/04/22 History mg Fish Oil] Fluticasone Nasal [place] [Flonase 1 spray EA NOSTRIL DAILY 10/06/22 11/04/22 History Nasal [place]] Isosorbide Mononitrate ER [Imdur] 15 mg PO DAILY 10/14/22 11/04/22 History Nitroglycerin Sl Tabs [Nitrostat] 0.4 mg SUBLINGUAL Q5M PRN #30 tab 10/16/22 11/04/22 Rx Fexofenadine HCl [Nancy Allergy] 180 mg PO DAILY 10/29/22 11/04/22 History Allergies Allergy/AdvReac Type Severity Reaction Status Date / Time atorvastatin [From Lipitor] AdvReac muscle Verified 11/04/22 05:58 aches Physical Exam Vitals: Vital Signs Temp Pulse Pulse Resp BP BP Pulse Ox 11/04/22 18:00 98.8 F 64 20 99 11/04/22 17:45 66 20 100 11/04/22 17:30 66 20 98 11/04/22 17:25 11/04/22 17:15 65 20 99 11/04/22 17:00 98.6 F 65 20 99 11/04/22 16:45 61 20 99 11/04/22 16:33 11/04/22 16:30 64 14 99 11/04/22 16:24 65 14 11/04/22 16:15 65 14 98 11/04/22 16:00 98.1 F 69 14 99 11/04/22 15:52 11/04/22 15:45 69 14 100 11/04/22 15:30 80 14 100 11/04/22 15:15 80 14 100 11/04/22 15:00 97.3 F L 80 14 11/04/22 14:57 11/04/22 14:56 14 11/04/22 05:45 97.8 F 60 16 128/73 144/86 98 FiO2 11/04/22 18:00 11/04/22 17:45 11/04/22 17:30 11/04/22 17:25 50 11/04/22 17:15 11/04/22 17:00 50 11/04/22 16:45 11/04/22 16:33 60 11/04/22 16:30 11/04/22 16:24 11/04/22 16:15 11/04/22 16:00 50 11/04/22 15:52 60 11/04/22 15:45 11/04/22 15:30 11/04/22 15:15 11/04/22 15:00 11/04/22 14:57 100 11/04/22 14:56 11/04/22 05:45 Intake and Output 11/04/22 11/04/22 11/04/22 06:59 14:59 22:59 Intake Total 200 348 688.655 Output Total 1185 1605 Balance 200 -837 -916.345 Intake: IV 200 54 536 ACETAMINOPHEN IV (For NPO 100 ) 1,000 mg In Empty Bag 1 bag @ 400 mls/hr IVPB Q6HR [facility] Rx#:[id number] Albumin Human 5% 250 ml 250 In Empty Bag 1 bag @ 250 mls/hr IVPB Q1HR PRN Rx#: [id number] LR 150 Pressure bags 36 Intake, IV Titration 152.655 Amount Phenylephrine 40 mg In 26.530 Sodium Chloride 0.9% 250 ml @ 0.5 MCG/KG/MIN 16.65 mls/hr IV .[id number] [facility] Rx#:[id number] ceFAZolin 2 gm In Sodium 50 Chloride 0.9% 50 ml @ 100 mls/hr IVPB Q8HR [facility] Rx# :[id number] propofoL 1,000 mg In 76.125 Empty Bag 1 bag @ Titrate IV .Q0M [facility] Rx#: [id number] Blood Product 294 Platelet Pheresis Pas 294 Psoralen Unit [id number] Output: Chest Tube Drainage 590 L. plural 250 MS x2 340 Urine 685 1015 Estimated Blood Loss 500 Other: Voiding Method Indwelling Catheter Weight 87.4 kg ABP, PAP, CO, CI - Last 8 Hours Arterial Blood Pressure 100/48 Arterial Blood Pressure 106/51 Arterial Blood Pressure 102/51 Arterial Blood Pressure 113/56 Arterial Blood Pressure 101/46 Arterial Blood Pressure 94/43 Arterial Blood Pressure 95/43 Arterial Blood Pressure 94/44 Arterial Blood Pressure 94/44 Arterial Blood Pressure 103/49 Arterial Blood Pressure 110/55 Arterial Blood Pressure 116/59 Arterial Blood Pressure 0/0 Pulmonary Artery Pressure 38/15 Pulmonary Artery Pressure 33/15 Pulmonary Artery Pressure 41/13 Pulmonary Artery Pressure 45/17 Pulmonary Artery Pressure 31/11 Pulmonary Artery Pressure 26/9 Pulmonary Artery Pressure 25/10 Pulmonary Artery Pressure 29/11 Pulmonary Artery Pressure 32/3 Pulmonary Artery Pressure 32/3 Pulmonary Artery Pressure 33/14 Pulmonary Artery Pressure 34/15 Pulmonary Artery Pressure 32/12 Cardiac Output 5.0 Cardiac Output 5.4 Cardiac Output 5 Cardiac Output 5.8 Cardiac Index 2.5 Cardiac Index 2.7 Cardiac Index 2.5 Cardiac Index 2.9 Gen. appearance the patient is calm comfortable, sedated on propofol, intubated on a mechanical ventilator. Orogastric and orotracheal tube was in place. Head exam was generally normal. There was no scleral icterus or corneal arcus. Mucous membranes were moist. Neck was supple and without jugular venous distension, thyromegaly, or carotid bruits. Carotids were easily palpable bilaterally. There was no adenopathy. The patient has a Cordis in the right internal jugular on with a Leroy-Marnie catheter in place. Lungs were clear to auscultation and percussion, and with normal diaphragmatic excursion. No wheezes or rales were noted. Patient has a mediastinal left pleural chest tube. Cardiac exam revealed the PMI to be normally situated and sized. The rhythm was regular and no extrasystoles were noted during several minutes of auscultation. The first and second heart sounds were normal and physiologic splitting of the second heart sound was noted. There were no murmurs, rubs, clicks, or gallops. Sternum is stable and intact and the incision wound is dry clean Abdominal exam revealed normal bowel sounds. The abdomen was soft, non-tender, and without masses, organomegaly, or appreciable enlargement of the abdominal aorta. Examination of the extremities revealed easily palpable radial, femoral and pedal pulses. There was no cyanosis, clubbing or edema. Examination of the skin revealed no evidence of significant rashes, suspicious appearing nevi or other concerning lesions. Neurologically, the patient is neurologically sedated. Cranial nerves are essentially intact. Results - Laboratory Findings CBC and BMP: 11/04/22 17:58 11/04/22 14:56 ABG ABG pH 7.33 (7.35-7.45) L 11/04/22 15:39 ABG pCO2 43 mmHg (35-45) 11/04/22 15:39 ABG pO2 242 mmHg (83-108) H 11/04/22 15:39 ABG O2 Saturation 98.0 % (94-97) H 11/04/22 15:39 PT/INR, D-dimer PT 12.4 sec (9.0-12.0) H 11/04/22 14:56 INR 1.2 (<1.2) H 11/04/22 14:56 Abnormal lab findings: Abnormal Labs 10/29/22 11/04/22 11/04/22 09:18 08:30 09:37 RBC Hgb Hct Plt Count Neutrophils # Lymphocytes # PT INR ABG pH ABG pO2 216 H ABG O2 Saturation 97.8 H Chloride Carbon Dioxide POC Glucose (mg/dL) 117 H Calcium Magnesium Alkaline Phosphatase Total Protein Albumin Crossmatch See Detail 11/04/22 11/04/22 11/04/22 09:59 11:35 12:07 RBC Hgb Hct Plt Count Neutrophils # Lymphocytes # PT INR ABG pH ABG pO2 ABG O2 Saturation Chloride Carbon Dioxide POC Glucose (mg/dL) 116 H 122 H 124 H Calcium Magnesium Alkaline Phosphatase Total Protein Albumin Crossmatch 11/04/22 11/04/22 11/04/22 14:56 14:56 14:56 RBC 4.08 L Hgb 12.2 L D Hct 36.5 L Plt Count 128 L Neutrophils # 7.8 H Lymphocytes # PT 12.4 H INR 1.2 H ABG pH ABG pO2 ABG O2 Saturation Chloride 108 H Carbon Dioxide 21 L POC Glucose (mg/dL) Calcium 7.6 L Magnesium 3.8 H Alkaline Phosphatase 26 L Total Protein 5.1 L Albumin 3.4 L Crossmatch 11/04/22 11/04/22 11/04/22 15:39 17:56 17:58 RBC 3.65 L Hgb 10.9 L Hct 32.8 L Plt Count 130 L Neutrophils # 8.2 H Lymphocytes # 0.9 L PT INR ABG pH 7.33 L ABG pO2 242 H ABG O2 Saturation 98.0 H Chloride Carbon Dioxide POC Glucose (mg/dL) 113 H Calcium Magnesium Alkaline Phosphatase Total Protein Albumin Crossmatch - Diagnostic Findings Chest x-ray: image reviewed Assessment and Plan Plan: Multivessel coronary disease, post elective cardiac surgery which involved four- vessel bypass surgery involving CALVIN to LAD and diagonal and the radial artery graft to acute marginal and saphenous vein graft to descending, postop day #0. The patient is hemodynamically stable adequate cardiac output and index Aortic valve replacement, 27 mm bovine pericardial valve, post abdominal was 0. Surgery was done for severe aortic stenosis Postthoracotomy, currently intubated on a mechanical ventilator, chest tubes are in place output is minimal without evidence of any air leak, chest x-ray and blood gases were noted Diabetes mellitus2 Hypertension Hyperlipidemia Plan This is a ventilator changes were done Chest x-ray and blood gases were noted Wean off the sedation Assessment parameters Assess readiness to wean and proceed with a spontaneous breathing trial Continue Cardizem drip Monitor output from the chest tubes The patient is hemodynamically stable. Anticipate extubation within the next few hours. Time with Patient: Greater than 30
[2022-11-04 19:00] LABS: Glucose,Whole Blood 110 mg/dL (70-110)
[2022-11-04 19:13] LABS: ABG PO2 >420 mmHg (83-108)
[2022-11-04 19:14] LABS: ABG Base Excess 2.5 mmol/L; ABG Hematocrit 33 % (34.0-46.0)
[2022-11-04 19:35] LABS: ABG Base Excess -5.4 mmol/L; ABG HCO3 21 mmol/L (21-25); ABG Oxygen Saturation 96.7 % (94-97); ABG PCO2 40 mmHg (35-45); ABG PH 7.32 (7.35-7.45); ABG PO2 114 mmHg (83-108); ABG TCO2 22 mmol/L (19-24); Allen Test Performed? Yes
[2022-11-04 20:06] LABS: Glucose,Whole Blood 131 mg/dL (70-110)
[2022-11-04 20:45] LABS: Basophils % (A) 0 %; Eosinophils % (A) 0 %; HCT 33.8 % (39.0-53.0); HGB 11.4 gm/dL (13.0-17.5); Lymphocytes # (A) 0.6 k/uL (1.0-4.8); Lymphocytes % (A) 6 %; MCH 30.4 pg (25.0-35.0); MCHC 33.7 g/dL (31.0-37.0); MCV 90.4 fL (80.0-100.0); Mean Platelet Volume 7.4; Monocytes # (A) 0.6 k/uL (0-1.0); Monocytes % (A) 6 %; Neutrophils # (A) 9.3 k/uL (1.3-7.7); Neutrophils % (A) 87 %; Platelet Count 160 k/uL (150-450); RBC 3.74 m/uL (4.30-5.90); RDW 12.7 % (11.5-15.5); WBC 10.7 k/uL (3.8-10.6)
[2022-11-04] MEDS ORDERED: ATORVASTATIN 20 MG TAB PO SCH (21:00)
[2022-11-04] MEDS: SIMVASTATIN 40MG TAB PO SCH (21:41)
[2022-11-04 21:57] LABS: Glucose,Whole Blood 128 mg/dL (70-110)
[2022-11-04 23:09] LABS: Glucose,Whole Blood 126 mg/dL (70-110)
--- NOTE | 2022-11-04 23:55 | P.ANPRN ---
Procedure Note - Anesthesia - TRAY Intraop Pre Bypass TRAY Intraop - Anesthesia Indication: CABG / AVR Date of Procedure: 11/04/22 Pre-operative Diagnosis: CAD and severe aortic valve stenosis Post-operative Diagnosis: same Surgeon: Melquiades Wolf Left Ventricle: LVH Ejection Fraction: Normal Regional Wall Motion Abnormalities: None Left Ventricle Hypertrophy: Yes R. Ventricle Function: Normal Aortic Valve: Annulus 3.0cm, LVOT 2.9, sinus 3.9. junction 3.3, ascending 3.9, mean PG 27, peak PG 45 Anatomy: Trileaflet Aortic Stenosis: Severe Aortic Regurgitation: None Mitral Stenosis: None Mitral Regurgitation: Mild Tricuspid Stenosis: None Tricuspid Regurgitation: Mild Pulmonic Stenosis: None Pulmonic Regurgitation: None R. Atrial Dilation: No R. Atrial PFO: No L. Atrial Dilation: Yes Aortic Dissection: No Aortic Calcification: None Plural Effusion: None - TRAY Intraop Post Bypass TRAY Intraop Post Bypass Procedure Performed: CABG and AVR Ejection Fraction: Normal Regional Wall Motion Abnormalities: None R. Ventricle Function: Normal Aortic Valve: bioprosthesis in appropriate position. No AI. No rocking. No perivalvular leak Mitral Valve: Unchanged Tricuspid: Unchanged Pulmonic: Unchanged Aortic Dissection: No
[2022-11-05 01:03] LABS: Glucose,Whole Blood 140 mg/dL (70-110)
[2022-11-05 02:04] LABS: Glucose,Whole Blood 137 mg/dL (70-110)
[2022-11-05] MEDS ORDERED: HYDROcodone/APAP 10-325MG 1 EACH TAB PO PRN (02:05)
[2022-11-05] MEDS ORDERED: ACETAMINOPHEN TAB 500 MG TAB PO PRN (02:05)
[2022-11-05 04:10] LABS: Glucose,Whole Blood 129 mg/dL (70-110)
[2022-11-05 04:21] LABS: Basophils % (A) 0 %; Eosinophils % (A) 0 %; HCT 29.9 % (39.0-53.0); Lymphocytes # (A) 0.9 k/uL (1.0-4.8); Lymphocytes % (A) 10 %; MCH 30.2 pg (25.0-35.0); MCHC 33.5 g/dL (31.0-37.0); Mean Platelet Volume 8.1; Monocytes # (A) 0.7 k/uL (0-1.0); Monocytes % (A) 7 %; Neutrophils # (A) 7.5 k/uL (1.3-7.7); Neutrophils % (A) 82 %; Platelet Count 130 k/uL (150-450); RBC 3.32 m/uL (4.30-5.90); RDW 12.9 % (11.5-15.5); WBC 9.1 k/uL (3.8-10.6)
[2022-11-05 04:25] LABS: Ionized Calcium 4.8 mg/dL (4.5-5.3)
[2022-11-05 04:35] LABS: ALT 21 U/L (4-49); AST 72 U/L (17-59); African American GFR (CKD) >90 (>60 ml/min/1.73 sqM); Albumin 3.3 g/dL (3.5-5.0); Alkaline Phosphatase 28 U/L (38-126); Anion Gap 11 mmol/L; Blood Urea Nitrogen 18 mg/dL (9-20); Calcium 7.6 mg/dL (8.4-10.2); Carbon Dioxide 21 mmol/L (22-30); Chloride 105 mmol/L (98-107); Glucose 120 mg/dL (74-99); Magnesium 2.2 mg/dL (1.6-2.3); Non-African American GFR(CKD) >90 (>60 ml/min/1.73 sqM); Potassium 4.1 mmol/L (3.5-5.1); Sodium 137 mmol/L (137-145); Total Bilirubin 0.5 mg/dL (0.2-1.3); Total Protein 5.1 g/dL (6.3-8.2)
[2022-11-05 05:37] LABS: Glucose,Whole Blood 141 mg/dL (70-110)
[2022-11-05] MEDS: ALBUMIN HUMAN 5% 250 ML in EMPTY BAG 1 BAG IVPB PRN (05:45)
[2022-11-05] MEDS: KETOROLAC 15 MG/ML 1 ML VIAL IVP SCH ×3 (06:21→18:08)
[2022-11-05 06:42] LABS: Glucose,Whole Blood 138 mg/dL (70-110)
--- NOTE | 2022-11-05 08:16 | XR ---
EXAMINATION TYPE: XR chest 1V portable DATE OF EXAM: 11/05/2022 COMPARISON: 11/04/2022 HISTORY: Postop cardiac surgery TECHNIQUE: Single frontal view of the chest is obtained. FINDINGS: ET and NG tube have been removed. [place]-Marnie catheter is in position. Mediastinal drain not ed. Postsurgical changes of cardiomegaly and left lower lobe and small effusion. Tiny right pleural e ffusion. No overt failure or sizable pneumothorax. IMPRESSION: 1. Interval removal of ET and NG tube. 2. Postsurgical changes and small bilateral effusions and left basilar infiltrate stable.
[2022-11-05] MEDS: IPRATROPIUM-ALBUTEROL 3 ML NEB INHALATION SCH ×4 (08:19→20:46)
[2022-11-05 08:21] LABS: Glucose,Whole Blood 204 mg/dL (70-110)
[2022-11-05] MEDS: PHENYLEPHRINE 40 MG in SODIUM CHLORIDE 0.9% 250 ML IV SCH (08:21)
[2022-11-05] MEDS: HYDROcodone/APAP 5-325MG 1 EACH TAB PO PRN ×3 (08:33→20:44)
[2022-11-05] MEDS: HEPARIN SODIUM,PORCINE/PF 5,000 UNIT/0.5 ML SYRINGE SQ SCH ×2 (08:33→16:30)
[2022-11-05] MEDS: CLOPIDOGREL 75 MG TAB PO SCH (08:35)
[2022-11-05] MEDS: GABAPENTIN 300 MG CAP PO SCH ×3 (08:35→21:48)
[2022-11-05] MEDS: METOPROLOL TARTRATE 12.5 MG TAB PO SCH ×2 (08:35→21:48)
[2022-11-05] MEDS: ASPIRIN 325 MG TAB PO SCH (08:35)
--- NOTE | 2022-11-05 08:37 | P.PN ---
Subjective Progress Note Date: 11/05/22 Principal diagnosis: Aortic stenosis, coronary artery disease. Previous medical history of coronary artery disease with previous myocardial infarction and PCI, hypertension, hyper lipidemia, TIA in 2015, [id number]-zufueneno diabetes, previous tobacco dependence, obstructive sleep apnea with home CPAP use, nightly marijuana use POD #1 aortic valve replacement with a 27 mm Avalus bovine pericardial valve, coronary artery bypass graft 4 with sequential left internal mammary artery to the left anterior descending artery and diagonal artery, left radial artery to the third obtuse marginal (distal circumflex), reverse saphenous vein graft to the descending coronary artery, endovascular left radial artery and left greater saphenous vein harvest, ligation of the left atrial appendage with a 35 mm AtriCure clip, epi-aortic ultrasound Postoperative acute blood loss anemia and thrombocytopenia, expected given hemodilution and cardiopulmonary bypass pump The patient was seen and examined this morning sitting up in a recliner in the intensive care unit with Dr. Wolf while eating breakfast. He was successfully extubated last night at 8 PM. Remains in sinus rhythm, hemodynamically stable although freshly off IV Zhou-Synephrine. IV Cardizem and nitroglycerin infusing for vessel spasm prophylaxis. Currently on 4 L nasal cannula with oxygen saturation in the mid 90s. Able to achieve 1250 mL on incentive spirometry. States postoperative pain is controlled with current medication regimen, denies shortness of breath. Right internal jugular [place]/Cordis, right radial arterial line, mediastinal/left pleural chest tubes all remain. No other new concerns. Objective - Vital Signs Vital signs: Vital Signs Temp 99.5 F 11/05/22 04:00 Pulse 89 11/05/22 07:00 Resp 15 11/05/22 07:00 BP 97/52 11/04/22 22:30 Pulse Ox 96 11/05/22 07:00 FiO2 40 11/04/22 19:45 Intake & Output 11/04/22 11/05/22 11/05/22 18:59 06:59 18:59 Intake Total 0805.416 2151.742 63.329 Output Total 2940 1895 95 Balance -1881.570 -268.258 -31.671 Weight 92.3 kg Intake: IV 590 779 59 ACETAMINOPHEN IV (For NPO 100 ) 1,000 mg In Empty Bag 1 bag @ 400 mls/hr IVPB Q6HR [facility] Rx#:[id number] Albumin Human 5% 250 ml 250 In Empty Bag 1 bag @ 250 mls/hr IVPB Q1HR PRN Rx#: [id number] CO/CI 130 LR 150 550 50 Pressure bags 36 99 9 Intake, IV Titration 174.430 47.742 4.329 Amount Dexmedetomidine/0.9% NaCl 3.642 (Pmx) 400 mcg In Empty Bag 1 bag @ Titrate IV . Q0M [facility] Rx#:[id number] Insulin Regular 100 unit 0.9 In Sodium Chloride 0.9% 100 ml @ Per Protocol IV .Q0M [facility] Rx#:[id number] Phenylephrine 40 mg In 42.653 46.842 4.329 Sodium Chloride 0.9% 250 ml @ 0.5 MCG/KG/MIN 16.65 mls/hr IV .[id number] [facility] Rx#:[id number] ceFAZolin 2 gm In Sodium 50 Chloride 0.9% 50 ml @ 100 mls/hr IVPB Q8HR [facility] Rx# :[id number] propofoL 1,000 mg In 78.135 Empty Bag 1 bag @ Titrate IV .Q0M [facility] Rx#: [id number] Oral 800 Blood Product 294 Platelet Pheresis Pas 294 Psoralen Unit [id number] Output: Chest Tube Drainage 640 520 20 L. plural 270 160 0 MS x2 370 360 20 Urine 1800 1375 75 Estimated Blood Loss 500 Other: Voiding Method Indwelling Catheter Indwelling Catheter ABP, PAP, CO, CI - Last Documented Arterial Blood Pressure 126/50 Pulmonary Artery Pressure 26/12 Cardiac Output 6 Cardiac Index 3 - Exam CONSTITUTIONAL: Appears comfortable, cooperative, no acute distress RESPIRATORY: Lungs sounds diminished bilaterally. Respirations even, nonlabored. Currently on 4 L nasal cannula with oxygen saturation 96%. Able to achieve 1250 mL on incentive spirometry. Strong cough. CARDIOVASCULAR: S1, S2 present. Regular rate and rhythm, sinus rhythm on telemetry. Sternum stable. Palpable peripheral pulses bilaterally. No edema present. No calf pain or tenderness noted. Heart hugger in place with patient demonstrating appropriate use. Antiembolism stockings, SCDs present. GASTROINTESTINAL: Abdomen soft, nontender, nondistended. Hypoactive bowel sounds present 4 quadrants. Tolerating clear liquid diet. Positive flatus GENITOURINARY: Hodges present draining clear, yellow urine. Output overnight 50-175 mL per hour INTEGUMENTARY: Skin is warm and dry with evidence of good perfusion. Anterior chest incision well approximated and covered with dry intact dressing. Left radial artery harvest site as well as left lower extremity EVH site well approximated without redness or drainage. NEUROLOGIC: Cranial nerves II through XII intact MUSKULOSKELETAL: Able to move all extremities, strength equal bilaterally, gait normal PSYCHIATRIC: Alert and oriented to person place and time, appropriate affect, intact judgment and insight INVASIVE LINES AND TUBES: Mediastinal/left pleural chest tubes present and connected to wall suction, no air leaks present. Mediastinal tube with 200 mL serosanguineous drainage overnight, 850 mL since surgery. Left pleural chest tube with 100 mL serosanguineous drainage overnight, 450 mL since surgery. A/V epicardial pacemaker wires present, connected to generator, backup rate 60 bpm. Right internal jugular [place]/Cordis, right radial arterial line present. Last CO/CI 6.0/3.0, PA 21/13, CVP 5. - Allied health notes Allied health notes reviewed: nursing - Labs CBC & Chem 7: 11/05/22 04:00 11/05/22 04:00 Labs: Abnormal Lab Results - Last 24 Hours (Table) 10/29/22 11/04/22 11/04/22 Range/Units 09:18 08:30 09:01 WBC (3.8-10.6) k/uL RBC (4.30-5.90) m/uL Hgb (13.0-17.5) gm/dL Hct (39.0-53.0) % Plt Count (150-450) k/uL Neutrophils # (1.3-7.7) k/uL Lymphocytes # (1.0-4.8) k/uL PT (9.0-12.0) sec INR (<1.2) ABG pH (7.35-7.45) ABG pCO2 (35-45) mmHg ABG pO2 216 H 214 H (83-108) mmHg ABG Total CO2 (19-24) mmol/L ABG O2 Saturation 97.8 H 97.9 H (94-97) % ABG Hematocrit (34.0-46.0) % ABG Potassium (3.4-4.5) mmol/L ABG Ionized Calcium (4.5-5.3) mg/dL Hemoglobin (13.0-17.5) gm/dL Chloride (98-107) mmol/L Carbon Dioxide (22-30) mmol/L Glucose (74-99) mg/dL POC Glucose (mg/dL) (70-110) mg/dL Calcium (8.4-10.2) mg/dL Magnesium (1.6-2.3) mg/dL AST (17-59) U/L Alkaline Phosphatase (38-126) U/L Total Protein (6.3-8.2) g/dL Albumin (3.5-5.0) g/dL Arterial Blood Potassium (3.4-4.5) mmol/L Crossmatch See Detail 11/04/22 11/04/22 11/04/22 Range/Units 09:01 09:37 09:59 WBC (3.8-10.6) k/uL RBC (4.30-5.90) m/uL Hgb (13.0-17.5) gm/dL Hct (39.0-53.0) % Plt Count (150-450) k/uL Neutrophils # (1.3-7.7) k/uL Lymphocytes # (1.0-4.8) k/uL PT (9.0-12.0) sec INR (<1.2) ABG pH (7.35-7.45) ABG pCO2 (35-45) mmHg ABG pO2 187 H (83-108) mmHg ABG Total CO2 25 H (19-24) mmol/L ABG O2 Saturation 99.1 H (94-97) % ABG Hematocrit (34.0-46.0) % ABG Potassium (3.4-4.5) mmol/L ABG Ionized Calcium (4.5-5.3) mg/dL Hemoglobin (13.0-17.5) gm/dL Chloride (98-107) mmol/L Carbon Dioxide (22-30) mmol/L Glucose (74-99) mg/dL POC Glucose (mg/dL) 117 H 116 H (70-110) mg/dL Calcium (8.4-10.2) mg/dL Magnesium (1.6-2.3) mg/dL AST (17-59) U/L Alkaline Phosphatase (38-126) U/L Total Protein (6.3-8.2) g/dL Albumin (3.5-5.0) g/dL Arterial Blood Potassium (3.4-4.5) mmol/L Crossmatch 11/04/22 11/04/22 11/04/22 Range/Units 10:53 11:34 11:35 WBC (3.8-10.6) k/uL RBC (4.30-5.90) m/uL Hgb (13.0-17.5) gm/dL Hct (39.0-53.0) % Plt Count (150-450) k/uL Neutrophils # (1.3-7.7) k/uL Lymphocytes # (1.0-4.8) k/uL PT (9.0-12.0) sec INR (<1.2) ABG pH 7.46 H (7.35-7.45) ABG pCO2 34 L (35-45) mmHg ABG pO2 194 H >420 H (83-108) mmHg ABG Total CO2 26 H (19-24) mmol/L ABG O2 Saturation 98.0 H 100.0 H (94-97) % ABG Hematocrit 31 L (34.0-46.0) % ABG Potassium (3.4-4.5) mmol/L ABG Ionized Calcium 4.1 L (4.5-5.3) mg/dL Hemoglobin 10.2 L (13.0-17.5) gm/dL Chloride (98-107) mmol/L Carbon Dioxide (22-30) mmol/L Glucose (74-99) mg/dL POC Glucose (mg/dL) 122 H (70-110) mg/dL Calcium (8.4-10.2) mg/dL Magnesium (1.6-2.3) mg/dL AST (17-59) U/L Alkaline Phosphatase (38-126) U/L Total Protein (6.3-8.2) g/dL Albumin (3.5-5.0) g/dL Arterial Blood Potassium (3.4-4.5) mmol/L Crossmatch 11/04/22 11/04/22 11/04/22 Range/Units 12:04 12:07 13:18 WBC (3.8-10.6) k/uL RBC (4.30-5.90) m/uL Hgb (13.0-17.5) gm/dL Hct (39.0-53.0) % Plt Count (150-450) k/uL Neutrophils # (1.3-7.7) k/uL Lymphocytes # (1.0-4.8) k/uL PT (9.0-12.0) sec INR (<1.2) ABG pH (7.35-7.45) ABG pCO2 32 L (35-45) mmHg ABG pO2 352 H 323 H (83-108) mmHg ABG Total CO2 (19-24) mmol/L ABG O2 Saturation 98.6 H 99.6 H (94-97) % ABG Hematocrit (34.0-46.0) % ABG Potassium 4.7 H (3.4-4.5) mmol/L ABG Ionized Calcium 4.4 L (4.5-5.3) mg/dL Hemoglobin 11.8 L 11.6 L (13.0-17.5) gm/dL Chloride (98-107) mmol/L Carbon Dioxide (22-30) mmol/L Glucose (74-99) mg/dL POC Glucose (mg/dL) 124 H (70-110) mg/dL Calcium (8.4-10.2) mg/dL Magnesium (1.6-2.3) mg/dL AST (17-59) U/L Alkaline Phosphatase (38-126) U/L Total Protein (6.3-8.2) g/dL Albumin (3.5-5.0) g/dL Arterial Blood Potassium 4.7 H (3.4-4.5) mmol/L Crossmatch 11/04/22 11/04/22 11/04/22 Range/Units 14:03 14:56 14:56 WBC (3.8-10.6) k/uL RBC 4.08 L (4.30-5.90) m/uL Hgb 12.2 L D (13.0-17.5) gm/dL Hct 36.5 L (39.0-53.0) % Plt Count 128 L (150-450) k/uL Neutrophils # 7.8 H (1.3-7.7) k/uL Lymphocytes # (1.0-4.8) k/uL PT 12.4 H (9.0-12.0) sec INR 1.2 H (<1.2) ABG pH (7.35-7.45) ABG pCO2 (35-45) mmHg ABG pO2 (83-108) mmHg ABG Total CO2 (19-24) mmol/L ABG O2 Saturation 98.1 H (94-97) % ABG Hematocrit (34.0-46.0) % ABG Potassium (3.4-4.5) mmol/L ABG Ionized Calcium 4.3 L (4.5-5.3) mg/dL Hemoglobin 11.8 L (13.0-17.5) gm/dL Chloride (98-107) mmol/L Carbon Dioxide (22-30) mmol/L Glucose (74-99) mg/dL POC Glucose (mg/dL) (70-110) mg/dL Calcium (8.4-10.2) mg/dL Magnesium (1.6-2.3) mg/dL AST (17-59) U/L Alkaline Phosphatase (38-126) U/L Total Protein (6.3-8.2) g/dL Albumin (3.5-5.0) g/dL Arterial Blood Potassium (3.4-4.5) mmol/L Crossmatch 11/04/22 11/04/22 11/04/22 Range/Units 14:56 15:39 17:56 WBC (3.8-10.6) k/uL RBC (4.30-5.90) m/uL Hgb (13.0-17.5) gm/dL Hct (39.0-53.0) % Plt Count (150-450) k/uL Neutrophils # (1.3-7.7) k/uL Lymphocytes # (1.0-4.8) k/uL PT (9.0-12.0) sec INR (<1.2) ABG pH 7.33 L (7.35-7.45) ABG pCO2 (35-45) mmHg ABG pO2 242 H (83-108) mmHg ABG Total CO2 (19-24) mmol/L ABG O2 Saturation 98.0 H (94-97) % ABG Hematocrit (34.0-46.0) % ABG Potassium (3.4-4.5) mmol/L ABG Ionized Calcium (4.5-5.3) mg/dL Hemoglobin (13.0-17.5) gm/dL Chloride 108 H (98-107) mmol/L Carbon Dioxide 21 L (22-30) mmol/L Glucose (74-99) mg/dL POC Glucose (mg/dL) 113 H (70-110) mg/dL Calcium 7.6 L (8.4-10.2) mg/dL Magnesium 3.8 H (1.6-2.3) mg/dL AST (17-59) U/L Alkaline Phosphatase 26 L (38-126) U/L Total Protein 5.1 L (6.3-8.2) g/dL Albumin 3.4 L (3.5-5.0) g/dL Arterial Blood Potassium (3.4-4.5) mmol/L Crossmatch 11/04/22 11/04/22 11/04/22 Range/Units 17:58 18:30 19:30 WBC (3.8-10.6) k/uL RBC 3.65 L (4.30-5.90) m/uL Hgb 10.9 L (13.0-17.5) gm/dL Hct 32.8 L (39.0-53.0) % Plt Count 130 L (150-450) k/uL Neutrophils # 8.2 H (1.3-7.7) k/uL Lymphocytes # 0.9 L (1.0-4.8) k/uL PT (9.0-12.0) sec INR (<1.2) ABG pH 7.32 L (7.35-7.45) ABG pCO2 (35-45) mmHg ABG pO2 >420 H 114 H (83-108) mmHg ABG Total CO2 (19-24) mmol/L ABG O2 Saturation 100.0 H (94-97) % ABG Hematocrit 33 L (34.0-46.0) % ABG Potassium (3.4-4.5) mmol/L ABG Ionized Calcium (4.5-5.3) mg/dL Hemoglobin 10.7 L (13.0-17.5) gm/dL Chloride (98-107) mmol/L Carbon Dioxide (22-30) mmol/L Glucose (74-99) mg/dL POC Glucose (mg/dL) (70-110) mg/dL Calcium (8.4-10.2) mg/dL Magnesium (1.6-2.3) mg/dL AST (17-59) U/L Alkaline Phosphatase (38-126) U/L Total Protein (6.3-8.2) g/dL Albumin (3.5-5.0) g/dL Arterial Blood Potassium (3.4-4.5) mmol/L Crossmatch 11/04/22 11/04/22 11/04/22 Range/Units 20:02 20:04 21:56 WBC 10.7 H (3.8-10.6) k/uL RBC 3.74 L (4.30-5.90) m/uL Hgb 11.4 L (13.0-17.5) gm/dL Hct 33.8 L (39.0-53.0) % Plt Count (150-450) k/uL Neutrophils # 9.3 H (1.3-7.7) k/uL Lymphocytes # 0.6 L (1.0-4.8) k/uL PT (9.0-12.0) sec INR (<1.2) ABG pH (7.35-7.45) ABG pCO2 (35-45) mmHg ABG pO2 (83-108) mmHg ABG Total CO2 (19-24) mmol/L ABG O2 Saturation (94-97) % ABG Hematocrit (34.0-46.0) % ABG Potassium (3.4-4.5) mmol/L ABG Ionized Calcium (4.5-5.3) mg/dL Hemoglobin (13.0-17.5) gm/dL Chloride (98-107) mmol/L Carbon Dioxide (22-30) mmol/L Glucose (74-99) mg/dL POC Glucose (mg/dL) 131 H 128 H (70-110) mg/dL Calcium (8.4-10.2) mg/dL Magnesium (1.6-2.3) mg/dL AST (17-59) U/L Alkaline Phosphatase (38-126) U/L Total Protein (6.3-8.2) g/dL Albumin (3.5-5.0) g/dL Arterial Blood Potassium (3.4-4.5) mmol/L Crossmatch 11/04/22 11/05/22 11/05/22 Range/Units 23:07 01:02 02:03 WBC (3.8-10.6) k/uL RBC (4.30-5.90) m/uL Hgb (13.0-17.5) gm/dL Hct (39.0-53.0) % Plt Count (150-450) k/uL Neutrophils # (1.3-7.7) k/uL Lymphocytes # (1.0-4.8) k/uL PT (9.0-12.0) sec INR (<1.2) ABG pH (7.35-7.45) ABG pCO2 (35-45) mmHg ABG pO2 (83-108) mmHg ABG Total CO2 (19-24) mmol/L ABG O2 Saturation (94-97) % ABG Hematocrit (34.0-46.0) % ABG Potassium (3.4-4.5) mmol/L ABG Ionized Calcium (4.5-5.3) mg/dL Hemoglobin (13.0-17.5) gm/dL Chloride (98-107) mmol/L Carbon Dioxide (22-30) mmol/L Glucose (74-99) mg/dL POC Glucose (mg/dL) 126 H 140 H 137 H (70-110) mg/dL Calcium (8.4-10.2) mg/dL Magnesium (1.6-2.3) mg/dL AST (17-59) U/L Alkaline Phosphatase (38-126) U/L Total Protein (6.3-8.2) g/dL Albumin (3.5-5.0) g/dL Arterial Blood Potassium (3.4-4.5) mmol/L Crossmatch 11/05/22 11/05/22 11/05/22 Range/Units 04:00 04:00 04:08 WBC (3.8-10.6) k/uL RBC 3.32 L (4.30-5.90) m/uL Hgb 10.0 L (13.0-17.5) gm/dL Hct 29.9 L (39.0-53.0) % Plt Count 130 L (150-450) k/uL Neutrophils # (1.3-7.7) k/uL Lymphocytes # 0.9 L (1.0-4.8) k/uL PT (9.0-12.0) sec INR (<1.2) ABG pH (7.35-7.45) ABG pCO2 (35-45) mmHg ABG pO2 (83-108) mmHg ABG Total CO2 (19-24) mmol/L ABG O2 Saturation (94-97) % ABG Hematocrit (34.0-46.0) % ABG Potassium (3.4-4.5) mmol/L ABG Ionized Calcium (4.5-5.3) mg/dL Hemoglobin (13.0-17.5) gm/dL Chloride (98-107) mmol/L Carbon Dioxide 21 L (22-30) mmol/L Glucose 120 H (74-99) mg/dL POC Glucose (mg/dL) 129 H (70-110) mg/dL Calcium 7.6 L (8.4-10.2) mg/dL Magnesium (1.6-2.3) mg/dL AST 72 H (17-59) U/L Alkaline Phosphatase 28 L (38-126) U/L Total Protein 5.1 L (6.3-8.2) g/dL Albumin 3.3 L (3.5-5.0) g/dL Arterial Blood Potassium (3.4-4.5) mmol/L Crossmatch 11/05/22 11/05/22 Range/Units 05:35 06:41 WBC (3.8-10.6) k/uL RBC (4.30-5.90) m/uL Hgb (13.0-17.5) gm/dL Hct (39.0-53.0) % Plt Count (150-450) k/uL Neutrophils # (1.3-7.7) k/uL Lymphocytes # (1.0-4.8) k/uL PT (9.0-12.0) sec INR (<1.2) ABG pH (7.35-7.45) ABG pCO2 (35-45) mmHg ABG pO2 (83-108) mmHg ABG Total CO2 (19-24) mmol/L ABG O2 Saturation (94-97) % ABG Hematocrit (34.0-46.0) % ABG Potassium (3.4-4.5) mmol/L ABG Ionized Calcium (4.5-5.3) mg/dL Hemoglobin (13.0-17.5) gm/dL Chloride (98-107) mmol/L Carbon Dioxide (22-30) mmol/L Glucose (74-99) mg/dL POC Glucose (mg/dL) 141 H 138 H (70-110) mg/dL Calcium (8.4-10.2) mg/dL Magnesium (1.6-2.3) mg/dL AST (17-59) U/L Alkaline Phosphatase (38-126) U/L Total Protein (6.3-8.2) g/dL Albumin (3.5-5.0) g/dL Arterial Blood Potassium (3.4-4.5) mmol/L Crossmatch - Imaging and Cardiology Chest x-ray: report reviewed, image reviewed Assessment and Plan Assessment: Aortic stenosis, status post bioprosthetic AVR Coronary artery disease with previous myocardial infarction and PCI, status post four-vessel CABG History of hypertension Hyperlipidemia, treated, cholesterol 142, LDL 77, triglycerides 81 TIA in 2015 [id number] diabetes, hemoglobin A1c 6.2% Previous tobacco dependence, FEV1 100% of predicted Obstructive sleep apnea with home CPAP use Nightly marijuana use Postoperative acute blood loss anemia and thrombocytopenia, expected Plan: Continue to maximize medical therapy with aspirin, statin, Plavix, beta nubia. Will increase beta nubia therapy as tolerated. Discontinue IV nitro Continue calcium channel nubia for vessel spasm prophylaxis, will transition to oral Wean O2 as tolerated. Encourage incentive spirometry use 10 times every hour while awake. Bronchodilators per pulmonology Increase activity, ambulate as tolerated. PT/OT/cardiac rehab consulted Will monitor daily labs and x-rays. Electrolyte replacement per protocol GI/DVT prophylaxis Pain control per current medication regimen Insulin management per internal medicine, patient is diabetic, needs tight blood sugar control Discontinue [place]. Connect Cordis to continue CVP monitoring Continue chest tubes for another 24 hours Continue Hodges catheter for another 24 hours for strict accurate intake and output Daily weights More recommendations to follow based on patient's progress
[2022-11-05] MEDS: amLODIPine 2.5 MG TAB PO SCH (08:39)
[2022-11-05] MEDS ORDERED: bisacodyL 10 MG SUPP RECTAL PRN (09:00)
[2022-11-05] MEDS ORDERED: PANTOPRAZOLE 40 MG/10 ML VIAL IVP SCH (09:00)
[2022-11-05 09:37] LABS: Glucose,Whole Blood 202 mg/dL (70-110)
--- NOTE | 2022-11-05 09:41 | P.CRDCN ---
History of Present Illness Consult date: 11/05/22 Consult reason: post-op evaluation History of present illness: The patient is a 62-year-old male who follows in the office with Dr. Khan. He was referred for coronary artery bypass as well as aortic valve replacement. This was completed on November [address] Wolf. No surgical complications and the patient was extubated yesterday. The patient was interviewed and examined up in the recliner chair. He is off all vasopressors and generally feels well. No significant drainage from chest tubes. DIAGNOSTICS: Chest x-ray shows small bilateral effusions and left basilar infiltrate Telemetry is sinus rhythm with heart rates in the 70s Vitals: Blood pressure 126/50, heart rate 89, respiratory rate 15, SpO2 96% on 4 L nasal cannula Lab data: WBC 9.1, hemoglobin 10.0, hematocrit 29.9, platelet 130, sodium 137, potassium 4.1, BUN 18, creatinine 0.76, AST 72, ALT 21 REVIEW OF SYSTEMS: No fever or chills. No cough or expectoration. No diaphore sis. Patient denies headache, dizziness, blurred vision, double vision. Patient denies any stomach discomfort. No nausea, vomiting. No hematochezia. No hematemesis. Denies any black stools or blood in his stools. Denies dysuria or hematuria. No muscle weakness or numbness. No dizziness or lightheadedness upon standing. Mild chest discomfort around history of incision. No difficulty breathing PHYSICAL EXAMINATION: This is a 62-year-old male in no apparent distress at the time of my examination. HEENT: Head is atraumatic, normocephalic. Pupils are equal, round. Sclerae anicteric. Conjunctivae are clear. Mucous membranes of the mouth are moist. Neck is supple. There is no jugular venous distention. No carotid bruit is heard. CHEST EXAMINATION: Lungs are clear to auscultation. No chest wall tenderness is noted on palpation or with deep breathing. HEART EXAMINATION: Heart regular rate and rhythm. S1, S2 heard. No murmurs, gallops or rub. Sternal dressing in place. ABDOMEN: Soft, nontender. Bowel sounds are heard. No organomegaly noted. EXTREMITIES: 2+ pedal pulses with no evidence of peripheral edema and no calf tenderness noted. NEUROLOGIC EXAMINATION: Patient is awake, alert and oriented x3. FINAL ASSESSMENT AND PLAN: Multivessel coronary artery disease Severe aortic stenosis Status post CALVIN to LAD, CALVIN to diagonal, radial graft to acute marginal, SVG to descending coronary artery Status post aortic valve replacement with bovine valve History of hypertension History diabetes History of hyperlipidemia PLAN: Continue supportive treatment Aggressive pulmonary hygiene Early ambulation as recommended by CV surgery Further recommendations will be based on clinical course/changes in clinical status I am dictating on behalf of Dr Eric Sharma's history/physical and assessment/plan. Past Medical History Past Medical History: Coronary Artery Disease (CAD), Diabetes Mellitus, Hyperlipidemia, Hypertension, Myocardial Infarction (DE) Additional Past Medical History / Comment(s): sciatica Last Myocardial Infarction Date:: 2012 History of Any Multi-Drug Resistant Organisms: None Reported Past Surgical History: Back Surgery, Heart Catheterization With Stent, Tonsillectomy Additional Past Surgical History / Comment(s): COLONOSCOPY Past Anesthesia/Blood Transfusion Reactions: No Reported Reaction Date of Last Stent Placement:: 2012 Past Psychological History: No Psychological Hx Reported Smoking Status: Former smoker Past Alcohol Use History: None Reported Past Drug Use History: None Reported - Past Family History Family Family Medical History: Coronary Artery Disease (CAD) Medications and Allergies Home Medications Medication Instructions Recorded Confirmed Type Aspirin 81 mg PO DAILY 11/22/13 11/04/22 History Dapagliflozin Propanediol [Farxiga] 10 mg PO DAILY 03/22/20 11/04/22 History Enalapril [Vasotec] 20 mg PO BID 03/22/20 11/04/22 History Gabapentin 300 mg PO TID 03/22/20 11/04/22 History metFORMIN HCL [Glucophage] 1,000 mg PO BID 03/22/20 11/04/22 History Simvastatin [Zocor] 40 mg PO HS 07/17/22 11/04/22 History Fish Oil/Dha/Epa [Fish Oil 1,200 1 cap PO BID 10/06/22 11/04/22 History mg Fish Oil] Fluticasone Nasal [place] [Flonase 1 spray EA NOSTRIL DAILY 10/06/22 11/04/22 History Nasal [place]] Isosorbide Mononitrate ER [Imdur] 15 mg PO DAILY 10/14/22 11/04/22 History Nitroglycerin Sl Tabs [Nitrostat] 0.4 mg SUBLINGUAL Q5M PRN #30 tab 10/16/22 11/04/22 Rx Fexofenadine HCl [Nancy Allergy] 180 mg PO DAILY 10/29/22 11/04/22 History Allergies Allergy/AdvReac Type Severity Reaction Status Date / Time atorvastatin [From Lipitor] AdvReac muscle Verified 11/04/22 05:58 aches Physical Exam Vitals: Vital Signs Temp Pulse Pulse Resp BP Pulse Ox FiO2 11/05/22 08:35 78 11/05/22 08:19 76 11/05/22 07:00 89 15 96 11/05/22 06:45 85 28 H 94 L 11/05/22 06:30 78 14 96 11/05/22 06:15 76 23 96 11/05/22 06:00 76 16 95 11/05/22 05:45 76 15 91 L 11/05/22 05:30 84 24 95 11/05/22 05:15 87 24 95 11/05/22 05:00 92 14 96 11/05/22 04:45 85 16 95 11/05/22 04:30 81 17 96 11/05/22 04:15 85 16 97 11/05/22 04:00 99.5 F 84 18 97 11/05/22 03:45 80 14 94 L 11/05/22 03:30 78 10 L 97 11/05/22 03:15 78 11 L 96 11/05/22 03:00 75 11 L 96 11/05/22 02:45 77 10 L 95 11/05/22 02:30 79 17 96 11/05/22 02:15 77 16 94 L 11/05/22 02:00 81 5 L 97 11/05/22 01:45 80 9 L 96 11/05/22 01:30 80 19 94 L 11/05/22 01:15 80 12 94 L 11/05/22 01:00 77 7 L 97 11/05/22 00:45 76 12 96 11/05/22 00:30 78 9 L 94 L 11/05/22 00:15 79 26 H 94 L 11/05/22 00:05 75 14 98 11/05/22 00:00 99.5 F 75 13 97 11/04/22 23:45 77 10 L 98 11/04/22 23:30 75 11 L 97 11/04/22 23:15 72 16 98 11/04/22 23:00 72 15 97 11/04/22 22:45 74 10 L 96 11/04/22 22:30 74 21 97/52 95 11/04/22 22:15 72 11 L 95 11/04/22 22:00 75 18 107/59 97 11/04/22 21:45 74 14 97 11/04/22 21:30 71 20 97 11/04/22 21:15 75 4 L 97 11/04/22 21:00 75 15 97 11/04/22 20:45 73 9 L 99 11/04/22 20:30 70 9 L 97 11/04/22 20:27 68 11/04/22 20:15 69 12 93 L 11/04/22 20:00 71 60 17 96 11/04/22 19:49 98 11/04/22 19:45 99.3 F 65 20 98 40 11/04/22 19:30 62 13 98 11/04/22 19:15 64 18 98 11/04/22 19:00 69 12 96 11/04/22 18:56 50 11/04/22 18:45 64 12 99 11/04/22 18:30 65 20 100 11/04/22 18:15 64 20 99 11/04/22 18:00 98.8 F 64 20 99 11/04/22 17:45 66 20 100 11/04/22 17:30 66 20 98 11/04/22 17:25 50 11/04/22 17:15 65 20 99 11/04/22 17:00 98.6 F 65 20 99 50 11/04/22 16:45 61 20 99 11/04/22 16:33 60 11/04/22 16:30 64 14 99 11/04/22 16:24 65 14 11/04/22 16:15 65 14 98 11/04/22 16:00 98.1 F 69 14 99 50 11/04/22 15:52 60 11/04/22 15:45 69 14 100 11/04/22 15:30 80 14 100 11/04/22 15:15 80 14 100 11/04/22 15:00 97.3 F L 80 14 11/04/22 14:57 100 11/04/22 14:56 14 Intake and Output 05/09/23 05/10/23 05/10/23 22:59 06:59 14:59 Intake Total 272.957 7097.677 69.612 Output Total 2425 1225 95 Balance -1429.505 116.677 -25.388 Intake: IV 802 513 59 ACETAMINOPHEN IV (For NPO 100 ) 1,000 mg In Empty Bag 1 bag @ 400 mls/hr IVPB Q6HR [facility] Rx#:[id number] Albumin Human 5% 250 ml 250 In Empty Bag 1 bag @ 250 mls/hr IVPB Q1HR PRN Rx#: [id number] CO/CI 30 100 LR 350 350 50 Pressure bags 72 63 9 Intake, IV Titration 193.495 28.677 10.612 Amount Dexmedetomidine/0.9% NaCl 3.642 (Pmx) 400 mcg In Empty Bag 1 bag @ Titrate IV . Q0M [facility] Rx#:[id number] Insulin Regular 100 unit 0.9 6.283 In Sodium Chloride 0.9% 100 ml @ Per Protocol IV .Q0M [facility] Rx#:[id number] Phenylephrine 40 mg In 61.718 27.777 4.329 Sodium Chloride 0.9% 250 ml @ 0.5 MCG/KG/MIN 16.65 mls/hr IV .[id number] [facility] Rx#:[id number] ceFAZolin 2 gm In Sodium 50 Chloride 0.9% 50 ml @ 100 mls/hr IVPB Q8HR [facility] Rx# :[id number] propofoL 1,000 mg In 78.135 Empty Bag 1 bag @ Titrate IV .Q0M [facility] Rx#: [id number] Oral 800 Output: Chest Tube Drainage 860 300 20 L. plural 330 100 0 MS x2 530 200 20 Urine 1565 925 75 Other: Voiding Method Indwelling Catheter Indwelling Catheter Weight 92.3 kg ABP, PAP, CO, CI - Last 8 Hours Arterial Blood Pressure 126/50 Arterial Blood Pressure 122/51 Arterial Blood Pressure 116/45 Arterial Blood Pressure 119/42 Arterial Blood Pressure 113/42 Arterial Blood Pressure 118/42 Arterial Blood Pressure 73/50 Arterial Blood Pressure 139/49 Arterial Blood Pressure 156/57 Arterial Blood Pressure 146/54 Arterial Blood Pressure 124/47 Arterial Blood Pressure 133/51 Arterial Blood Pressure 143/54 Arterial Blood Pressure 113/46 Arterial Blood Pressure 119/48 Arterial Blood Pressure 120/50 Arterial Blood Pressure 115/47 Arterial Blood Pressure 117/48 Arterial Blood Pressure 127/50 Arterial Blood Pressure 116/48 Arterial Blood Pressure 118/52 Arterial Blood Pressure 122/52 Pulmonary Artery Pressure 26/12 Pulmonary Artery Pressure 24/11 Pulmonary Artery Pressure 23/5 Pulmonary Artery Pressure 20/7 Pulmonary Artery Pressure 15/4 Pulmonary Artery Pressure 19/6 Pulmonary Artery Pressure 22/2 Pulmonary Artery Pressure 24/13 Pulmonary Artery Pressure 28/16 Pulmonary Artery Pressure 25/14 Pulmonary Artery Pressure 23/12 Pulmonary Artery Pressure 22/13 Pulmonary Artery Pressure 25/12 Pulmonary Artery Pressure 23/11 Pulmonary Artery Pressure 22/10 Pulmonary Artery Pressure 25/12 Pulmonary Artery Pressure 25/9 Pulmonary Artery Pressure 24/10 Pulmonary Artery Pressure 26/10 Pulmonary Artery Pressure 23/11 Pulmonary Artery Pressure 24/13 Pulmonary Artery Pressure 20/11 Cardiac Output 6 Cardiac Output 6.4 Cardiac Output 6.4 Cardiac Index 3 Cardiac Index 3.2 Cardiac Index 3.2 Results 11/05/22 04:00 11/05/22 04:00 Cardiac Enzymes 11/04/22 11/05/22 Range/Units 14:56 04:00 AST 58 72 H (17-59) U/L Coagulation 11/04/22 Range/Units 14:56 PT 12.4 H (9.0-12.0) sec APTT 29.2 (22.0-30.0) sec CBC 11/04/22 11/04/22 11/04/22 Range/Units 14:56 17:58 20:02 WBC 9.9 10.1 10.7 H (3.8-10.6) k/uL RBC 4.08 L 3.65 L 3.74 L (4.30-5.90) m/uL Hgb 12.2 L D 10.9 L 11.4 L (13.0-17.5) gm/dL Hct 36.5 L 32.8 L 33.8 L (39.0-53.0) % Plt Count 128 L 130 L 160 (150-450) k/uL 11/05/22 Range/Units 04:00 WBC 9.1 (3.8-10.6) k/uL RBC 3.32 L (4.30-5.90) m/uL Hgb 10.0 L (13.0-17.5) gm/dL Hct 29.9 L (39.0-53.0) % Plt Count 130 L (150-450) k/uL Comprehensive Metabolic Panel 11/04/22 11/05/22 Range/Units 14:56 04:00 Sodium 140 137 (137-145) mmol/L Potassium 4.1 4.1 (3.5-5.1) mmol/L Chloride 108 H 105 (98-107) mmol/L Carbon Dioxide 21 L 21 L (22-30) mmol/L BUN 16 18 (9-20) mg/dL Creatinine 0.69 0.76 (0.66-1.25) mg/dL Glucose 91 120 H (74-99) mg/dL Calcium 7.6 L 7.6 L (8.4-10.2) mg/dL AST 58 72 H (17-59) U/L ALT 20 21 (4-49) U/L Alkaline Phosphatase 26 L 28 L (38-126) U/L Total Protein 5.1 L 5.1 L (6.3-8.2) g/dL Albumin 3.4 L 3.3 L (3.5-5.0) g/dL Current Medications Generic Name Dose Route Start Last Admin Trade Name Freq PRN Reason Stop Dose Admin Acetaminophen 1,000 mg 11/05/22 02:05 Acetaminophen Tab 500 Mg Tab PO Q6HR PRN Fever And/ Or Mild Pain (1-3) Hydrocodone Bitart/Acetaminophen 1 each 11/05/22 02:06 11/05/22 08:33 Hydrocodone/Apap 5-325mg 1 Each Tab PO 1 each Q4HR PRN Administration Moderate Pain (Scale 4 to 6) Hydrocodone Bitart/Acetaminophen 1 each 11/05/22 02:05 Hydrocodone/Apap 10-325mg 1 Each Tab PO Q4HR PRN Severe Pain (Scale 7 to 10) Albuterol/Ipratropium 3 ml 11/04/22 14:30 Ipratropium-Albuterol 3 Ml Neb INHALATION RT-Q2H PRN Shortness Of Breath Or Wheezing Albuterol/Ipratropium 3 ml 11/05/22 08:00 11/05/22 08:19 Ipratropium-Albuterol 3 Ml Neb INHALATION 3 ml RT-QID [facility] Administration Amlodipine Besylate 2.5 mg 11/05/22 09:00 11/05/22 08:39 Amlodipine 2.5 Mg Tab PO 2.5 mg DAILY [facility] Administration Aspirin 325 mg 11/05/22 09:00 11/05/22 08:35 Aspirin 325 Mg Tab PO 325 mg DAILY [facility] Administration Benzocaine/Menthol 1 each 11/04/22 14:30 Benzocaine/Menthol Lozeng 1 Each Lozenge MUCOUS MEM Q2H PRN Sore Throat Bisacodyl 10 mg 11/05/22 09:00 Bisacodyl 10 Mg Supp RECTAL DAILY PRN Constipation Clopidogrel Bisulfate 75 mg 11/05/22 09:00 11/05/22 08:35 Clopidogrel 75 Mg Tab PO 75 mg DAILY [facility] Administration Dextrose/Water 25 ml 11/04/22 14:30 Dextrose 50% Syringe 50 Ml IVP PER PROTOCOL PRN Hypoglycemia Protocol Dextrose/Water 50 ml 11/04/22 14:30 Dextrose 50% Syringe 50 Ml IVP PER PROTOCOL PRN Hypoglycemia Protocol Fluticasone Propionate 1 spray 11/05/22 09:00 Fluticasone 50mcg/[place] Nasal 16gm EA NOSTRIL DAILY [facility] Gabapentin 300 mg 11/04/22 16:00 11/05/22 08:35 Gabapentin 300 Mg Cap PO 300 mg TID [facility] Administration Heparin Sodium (Porcine) 5,000 unit 11/04/22 16:00 11/05/22 08:33 Heparin Sodium,Porcine/Pf 5,000 Unit/0.5 Ml Syringe SQ 5,000 unit Q8HR [facility] Administration Amiodarone HCl 150 mg/ 103 mls @ 618 mls/hr 11/04/22 14:30 Dextrose/Water IV .Q10M PRN A.FIB/FLUTTER Protocol Amiodarone HCl 450 mg/ 250 mls @ 16.667 mls/hr 11/04/22 14:30 Dextrose/Water IV .Q15H PRN A.FIB/FLUTTER Protocol 0.5 MG/MIN Albumin Human 250 ml/ IV 250 mls @ 250 mls/hr 11/04/22 14:30 11/05/22 05:45 Solution IVPB 11/06/22 14:31 250 mls/hr Q1HR PRN Administration For Volume Protocol Diltiazem HCl 125 mg/ Sodium 125 mls @ 5 mls/hr 11/04/22 14:30 11/04/22 15:00 Chloride IV 5 mg/hr .Q24H [facility] 5 mls/hr Administration 5 MG/HR Amiodarone HCl 360 mg/ 207.2 mls @ 34.533 mls/hr 11/04/22 14:30 Dextrose/Water IV .Q6H PRN A.FIB/FLUTTER Protocol 1 MG/MIN Lactated Ringer's 1,000 mls @ 20 mls/hr 11/04/22 14:30 11/04/22 15:00 Lactated Ringers IV 50 mls/hr .Q24H [facility] Administration Insulin Human Regular 100 unit 101 mls @ 0 mls/hr 11/04/22 14:30 11/05/22 08:21 / Sodium Chloride IV 4 mls/hr .Q0M [facility] 4 mls/hr Titration Protocol Per Protocol Ketorolac Tromethamine 15 mg 11/04/22 18:00 11/05/22 06:21 Ketorolac 15 Mg/Ml 1 Ml Vial IVP 11/09/22 18:01 15 mg Q6HR [facility] Administration Magnesium Hydroxide 2,400 mg 11/05/22 09:00 Magnesium Hydroxide 2,400 Mg/10 Ml Cup PO BID PRN Constipation Metoclopramide HCl 10 mg 11/04/22 14:30 Metoclopramide 5 Mg/Ml 2 Ml Vial IVP Q4H PRN Nausea And Vomiting Metoprolol Tartrate 12.5 mg 11/05/22 09:00 11/05/22 08:35 Metoprolol Tartrate 12.5 Mg Tab PO 12.5 mg BID [facility] Administration Miscellaneous Information 1 each 11/04/22 14:30 Potassium Replacement Protocol 1 Each Misc MISCELLANE DAILY PRN Per Protocol Protocol Miscellaneous Information 1 each 11/04/22 14:30 Magnesium Replacement Protocol 1 Each Misc MISCELLANE DAILY PRN Per Protocol Protocol Simvastatin 40mg Tab 1 each 11/04/22 21:00 11/04/22 21:41 PO 1 each HS [facility] Administration Ondansetron HCl 4 mg 11/04/22 14:30 Ondansetron 4 Mg/2 Ml Vial IVP Q6HR PRN Nausea And Vomiting Pantoprazole Sodium 40 mg 11/05/22 09:00 11/05/22 08:33 Pantoprazole 40 Mg/10 Ml Vial IVP 11/05/22 10:00 40 mg DAILY [facility] Administration Pantoprazole Sodium 40 mg 11/06/22 07:30 Pantoprazole 40 Mg Tablet PO AC-BRKFST [facility] Senna/Docusate Sodium 2 each 11/05/22 21:00 Sennosides-Docusate Sodium 1 Each Tab PO HS [facility] Sodium Chloride 10 ml 11/04/22 21:00 11/05/22 08:40 Sodium Chloride 0.9% Flush 10 Ml Syringe IV 10 ml BID [facility] Administration Intake and Output 11/04/22 11/05/22 11/05/22 22:59 06:59 14:59 Intake Total 179.851 2616.677 69.612 Output Total 2425 1225 95 Balance -1429.505 116.677 -25.388 Intake: IV 802 513 59 ACETAMINOPHEN IV (For NPO 100 ) 1,000 mg In Empty Bag 1 bag @ 400 mls/hr IVPB Q6HR [facility] Rx#:[id number] Albumin Human 5% 250 ml 250 In Empty Bag 1 bag @ 250 mls/hr IVPB Q1HR PRN Rx#: [id number] CO/CI 30 100 LR 350 350 50 Pressure bags 72 63 9 Intake, IV Titration 193.495 28.677 10.612 Amount Dexmedetomidine/0.9% NaCl 3.642 (Pmx) 400 mcg In Empty Bag 1 bag @ Titrate IV . Q0M [facility] Rx#:[id number] Insulin Regular 100 unit 0.9 6.283 In Sodium Chloride 0.9% 100 ml @ Per Protocol IV .Q0M [facility] Rx#:[id number] Phenylephrine 40 mg In 61.718 27.777 4.329 Sodium Chloride 0.9% 250 ml @ 0.5 MCG/KG/MIN 16.65 mls/hr IV .[id number] [facility] Rx#:[id number] ceFAZolin 2 gm In Sodium 50 Chloride 0.9% 50 ml @ 100 mls/hr IVPB Q8HR [facility] Rx# :[id number] propofoL 1,000 mg In 78.135 Empty Bag 1 bag @ Titrate IV .Q0M [facility] Rx#: [id number] Oral 800 Output: Chest Tube Drainage 860 300 20 L. plural 330 100 0 MS x2 530 200 20 Urine 1565 925 75 Other: Voiding Method Indwelling Catheter Indwelling Catheter Weight 92.3 kg 11/05/22 04:00 11/05/22 04:00
--- NOTE | 2022-11-05 09:54 | P.PN ---
Subjective Progress Note Date: 11/05/22 I am seeing this 62-year-old male patient in the intensive care unit following his cardiac surgery. The patient is known to have symptomatic aortic stenosis and coronary artery disease. The patient underwent four-vessel bypass surgery including CALVIN to LAD and diagonal, radial graft to acute marginal, SVG to descending coronary artery and the patient also underwent a 27 mm bovine pericardial valve insertion. Currently the patient is in the intensive care unit. The patient is sedated on propofol. The patient has, comfortable and sickness a mechanical ventilator. The patient was assist-control at the rate of 14, tidal volume of 500, FiO2 of 100% with a PEEP of 5. The blood gas showed a pH of 7.33 with a pCO2 of 43 and pO2 of 242. FiO2 was dropped down to 50% and the patient's rate is currently at 20. Chest x-ray shows adequate expansion of both lungs clear no pneumothorax. Auburn-Marnie catheter was advanced. ET tube is in a good location. The patient has mediastinal and left pleural chest tube. No pneumothorax and no air leak. The patient has put out approximately 200 mL from the mediastinal and the left pleural chest tubes. Estimated blood loss intraoperatively was 500 mL and the patient's current hemoglobin is at 10.9. The current hemodynamic parameters showed PEA pressures of 38/15, cardiac operative 5.4 with an index of 2.7. The patient is on a Cardizem drip at 5 mg an hour regarding the radial harvesting. The patient is producing adequate amount of urine output. Cardiac rhythm is sinus. On today's evaluation of 11/05/2022, the patient is doing extremely well, he is awake and oriented and is currently on room air oxygen. He was extubated yesterday without having any major difficulties and currently is sitting up on a recliner. Using the incentive spirometer. No issues with pain. He has 2 mediastinal chest tubes and 1 pleural chest tube. Output is quite minimal at this point in time. There is no evidence of air leak. Hemodynamically stable. Cardiac rhythm is sinus. The patient is off the Cardizem drip. [place]-Marnie catheter has been removed. The WBC count is at 9.1 with a hemoglobin of 10 and a platelet count of 130. Electrolyte are normal. Renal function is normal. The chest x-ray from today was reviewed. There was adequate expansion of both lungs. No evidence of any pneumothorax. Limited atelectatic changes in the left lung base. There is a gastric bubble. Chest tubes are all in place. The patient also has a Cordis in his right IJ. Adequate urine output. No nausea or emesis. Tolerating diet. Objective - Vital Signs Vital signs: Vital Signs Temp 99.5 F 11/05/22 04:00 Pulse 78 11/05/22 08:35 Resp 15 11/05/22 07:00 BP 97/52 11/04/22 22:30 Pulse Ox 96 11/05/22 07:00 FiO2 40 11/04/22 19:45 Intake & Output 11/04/22 11/05/22 11/05/22 18:59 06:59 18:59 Intake Total 8653.730 0787.742 69.612 Output Total 2940 1895 95 Balance -1881.570 -268.258 -25.388 Weight 92.3 kg Intake: IV 590 779 59 ACETAMINOPHEN IV (For NPO 100 ) 1,000 mg In Empty Bag 1 bag @ 400 mls/hr IVPB Q6HR [facility] Rx#:[id number] Albumin Human 5% 250 ml 250 In Empty Bag 1 bag @ 250 mls/hr IVPB Q1HR PRN Rx#: [id number] CO/CI 130 LR 150 550 50 Pressure bags 36 99 9 Intake, IV Titration 174.430 47.742 10.612 Amount Dexmedetomidine/0.9% NaCl 3.642 (Pmx) 400 mcg In Empty Bag 1 bag @ Titrate IV . Q0M [facility] Rx#:[id number] Insulin Regular 100 unit 0.9 6.283 In Sodium Chloride 0.9% 100 ml @ Per Protocol IV .Q0M [facility] Rx#:[id number] Phenylephrine 40 mg In 42.653 46.842 4.329 Sodium Chloride 0.9% 250 ml @ 0.5 MCG/KG/MIN 16.65 mls/hr IV .[id number] [facility] Rx#:[id number] ceFAZolin 2 gm In Sodium 50 Chloride 0.9% 50 ml @ 100 mls/hr IVPB Q8HR [facility] Rx# :[id number] propofoL 1,000 mg In 78.135 Empty Bag 1 bag @ Titrate IV .Q0M [facility] Rx#: [id number] Oral 800 Blood Product 294 Platelet Pheresis Pas 294 Psoralen Unit [id number] Output: Chest Tube Drainage 640 520 20 L. plural 270 160 0 MS x2 370 360 20 Urine 1800 1375 75 Estimated Blood Loss 500 Other: Voiding Method Indwelling Catheter Indwelling Catheter ABP, PAP, CO, CI - Last Documented Arterial Blood Pressure 126/50 Pulmonary Artery Pressure 26/12 Cardiac Output 6 Cardiac Index 3 - Exam CONSTITUTIONAL: Appears comfortable, cooperative, no acute distress RESPIRATORY: Lungs sounds diminished bilaterally. Respirations even, nonlabored. Currently on 4 L nasal cannula with oxygen saturation 96%. Able to achieve 1250 mL on incentive spirometry. Strong cough. CARDIOVASCULAR: S1, S2 present. Regular rate and rhythm, sinus rhythm on telemetry. Sternum stable. Palpable peripheral pulses bilaterally. No edema present. No calf pain or tenderness noted. Heart hugger in place with patient demonstrating appropriate use. Antiembolism stockings, SCDs present. GASTROINTESTINAL: Abdomen soft, nontender, nondistended. Hypoactive bowel sounds present 4 quadrants. Tolerating clear liquid diet. Positive flatus GENITOURINARY: Hodges present draining clear, yellow urine. Output overnight 50-175 mL per hour INTEGUMENTARY: Skin is warm and dry with evidence of good perfusion. Anterior chest incision well approximated and covered with dry intact dressing. Left radial artery harvest site as well as left lower extremity EVH site well approximated without redness or drainage. NEUROLOGIC: Cranial nerves II through XII intact MUSKULOSKELETAL: Able to move all extremities, strength equal bilaterally, gait normal PSYCHIATRIC: Alert and oriented to person place and time, appropriate affect, intact judgment and insight INVASIVE LINES AND TUBES: Mediastinal/left pleural chest tubes present and connected to wall suction, no air leaks present. Mediastinal tube with 200 mL serosanguineous drainage overnight, 850 mL since surgery. Left pleural chest tube with 100 mL serosanguineous drainage overnight, 450 mL since surgery. A/V epicardial pacemaker wires present, connected to generator, backup rate 60 bpm. Right internal jugular Auburn/Cordis, right radial arterial line present. Last CO/CI 6.0/3.0, PA , CVP 5. - Labs CBC & Chem 7: 11/05/22 04:00 11/05/22 04:00 Labs: Abnormal Lab Results - Last 24 Hours (Table) 10/29/22 11/04/22 11/04/22 Range/Units 09:18 08:30 09:01 WBC (3.8-10.6) k/uL RBC (4.30-5.90) m/uL Hgb (13.0-17.5) gm/dL Hct (39.0-53.0) % Plt Count (150-450) k/uL Neutrophils # (1.3-7.7) k/uL Lymphocytes # (1.0-4.8) k/uL PT (9.0-12.0) sec INR (<1.2) ABG pH (7.35-7.45) ABG pCO2 (35-45) mmHg ABG pO2 216 H 214 H (83-108) mmHg ABG Total CO2 (19-24) mmol/L ABG O2 Saturation 97.8 H 97.9 H (94-97) % ABG Hematocrit (34.0-46.0) % ABG Potassium (3.4-4.5) mmol/L ABG Ionized Calcium (4.5-5.3) mg/dL Hemoglobin (13.0-17.5) gm/dL Chloride (98-107) mmol/L Carbon Dioxide (22-30) mmol/L Glucose (74-99) mg/dL POC Glucose (mg/dL) (70-110) mg/dL Calcium (8.4-10.2) mg/dL Magnesium (1.6-2.3) mg/dL AST (17-59) U/L Alkaline Phosphatase (38-126) U/L Total Protein (6.3-8.2) g/dL Albumin (3.5-5.0) g/dL Arterial Blood Potassium (3.4-4.5) mmol/L Crossmatch See Detail 11/04/22 11/04/22 11/04/22 Range/Units 09:01 09:59 10:53 WBC (3.8-10.6) k/uL RBC (4.30-5.90) m/uL Hgb (13.0-17.5) gm/dL Hct (39.0-53.0) % Plt Count (150-450) k/uL Neutrophils # (1.3-7.7) k/uL Lymphocytes # (1.0-4.8) k/uL PT (9.0-12.0) sec INR (<1.2) ABG pH (7.35-7.45) ABG pCO2 (35-45) mmHg ABG pO2 187 H 194 H (83-108) mmHg ABG Total CO2 25 H (19-24) mmol/L ABG O2 Saturation 99.1 H 98.0 H (94-97) % ABG Hematocrit (34.0-46.0) % ABG Potassium (3.4-4.5) mmol/L ABG Ionized Calcium (4.5-5.3) mg/dL Hemoglobin (13.0-17.5) gm/dL Chloride (98-107) mmol/L Carbon Dioxide (22-30) mmol/L Glucose (74-99) mg/dL POC Glucose (mg/dL) 116 H (70-110) mg/dL Calcium (8.4-10.2) mg/dL Magnesium (1.6-2.3) mg/dL AST (17-59) U/L Alkaline Phosphatase (38-126) U/L Total Protein (6.3-8.2) g/dL Albumin (3.5-5.0) g/dL Arterial Blood Potassium (3.4-4.5) mmol/L Crossmatch 11/04/22 11/04/22 11/04/22 Range/Units 11:34 11:35 12:04 WBC (3.8-10.6) k/uL RBC (4.30-5.90) m/uL Hgb (13.0-17.5) gm/dL Hct (39.0-53.0) % Plt Count (150-450) k/uL Neutrophils # (1.3-7.7) k/uL Lymphocytes # (1.0-4.8) k/uL PT (9.0-12.0) sec INR (<1.2) ABG pH 7.46 H (7.35-7.45) ABG pCO2 34 L 32 L (35-45) mmHg ABG pO2 >420 H 352 H (83-108) mmHg ABG Total CO2 26 H (19-24) mmol/L ABG O2 Saturation 100.0 H 98.6 H (94-97) % ABG Hematocrit 31 L (34.0-46.0) % ABG Potassium (3.4-4.5) mmol/L ABG Ionized Calcium 4.1 L 4.4 L (4.5-5.3) mg/dL Hemoglobin 10.2 L 11.8 L (13.0-17.5) gm/dL Chloride (98-107) mmol/L Carbon Dioxide (22-30) mmol/L Glucose (74-99) mg/dL POC Glucose (mg/dL) 122 H (70-110) mg/dL Calcium (8.4-10.2) mg/dL Magnesium (1.6-2.3) mg/dL AST (17-59) U/L Alkaline Phosphatase (38-126) U/L Total Protein (6.3-8.2) g/dL Albumin (3.5-5.0) g/dL Arterial Blood Potassium (3.4-4.5) mmol/L Crossmatch 11/04/22 11/04/22 11/04/22 Range/Units 12:07 13:18 14:03 WBC (3.8-10.6) k/uL RBC (4.30-5.90) m/uL Hgb (13.0-17.5) gm/dL Hct (39.0-53.0) % Plt Count (150-450) k/uL Neutrophils # (1.3-7.7) k/uL Lymphocytes # (1.0-4.8) k/uL PT (9.0-12.0) sec INR (<1.2) ABG pH (7.35-7.45) ABG pCO2 (35-45) mmHg ABG pO2 323 H (83-108) mmHg ABG Total CO2 (19-24) mmol/L ABG O2 Saturation 99.6 H 98.1 H (94-97) % ABG Hematocrit (34.0-46.0) % ABG Potassium 4.7 H (3.4-4.5) mmol/L ABG Ionized Calcium 4.3 L (4.5-5.3) mg/dL Hemoglobin 11.6 L 11.8 L (13.0-17.5) gm/dL Chloride (98-107) mmol/L Carbon Dioxide (22-30) mmol/L Glucose (74-99) mg/dL POC Glucose (mg/dL) 124 H (70-110) mg/dL Calcium (8.4-10.2) mg/dL Magnesium (1.6-2.3) mg/dL AST (17-59) U/L Alkaline Phosphatase (38-126) U/L Total Protein (6.3-8.2) g/dL Albumin (3.5-5.0) g/dL Arterial Blood Potassium 4.7 H (3.4-4.5) mmol/L Crossmatch 11/04/22 11/04/22 11/04/22 Range/Units 14:56 14:56 14:56 WBC (3.8-10.6) k/uL RBC 4.08 L (4.30-5.90) m/uL Hgb 12.2 L D (13.0-17.5) gm/dL Hct 36.5 L (39.0-53.0) % Plt Count 128 L (150-450) k/uL Neutrophils # 7.8 H (1.3-7.7) k/uL Lymphocytes # (1.0-4.8) k/uL PT 12.4 H (9.0-12.0) sec INR 1.2 H (<1.2) ABG pH (7.35-7.45) ABG pCO2 (35-45) mmHg ABG pO2 (83-108) mmHg ABG Total CO2 (19-24) mmol/L ABG O2 Saturation (94-97) % ABG Hematocrit (34.0-46.0) % ABG Potassium (3.4-4.5) mmol/L ABG Ionized Calcium (4.5-5.3) mg/dL Hemoglobin (13.0-17.5) gm/dL Chloride 108 H (98-107) mmol/L Carbon Dioxide 21 L (22-30) mmol/L Glucose (74-99) mg/dL POC Glucose (mg/dL) (70-110) mg/dL Calcium 7.6 L (8.4-10.2) mg/dL Magnesium 3.8 H (1.6-2.3) mg/dL AST (17-59) U/L Alkaline Phosphatase 26 L (38-126) U/L Total Protein 5.1 L (6.3-8.2) g/dL Albumin 3.4 L (3.5-5.0) g/dL Arterial Blood Potassium (3.4-4.5) mmol/L Crossmatch 11/04/22 11/04/22 11/04/22 Range/Units 15:39 17:56 17:58 WBC (3.8-10.6) k/uL RBC 3.65 L (4.30-5.90) m/uL Hgb 10.9 L (13.0-17.5) gm/dL Hct 32.8 L (39.0-53.0) % Plt Count 130 L (150-450) k/uL Neutrophils # 8.2 H (1.3-7.7) k/uL Lymphocytes # 0.9 L (1.0-4.8) k/uL PT (9.0-12.0) sec INR (<1.2) ABG pH 7.33 L (7.35-7.45) ABG pCO2 (35-45) mmHg ABG pO2 242 H (83-108) mmHg ABG Total CO2 (19-24) mmol/L ABG O2 Saturation 98.0 H (94-97) % ABG Hematocrit (34.0-46.0) % ABG Potassium (3.4-4.5) mmol/L ABG Ionized Calcium (4.5-5.3) mg/dL Hemoglobin (13.0-17.5) gm/dL Chloride (98-107) mmol/L Carbon Dioxide (22-30) mmol/L Glucose (74-99) mg/dL POC Glucose (mg/dL) 113 H (70-110) mg/dL Calcium (8.4-10.2) mg/dL Magnesium (1.6-2.3) mg/dL AST (17-59) U/L Alkaline Phosphatase (38-126) U/L Total Protein (6.3-8.2) g/dL Albumin (3.5-5.0) g/dL Arterial Blood Potassium (3.4-4.5) mmol/L Crossmatch 11/04/22 11/04/22 11/04/22 Range/Units 18:30 19:30 20:02 WBC 10.7 H (3.8-10.6) k/uL RBC 3.74 L (4.30-5.90) m/uL Hgb 11.4 L (13.0-17.5) gm/dL Hct 33.8 L (39.0-53.0) % Plt Count (150-450) k/uL Neutrophils # 9.3 H (1.3-7.7) k/uL Lymphocytes # 0.6 L (1.0-4.8) k/uL PT (9.0-12.0) sec INR (<1.2) ABG pH 7.32 L (7.35-7.45) ABG pCO2 (35-45) mmHg ABG pO2 >420 H 114 H (83-108) mmHg ABG Total CO2 (19-24) mmol/L ABG O2 Saturation 100.0 H (94-97) % ABG Hematocrit 33 L (34.0-46.0) % ABG Potassium (3.4-4.5) mmol/L ABG Ionized Calcium (4.5-5.3) mg/dL Hemoglobin 10.7 L (13.0-17.5) gm/dL Chloride (98-107) mmol/L Carbon Dioxide (22-30) mmol/L Glucose (74-99) mg/dL POC Glucose (mg/dL) (70-110) mg/dL Calcium (8.4-10.2) mg/dL Magnesium (1.6-2.3) mg/dL AST (17-59) U/L Alkaline Phosphatase (38-126) U/L Total Protein (6.3-8.2) g/dL Albumin (3.5-5.0) g/dL Arterial Blood Potassium (3.4-4.5) mmol/L Crossmatch 11/04/22 11/04/22 11/04/22 Range/Units 20:04 21:56 23:07 WBC (3.8-10.6) k/uL RBC (4.30-5.90) m/uL Hgb (13.0-17.5) gm/dL Hct (39.0-53.0) % Plt Count (150-450) k/uL Neutrophils # (1.3-7.7) k/uL Lymphocytes # (1.0-4.8) k/uL PT (9.0-12.0) sec INR (<1.2) ABG pH (7.35-7.45) ABG pCO2 (35-45) mmHg ABG pO2 (83-108) mmHg ABG Total CO2 (19-24) mmol/L ABG O2 Saturation (94-97) % ABG Hematocrit (34.0-46.0) % ABG Potassium (3.4-4.5) mmol/L ABG Ionized Calcium (4.5-5.3) mg/dL Hemoglobin (13.0-17.5) gm/dL Chloride (98-107) mmol/L Carbon Dioxide (22-30) mmol/L Glucose (74-99) mg/dL POC Glucose (mg/dL) 131 H 128 H 126 H (70-110) mg/dL Calcium (8.4-10.2) mg/dL Magnesium (1.6-2.3) mg/dL AST (17-59) U/L Alkaline Phosphatase (38-126) U/L Total Protein (6.3-8.2) g/dL Albumin (3.5-5.0) g/dL Arterial Blood Potassium (3.4-4.5) mmol/L Crossmatch 11/05/22 11/05/22 11/05/22 Range/Units 01:02 02:03 04:00 WBC (3.8-10.6) k/uL RBC 3.32 L (4.30-5.90) m/uL Hgb 10.0 L (13.0-17.5) gm/dL Hct 29.9 L (39.0-53.0) % Plt Count 130 L (150-450) k/uL Neutrophils # (1.3-7.7) k/uL Lymphocytes # 0.9 L (1.0-4.8) k/uL PT (9.0-12.0) sec INR (<1.2) ABG pH (7.35-7.45) ABG pCO2 (35-45) mmHg ABG pO2 (83-108) mmHg ABG Total CO2 (19-24) mmol/L ABG O2 Saturation (94-97) % ABG Hematocrit (34.0-46.0) % ABG Potassium (3.4-4.5) mmol/L ABG Ionized Calcium (4.5-5.3) mg/dL Hemoglobin (13.0-17.5) gm/dL Chloride (98-107) mmol/L Carbon Dioxide (22-30) mmol/L Glucose (74-99) mg/dL POC Glucose (mg/dL) 140 H 137 H (70-110) mg/dL Calcium (8.4-10.2) mg/dL Magnesium (1.6-2.3) mg/dL AST (17-59) U/L Alkaline Phosphatase (38-126) U/L Total Protein (6.3-8.2) g/dL Albumin (3.5-5.0) g/dL Arterial Blood Potassium (3.4-4.5) mmol/L Crossmatch 11/05/22 11/05/22 11/05/22 Range/Units 04:00 04:08 05:35 WBC (3.8-10.6) k/uL RBC (4.30-5.90) m/uL Hgb (13.0-17.5) gm/dL Hct (39.0-53.0) % Plt Count (150-450) k/uL Neutrophils # (1.3-7.7) k/uL Lymphocytes # (1.0-4.8) k/uL PT (9.0-12.0) sec INR (<1.2) ABG pH (7.35-7.45) ABG pCO2 (35-45) mmHg ABG pO2 (83-108) mmHg ABG Total CO2 (19-24) mmol/L ABG O2 Saturation (94-97) % ABG Hematocrit (34.0-46.0) % ABG Potassium (3.4-4.5) mmol/L ABG Ionized Calcium (4.5-5.3) mg/dL Hemoglobin (13.0-17.5) gm/dL Chloride (98-107) mmol/L Carbon Dioxide 21 L (22-30) mmol/L Glucose 120 H (74-99) mg/dL POC Glucose (mg/dL) 129 H 141 H (70-110) mg/dL Calcium 7.6 L (8.4-10.2) mg/dL Magnesium (1.6-2.3) mg/dL AST 72 H (17-59) U/L Alkaline Phosphatase 28 L (38-126) U/L Total Protein 5.1 L (6.3-8.2) g/dL Albumin 3.3 L (3.5-5.0) g/dL Arterial Blood Potassium (3.4-4.5) mmol/L Crossmatch 11/05/22 11/05/22 11/05/22 Range/Units 06:41 08:16 09:28 WBC (3.8-10.6) k/uL RBC (4.30-5.90) m/uL Hgb (13.0-17.5) gm/dL Hct (39.0-53.0) % Plt Count (150-450) k/uL Neutrophils # (1.3-7.7) k/uL Lymphocytes # (1.0-4.8) k/uL PT (9.0-12.0) sec INR (<1.2) ABG pH (7.35-7.45) ABG pCO2 (35-45) mmHg ABG pO2 (83-108) mmHg ABG Total CO2 (19-24) mmol/L ABG O2 Saturation (94-97) % ABG Hematocrit (34.0-46.0) % ABG Potassium (3.4-4.5) mmol/L ABG Ionized Calcium (4.5-5.3) mg/dL Hemoglobin (13.0-17.5) gm/dL Chloride (98-107) mmol/L Carbon Dioxide (22-30) mmol/L Glucose (74-99) mg/dL POC Glucose (mg/dL) 138 H 204 H 202 H (70-110) mg/dL Calcium (8.4-10.2) mg/dL Magnesium (1.6-2.3) mg/dL AST (17-59) U/L Alkaline Phosphatase (38-126) U/L Total Protein (6.3-8.2) g/dL Albumin (3.5-5.0) g/dL Arterial Blood Potassium (3.4-4.5) mmol/L Crossmatch Assessment and Plan Plan: Multivessel coronary disease, post elective cardiac surgery which involved four- vessel bypass surgery involving CALVIN to LAD and diagonal and the radial artery graft to acute marginal and saphenous vein graft to descending, postop day #1. The patient is hemodynamically stable adequate cardiac output and index. The patient was extubated and the patient remains hemodynamically stable at this point in time. Aortic valve replacement, 27 mm bovine pericardial valve, post abdominal was 0. Surgery was done for severe aortic stenosis Postthoracotomy, currently intubated on a mechanical ventilator, chest tubes are in place output is minimal without evidence of any air leak, and the patient is extubated. Chest tubes are still in place. Chest x-ray shows some limited atelectatic changes in the left lung base. Diabetes mellitus2, currently on insulin drip running at 40 units an hour with adequate blood sugar control. Hypertension Hyperlipidemia Plan Continue using the incentive spirometer Chest x-ray findings of essentially stable Cardizem drip has been discontinued Nitroglycerin has been discontinued Continue aspirin [place]-Marnie catheter has been removed Increase mobility Monitor output from the chest tubes The patient is hemodynamically stable. Continue insulin drip for another 24 hours We'll continue to follow and give the patient ICU from the 24 hours
[2022-11-05 10:13] VITALS: BMI 30.9
[2022-11-05 10:39] LABS: Glucose,Whole Blood 179 mg/dL (70-110)
[2022-11-05] MEDS: FLUTICASONE 50MCG/SPRAY NASAL 16GM EA NOSTRIL SCH (10:45)
[2022-11-05 12:12] LABS: Glucose,Whole Blood 196 mg/dL (70-110)
--- NOTE | 2022-11-05 13:07 | P.CONS ---
History of Present Illness - Reason for Consult Consult date: 11/05/22 Medical management - History of Present Illness History of present illness; patient is a 62-year-old gentleman with past medical history significant for coronary artery disease, severe aortic stenosis who underwent four-vessel bypass surgery including CALVIN to LAD and diagonal, radial graft to acute marginal, SVG to descending coronary artery and the patient also underwent a 27 mm bovine aortic valve placement. Postoperatively patient was managed in the ICU, was initially intubated but later extubated. Patient Chelsea-G anz catheter has been discontinued. Continues to have chest tubes in. Labs this morning showed WBC 9.1, hemoglobin 10, platelet count 1:30, sodium 137, potassium 4.1, BUN 18, creatinine 0.76 . Vital signs this morning are heart rate, respiration rate 23, blood pressure 103/50, on 2 L of oxygen Internal medicine team were consulted for medical management. REVIEW OF SYSTEMS: CONSTITUTIONAL: No fever, no malaise, no fatigue. HEENT: No recent visual problems or hearing problems. Denied any sore throat. CARDIOVASCULAR: No PND, no palpitations, no syncope. Patient stated he is having pain at the surgery site PULMONARY: No shortness of breath, no cough, no hemoptysis. GASTROINTESTINAL: No diarrhea, no nausea, no vomiting, no abdominal pain. NEUROLOGICAL: No headaches, no weakness, no numbness. HEMATOLOGICAL: Denies any bleeding or petechiae. GENITOURINARY: Denies any burning micturition, frequency, or urgency. MUSCULOSKELETAL/RHEUMATOLOGICAL: Denies any joint pain, swelling, or any muscle pain. ENDOCRINE: Denies any polyuria or polydipsia. The rest of the 14-point review of systems is negative. PHYSICAL EXAMINATION: GENERAL: The patient is alert and oriented x3, not in any acute distress. Well developed, well nourished. HEENT: Pupils are round and equally reacting to light. EOMI. No scleral icterus. No conjunctival pallor. Normocephalic, atraumatic. No pharyngeal erythema. No thyromegaly. CARDIOVASCULAR: S1 and S2 present. No murmurs, rubs, or gallops. PULMONARY: Chest is clear to auscultation, no wheezing or crackles. Sternotomy surgical incision seen ABDOMEN: Soft, nontender, nondistended, normoactive bowel sounds. No palpable organomegaly. MUSCULOSKELETAL: No joint swelling or deformity. EXTREMITIES: No cyanosis, clubbing, or pedal edema. NEUROLOGICAL: Gross neurological examination did not reveal any focal deficits. SKIN: No rashes. Assessment and plan Multivessel coronary disease, status post four-vessel bypass surgery involving CALVIN to LAD and diagonal and the radial artery graft to acute marginal and sa phenous vein graft to descending, postop day #1. severe aortic stenosis status post Aortic valve replacement, 27 mm bovine pericardial valve, Postthoracotomy Diabetes mellitus2, currently on insulin drip running at 40 units an hour with adequate blood sugar control. Hypertension Hyperlipidemia Plan; Monitor vital signs Monitor CBC Monitor CMP Continue telemetry monitoring Patient off Cardizem, Nitro drip Chelsea-Marnie catheter removed Monitor blood sugar levels, continue insulin drip for now, can transition to Lantus and sliding scale insulin over the next 24 hours Critical care following Cardiac surgery following Past Medical History Past Medical History: Coronary Artery Disease (CAD), Diabetes Mellitus, Hyperlipidemia, Hypertension, Myocardial Infarction (NE) Additional Past Medical History / Comment(s): sciatica Last Myocardial Infarction Date:: 2012 History of Any Multi-Drug Resistant Organisms: None Reported Past Surgical History: Back Surgery, Heart Catheterization With Stent, Tonsillectomy Additional Past Surgical History / Comment(s): COLONOSCOPY Past Anesthesia/Blood Transfusion Reactions: No Reported Reaction Date of Last Stent Placement:: 2012 Past Psychological History: No Psychological Hx Reported Smoking Status: Former smoker Past Alcohol Use History: None Reported Past Drug Use History: None Reported - Past Family History Family Family Medical History: Coronary Artery Disease (CAD) Medications and Allergies Home Medications Medication Instructions Recorded Confirmed Type Aspirin 81 mg PO DAILY 11/22/13 11/04/22 History Dapagliflozin Propanediol [Farxiga] 10 mg PO DAILY 03/22/20 11/04/22 History Enalapril [Vasotec] 20 mg PO BID 03/22/20 11/04/22 History Gabapentin 300 mg PO TID 03/22/20 11/04/22 History metFORMIN HCL [Glucophage] 1,000 mg PO BID 03/22/20 11/04/22 History Simvastatin [Zocor] 40 mg PO HS 07/17/22 11/04/22 History Fish Oil/Dha/Epa [Fish Oil 1,200 1 cap PO BID 10/06/22 11/04/22 History mg Fish Oil] Fluticasone Nasal [place] [Flonase 1 spray EA NOSTRIL DAILY 10/06/22 11/04/22 History Nasal [place]] Isosorbide Mononitrate ER [Imdur] 15 mg PO DAILY 10/14/22 11/04/22 History Nitroglycerin Sl Tabs [Nitrostat] 0.4 mg SUBLINGUAL Q5M PRN #30 tab 10/16/22 11/04/22 Rx Fexofenadine HCl [Nancy Allergy] 180 mg PO DAILY 10/29/22 11/04/22 History Allergies Allergy/AdvReac Type Severity Reaction Status Date / Time atorvastatin [From Lipitor] AdvReac muscle Verified 11/04/22 05:58 aches Physical Exam Vitals: Vital Signs Temp Pulse Pulse Resp BP Pulse Ox FiO2 11/05/22 12:00 75 23 98 11/05/22 11:30 66 16 99 11/05/22 11:00 67 16 98 11/05/22 10:30 71 18 96 11/05/22 10:00 75 21 98 11/05/22 09:30 77 16 98 11/05/22 09:00 80 20 97 11/05/22 08:35 78 11/05/22 08:30 77 17 100 11/05/22 08:19 76 11/05/22 08:00 99.5 F 79 20 96 11/05/22 07:30 80 15 97 11/05/22 07:00 89 15 96 11/05/22 06:45 85 28 H 94 L 11/05/22 06:30 78 14 96 11/05/22 06:15 76 23 96 11/05/22 06:00 76 16 95 11/05/22 05:45 76 15 91 L 11/05/22 05:30 84 24 95 11/05/22 05:15 87 24 95 11/05/22 05:00 92 14 96 11/05/22 04:45 85 16 95 11/05/22 04:30 81 17 96 11/05/22 04:15 85 16 97 11/05/22 04:00 99.5 F 84 18 97 11/05/22 03:45 80 14 94 L 11/05/22 03:30 78 10 L 97 11/05/22 03:15 78 11 L 96 11/05/22 03:00 75 11 L 96 11/05/22 02:45 77 10 L 95 11/05/22 02:30 79 17 96 11/05/22 02:15 77 16 94 L 11/05/22 02:00 81 5 L 97 11/05/22 01:45 80 9 L 96 11/05/22 01:30 80 19 94 L 11/05/22 01:15 80 12 94 L 11/05/22 01:00 77 7 L 97 11/05/22 00:45 76 12 96 11/05/22 00:30 78 9 L 94 L 11/05/22 00:15 79 26 H 94 L 11/05/22 00:05 75 14 98 11/05/22 00:00 99.5 F 75 13 97 11/04/22 23:45 77 10 L 98 11/04/22 23:30 75 11 L 97 11/04/22 23:15 72 16 98 11/04/22 23:00 72 15 97 11/04/22 22:45 74 10 L 96 11/04/22 22:30 74 21 97/52 95 11/04/22 22:15 72 11 L 95 11/04/22 22:00 75 18 107/59 97 11/04/22 21:45 74 14 97 11/04/22 21:30 71 20 97 11/04/22 21:15 75 4 L 97 11/04/22 21:00 75 15 97 11/04/22 20:45 73 9 L 99 11/04/22 20:30 70 9 L 97 11/04/22 20:27 68 11/04/22 20:15 69 12 93 L 11/04/22 20:00 71 60 17 96 11/04/22 19:49 98 11/04/22 19:45 99.3 F 65 20 98 40 11/04/22 19:30 62 13 98 11/04/22 19:15 64 18 98 11/04/22 19:00 69 12 96 11/04/22 18:56 50 11/04/22 18:45 64 12 99 11/04/22 18:30 65 20 100 11/04/22 18:15 64 20 99 11/04/22 18:00 98.8 F 64 20 99 11/04/22 17:45 66 20 100 11/04/22 17:30 66 20 98 11/04/22 17:25 50 11/04/22 17:15 65 20 99 11/04/22 17:00 98.6 F 65 20 99 50 11/04/22 16:45 61 20 99 11/04/22 16:33 60 11/04/22 16:30 64 14 99 11/04/22 16:24 65 14 11/04/22 16:15 65 14 98 11/04/22 16:00 98.1 F 69 14 99 50 11/04/22 15:52 60 11/04/22 15:45 69 14 100 11/04/22 15:30 80 14 100 11/04/22 15:15 80 14 100 11/04/22 15:00 97.3 F L 80 14 11/04/22 14:57 100 11/04/22 14:56 14 Intake and Output 11/04/22 11/05/22 11/05/22 22:59 06:59 14:59 Intake Total 514.515 0249.677 725.562 Output Total 2425 1225 510 Balance -1429.505 116.677 215.562 Intake: IV 802 513 162 ACETAMINOPHEN IV (For NPO 100 ) 1,000 mg In Empty Bag 1 bag @ 400 mls/hr IVPB Q6HR [facility] Rx#:[id number] Albumin Human 5% 250 ml 250 In Empty Bag 1 bag @ 250 mls/hr IVPB Q1HR PRN Rx#: [id number] CO/CI 30 100 20 LR 350 350 100 Pressure bags 72 63 42 Intake, IV Titration 193.495 28.677 203.562 Amount Dexmedetomidine/0.9% NaCl 3.642 (Pmx) 400 mcg In Empty Bag 1 bag @ Titrate IV . Q0M [facility] Rx#:[id number] Insulin Regular 100 unit 0.9 19.233 In Sodium Chloride 0.9% 100 ml @ Per Protocol IV .Q0M [facility] Rx#:[id number] Lactated Ringers 1,000 ml 80 @ 20 mls/hr IV .Q24H [facility] Rx#:[id number] Phenylephrine 40 mg In 61.718 27.777 4.329 Sodium Chloride 0.9% 250 ml @ 0.5 MCG/KG/MIN 16.65 mls/hr IV .[id number] [facility] Rx#:[id number] ceFAZolin 2 gm In Sodium 50 100 Chloride 0.9% 50 ml @ 100 mls/hr IVPB Q8HR [facility] Rx# :[id number] propofoL 1,000 mg In 78.135 Empty Bag 1 bag @ Titrate IV .Q0M [facility] Rx#: [id number] Oral 800 360 Output: Chest Tube Drainage 860 300 110 L. plural 330 100 30 MS x2 530 200 80 Urine 1565 925 400 Other: Voiding Method Indwelling Catheter Indwelling Catheter Weight 92.3 kg 92.3 kg ABP, PAP, CO, CI - Last 8 Hours Arterial Blood Pressure 103/50 Arterial Blood Pressure 98/42 Arterial Blood Pressure 98/43 Arterial Blood Pressure 117/48 Arterial Blood Pressure 115/45 Arterial Blood Pressure 96/42 Arterial Blood Pressure 122/50 Arterial Blood Pressure 120/50 Arterial Blood Pressure 103/44 Arterial Blood Pressure 95/43 Arterial Blood Pressure 126/50 Arterial Blood Pressure 122/51 Arterial Blood Pressure 116/45 Arterial Blood Pressure 119/42 Arterial Blood Pressure 113/42 Arterial Blood Pressure 118/42 Arterial Blood Pressure 73/50 Arterial Blood Pressure 139/49 Arterial Blood Pressure 156/57 Pulmonary Artery Pressure 21/6 Pulmonary Artery Pressure 23/8 Pulmonary Artery Pressure 19/9 Pulmonary Artery Pressure 19/10 Pulmonary Artery Pressure 22/10 Pulmonary Artery Pressure 26/12 Pulmonary Artery Pressure 24/11 Pulmonary Artery Pressure 23/5 Pulmonary Artery Pressure 20/7 Pulmonary Artery Pressure 15/4 Pulmonary Artery Pressure 19/6 Pulmonary Artery Pressure 22/2 Pulmonary Artery Pressure 24/13 Pulmonary Artery Pressure 28/16 Cardiac Output 5.1 Cardiac Output 6 Cardiac Index 2.5 Cardiac Index 3 Results CBC & Chem 7: 11/05/22 04:00 11/05/22 04:00 Labs: Abnormal Lab Results - Last 24 Hours (Table) 10/29/22 11/04/22 11/04/22 Range/Units 09:18 08:30 09:01 WBC (3.8-10.6) k/uL RBC (4.30-5.90) m/uL Hgb (13.0-17.5) gm/dL Hct (39.0-53.0) % Plt Count (150-450) k/uL Neutrophils # (1.3-7.7) k/uL Lymphocytes # (1.0-4.8) k/uL PT (9.0-12.0) sec INR (<1.2) ABG pH (7.35-7.45) ABG pCO2 (35-45) mmHg ABG pO2 216 H 214 H (83-108) mmHg ABG Total CO2 (19-24) mmol/L ABG O2 Saturation 97.8 H 97.9 H (94-97) % ABG Hematocrit (34.0-46.0) % ABG Potassium (3.4-4.5) mmol/L ABG Ionized Calcium (4.5-5.3) mg/dL Hemoglobin (13.0-17.5) gm/dL Chloride (98-107) mmol/L Carbon Dioxide (22-30) mmol/L Glucose (74-99) mg/dL POC Glucose (mg/dL) (70-110) mg/dL Calcium (8.4-10.2) mg/dL Magnesium (1.6-2.3) mg/dL AST (17-59) U/L Alkaline Phosphatase (38-126) U/L Total Protein (6.3-8.2) g/dL Albumin (3.5-5.0) g/dL Arterial Blood Potassium (3.4-4.5) mmol/L Crossmatch See Detail 11/04/22 11/04/22 11/04/22 Range/Units 09:01 10:53 11:34 WBC (3.8-10.6) k/uL RBC (4.30-5.90) m/uL Hgb (13.0-17.5) gm/dL Hct (39.0-53.0) % Plt Count (150-450) k/uL Neutrophils # (1.3-7.7) k/uL Lymphocytes # (1.0-4.8) k/uL PT (9.0-12.0) sec INR (<1.2) ABG pH 7.46 H (7.35-7.45) ABG pCO2 34 L (35-45) mmHg ABG pO2 187 H 194 H >420 H (83-108) mmHg ABG Total CO2 25 H 26 H (19-24) mmol/L ABG O2 Saturation 99.1 H 98.0 H 100.0 H (94-97) % ABG Hematocrit 31 L (34.0-46.0) % ABG Potassium (3.4-4.5) mmol/L ABG Ionized Calcium 4.1 L (4.5-5.3) mg/dL Hemoglobin 10.2 L (13.0-17.5) gm/dL Chloride (98-107) mmol/L Carbon Dioxide (22-30) mmol/L Glucose (74-99) mg/dL POC Glucose (mg/dL) (70-110) mg/dL Calcium (8.4-10.2) mg/dL Magnesium (1.6-2.3) mg/dL AST (17-59) U/L Alkaline Phosphatase (38-126) U/L Total Protein (6.3-8.2) g/dL Albumin (3.5-5.0) g/dL Arterial Blood Potassium (3.4-4.5) mmol/L Crossmatch 11/04/22 11/04/22 11/04/22 Range/Units 12:04 13:18 14:03 WBC (3.8-10.6) k/uL RBC (4.30-5.90) m/uL Hgb (13.0-17.5) gm/dL Hct (39.0-53.0) % Plt Count (150-450) k/uL Neutrophils # (1.3-7.7) k/uL Lymphocytes # (1.0-4.8) k/uL PT (9.0-12.0) sec INR (<1.2) ABG pH (7.35-7.45) ABG pCO2 32 L (35-45) mmHg ABG pO2 352 H 323 H (83-108) mmHg ABG Total CO2 (19-24) mmol/L ABG O2 Saturation 98.6 H 99.6 H 98.1 H (94-97) % ABG Hematocrit (34.0-46.0) % ABG Potassium 4.7 H (3.4-4.5) mmol/L ABG Ionized Calcium 4.4 L 4.3 L (4.5-5.3) mg/dL Hemoglobin 11.8 L 11.6 L 11.8 L (13.0-17.5) gm/dL Chloride (98-107) mmol/L Carbon Dioxide (22-30) mmol/L Glucose (74-99) mg/dL POC Glucose (mg/dL) (70-110) mg/dL Calcium (8.4-10.2) mg/dL Magnesium (1.6-2.3) mg/dL AST (17-59) U/L Alkaline Phosphatase (38-126) U/L Total Protein (6.3-8.2) g/dL Albumin (3.5-5.0) g/dL Arterial Blood Potassium 4.7 H (3.4-4.5) mmol/L Crossmatch 11/04/22 11/04/22 11/04/22 Range/Units 14:56 14:56 14:56 WBC (3.8-10.6) k/uL RBC 4.08 L (4.30-5.90) m/uL Hgb 12.2 L D (13.0-17.5) gm/dL Hct 36.5 L (39.0-53.0) % Plt Count 128 L (150-450) k/uL Neutrophils # 7.8 H (1.3-7.7) k/uL Lymphocytes # (1.0-4.8) k/uL PT 12.4 H (9.0-12.0) sec INR 1.2 H (<1.2) ABG pH (7.35-7.45) ABG pCO2 (35-45) mmHg ABG pO2 (83-108) mmHg ABG Total CO2 (19-24) mmol/L ABG O2 Saturation (94-97) % ABG Hematocrit (34.0-46.0) % ABG Potassium (3.4-4.5) mmol/L ABG Ionized Calcium (4.5-5.3) mg/dL Hemoglobin (13.0-17.5) gm/dL Chloride 108 H (98-107) mmol/L Carbon Dioxide 21 L (22-30) mmol/L Glucose (74-99) mg/dL POC Glucose (mg/dL) (70-110) mg/dL Calcium 7.6 L (8.4-10.2) mg/dL Magnesium 3.8 H (1.6-2.3) mg/dL AST (17-59) U/L Alkaline Phosphatase 26 L (38-126) U/L Total Protein 5.1 L (6.3-8.2) g/dL Albumin 3.4 L (3.5-5.0) g/dL Arterial Blood Potassium (3.4-4.5) mmol/L Crossmatch 11/04/22 11/04/22 11/04/22 Range/Units 15:39 17:56 17:58 WBC (3.8-10.6) k/uL RBC 3.65 L (4.30-5.90) m/uL Hgb 10.9 L (13.0-17.5) gm/dL Hct 32.8 L (39.0-53.0) % Plt Count 130 L (150-450) k/uL Neutrophils # 8.2 H (1.3-7.7) k/uL Lymphocytes # 0.9 L (1.0-4.8) k/uL PT (9.0-12.0) sec INR (<1.2) ABG pH 7.33 L (7.35-7.45) ABG pCO2 (35-45) mmHg ABG pO2 242 H (83-108) mmHg ABG Total CO2 (19-24) mmol/L ABG O2 Saturation 98.0 H (94-97) % ABG Hematocrit (34.0-46.0) % ABG Potassium (3.4-4.5) mmol/L ABG Ionized Calcium (4.5-5.3) mg/dL Hemoglobin (13.0-17.5) gm/dL Chloride (98-107) mmol/L Carbon Dioxide (22-30) mmol/L Glucose (74-99) mg/dL POC Glucose (mg/dL) 113 H (70-110) mg/dL Calcium (8.4-10.2) mg/dL Magnesium (1.6-2.3) mg/dL AST (17-59) U/L Alkaline Phosphatase (38-126) U/L Total Protein (6.3-8.2) g/dL Albumin (3.5-5.0) g/dL Arterial Blood Potassium (3.4-4.5) mmol/L Crossmatch 11/04/22 11/04/22 11/04/22 Range/Units 18:30 19:30 20:02 WBC 10.7 H (3.8-10.6) k/uL RBC 3.74 L (4.30-5.90) m/uL Hgb 11.4 L (13.0-17.5) gm/dL Hct 33.8 L (39.0-53.0) % Plt Count (150-450) k/uL Neutrophils # 9.3 H (1.3-7.7) k/uL Lymphocytes # 0.6 L (1.0-4.8) k/uL PT (9.0-12.0) sec INR (<1.2) ABG pH 7.32 L (7.35-7.45) ABG pCO2 (35-45) mmHg ABG pO2 >420 H 114 H (83-108) mmHg ABG Total CO2 (19-24) mmol/L ABG O2 Saturation 100.0 H (94-97) % ABG Hematocrit 33 L (34.0-46.0) % ABG Potassium (3.4-4.5) mmol/L ABG Ionized Calcium (4.5-5.3) mg/dL Hemoglobin 10.7 L (13.0-17.5) gm/dL Chloride (98-107) mmol/L Carbon Dioxide (22-30) mmol/L Glucose (74-99) mg/dL POC Glucose (mg/dL) (70-110) mg/dL Calcium (8.4-10.2) mg/dL Magnesium (1.6-2.3) mg/dL AST (17-59) U/L Alkaline Phosphatase (38-126) U/L Total Protein (6.3-8.2) g/dL Albumin (3.5-5.0) g/dL Arterial Blood Potassium (3.4-4.5) mmol/L Crossmatch 11/04/22 11/04/22 11/04/22 Range/Units 20:04 21:56 23:07 WBC (3.8-10.6) k/uL RBC (4.30-5.90) m/uL Hgb (13.0-17.5) gm/dL Hct (39.0-53.0) % Plt Count (150-450) k/uL Neutrophils # (1.3-7.7) k/uL Lymphocytes # (1.0-4.8) k/uL PT (9.0-12.0) sec INR (<1.2) ABG pH (7.35-7.45) ABG pCO2 (35-45) mmHg ABG pO2 (83-108) mmHg ABG Total CO2 (19-24) mmol/L ABG O2 Saturation (94-97) % ABG Hematocrit (34.0-46.0) % ABG Potassium (3.4-4.5) mmol/L ABG Ionized Calcium (4.5-5.3) mg/dL Hemoglobin (13.0-17.5) gm/dL Chloride (98-107) mmol/L Carbon Dioxide (22-30) mmol/L Glucose (74-99) mg/dL POC Glucose (mg/dL) 131 H 128 H 126 H (70-110) mg/dL Calcium (8.4-10.2) mg/dL Magnesium (1.6-2.3) mg/dL AST (17-59) U/L Alkaline Phosphatase (38-126) U/L Total Protein (6.3-8.2) g/dL Albumin (3.5-5.0) g/dL Arterial Blood Potassium (3.4-4.5) mmol/L Crossmatch 11/05/22 11/05/22 11/05/22 Range/Units 01:02 02:03 04:00 WBC (3.8-10.6) k/uL RBC 3.32 L (4.30-5.90) m/uL Hgb 10.0 L (13.0-17.5) gm/dL Hct 29.9 L (39.0-53.0) % Plt Count 130 L (150-450) k/uL Neutrophils # (1.3-7.7) k/uL Lymphocytes # 0.9 L (1.0-4.8) k/uL PT (9.0-12.0) sec INR (<1.2) ABG pH (7.35-7.45) ABG pCO2 (35-45) mmHg ABG pO2 (83-108) mmHg ABG Total CO2 (19-24) mmol/L ABG O2 Saturation (94-97) % ABG Hematocrit (34.0-46.0) % ABG Potassium (3.4-4.5) mmol/L ABG Ionized Calcium (4.5-5.3) mg/dL Hemoglobin (13.0-17.5) gm/dL Chloride (98-107) mmol/L Carbon Dioxide (22-30) mmol/L Glucose (74-99) mg/dL POC Glucose (mg/dL) 140 H 137 H (70-110) mg/dL Calcium (8.4-10.2) mg/dL Magnesium (1.6-2.3) mg/dL AST (17-59) U/L Alkaline Phosphatase (38-126) U/L Total Protein (6.3-8.2) g/dL Albumin (3.5-5.0) g/dL Arterial Blood Potassium (3.4-4.5) mmol/L Crossmatch 11/05/22 11/05/22 11/05/22 Range/Units 04:00 04:08 05:35 WBC (3.8-10.6) k/uL RBC (4.30-5.90) m/uL Hgb (13.0-17.5) gm/dL Hct (39.0-53.0) % Plt Count (150-450) k/uL Neutrophils # (1.3-7.7) k/uL Lymphocytes # (1.0-4.8) k/uL PT (9.0-12.0) sec INR (<1.2) ABG pH (7.35-7.45) ABG pCO2 (35-45) mmHg ABG pO2 (83-108) mmHg ABG Total CO2 (19-24) mmol/L ABG O2 Saturation (94-97) % ABG Hematocrit (34.0-46.0) % ABG Potassium (3.4-4.5) mmol/L ABG Ionized Calcium (4.5-5.3) mg/dL Hemoglobin (13.0-17.5) gm/dL Chloride (98-107) mmol/L Carbon Dioxide 21 L (22-30) mmol/L Glucose 120 H (74-99) mg/dL POC Glucose (mg/dL) 129 H 141 H (70-110) mg/dL Calcium 7.6 L (8.4-10.2) mg/dL Magnesium (1.6-2.3) mg/dL AST 72 H (17-59) U/L Alkaline Phosphatase 28 L (38-126) U/L Total Protein 5.1 L (6.3-8.2) g/dL Albumin 3.3 L (3.5-5.0) g/dL Arterial Blood Potassium (3.4-4.5) mmol/L Crossmatch 11/05/22 11/05/22 11/05/22 Range/Units 06:41 08:16 09:28 WBC (3.8-10.6) k/uL RBC (4.30-5.90) m/uL Hgb (13.0-17.5) gm/dL Hct (39.0-53.0) % Plt Count (150-450) k/uL Neutrophils # (1.3-7.7) k/uL Lymphocytes # (1.0-4.8) k/uL PT (9.0-12.0) sec INR (<1.2) ABG pH (7.35-7.45) ABG pCO2 (35-45) mmHg ABG pO2 (83-108) mmHg ABG Total CO2 (19-24) mmol/L ABG O2 Saturation (94-97) % ABG Hematocrit (34.0-46.0) % ABG Potassium (3.4-4.5) mmol/L ABG Ionized Calcium (4.5-5.3) mg/dL Hemoglobin (13.0-17.5) gm/dL Chloride (98-107) mmol/L Carbon Dioxide (22-30) mmol/L Glucose (74-99) mg/dL POC Glucose (mg/dL) 138 H 204 H 202 H (70-110) mg/dL Calcium (8.4-10.2) mg/dL Magnesium (1.6-2.3) mg/dL AST (17-59) U/L Alkaline Phosphatase (38-126) U/L Total Protein (6.3-8.2) g/dL Albumin (3.5-5.0) g/dL Arterial Blood Potassium (3.4-4.5) mmol/L Crossmatch 11/05/22 11/05/22 Range/Units 10:37 12:10 WBC (3.8-10.6) k/uL RBC (4.30-5.90) m/uL Hgb (13.0-17.5) gm/dL Hct (39.0-53.0) % Plt Count (150-450) k/uL Neutrophils # (1.3-7.7) k/uL Lymphocytes # (1.0-4.8) k/uL PT (9.0-12.0) sec INR (<1.2) ABG pH (7.35-7.45) ABG pCO2 (35-45) mmHg ABG pO2 (83-108) mmHg ABG Total CO2 (19-24) mmol/L ABG O2 Saturation (94-97) % ABG Hematocrit (34.0-46.0) % ABG Potassium (3.4-4.5) mmol/L ABG Ionized Calcium (4.5-5.3) mg/dL Hemoglobin (13.0-17.5) gm/dL Chloride (98-107) mmol/L Carbon Dioxide (22-30) mmol/L Glucose (74-99) mg/dL POC Glucose (mg/dL) 179 H 196 H (70-110) mg/dL Calcium (8.4-10.2) mg/dL Magnesium (1.6-2.3) mg/dL AST (17-59) U/L Alkaline Phosphatase (38-126) U/L Total Protein (6.3-8.2) g/dL Albumin (3.5-5.0) g/dL Arterial Blood Potassium (3.4-4.5) mmol/L Crossmatch
[2022-11-05 13:31] LABS: Glucose,Whole Blood 181 mg/dL (70-110)
[2022-11-05] MEDS ORDERED: ALBUMIN HUMAN 5% 250 ML in EMPTY BAG 1 BAG IVPB ONE (14:21)
[2022-11-05] MEDS: LACTATED RINGERS 1,000 ML IV SCH (14:26)
[2022-11-05 15:15] LABS: Glucose,Whole Blood 97 mg/dL (70-110)
[2022-11-05 16:40] LABS: Glucose,Whole Blood 121 mg/dL (70-110)
[2022-11-05 18:08] LABS: Glucose,Whole Blood 192 mg/dL (70-110)
[2022-11-05 20:02] LABS: Glucose,Whole Blood 149 mg/dL (70-110)
[2022-11-05] MEDS: SIMVASTATIN 40MG TAB PO SCH (20:42)
[2022-11-05] MEDS: SENNOSIDES-DOCUSATE SODIUM 1 EACH TAB PO SCH (20:43)
[2022-11-05 21:16] LABS: Glucose,Whole Blood 170 mg/dL (70-110)
[2022-11-05 22:09] LABS: Glucose,Whole Blood 126 mg/dL (70-110)
[2022-11-05 23:10] LABS: Glucose,Whole Blood 129 mg/dL (70-110)
[2022-11-06 00:07] LABS: Glucose,Whole Blood 133 mg/dL (70-110)
[2022-11-06] MEDS: HEPARIN SODIUM,PORCINE/PF 5,000 UNIT/0.5 ML SYRINGE SQ SCH ×2 (00:10→08:30)
[2022-11-06] MEDS: KETOROLAC 15 MG/ML 1 ML VIAL IVP SCH ×5 (00:10→17:35)
[2022-11-06 01:03] LABS: Glucose,Whole Blood 139 mg/dL (70-110)
[2022-11-06 02:07] LABS: Glucose,Whole Blood 133 mg/dL (70-110)
[2022-11-06] MEDS: HYDROcodone/APAP 5-325MG 1 EACH TAB PO PRN ×4 (02:11→21:15)
[2022-11-06 05:06] LABS: Glucose,Whole Blood 116 mg/dL (70-110)
[2022-11-06 05:28] LABS: Basophils % (A) 0 %; Eosinophils # (A) 0.1 k/uL (0-0.7); Eosinophils % (A) 1 %; HCT 23.3 % (39.0-53.0); Lymphocytes # (A) 1.8 k/uL (1.0-4.8); Lymphocytes % (A) 24 %; MCH 30.4 pg (25.0-35.0); MCHC 34.5 g/dL (31.0-37.0); MCV 88.3 fL (80.0-100.0); Mean Platelet Volume 8.8; Monocytes # (A) 0.5 k/uL (0-1.0); Monocytes % (A) 7 %; Neutrophils # (A) 4.8 k/uL (1.3-7.7); Neutrophils % (A) 65 %; RBC 2.64 m/uL (4.30-5.90); RDW 12.9 % (11.5-15.5); WBC 7.3 k/uL (3.8-10.6)
[2022-11-06 05:36] LABS: Ionized Calcium 5.1 mg/dL (4.5-5.3)
[2022-11-06 05:46] LABS: Platelet Count 86 k/uL (150-450)
[2022-11-06 05:51] LABS: ALT 17 U/L (4-49); AST 64 U/L (17-59); African American GFR (CKD) >90 (>60 ml/min/1.73 sqM); Albumin 2.8 g/dL (3.5-5.0); Alkaline Phosphatase 27 U/L (38-126); Anion Gap 5 mmol/L; Blood Urea Nitrogen 21 mg/dL (9-20); Calcium 7.5 mg/dL (8.4-10.2); Carbon Dioxide 24 mmol/L (22-30); Chloride 103 mmol/L (98-107); Glucose 103 mg/dL (74-99); Non-African American GFR(CKD) >90 (>60 ml/min/1.73 sqM); Potassium 3.6 mmol/L (3.5-5.1); Sodium 132 mmol/L (137-145); Total Bilirubin 0.5 mg/dL (0.2-1.3); Total Protein 4.6 g/dL (6.3-8.2)
[2022-11-06 06:19] LABS: Glucose,Whole Blood 126 mg/dL (70-110)
[2022-11-06] MEDS ORDERED: POTASSIUM CHLORIDE ER 20 MEQ TAB.ER PO SCH (07:00)
--- NOTE | 2022-11-06 08:32 | XR ---
EXAMINATION TYPE: XR chest 1V portable DATE OF EXAM: 11/06/2022 COMPARISON: 11/05/2022 HISTORY: Postop cardiac surgery TECHNIQUE: Single frontal view of the chest is obtained. FINDINGS: [place]ie catheter has been removed. Mediastinal drain noted. Postsurgical changes of card iomegaly and left lower lobe and small effusion. Tiny right pleural effusion. No overt failure or siz able pneumothorax. IMPRESSION: 1. Postsurgical changes with bilateral suspected postoperative atelectasis favored over infiltrate.
[2022-11-06 08:43] LABS: Glucose,Whole Blood 183 mg/dL (70-110)
[2022-11-06] MEDS: GABAPENTIN 300 MG CAP PO SCH ×3 (08:48→21:15)
[2022-11-06] MEDS: PANTOPRAZOLE 40 MG TABLET PO SCH (08:49)
[2022-11-06] MEDS: METOPROLOL TARTRATE 12.5 MG TAB PO SCH (08:49)
[2022-11-06] MEDS: IPRATROPIUM-ALBUTEROL 3 ML NEB INHALATION SCH ×4 (08:52→20:57)
[2022-11-06] MEDS: amLODIPine 2.5 MG TAB PO SCH (08:52)
--- NOTE | 2022-11-06 08:52 | P.PN ---
Subjective Progress Note Date: 11/06/22 The patient is a 62-year-old male who follows in the office with Dr. Vargas. He was referred for coronary artery bypass as well as aortic valve replacement. This was completed on November [address] Wolf. Postoperatively the patient has done well. He has been up in the recliner chair and is gradually being weaned from his tubes and lines. This morning he had a 2 g drop in his hemoglobin. The patient states he does have some mild discomfort in his chest especially with ambulation. No difficulty breathing or orthopnea. No dizziness or lightheadedness with standing. GENERAL: Well-appearing, well-nourished and in no acute distress. NECK: Supple without JVD or thyromegaly. LUNGS: Breath sounds clear to auscultation bilaterally. Diminished in the bases. Respiration equal and unlabored. No wheezes, rales or rhonchi. HEART: Regular rate and rhythm without murmurs, rubs or gallops. S1 and S2 heard. Chest hugger in place. EXTREMITIES: Normal range of motion, no edema. No clubbing or cyanosis. Pe ripheral pulses intact and strong. Left graft site is bruised. No hematoma. TELEMETRY: Sinus rhythm overnight LABS: WBC 7.3, hemoglobin 8.0, hematocrit 23.3, platelet 86, sodium 132, potassium 3.6 , BUN 21, creatinine 0.63, AST 64, ALT 17 IMPRESSION: Multivessel coronary artery disease Severe aortic stenosis Status post CALVIN to LAD, CALVIN to diagonal, radial graft to acute marginal, SVG to descending coronary artery Status post aortic valve replacement with bovine valve History of hypertension History diabetes History of hyperlipidemia PLAN: Recommend increasing beta nubia to 25 mg twice daily Continue supportive treatment Aggressive pulmonary hygiene Early ambulation as recommended by CV surgery Further recommendations will be based on clinical course/changes in clinical status I am dictating on behalf of Dr Eric Sharma's history/physical and assessment/plan. Objective - Vital Signs Vital signs: Vital Signs Temp 97.8 F 11/06/22 04:00 Pulse 92 11/06/22 07:00 Resp 18 11/06/22 07:00 BP 97/52 11/05/22 20:00 Pulse Ox 97 11/06/22 07:00 FiO2 40 11/04/22 19:45 Intake & Output 05/04/2011/06/22 11/06/22 18:59 06:59 18:59 Intake Total 9318.465 3774.866 26 Output Total 800 790 50 Balance 704.829 283.866 -24 Weight 92.3 kg 95.5 kg Intake: IV 198 292 26 CO/CI 20 LR 100 Lactated Ringers 1,000 ml 220 20 @ 20 mls/hr IV .Q24H [facility] Rx#:[id number] Pressure bags 78 72 6 Intake, IV Titration 586.829 31.866 Amount Albumin Human 5% 250 ml 250 In Empty Bag 1 bag @ 250 mls/hr IVPB ONCE ONE Rx#: [id number] Insulin Regular 100 unit 32.500 11.866 In Sodium Chloride 0.9% 100 ml @ Per Protocol IV .Q0M [facility] Rx#:[id number] Lactated Ringers 1,000 ml 200 20 @ 20 mls/hr IV .Q24H [facility] Rx#:[id number] Phenylephrine 40 mg In 4.329 Sodium Chloride 0.9% 250 ml @ 0.5 MCG/KG/MIN 16.65 mls/hr IV .[id number] [facility] Rx#:[id number] ceFAZolin 2 gm In Sodium 100 Chloride 0.9% 50 ml @ 100 mls/hr IVPB Q8HR [facility] Rx# :[id number] Oral 720 750 Output: Chest Tube Drainage 210 180 L. plural 40 60 MS x2 170 120 Urine 590 610 50 Other: Voiding Method Indwelling Catheter Indwelling Catheter ABP, PAP, CO, CI - Last Documented Arterial Blood Pressure 121/53 Pulmonary Artery Pressure 21/6 Cardiac Output 6 Cardiac Index 3 - Labs CBC & Chem 7: 11/06/22 05:05 11/06/22 05:05 Labs: Abnormal Lab Results - Last 24 Hours (Table) 11/05/22 11/05/22 11/05/22 Range/Units 09:28 10:37 12:10 RBC (4.30-5.90) m/uL Hgb (13.0-17.5) gm/dL Hct (39.0-53.0) % Plt Count (150-450) k/uL Sodium (137-145) mmol/L BUN (9-20) mg/dL Creatinine (0.66-1.25) mg/dL Glucose (74-99) mg/dL POC Glucose (mg/dL) 202 H 179 H 196 H (70-110) mg/dL Calcium (8.4-10.2) mg/dL AST (17-59) U/L Alkaline Phosphatase (38-126) U/L Total Protein (6.3-8.2) g/dL Albumin (3.5-5.0) g/dL 11/05/22 11/05/22 11/05/22 Range/Units 13:30 16:37 18:07 RBC (4.30-5.90) m/uL Hgb (13.0-17.5) gm/dL Hct (39.0-53.0) % Plt Count (150-450) k/uL Sodium (137-145) mmol/L BUN (9-20) mg/dL Creatinine (0.66-1.25) mg/dL Glucose (74-99) mg/dL POC Glucose (mg/dL) 181 H 121 H 192 H (70-110) mg/dL Calcium (8.4-10.2) mg/dL AST (17-59) U/L Alkaline Phosphatase (38-126) U/L Total Protein (6.3-8.2) g/dL Albumin (3.5-5.0) g/dL 11/05/22 11/05/22 11/05/22 Range/Units 20:01 21:16 22:08 RBC (4.30-5.90) m/uL Hgb (13.0-17.5) gm/dL Hct (39.0-53.0) % Plt Count (150-450) k/uL Sodium (137-145) mmol/L BUN (9-20) mg/dL Creatinine (0.66-1.25) mg/dL Glucose (74-99) mg/dL POC Glucose (mg/dL) 149 H 170 H 126 H (70-110) mg/dL Calcium (8.4-10.2) mg/dL AST (17-59) U/L Alkaline Phosphatase (38-126) U/L Total Protein (6.3-8.2) g/dL Albumin (3.5-5.0) g/dL 11/05/22 11/06/22 11/06/22 Range/Units 23:09 00:06 01:00 RBC (4.30-5.90) m/uL Hgb (13.0-17.5) gm/dL Hct (39.0-53.0) % Plt Count (150-450) k/uL Sodium (137-145) mmol/L BUN (9-20) mg/dL Creatinine (0.66-1.25) mg/dL Glucose (74-99) mg/dL POC Glucose (mg/dL) 129 H 133 H 139 H (70-110) mg/dL Calcium (8.4-10.2) mg/dL AST (17-59) U/L Alkaline Phosphatase (38-126) U/L Total Protein (6.3-8.2) g/dL Albumin (3.5-5.0) g/dL 11/06/22 11/06/22 11/06/22 Range/Units 02:06 05:05 05:05 RBC 2.64 L (4.30-5.90) m/uL Hgb 8.0 L D (13.0-17.5) gm/dL Hct 23.3 L (39.0-53.0) % Plt Count 86 L (150-450) k/uL Sodium 132 L (137-145) mmol/L BUN 21 H (9-20) mg/dL Creatinine 0.63 L (0.66-1.25) mg/dL Glucose 103 H (74-99) mg/dL POC Glucose (mg/dL) 133 H (70-110) mg/dL Calcium 7.5 L (8.4-10.2) mg/dL AST 64 H (17-59) U/L Alkaline Phosphatase 27 L (38-126) U/L Total Protein 4.6 L (6.3-8.2) g/dL Albumin 2.8 L (3.5-5.0) g/dL 11/06/22 11/06/22 11/06/22 Range/Units 05:05 06:17 08:41 RBC (4.30-5.90) m/uL Hgb (13.0-17.5) gm/dL Hct (39.0-53.0) % Plt Count (150-450) k/uL Sodium (137-145) mmol/L BUN (9-20) mg/dL Creatinine (0.66-1.25) mg/dL Glucose (74-99) mg/dL POC Glucose (mg/dL) 116 H 126 H 183 H (70-110) mg/dL Calcium (8.4-10.2) mg/dL AST (17-59) U/L Alkaline Phosphatase (38-126) U/L Total Protein (6.3-8.2) g/dL Albumin (3.5-5.0) g/dL
[2022-11-06 08:57] LABS: Basophils % (A) 0 %; Eosinophils % (A) 1 %; HCT 24.5 % (39.0-53.0); HGB 8.6 gm/dL (13.0-17.5); Lymphocytes # (A) 1.3 k/uL (1.0-4.8); Lymphocytes % (A) 16 %; MCHC 35.1 g/dL (31.0-37.0); MCV 88.5 fL (80.0-100.0); Mean Platelet Volume 8.3; Monocytes # (A) 0.5 k/uL (0-1.0); Monocytes % (A) 6 %; Neutrophils # (A) 6.5 k/uL (1.3-7.7); Neutrophils % (A) 76 %; RBC 2.77 m/uL (4.30-5.90); RDW 12.7 % (11.5-15.5); WBC 8.5 k/uL (3.8-10.6)
[2022-11-06 09:02] LABS: Platelet Count 90 k/uL (150-450)
[2022-11-06 09:14] LABS: ALT 18 U/L (4-49); AST 55 U/L (17-59); African American GFR (CKD) >90 (>60 ml/min/1.73 sqM); Alkaline Phosphatase 28 U/L (38-126); Anion Gap 7 mmol/L; Blood Urea Nitrogen 21 mg/dL (9-20); Calcium 7.8 mg/dL (8.4-10.2); Carbon Dioxide 23 mmol/L (22-30); Chloride 104 mmol/L (98-107); Glucose 165 mg/dL (74-99); Non-African American GFR(CKD) >90 (>60 ml/min/1.73 sqM); Potassium 4.1 mmol/L (3.5-5.1); Sodium 134 mmol/L (137-145); Total Bilirubin 0.6 mg/dL (0.2-1.3); Total Protein 4.9 g/dL (6.3-8.2)
--- NOTE | 2022-11-06 09:14 | P.PN ---
Subjective Progress Note Date: 11/06/22 I am seeing this 62-year-old male patient in the intensive care unit following his cardiac surgery. The patient is known to have symptomatic aortic stenosis and coronary artery disease. The patient underwent four-vessel bypass surgery including CALVIN to LAD and diagonal, radial graft to acute marginal, SVG to descending coronary artery and the patient also underwent a 27 mm bovine pericardial valve insertion. Currently the patient is in the intensive care unit. The patient is sedated on propofol. The patient has, comfortable and sickness a mechanical ventilator. The patient was assist-control at the rate of 14, tidal volume of 500, FiO2 of 100% with a PEEP of 5. The blood gas showed a pH of 7.33 with a pCO2 of 43 and pO2 of 242. FiO2 was dropped down to 50% and the patient's rate is currently at 20. Chest x-ray shows adequate expansion of both lungs clear no pneumothorax. Quincy-Marnie catheter was advanced. ET tube is in a good location. The patient has mediastinal and left pleural chest tube. No pneumothorax and no air leak. The patient has put out approximately 200 mL from the mediastinal and the left pleural chest tubes. Estimated blood loss intraoperatively was 500 mL and the patient's current hemoglobin is at 10.9. The current hemodynamic parameters showed PEA pressures of 38/15, cardiac operative 5.4 with an index of 2.7. The patient is on a Cardizem drip at 5 mg an hour regarding the radial harvesting. The patient is producing adequate amount of urine output. Cardiac rhythm is sinus. On today's evaluation of 11/05/2022, the patient is doing extremely well, he is awake and oriented and is currently on room air oxygen. He was extubated yesterday without having any major difficulties and currently is sitting up on a recliner. Using the incentive spirometer. No issues with pain. He has 2 mediastinal chest tubes and 1 pleural chest tube. Output is quite minimal at this point in time. There is no evidence of air leak. Hemodynamically stable. Cardiac rhythm is sinus. The patient is off the Cardizem drip. Quincy-Marnie catheter has been removed. The WBC count is at 9.1 with a hemoglobin of 10 and a platelet count of 130. Electrolyte are normal. Renal function is normal. The chest x-ray from today was reviewed. There was adequate expansion of both lungs. No evidence of any pneumothorax. Limited atelectatic changes in the left lung base. There is a gastric bubble. Chest tubes are all in place. The patient also has a Cordis in his right IJ. Adequate urine output. No nausea or emesis. Tolerating diet. 11/06/2022, the patient is on 2 L of oxygen by nasal cannula. Chest x-ray from this morning shows no significant abnormalities. No pneumothorax. Chest tubes are still in place and the patient is a mediastinal left pleural chest tube. Output from the chest tubes has been in the order of 2 90 mL and the mediastinum over the past 24 hours and 100 mL from the left lower chest tube over the past 24 hours. No evidence of any air leak. Hemodynamically stable on no pressors. Cardiac rhythm is sinus. Blood work from today shows a WBC count of 8.5 with a hemoglobin of 8.6 and a platelet count of 90. He is using the incentive spirometer. He is pulling approximately 1500 on his incentive spirometer. Adequate pain control. Ambulating. Tolerating diet. Objective - Vital Signs Vital signs: Vital Signs Temp 97.8 F 11/06/22 04:00 Pulse 91 11/06/22 08:52 Resp 18 11/06/22 07:00 BP 97/52 11/05/22 20:00 Pulse Ox 97 11/06/22 07:00 FiO2 40 11/04/22 19:45 Intake & Output 11/05/22 11/06/22 11/06/22 18:59 06:59 18:59 Intake Total 0235.141 6398.866 42.125 Output Total 800 790 50 Balance 704.829 283.866 -7.875 Weight 92.3 kg 95.5 kg Intake: IV 198 292 26 CO/CI 20 LR 100 Lactated Ringers 1,000 ml 220 20 @ 20 mls/hr IV .Q24H [facility] Rx#:[id number] Pressure bags 78 72 6 Intake, IV Titration 586.829 31.866 16.125 Amount Albumin Human 5% 250 ml 250 In Empty Bag 1 bag @ 250 mls/hr IVPB ONCE ONE Rx#: [id number] Insulin Regular 100 unit 32.500 11.866 16.125 In Sodium Chloride 0.9% 100 ml @ Per Protocol IV .Q0M [facility] Rx#:[id number] Lactated Ringers 1,000 ml 200 20 @ 20 mls/hr IV .Q24H [facility] Rx#:[id number] Phenylephrine 40 mg In 4.329 Sodium Chloride 0.9% 250 ml @ 0.5 MCG/KG/MIN 16.65 mls/hr IV .[id number] [facility] Rx#:[id number] ceFAZolin 2 gm In Sodium 100 Chloride 0.9% 50 ml @ 100 mls/hr IVPB Q8HR [facility] Rx# :[id number] Oral 720 750 Output: Chest Tube Drainage 210 180 L. plural 40 60 MS x2 170 120 Urine 590 610 50 Other: Voiding Method Indwelling Catheter Indwelling Catheter ABP, PAP, CO, CI - Last Documented Arterial Blood Pressure 121/53 Pulmonary Artery Pressure 21/6 Cardiac Output 6 Cardiac Index 3 - Exam CONSTITUTIONAL: Appears comfortable, cooperative, no acute distress RESPIRATORY: Lungs sounds diminished bilaterally. Respirations even, nonlabored. Currently on 2 L nasal cannula with oxygen saturation 96%. Able to achieve 1250 mL on incentive spirometry. Strong cough. CARDIOVASCULAR: S1, S2 present. Regular rate and rhythm, sinus rhythm on telemetry. Sternum stable. Palpable peripheral pulses bilaterally. No edema present. No calf pain or tenderness noted. Heart hugger in place with patient demonstrating appropriate use. Antiembolism stockings, SCDs present. GASTROINTESTINAL: Abdomen soft, nontender, nondistended. Hypoactive bowel sounds present 4 quadrants. Tolerating clear liquid diet. Positive flatus GENITOURINARY: Hodges present draining clear, yellow urine. Output overnight 50-175 mL per hour INTEGUMENTARY: Skin is warm and dry with evidence of good perfusion. Anterior chest incision well approximated and covered with dry intact dressing. Left radial artery harvest site as well as left lower extremity EVH site well approximated without redness or drainage. NEUROLOGIC: Cranial nerves II through XII intact MUSKULOSKELETAL: Able to move all extremities, strength equal bilaterally, gait normal PSYCHIATRIC: Alert and oriented to person place and time, appropriate affect, intact judgment and insight INVASIVE LINES AND TUBES: Mediastinal/left pleural chest tubes present and connected to wall suction, no air leaks present. The patient continues to have an arterial line in his right brachial and right IJ Cordis. - Labs CBC & Chem 7: 11/06/22 08:40 11/06/22 05:05 Labs: Abnormal Lab Results - Last 24 Hours (Table) 11/05/22 11/05/22 11/05/22 Range/Units 09:28 10:37 12:10 RBC (4.30-5.90) m/uL Hgb (13.0-17.5) gm/dL Hct (39.0-53.0) % Plt Count (150-450) k/uL Sodium (137-145) mmol/L BUN (9-20) mg/dL Creatinine (0.66-1.25) mg/dL Glucose (74-99) mg/dL POC Glucose (mg/dL) 202 H 179 H 196 H (70-110) mg/dL Calcium (8.4-10.2) mg/dL AST (17-59) U/L Alkaline Phosphatase (38-126) U/L Total Protein (6.3-8.2) g/dL Albumin (3.5-5.0) g/dL 11/05/22 11/05/22 11/05/22 Range/Units 13:30 16:37 18:07 RBC (4.30-5.90) m/uL Hgb (13.0-17.5) gm/dL Hct (39.0-53.0) % Plt Count (150-450) k/uL Sodium (137-145) mmol/L BUN (9-20) mg/dL Creatinine (0.66-1.25) mg/dL Glucose (74-99) mg/dL POC Glucose (mg/dL) 181 H 121 H 192 H (70-110) mg/dL Calcium (8.4-10.2) mg/dL AST (17-59) U/L Alkaline Phosphatase (38-126) U/L Total Protein (6.3-8.2) g/dL Albumin (3.5-5.0) g/dL 11/05/22 11/05/22 11/05/22 Range/Units 20:01 21:16 22:08 RBC (4.30-5.90) m/uL Hgb (13.0-17.5) gm/dL Hct (39.0-53.0) % Plt Count (150-450) k/uL Sodium (137-145) mmol/L BUN (9-20) mg/dL Creatinine (0.66-1.25) mg/dL Glucose (74-99) mg/dL POC Glucose (mg/dL) 149 H 170 H 126 H (70-110) mg/dL Calcium (8.4-10.2) mg/dL AST (17-59) U/L Alkaline Phosphatase (38-126) U/L Total Protein (6.3-8.2) g/dL Albumin (3.5-5.0) g/dL 11/05/22 11/06/22 11/06/22 Range/Units 23:09 00:06 01:00 RBC (4.30-5.90) m/uL Hgb (13.0-17.5) gm/dL Hct (39.0-53.0) % Plt Count (150-450) k/uL Sodium (137-145) mmol/L BUN (9-20) mg/dL Creatinine (0.66-1.25) mg/dL Glucose (74-99) mg/dL POC Glucose (mg/dL) 129 H 133 H 139 H (70-110) mg/dL Calcium (8.4-10.2) mg/dL AST (17-59) U/L Alkaline Phosphatase (38-126) U/L Total Protein (6.3-8.2) g/dL Albumin (3.5-5.0) g/dL 11/06/22 11/06/22 11/06/22 Range/Units 02:06 05:05 05:05 RBC 2.64 L (4.30-5.90) m/uL Hgb 8.0 L D (13.0-17.5) gm/dL Hct 23.3 L (39.0-53.0) % Plt Count 86 L (150-450) k/uL Sodium 132 L (137-145) mmol/L BUN 21 H (9-20) mg/dL Creatinine 0.63 L (0.66-1.25) mg/dL Glucose 103 H (74-99) mg/dL POC Glucose (mg/dL) 133 H (70-110) mg/dL Calcium 7.5 L (8.4-10.2) mg/dL AST 64 H (17-59) U/L Alkaline Phosphatase 27 L (38-126) U/L Total Protein 4.6 L (6.3-8.2) g/dL Albumin 2.8 L (3.5-5.0) g/dL 11/06/22 11/06/22 11/06/22 Range/Units 05:05 06:17 08:40 RBC 2.77 L (4.30-5.90) m/uL Hgb 8.6 L (13.0-17.5) gm/dL Hct 24.5 L (39.0-53.0) % Plt Count 90 L (150-450) k/uL Sodium (137-145) mmol/L BUN (9-20) mg/dL Creatinine (0.66-1.25) mg/dL Glucose (74-99) mg/dL POC Glucose (mg/dL) 116 H 126 H (70-110) mg/dL Calcium (8.4-10.2) mg/dL AST (17-59) U/L Alkaline Phosphatase (38-126) U/L Total Protein (6.3-8.2) g/dL Albumin (3.5-5.0) g/dL 11/06/22 Range/Units 08:41 RBC (4.30-5.90) m/uL Hgb (13.0-17.5) gm/dL Hct (39.0-53.0) % Plt Count (150-450) k/uL Sodium (137-145) mmol/L BUN (9-20) mg/dL Creatinine (0.66-1.25) mg/dL Glucose (74-99) mg/dL POC Glucose (mg/dL) 183 H (70-110) mg/dL Calcium (8.4-10.2) mg/dL AST (17-59) U/L Alkaline Phosphatase (38-126) U/L Total Protein (6.3-8.2) g/dL Albumin (3.5-5.0) g/dL Assessment and Plan Plan: Multivessel coronary disease, post elective cardiac surgery which involved four- vessel bypass surgery involving CALVIN to LAD and diagonal and the radial artery graft to acute marginal and saphenous vein graft to descending, postop day #2. The patient is hemodynamically stable adequate cardiac output and index. The patient was extubated and the patient remains hemodynamically stable at this point in time. Aortic valve replacement, 27 mm bovine pericardial valve, post abdominal was 0. Surgery was done for severe aortic stenosis Postthoracotomy, currently intubated on a mechanical ventilator, chest tubes are in place output is minimal without evidence of any air leak, and the patient is extubated. Chest tubes are still in place. Chest x-ray shows some limited atelectatic changes in the left lung base. Diabetes mellitus2, currently on insulin drip running at 3.5 units an hour with adequate blood sugar control. Hypertension Hyperlipidemia Plan Continue using the incentive spirometer Chest x-ray findings of essentially stable We'll discuss with cardiothoracic team regarding the possibility of removing the pleural chest tube Increase mobility, the patient is ambulating Discontinue the insulin drip and put the patient on sliding scale insulin coverage Continue aspirin Continue Norvasc 2.5 mg by mouth daily Continue Plavix 75 mg by mouth daily Continue metoprolol at a dose of 12.5 mg twice a day. Zocor 40 mg by mouth daily Monitor output from the chest tubes The patient is hemodynamically stable. We'll continue to follow and give the patient ICU from the 24 hours
[2022-11-06] MEDS ORDERED: DEXTROSE 50% SYRINGE 50 ML IVP PRN ×2 (09:37)
[2022-11-06] MEDS: FLUTICASONE 50MCG/SPRAY NASAL 16GM EA NOSTRIL SCH (09:41)
[2022-11-06] MEDS: CLOPIDOGREL 75 MG TAB PO SCH (09:41)
[2022-11-06] MEDS: ASPIRIN 325 MG TAB PO SCH (09:41)
[2022-11-06] MEDS ORDERED: METOPROLOL TARTRATE 12.5 MG TAB PO STA (11:09)
--- NOTE | 2022-11-06 11:21 | P.PN ---
Subjective Progress Note Date: 11/06/22 Principal diagnosis: Aortic valve stenosis, coronary artery disease. Past medical history significant for coronary artery disease with previous myocardial infarction and PCI, hypertension, hyperlipidemia, TIA in 2015 with no residual deficits, gqi-groybdf-gmlqljish diabetes, previous tobacco dependence, obstructive sleep apnea with home CPAP use, nightly marijuana use POD #2 aortic valve replacement with a 27 mm Avalus bovine pericardial valve, coronary artery bypass graft 4 with sequential left internal mammary artery to the left anterior descending artery and diagonal artery, left radial artery to the third obtuse marginal (distal circumflex), reverse saphenous vein graft to the descending coronary artery, endovascular left radial artery and left greater saphenous vein harvest, ligation of the left atrial appendage with a 35 mm AtriCure clip, epi-aortic ultrasound Postoperative acute blood loss anemia and thrombocytopenia, expected given hemodilution and cardiopulmonary bypass pump The patient was seen and examined in follow-up today 11/06/2022 at his bedside in the intensive care unit. Currently he is sitting up to the bedside chair, is awake, alert, oriented 3 and is in no acute distress. Denies any complaints of shortness of breath although was complaining of some surgical type pain to his left arm radial artery harvest site. Currently rates his pain 2-3 out of 10 on the pain scale. Denies any complaints of numbness to his left hand. Oxygen saturations are 97% on 2 L nasal cannula and he is achieving 1500 mL on his incentive spirometry with encouragement. Bedside telemetry showing normal sinus rhythm heart rate 93 BPM. He remained hemodynamically stable and is currently on no inotropic pressure support. Right IJ cordis remains in place with continuous CVP monitoring, current CVP pressures 10 mmHg. Mediastinal and left pleural chest tubes remain in place to low continuous wall suction -20 cm H2O. No air leak is present. Mediastinal chest tubes with 60 mL of thin serosanguineous output in the last 8 hours and 300 mL thin serosanguineous output in the last 24 hours. Left pleural chest tube with 150 mL output of thin serosanguineous drainage in the last 24 hours. Laboratory and chest x-ray results reviewed. He remains on Norvasc 2.5 mg by mouth daily for radial artery spasm prophylaxis. Objective - Vital Signs Vital signs: Vital Signs Temp 98 F 11/06/22 08:00 Pulse 99 11/06/22 10:00 Resp 14 11/06/22 10:00 BP 97/52 11/05/22 20:00 Pulse Ox 98 11/06/22 10:00 FiO2 40 11/04/22 19:45 Intake & Output 11/05/22 11/06/22 11/06/22 18:59 06:59 18:59 Intake Total 2846.734 4794.866 363.217 Output Total 800 790 330 Balance 704.829 283.866 33.217 Weight 92.3 kg 95.5 kg Intake: IV 198 292 104 CO/CI 20 LR 100 Lactated Ringers 1,000 ml 220 80 @ 20 mls/hr IV .Q24H [facility] Rx#:[id number] Pressure bags 78 72 24 Intake, IV Titration 586.829 31.866 19.217 Amount Albumin Human 5% 250 ml 250 In Empty Bag 1 bag @ 250 mls/hr IVPB ONCE ONE Rx#: [id number] Insulin Regular 100 unit 32.500 11.866 19.217 In Sodium Chloride 0.9% 100 ml @ Per Protocol IV .Q0M [facility] Rx#:[id number] Lactated Ringers 1,000 ml 200 20 @ 20 mls/hr IV .Q24H [facility] Rx#:[id number] Phenylephrine 40 mg In 4.329 Sodium Chloride 0.9% 250 ml @ 0.5 MCG/KG/MIN 16.65 mls/hr IV .[id number] [facility] Rx#:[id number] ceFAZolin 2 gm In Sodium 100 Chloride 0.9% 50 ml @ 100 mls/hr IVPB Q8HR [facility] Rx# :[id number] Oral 720 750 240 Output: Chest Tube Drainage 210 180 80 L. plural 40 60 40 MS x2 170 120 40 Urine 590 610 250 Other: Voiding Method Indwelling Catheter Indwelling Catheter Indwelling Catheter ABP, PAP, CO, CI - Last Documented Arterial Blood Pressure 143/57 Pulmonary Artery Pressure 21/6 Cardiac Output 6 Cardiac Index 3 - Exam CONSTITUTIONAL: Sitting up to the bedside chair in the intensive care unit, appears comfortable, cooperative, no apparent acute distress. HEENT: Neck is supple, no JVD, no lymphadenopathy. Right IJ Cordis catheter in place and functioning. RESPIRATORY: Lungs sounds essentially clear throughout, diminished to his bilateral bases. Respirations are symmetrical and nonlabored. Currently on 2 L nasal cannula with oxygen saturations 97%. Able to achieve 1500 mL on his incentive spirometry. Strong cough. CARDIOVASCULAR: Regular rhythm and rate. S1 and S2 present, negative for S3, gallop or murmur. Sternum is stable. Palpable peripheral pulses bilaterally, no edema to his bilateral lower extremities. No calf pain or tenderness noted. Heart hugger in place with patient demonstrating appropriate use. Knee-high STEVEN hose and sequential compression devices in place to his bilateral lower extremities. GASTROINTESTINAL: Abdomen soft, nontender, nondistended. Active bowel sounds present 4 quadrants. Tolerating diet. Passing flatus. No guarding or rigidity. GENITOURINARY: Hodges present draining clear, yellow urine. Urine output 330 mL in the last 8 hours. INTEGUMENTARY: Skin is warm and dry with no evidence of clubbing or cyanosis. Midline sternal incision clean dry and well approximated, covered with dry intact dressing. Right lower extremity EVH sites well approximated without re dness or drainage. Left arm radial artery harvest sites clean, dry and approximated. No drainage or redness is present. Some ecchymosis to his left forearm soft and nontender. NEUROLOGIC: Cranial nerves II through XII intact. No focal deficits. MUSKULOSKELETAL: Able to move all extremities, strength equal bilaterally, generalized weakness. PSYCHIATRIC: Alert and oriented to person place and time, appropriate affect, intact judgment and insight. INVASIVE LINES AND TUBES: Mediastinal/left pleural chest tubes present and connected to low continuous wall suction, no air leaks present. Mediastinal tubes with 60 mL of thin serosanguineous drainage overnight, 300 mL output in the last 24 hours. Left pleural chest tube with 60 mL of thin serosanguineous drainage overnight, 150 mL output in the last 24 hours. Atrial and ventricular epicardial pacemaker wires present, connected to generator, VVI backup rate 50 bpm. Right internal jugular Cordis, right radial arterial line present. C urrent CVP 10 mmHg. - Allied health notes Allied health notes reviewed: nursing - Labs CBC & Chem 7: 11/06/22 08:40 11/06/22 08:40 Labs: Abnormal Lab Results - Last 24 Hours (Table) 11/05/22 11/05/22 11/05/22 Range/Units 12:10 13:30 16:37 RBC (4.30-5.90) m/uL Hgb (13.0-17.5) gm/dL Hct (39.0-53.0) % Plt Count (150-450) k/uL Sodium (137-145) mmol/L BUN (9-20) mg/dL Creatinine (0.66-1.25) mg/dL Glucose (74-99) mg/dL POC Glucose (mg/dL) 196 H 181 H 121 H (70-110) mg/dL Calcium (8.4-10.2) mg/dL AST (17-59) U/L Alkaline Phosphatase (38-126) U/L Total Protein (6.3-8.2) g/dL Albumin (3.5-5.0) g/dL 11/05/22 11/05/22 11/05/22 Range/Units 18:07 20:01 21:16 RBC (4.30-5.90) m/uL Hgb (13.0-17.5) gm/dL Hct (39.0-53.0) % Plt Count (150-450) k/uL Sodium (137-145) mmol/L BUN (9-20) mg/dL Creatinine (0.66-1.25) mg/dL Glucose (74-99) mg/dL POC Glucose (mg/dL) 192 H 149 H 170 H (70-110) mg/dL Calcium (8.4-10.2) mg/dL AST (17-59) U/L Alkaline Phosphatase (38-126) U/L Total Protein (6.3-8.2) g/dL Albumin (3.5-5.0) g/dL 11/05/22 11/05/22 11/06/22 Range/Units 22:08 23:09 00:06 RBC (4.30-5.90) m/uL Hgb (13.0-17.5) gm/dL Hct (39.0-53.0) % Plt Count (150-450) k/uL Sodium (137-145) mmol/L BUN (9-20) mg/dL Creatinine (0.66-1.25) mg/dL Glucose (74-99) mg/dL POC Glucose (mg/dL) 126 H 129 H 133 H (70-110) mg/dL Calcium (8.4-10.2) mg/dL AST (17-59) U/L Alkaline Phosphatase (38-126) U/L Total Protein (6.3-8.2) g/dL Albumin (3.5-5.0) g/dL 11/06/22 11/06/22 11/06/22 Range/Units 01:00 02:06 05:05 RBC 2.64 L (4.30-5.90) m/uL Hgb 8.0 L D (13.0-17.5) gm/dL Hct 23.3 L (39.0-53.0) % Plt Count 86 L (150-450) k/uL Sodium (137-145) mmol/L BUN (9-20) mg/dL Creatinine (0.66-1.25) mg/dL Glucose (74-99) mg/dL POC Glucose (mg/dL) 139 H 133 H (70-110) mg/dL Calcium (8.4-10.2) mg/dL AST (17-59) U/L Alkaline Phosphatase (38-126) U/L Total Protein (6.3-8.2) g/dL Albumin (3.5-5.0) g/dL 11/06/22 11/06/22 11/06/22 Range/Units 05:05 05:05 06:17 RBC (4.30-5.90) m/uL Hgb (13.0-17.5) gm/dL Hct (39.0-53.0) % Plt Count (150-450) k/uL Sodium 132 L (137-145) mmol/L BUN 21 H (9-20) mg/dL Creatinine 0.63 L (0.66-1.25) mg/dL Glucose 103 H (74-99) mg/dL POC Glucose (mg/dL) 116 H 126 H (70-110) mg/dL Calcium 7.5 L (8.4-10.2) mg/dL AST 64 H (17-59) U/L Alkaline Phosphatase 27 L (38-126) U/L Total Protein 4.6 L (6.3-8.2) g/dL Albumin 2.8 L (3.5-5.0) g/dL 11/06/22 11/06/22 11/06/22 Range/Units 08:40 08:40 08:41 RBC 2.77 L (4.30-5.90) m/uL Hgb 8.6 L (13.0-17.5) gm/dL Hct 24.5 L (39.0-53.0) % Plt Count 90 L (150-450) k/uL Sodium 134 L (137-145) mmol/L BUN 21 H (9-20) mg/dL Creatinine (0.66-1.25) mg/dL Glucose 165 H (74-99) mg/dL POC Glucose (mg/dL) 183 H (70-110) mg/dL Calcium 7.8 L (8.4-10.2) mg/dL AST (17-59) U/L Alkaline Phosphatase 28 L (38-126) U/L Total Protein 4.9 L (6.3-8.2) g/dL Albumin 3.0 L (3.5-5.0) g/dL - Imaging and Cardiology Chest x-ray: report reviewed, image reviewed Assessment and Plan Assessment: Aortic valve stenosis, status post bioprosthetic aortic valve replacement Coronary artery disease with previous myocardial infarction and PCI, status post four-vessel CABG History of hypertension Hyperlipidemia, treated, cholesterol 142, LDL 77, triglycerides 81 TIA in 2015 Iqt-rwjrngq-jzgekvkvo diabetes, hemoglobin A1c 6.2% Previous tobacco dependence, FEV1 100% of predicted Obstructive sleep apnea with home CPAP use Nightly marijuana use Postoperative acute blood loss anemia and thrombocytopenia, expected Plan: Continue to maximize medical therapy with aspirin, statin, Plavix, beta nubia. Will increase metoprolol tartrate 25 mg by mouth twice a day. Continue amlodipine 2.5 mg by mouth daily for radial artery spasm prophylaxis. Wean O2 as tolerated. Encourage incentive spirometry use 10 times every hour while awake. Bronchodilators per pulmonology. Increase activity, ambulate as tolerated. PT/OT/cardiac rehab following. Will monitor daily labs and chest x-rays. Electrolyte replacement per protocol. GI/DVT prophylaxis. Pain control per current medication regimen. Insulin management per internal medicine, patient is diabetic, needs tight blood sugar control. Remove right IJ Cordis. Remove chest tubes. Remove Hodges catheter, continue to record strict and accurate I's and O's. Start Flomax. May bladder scan every 6 hours and when necessary, for postvoid residual greater than 300 mL please straight cath. Daily weights. More recommendations to follow based on patient's clinical course. Time with Patient: Greater than 30
[2022-11-06] MEDS: TAMSULOSIN 0.4 MG CAP.ER.24H PO SCH (11:34)
[2022-11-06 11:41] LABS: Glucose,Whole Blood 139 mg/dL (70-110)
[2022-11-06] MEDS: INSULIN ASPART (NovoLOG) 100 UNIT/ML VIAL SQ SCH ×3 (12:00→21:16)
[2022-11-06 16:54] LABS: Glucose,Whole Blood 156 mg/dL (70-110)
[2022-11-06 21:02] LABS: Glucose,Whole Blood 173 mg/dL (70-110)
[2022-11-06] MEDS: SENNOSIDES-DOCUSATE SODIUM 1 EACH TAB PO SCH (21:16)
[2022-11-06] MEDS: METOPROLOL TARTRATE 25 MG TAB PO SCH (21:16)
[2022-11-06] MEDS: SIMVASTATIN 40MG TAB PO SCH (21:16)
[2022-11-07] MEDS: KETOROLAC 15 MG/ML 1 ML VIAL IVP SCH (00:50)
--- NOTE | 2022-11-07 01:10 | P.PN ---
Subjective Progress Note Date: 11/06/22 History of present illness; patient is a 62-year-old gentleman with past medical history significant for coronary artery disease, severe aortic stenosis who underwent four-vessel bypass surgery including CALVIN to LAD and diagonal, radial graft to acute marginal, SVG to descending coronary artery and the patient also underwent a 27 mm bovine aortic valve placement. Postoperatively patient was managed in the ICU, was initially intubated but later extubated. Patient [place]- Marnie catheter has been discontinued. Continues to have chest tubes in. Labs this morning showed WBC 9.1, hemoglobin 10, platelet count 1:30, sodium 137, potassium 4.1, BUN 18, creatinine 0.76 . Vital signs this morning are heart rate, respiration rate 23, blood pressure 103/50, on 2 L of oxygen Internal medicine team were consulted for medical management. 11/06/2022 Patient is currently in the recliner. Awake alert and oriented x3. On oxygen at 2 L via nasal cannula. Mediastinal and left pleural chest tubes in place. Chest x-ray showed postsurgical changes with bilateral suspected postoperative atelectasis favored over infiltrate. Laboratory data showed WBC 8.5 hemoglobin 8.6 and platelets 90 sodium 134 potassium 4.1 chloride 104 bicarb is 23 BUN 21 creatinine 0.71 and albumin 3.0 blood sugar 183 this morning. Current medications reviewed. PHYSICAL EXAMINATION: GENERAL: The patient is alert and oriented x3, not in any acute distress. Well developed, well nourished. HEENT: Pupils are round and equally reacting to light. EOMI. No scleral icterus. No conjunctival pallor. Normocephalic, atraumatic. No pharyngeal erythema. No thyromegaly. CARDIOVASCULAR: S1 and S2 present. No murmurs, rubs, or gallops. PULMONARY: Chest is clear to auscultation, no wheezing or crackles. Sternotomy surgical incision seen ABDOMEN: Soft, nontender, nondistended, normoactive bowel sounds. No palpable organomegaly. MUSCULOSKELETAL: No joint swelling or deformity. EXTREMITIES: No cyanosis, clubbing, or pedal edema. NEUROLOGICAL: Gross neurological examination did not reveal any focal deficits. SKIN: No rashes. Assessment and plan Multivessel coronary disease, status post four-vessel bypass surgery involving CALVIN to LAD and diagonal and the radial artery graft to acute marginal and saphenous vein graft to descending, postop day #2. severe aortic stenosis status post Aortic valve replacement, 27 mm bovine pericardial valve, Postthoracotomy Diabetes mellitus2 Hypertension Hyperlipidemia Plan; Monitor vital signs Monitor CBC Monitor CMP Continue telemetry monitoring Patient off Cardizem, Nitro drip [place]Marnie catheter removed Monitor blood sugar levels-Patient was on insulin drip currently transition to sliding scale. We will add Lantus as needed. Critical care following Cardiac surgery following Objective - Vital Signs Vital signs: Vital Signs Temp 98.2 F 11/06/22 16:00 Pulse 90 11/06/22 19:00 Resp 16 11/06/22 19:00 BP 114/60 11/06/22 19:00 Pulse Ox 93 L 11/06/22 19:00 FiO2 40 11/04/22 19:45 Intake & Output 11/06/22 11/06/22 11/07/22 06:59 18:59 06:59 Intake Total 1073.866 895.217 Output Total 790 610 Balance 283.866 285.217 Weight 95.5 kg Intake: IV 292 156 Lactated Ringers 1,000 ml 220 120 @ 20 mls/hr IV .Q24H [facility] Rx#:[id number] Pressure bags 72 36 Intake, IV Titration 31.866 19.217 Amount Insulin Regular 100 unit 11.866 19.217 In Sodium Chloride 0.9% 100 ml @ Per Protocol IV .Q0M [facility] Rx#:[id number] Lactated Ringers 1,000 ml 20 @ 20 mls/hr IV .Q24H [facility] Rx#:[id number] Oral 750 720 Output: Chest Tube Drainage 180 160 L. plural 60 70 MS x2 120 90 Urine 610 450 Other: Voiding Method Indwelling Catheter Indwelling Catheter ABP, PAP, CO, CI - Last Documented Arterial Blood Pressure 115/44 Pulmonary Artery Pressure 21/6 Cardiac Output 6 Cardiac Index 3 - Labs CBC & Chem 7: 11/06/22 08:40 11/06/22 08:40 Labs: Abnormal Lab Results - Last 24 Hours (Table) 11/05/22 11/05/22 11/05/22 Range/Units 21:16 22:08 23:09 RBC (4.30-5.90) m/uL Hgb (13.0-17.5) gm/dL Hct (39.0-53.0) % Plt Count (150-450) k/uL Sodium (137-145) mmol/L BUN (9-20) mg/dL Creatinine (0.66-1.25) mg/dL Glucose (74-99) mg/dL POC Glucose (mg/dL) 170 H 126 H 129 H (70-110) mg/dL Calcium (8.4-10.2) mg/dL AST (17-59) U/L Alkaline Phosphatase (38-126) U/L Total Protein (6.3-8.2) g/dL Albumin (3.5-5.0) g/dL 11/06/22 11/06/22 11/06/22 Range/Units 00:06 01:00 02:06 RBC (4.30-5.90) m/uL Hgb (13.0-17.5) gm/dL Hct (39.0-53.0) % Plt Count (150-450) k/uL Sodium (137-145) mmol/L BUN (9-20) mg/dL Creatinine (0.66-1.25) mg/dL Glucose (74-99) mg/dL POC Glucose (mg/dL) 133 H 139 H 133 H (70-110) mg/dL Calcium (8.4-10.2) mg/dL AST (17-59) U/L Alkaline Phosphatase (38-126) U/L Total Protein (6.3-8.2) g/dL Albumin (3.5-5.0) g/dL 11/06/22 11/06/22 11/06/22 Range/Units 05:05 05:05 05:05 RBC 2.64 L (4.30-5.90) m/uL Hgb 8.0 L D (13.0-17.5) gm/dL Hct 23.3 L (39.0-53.0) % Plt Count 86 L (150-450) k/uL Sodium 132 L (137-145) mmol/L BUN 21 H (9-20) mg/dL Creatinine 0.63 L (0.66-1.25) mg/dL Glucose 103 H (74-99) mg/dL POC Glucose (mg/dL) 116 H (70-110) mg/dL Calcium 7.5 L (8.4-10.2) mg/dL AST 64 H (17-59) U/L Alkaline Phosphatase 27 L (38-126) U/L Total Protein 4.6 L (6.3-8.2) g/dL Albumin 2.8 L (3.5-5.0) g/dL 11/06/22 11/06/22 11/06/22 Range/Units 06:17 08:40 08:40 RBC 2.77 L (4.30-5.90) m/uL Hgb 8.6 L (13.0-17.5) gm/dL Hct 24.5 L (39.0-53.0) % Plt Count 90 L (150-450) k/uL Sodium 134 L (137-145) mmol/L BUN 21 H (9-20) mg/dL Creatinine (0.66-1.25) mg/dL Glucose 165 H (74-99) mg/dL POC Glucose (mg/dL) 126 H (70-110) mg/dL Calcium 7.8 L (8.4-10.2) mg/dL AST (17-59) U/L Alkaline Phosphatase 28 L (38-126) U/L Total Protein 4.9 L (6.3-8.2) g/dL Albumin 3.0 L (3.5-5.0) g/dL 11/06/22 11/06/22 11/06/22 Range/Units 08:41 11:38 16:53 RBC (4.30-5.90) m/uL Hgb (13.0-17.5) gm/dL Hct (39.0-53.0) % Plt Count (150-450) k/uL Sodium (137-145) mmol/L BUN (9-20) mg/dL Creatinine (0.66-1.25) mg/dL Glucose (74-99) mg/dL POC Glucose (mg/dL) 183 H 139 H 156 H (70-110) mg/dL Calcium (8.4-10.2) mg/dL AST (17-59) U/L Alkaline Phosphatase (38-126) U/L Total Protein (6.3-8.2) g/dL Albumin (3.5-5.0) g/dL
[2022-11-07] MEDS: HYDROcodone/APAP 5-325MG 1 EACH TAB PO PRN (01:11)
[2022-11-07 04:22] LABS: ALT 17 U/L (4-49); AST 49 U/L (17-59); African American GFR (CKD) >90 (>60 ml/min/1.73 sqM); Albumin 2.7 g/dL (3.5-5.0); Alkaline Phosphatase 28 U/L (38-126); Anion Gap 6 mmol/L; Blood Urea Nitrogen 19 mg/dL (9-20); Calcium 7.5 mg/dL (8.4-10.2); Carbon Dioxide 24 mmol/L (22-30); Chloride 101 mmol/L (98-107); Glucose 128 mg/dL (74-99); Non-African American GFR(CKD) >90 (>60 ml/min/1.73 sqM); Potassium 3.7 mmol/L (3.5-5.1); Sodium 131 mmol/L (137-145); Total Bilirubin 0.5 mg/dL (0.2-1.3); Total Protein 4.6 g/dL (6.3-8.2)
[2022-11-07 04:26] LABS: Basophils % (A) 0 %; Eosinophils # (A) 0.1 k/uL (0-0.7); Eosinophils % (A) 2 %; HCT 22.1 % (39.0-53.0); HGB 7.7 gm/dL (13.0-17.5); Lymphocytes # (A) 1.7 k/uL (1.0-4.8); Lymphocytes % (A) 24 %; MCH 30.3 pg (25.0-35.0); MCHC 34.7 g/dL (31.0-37.0); MCV 87.2 fL (80.0-100.0); Mean Platelet Volume 7.9; Monocytes # (A) 0.6 k/uL (0-1.0); Monocytes % (A) 8 %; Neutrophils # (A) 4.4 k/uL (1.3-7.7); Neutrophils % (A) 63 %; RBC 2.54 m/uL (4.30-5.90); RDW 13.2 % (11.5-15.5); WBC 6.9 k/uL (3.8-10.6)
[2022-11-07] MEDS ORDERED: POTASSIUM CHLORIDE ER 20 MEQ TAB.ER PO SCH (05:00)
[2022-11-07 05:04] LABS: Platelet Count 92 k/uL (150-450)
[2022-11-07 06:43] LABS: Glucose,Whole Blood 144 mg/dL (70-110)
[2022-11-07] MEDS ORDERED: KETOROLAC 15 MG/ML 1 ML VIAL IVP PRN (06:49)
[2022-11-07] MEDS: INSULIN ASPART (NovoLOG) 100 UNIT/ML VIAL SQ SCH ×4 (07:35→21:02)
--- NOTE | 2022-11-07 08:08 | P.PN ---
Subjective Progress Note Date: 11/07/22 I am seeing this 62-year-old male patient in the intensive care unit following his cardiac surgery. The patient is known to have symptomatic aortic stenosis and coronary artery disease. The patient underwent four-vessel bypass surgery including CALVIN to LAD and diagonal, radial graft to acute marginal, SVG to descending coronary artery and the patient also underwent a 27 mm bovine pericardial valve insertion. Currently the patient is in the intensive care unit. The patient is sedated on propofol. The patient has, comfortable and sickness a mechanical ventilator. The patient was assist-control at the rate of 14, tidal volume of 500, FiO2 of 100% with a PEEP of 5. The blood gas showed a pH of 7.33 with a pCO2 of 43 and pO2 of 242. FiO2 was dropped down to 50% and the patient's rate is currently at 20. Chest x-ray shows adequate expansion of both lungs clear no pneumothorax. [place] catheter was advanced. ET tube is in a good location. The patient has mediastinal and left pleural chest tube. No pneumothorax and no air leak. The patient has put out approximately 200 mL from the mediastinal and the left pleural chest tubes. Estimated blood loss intraoperatively was 500 mL and the patient's current hemoglobin is at 10.9. The current hemodynamic parameters showed PEA pressures of 38/15, cardiac operative 5.4 with an index of 2.7. The patient is on a Cardizem drip at 5 mg an hour regarding the radial harvesting. The patient is producing adequate amount of urine output. Cardiac rhythm is sinus. On today's evaluation of 11/05/2022, the patient is doing extremely well, he is awake and oriented and is currently on room air oxygen. He was extubated yesterday without having any major difficulties and currently is sitting up on a recliner. Using the incentive spirometer. No issues with pain. He has 2 mediastinal chest tubes and 1 pleural chest tube. Output is quite minimal at this point in time. There is no evidence of air leak. Hemodynamically stable. Cardiac rhythm is sinus. The patient is off the Cardizem drip. [place] catheter has been removed. The WBC count is at 9.1 with a hemoglobin of 10 and a platelet count of 130. Electrolyte are normal. Renal function is normal. The chest x-ray from today was reviewed. There was adequate expansion of both lungs. No evidence of any pneumothorax. Limited atelectatic changes in the left lung base. There is a gastric bubble. Chest tubes are all in place. The patient also has a Cordis in his right IJ. Adequate urine output. No nausea or emesis. Tolerating diet. 11/06/2022, the patient is on 2 L of oxygen by nasal cannula. Chest x-ray from this morning shows no significant abnormalities. No pneumothorax. Chest tubes are still in place and the patient is a mediastinal left pleural chest tube. Output from the chest tubes has been in the order of 2 90 mL and the mediastinum over the past 24 hours and 100 mL from the left lower chest tube over the past 24 hours. No evidence of any air leak. Hemodynamically stable on no pressors. Cardiac rhythm is sinus. Blood work from today shows a WBC count of 8.5 with a hemoglobin of 8.6 and a platelet count of 90. He is using the incentive spirometer. He is pulling approximately 1500 on his incentive spirometer. Adequate pain control. Ambulating. Tolerating diet. On today's evaluation of 11/07/2022, the patient is on room air oxygen. Chest x-ray shows some mild pulmonary vascular congestion. No evidence of any pneumothorax. Lungs are adequately expanded. The patient has a left pleural chest tube without evidence of air leak. Output from the chest tube has been in the order of 70 mL overnight. Output from the chest tube is diminished considerably. The patient is a normal sinus rhythm. Hemodynamically stable on no pressors. Hemoglobin today is at 7.7 with a white cell count of 6.9. Carotids are normal. BUN is 19 with a creatinine of 0.7. No other significant events overnight. The patient is tolerating his diet. Pain is under adequate control. The wound is dry clean and intact. He remains on aspirin. He remains on Plavix. He is on metoprolol 25 mg by mouth twice a day. He is on Norvasc. His blood pressures under adequate control for now. Objective - Vital Signs Vital signs: Vital Signs Temp 99.7 F H 11/07/22 04:00 Pulse 77 11/07/22 07:00 Resp 11 L 11/07/22 07:00 BP 94/52 11/07/22 07:00 Pulse Ox 92 L 11/07/22 07:00 FiO2 40 11/04/22 19:45 Intake & Output 11/06/22 11/07/22 11/07/22 18:59 06:59 18:59 Intake Total 895.217 350 Output Total 610 700 Balance 285.217 -350 Weight 96.6 kg Intake: IV 156 Lactated Ringers 1,000 ml 120 @ 20 mls/hr IV .Q24H [facility] Rx#:[id number] Pressure bags 36 Intake, IV Titration 19.217 Amount Insulin Regular 100 unit 19.217 In Sodium Chloride 0.9% 100 ml @ Per Protocol IV .Q0M B[facility]SON Rx#:[id number] Oral 720 350 Output: Chest Tube Drainage 160 L. plural 70 MS x2 90 Urine 450 700 Other: Voiding Method Indwelling Catheter Toilet Urinal # Voids 1 ABP, PAP, CO, CI - Last Documented Arterial Blood Pressure 115/44 Pulmonary Artery Pressure 21/6 Cardiac Output 6 Cardiac Index 3 - Exam CONSTITUTIONAL: Appears comfortable, cooperative, no acute distress RESPIRATORY: Lungs sounds diminished bilaterally. Respirations even, nonlabored. Currently on room air oxygen saturation 96%. Able to achieve 1250 mL on incentive spirometry. Strong cough. CARDIOVASCULAR: S1, S2 present. Regular rate and rhythm, sinus rhythm on telemetry. Sternum stable. Palpable peripheral pulses bilaterally. No edema present. No calf pain or tenderness noted. Heart hugger in place with patient demonstrating appropriate use. Antiembolism stockings, SCDs present. GASTROINTESTINAL: Abdomen soft, nontender, nondistended. Hypoactive bowel sounds present 4 quadrants. Tolerating clear liquid diet. Positive flatus GENITOURINARY: Hodges catheter was removed INTEGUMENTARY: Skin is warm and dry with evidence of good perfusion. Anterior chest incision well approximated and covered with dry intact dressing. Left radial artery harvest site as well as left lower extremity EVH site well approximated without redness or drainage. NEUROLOGIC: Cranial nerves II through XII intact MUSKULOSKELETAL: Able to move all extremities, strength equal bilaterally, gait normal PSYCHIATRIC: Alert and oriented to person place and time, appropriate affect, intact judgment and insight INVASIVE LINES AND TUBES: Mediastinal tube was removed and the patient has a left lower chest tube. Cordis has been removed. - Labs CBC & Chem 7: 11/07/22 03:46 11/07/22 03:46 Labs: Abnormal Lab Results - Last 24 Hours (Table) 11/06/22 11/06/22 11/06/22 Range/Units 08:40 08:40 08:41 RBC 2.77 L (4.30-5.90) m/uL Hgb 8.6 L (13.0-17.5) gm/dL Hct 24.5 L (39.0-53.0) % Plt Count 90 L (150-450) k/uL Sodium 134 L (137-145) mmol/L BUN 21 H (9-20) mg/dL Glucose 165 H (74-99) mg/dL POC Glucose (mg/dL) 183 H (70-110) mg/dL Calcium 7.8 L (8.4-10.2) mg/dL Alkaline Phosphatase 28 L (38-126) U/L Total Protein 4.9 L (6.3-8.2) g/dL Albumin 3.0 L (3.5-5.0) g/dL 11/06/22 11/06/22 11/06/22 Range/Units 11:38 16:53 21:00 RBC (4.30-5.90) m/uL Hgb (13.0-17.5) gm/dL Hct (39.0-53.0) % Plt Count (150-450) k/uL Sodium (137-145) mmol/L BUN (9-20) mg/dL Glucose (74-99) mg/dL POC Glucose (mg/dL) 139 H 156 H 173 H (70-110) mg/dL Calcium (8.4-10.2) mg/dL Alkaline Phosphatase (38-126) U/L Total Protein (6.3-8.2) g/dL Albumin (3.5-5.0) g/dL 11/07/22 11/07/22 11/07/22 Range/Units 03:46 03:46 06:42 RBC 2.54 L (4.30-5.90) m/uL Hgb 7.7 L (13.0-17.5) gm/dL Hct 22.1 L (39.0-53.0) % Plt Count 92 L (150-450) k/uL Sodium 131 L (137-145) mmol/L BUN (9-20) mg/dL Glucose 128 H (74-99) mg/dL POC Glucose (mg/dL) 144 H (70-110) mg/dL Calcium 7.5 L (8.4-10.2) mg/dL Alkaline Phosphatase 28 L (38-126) U/L Total Protein 4.6 L (6.3-8.2) g/dL Albumin 2.7 L (3.5-5.0) g/dL Assessment and Plan Plan: Multivessel coronary disease, post elective cardiac surgery which involved four- vessel bypass surgery involving CALVIN to LAD and diagonal and the radial artery graft to acute marginal and saphenous vein graft to descending, postop day #3. The patient is hemodynamically stable adequate cardiac output and index. The pa tient was extubated and the patient remains hemodynamically stable at this point in time. Aortic valve replacement, 27 mm bovine pericardial valve, post abdominal was 0. Surgery was done for severe aortic stenosis Postthoracotomy, currently intubated on a mechanical ventilator, chest tubes are in place output is minimal without evidence of any air leak, and the patient is extubated. The mediastinal chest tube is removed and the patient has a left pleural Chest tubes are still in place. Chest x-ray shows some limited atelectatic changes in the left lung base. Operative from the chest tube is minimal and there is no evidence of any air leak Diabetes mellitus2, currently off insulin drip and the patient is receiving sliding scale insulin coverage. Hypertension Hyperlipidemia Plan Continue using the incentive spirometer Chest x-ray findings of essentially stable She'll be able to remove the left pleural chest tube Increase mobility, the patient is ambulating sliding scale insulin coverage Continue aspirin Continue Norvasc 2.5 mg by mouth daily Continue Plavix 75 mg by mouth daily Continue metoprolol at a dose of 12.5 mg twice a day. Zocor 40 mg by mouth daily Monitor output from the chest tubes The patient is hemodynamically stable. We'll continue to follow May transfer this patient to medical floor at the later stage with telemetry monitoring.
--- NOTE | 2022-11-07 08:28 | XR ---
EXAMINATION TYPE: XR chest 1V portable DATE OF EXAM: 11/07/2022 COMPARISON: 11/06/2022 HISTORY: Postop TECHNIQUE: Single frontal view of the chest is obtained. FINDINGS: There is a left-sided chest tube with no sizable pneumothorax. Heart is enlarged and is po stsurgical changes with elevated right hemidiaphragm. Coarsened interstitium stable. Arthropathy of t he left shoulder. Calcifications soft tissue the neck likely vascular. IMPRESSION: 1. Cardiomegaly with bibasilar subsegmental atelectasis favored over pneumonia.
[2022-11-07] MEDS: IPRATROPIUM-ALBUTEROL 3 ML NEB INHALATION SCH ×4 (09:07→20:28)
[2022-11-07] MEDS: ASPIRIN 325 MG TAB PO SCH (09:08)
[2022-11-07] MEDS: PANTOPRAZOLE 40 MG TABLET PO SCH (09:08)
[2022-11-07] MEDS: amLODIPine 2.5 MG TAB PO SCH (09:08)
[2022-11-07] MEDS: ASCORBIC ACID 500 MG TAB PO SCH ×2 (09:08→16:43)
[2022-11-07] MEDS: METOPROLOL TARTRATE 25 MG TAB PO SCH ×3 (09:08→22:48)
[2022-11-07] MEDS: TAMSULOSIN 0.4 MG CAP.ER.24H PO SCH (09:08)
[2022-11-07] MEDS: FERROUS SULFATE 325 MG TAB PO SCH ×2 (09:09→16:43)
[2022-11-07] MEDS: GABAPENTIN 300 MG CAP PO SCH ×3 (09:09→21:03)
[2022-11-07] MEDS: FONDAPARINUX 2.5 MG/0.5 ML SYRINGE SQ SCH (09:09)
[2022-11-07] MEDS: CLOPIDOGREL 75 MG TAB PO SCH (09:10)
[2022-11-07] MEDS: FLUTICASONE 50MCG/SPRAY NASAL 16GM EA NOSTRIL SCH (09:11)
[2022-11-07] MEDS ORDERED: FUROSEMIDE 10 MG/ML 2 ML VIAL IV ONE (10:01)
[2022-11-07] MEDS: MAGNESIUM HYDROXIDE 2,400 MG/10 ML CUP PO PRN ×2 (10:09→17:13)
--- NOTE | 2022-11-07 10:23 | P.PN ---
Subjective Progress Note Date: 11/07/22 Principal diagnosis: Aortic stenosis, coronary artery disease. Previous medical history of coronary artery disease with previous myocardial infarction and PCI, hypertension, hyper lipidemia, TIA in 2015, [id number] diabetes, previous tobacco dependence, obstructive sleep apnea with home CPAP use, nightly marijuana use POD #3 aortic valve replacement with a 27 mm A[place]us bovine pericardial valve, coronary artery bypass graft 4 with sequential left internal mammary artery to the left anterior descending artery and diagonal artery, left radial artery to the third obtuse marginal (distal circumflex), reverse saphenous vein graft to the descending coronary artery, endovascular left radial artery and left greater saphenous vein harvest, ligation of the left atrial appendage with a 35 mm AtriCure clip, epi-aortic ultrasound Postoperative acute blood loss anemia and thrombocytopenia, expected given hemodilution and cardiopulmonary bypass pump The patient was seen and examined this morning sitting up in a recliner in the intensive care unit with Dr. Stallworth in no acute distress. Remains in sinus rhythm, hemodynamically stable. Currently on room air with oxygen saturation in the mid 90s. Able to achieve 2000 mL on incentive spirometry. States postoperative pain is controlled with current medication regimen, denies shortness of breath. Has been ambulatory in the hallway without difficulty. Left pleural chest tube remains. No other new concerns. Objective - Vital Signs Vital signs: Vital Signs Temp 99.7 F H 11/07/22 04:00 Pulse 96 11/07/22 09:19 Resp 11 L 11/07/22 07:00 BP 94/52 11/07/22 07:00 Pulse Ox 92 L 11/07/22 09:09 FiO2 40 11/04/22 19:45 Intake & Output 11/06/22 11/07/22 11/07/22 18:59 06:59 18:59 Intake Total 895.217 350 Output Total 610 700 150 Balance 285.217 -350 -150 Weight 96.6 kg Intake: IV 156 Lactated Ringers 1,000 ml 120 @ 20 mls/hr IV .Q24H [facility] Rx#:[id number] Pressure bags 36 Intake, IV Titration 19.217 Amount Insulin Regular 100 unit 19.217 In Sodium Chloride 0.9% 100 ml @ Per Protocol IV .Q0M [facility] Rx#:[id number] Oral 720 350 Output: Chest Tube Drainage 160 L. plural 70 MS x2 90 Urine 450 700 150 Other: Voiding Method Indwelling Catheter Toilet Urinal # Voids 1 1 ABP, PAP, CO, CI - Last Documented Arterial Blood Pressure 115/44 Pulmonary Artery Pressure 21/6 Cardiac Output 6 Cardiac Index 3 - Exam CONSTITUTIONAL: Appears comfortable, cooperative, no acute distress RESPIRATORY: Lungs sounds diminished bilaterally. Respirations even, nonlabored. Currently on room air with oxygen saturation 96%. Able to achieve 2000 mL on incentive spirometry. Strong cough. CARDIOVASCULAR: S1, S2 present. Regular rate and rhythm, sinus rhythm on telemetry. Sternum stable. Palpable peripheral pulses bilaterally. No edema present. No calf pain or tenderness noted. Heart hugger in place with patient demonstrating appropriate use. Antiembolism stockings, SCDs present. GASTROINTESTINAL: Abdomen soft, nontender, slightly distended. Active bowel sounds present 4 quadrants. Tolerating diet. Positive flatus, negative bowel movement GENITOURINARY: Hodges discontinued yesterday, patient continues to void. Output 1150 mL in the last 24 hours INTEGUMENTARY: Skin is warm and dry with evidence of good perfusion. Anterior chest incision well approximated and covered with dry intact dressing. Left radial artery harvest site as well as left lower extremity EVH site well approximated without redness or drainage. NEUROLOGIC: Cranial nerves II through XII intact MUSKULOSKELETAL: Able to move all extremities, strength equal bilaterally, gait normal PSYCHIATRIC: Alert and oriented to person place and time, appropriate affect, intact judgment and insight INVASIVE LINES AND TUBES: Mediastinal chest tube present and connected to wall suction, no air leaks present, 150 mL in the last 24 hours. A/V epicardial pacemaker wires present, grounded - Allied health notes Allied health notes reviewed: nursing - Labs CBC & Chem 7: 11/07/22 03:46 11/07/22 03:46 Labs: Abnormal Lab Results - Last 24 Hours (Table) 11/06/22 11/06/22 11/06/22 Range/Units 11:38 16:53 21:00 RBC (4.30-5.90) m/uL Hgb (13.0-17.5) gm/dL Hct (39.0-53.0) % Plt Count (150-450) k/uL Sodium (137-145) mmol/L Glucose (74-99) mg/dL POC Glucose (mg/dL) 139 H 156 H 173 H (70-110) mg/dL Calcium (8.4-10.2) mg/dL Alkaline Phosphatase (38-126) U/L Total Protein (6.3-8.2) g/dL Albumin (3.5-5.0) g/dL 11/07/22 11/07/22 11/07/22 Range/Units 03:46 03:46 06:42 RBC 2.54 L (4.30-5.90) m/uL Hgb 7.7 L (13.0-17.5) gm/dL Hct 22.1 L (39.0-53.0) % Plt Count 92 L (150-450) k/uL Sodium 131 L (137-145) mmol/L Glucose 128 H (74-99) mg/dL POC Glucose (mg/dL) 144 H (70-110) mg/dL Calcium 7.5 L (8.4-10.2) mg/dL Alkaline Phosphatase 28 L (38-126) U/L Total Protein 4.6 L (6.3-8.2) g/dL Albumin 2.7 L (3.5-5.0) g/dL - Imaging and Cardiology Chest x-ray: report reviewed, image reviewed Assessment and Plan Assessment: Aortic stenosis, status post bioprosthetic AVR Coronary artery disease with previous myocardial infarction and PCI, status post four-vessel CABG History of hypertension Hyperlipidemia, treated, cholesterol 142, LDL 77, triglycerides 81 TIA in 2015 [id number] diabetes, hemoglobin A1c 6.2% Previous tobacco dependence, FEV1 100% of predicted Obstructive sleep apnea with home CPAP use Nightly marijuana use Postoperative acute blood loss anemia and thrombocytopenia, expected Plan: Continue to maximize medical therapy with aspirin, statin, Plavix, beta nubia. Will increase beta nubia therapy as tolerated, increased to 25 mg 3 times daily today Continue calcium channel nubia for vessel spasm prophylaxis Encourage incentive spirometry use 10 times every hour while awake. Bronchodilators per pulmonology Increase activity, ambulate as tolerated. PT/OT/cardiac rehab following Will monitor daily labs and x-rays. Electrolyte replacement per protocol. 20 mg IV push Lasix given today GI/DVT prophylaxis Pain control per current medication regimen Insulin management per internal medicine, patient is diabetic, needs tight blood sugar control Left pleural chest tube discontinued without incident Will discontinue epicardial pacemaker wires, patient to remain on bedrest for 1 hour post-wire removal Strict accurate intake and output Daily weights Will place transfer orders for 3 S. cardiac stepdown unit, may transfer when bed available Discharge planning in progress, anticipate discharge to home with home care in the next 24-48 hours More recommendations to follow based on patient's progress
--- NOTE | 2022-11-07 11:28 | PN ---
PROGRESS NOTE SUBJECTIVE: Manuel is a 62-year-old gentleman, who has coronary artery disease and aortic stenosis. He is status post bypass and aortic valve replacement and had a left atrial appendage occlusion. Today is postop day #3. Surgery was done on 11/04/2022. The patient remains in sinus rhythm, hemodynamically stable and is currently on Norvasc 2.5 mg daily, aspirin, Plavix, insulin, Lopressor 25 q.8. PHYSICAL EXAMINATION: On exam, comfortable at rest. Blood pressure is 94/50, respiratory rate 18. Chest exam reveals diminished air entry at the bases. Heart exam reveals first and second heart sounds. No gallop. No murmur. Abdomen is soft. Exam of extremities did not reveal any edema. Peripheral pulses are palpable. LABORATORY DATA: Lab show a hemoglobin of 7.7, platelet count is 92, potassium is 3.7, creatinine is 0.7. ASSESSMENT AND PLAN: Coronary artery disease, status post coronary artery bypass graft; aortic stenosis, status post aortic valve replacement. PLAN: Patient will continue current supportive care. MMODL / IJN: [id number] /
[2022-11-07 12:00] LABS: Glucose,Whole Blood 187 mg/dL (70-110)
--- NOTE | 2022-11-07 16:33 | P.PN ---
Progress Note - Text Progress Note Date: 11/07/22 Hospital course: History of present illness; patient is a 62-year-old gentleman with past medical history significant for coronary artery disease, severe aortic stenosis who underwent four-vessel bypass surgery including CALVIN to LAD and diagonal, radial graft to acute marginal, SVG to descending coronary artery and the patient also underwent a 27 mm bovine aortic valve placement. Postoperatively patient was managed in the ICU, was initially intubated but later extubated. Patient [place]- Marnie catheter has been discontinued. Continues to have chest tubes in. Labs this morning showed WBC 9.1, hemoglobin 10, platelet count 1:30, sodium 137, potassium 4.1, BUN 18, creatinine 0.76 . Vital signs this morning are heart rate, respiration rate 23, blood pressure 103/50, on 2 L of oxygen Internal medicine team were consulted for medical management. 11/06/2022 Patient is currently in the recliner. Awake alert and oriented x3. On oxygen at 2 L via nasal cannula. Mediastinal and left pleural chest tubes in place. Chest x-ray showed postsurgical changes with bilateral suspected postoperative atelectasis favored over infiltrate. Laboratory data showed WBC 8.5 hemoglobin 8.6 and platelets 90 sodium 134 potassium 4.1 chloride 104 bicarb is 23 BUN 21 creatinine 0.71 and albumin 3.0 blood sugar 183 this morning. 11/07/2022: I assumed care of the patient today from [facility] hospitalist. ICU: at sitting up in a chair. Did ambulate. Feeling well. Breathing is stable. Using ice. Oral intake good. No pain. On room air. Also chest tubes are out. Past medical history to include: CAD with stent 2012, diabetes, hypertension, hyperlipidemia, sciatica, back surgery 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 No alcohol. Does take marijuana at night Active Medications Acetaminophen (Acetaminophen Tab 500 Mg Tab) 1,000 mg PO Q6HR PRN PRN Reason: Fever And/ Or Mild Pain (1-3) Albuterol/Ipratropium (Ipratropium-Albuterol 3 Ml Neb) 3 ml INHALATION RT-Q2H PRN PRN Reason: Shortness Of Breath Or Wheezing Albuterol/Ipratropium (Ipratropium-Albuterol 3 Ml Neb) 3 ml INHALATION RT-QID [facility] Last Admin: 11/07/22 12:21 Dose: Not Given Amlodipine Besylate (Amlodipine 2.5 Mg Tab) 2.5 mg PO DAILY [facility] Last Admin: 11/07/22 09:08 Dose: 2.5 mg Ascorbic Acid (Ascorbic Acid 500 Mg Tab) 500 mg PO BID-W/MEALS [facility] Last Admin: 11/07/22 09:08 Dose: 500 mg Aspirin (Aspirin 325 Mg Tab) 325 mg PO DAILY [facility] Last Admin: 11/07/22 09:08 Dose: 325 mg Benzocaine/Menthol (Benzocaine/Menthol Lozeng 1 Each Lozenge) 1 each MUCOUS MEM Q2H PRN PRN Reason: Sore Throat Bisacodyl (Bisacodyl 10 Mg Supp) 10 mg RECTAL DAILY PRN PRN Reason: Constipation Clopidogrel Bisulfate (Clopidogrel 75 Mg Tab) 75 mg PO DAILY [facility] Last Admin: 11/07/22 09:10 Dose: 75 mg Dextrose/Water (Dextrose 50% Syringe 50 Ml) 25 ml IVP PER PROTOCOL PRN; Protocol PRN Reason: Hypoglycemia Dextrose/Water (Dextrose 50% Syringe 50 Ml) 50 ml IVP PER PROTOCOL PRN; Protocol PRN Reason: Hypoglycemia Ferrous Sulfate (Ferrous Sulfate 325 Mg Tab) 325 mg PO BID-W/MEALS [facility] Last Admin: 11/07/22 09:09 Dose: 325 mg Fluticasone Propionate (Fluticasone 50mcg/[place] Nasal 16gm) 1 spray EA NOSTRIL DAILY [facility] Last Admin: 11/07/22 09:11 Dose: 1 spray Fondaparinux (Fondaparinux 2.5 Mg/0.5 Ml Syringe) 2.5 mg SQ DAILY [facility] Last Admin: 11/07/22 09:09 Dose: 2.5 mg Gabapentin (Gabapentin 300 Mg Cap) 300 mg PO TID [facility] Last Admin: 11/07/22 09:09 Dose: 300 mg Amiodarone HCl 150 mg/ (Dextrose/Water) 103 mls @ 618 mls/hr IV .Q10M PRN; Protocol PRN Reason: A.FIB/FLUTTER Amiodarone HCl 450 mg/ (Dextrose/Water) 250 mls @ 16.667 mls/hr IV .Q15H PRN; Protocol PRN Reason: A.FIB/FLUTTER Amiodarone HCl 360 mg/ (Dextrose/Water) 207.2 mls @ 34.533 mls/hr IV .Q6H PRN; Protocol PRN Reason: A.FIB/FLUTTER Insulin Aspart (Insulin Aspart (Novolog) 100 Unit/Ml Vial) 0 unit SQ [facility]; Protocol Last Admin: 11/07/22 12:13 Dose: 2 unit Ketorolac Tromethamine (Ketorolac 15 Mg/Ml 1 Ml Vial) 15 mg IVP Q6HR PRN PRN Reason: Pain Stop: 11/09/22 18:01 Magnesium Hydroxide (Magnesium Hydroxide 2,400 Mg/10 Ml Cup) 2,400 mg PO BID PRN PRN Reason: Constipation Last Admin: 11/07/22 10:09 Dose: 2,400 mg Metoclopramide HCl (Metoclopramide 5 Mg/Ml 2 Ml Vial) 10 mg IVP Q4H PRN PRN Reason: Nausea And Vomiting Metoprolol Tartrate (Metoprolol Tartrate 25 Mg Tab) 25 mg PO Q8HR [facility] Miscellaneous Information (Potassium Replacement Protocol 1 Each Misc) 1 each MISCELLANE DAILY PRN; Protocol PRN Reason: Per Protocol Miscellaneous Information (Magnesium Replacement Protocol 1 Each Misc) 1 each MISCELLANE DAILY PRN; Protocol PRN Reason: Per Protocol Simvastatin 40mg Tab 1 each PO [facility] Last Admin: 11/06/22 21:16 Dose: 1 each Ondansetron HCl (Ondansetron 4 Mg/2 Ml Vial) 4 mg IVP Q6HR PRN PRN Reason: Nausea And Vomiting Pantoprazole Sodium (Pantoprazole 40 Mg Tablet) 40 mg PO -BRKFST [facility] Last Admin: 11/07/22 09:08 Dose: 40 mg Senna/Docusate Sodium (Sennosides-Docusate Sodium 1 Each Tab) 2 each PO [facility] Last Admin: 11/06/22 21:16 Dose: 2 each Sodium Chloride (Sodium Chloride 0.9% Flush 10 Ml Syringe) 10 ml IV BID [facility] Last Admin: 11/07/22 09:10 Dose: 10 ml Tamsulosin HCl (Tamsulosin 0.4 Mg Cap.Er.24h) 0.4 mg PO -BRKFST [facility] Last Admin: 11/07/22 09:08 Dose: 0.4 mg On examination: VITAL SIGNS: 99, 87, 16, 109/62, 95% room air GENERAL APPEARANCE: Sitting up in a chair, comfortable HEENT: Normal external appearance of nose and ear. Oral cavity normal EYES: Pupils equal. Conjunctiva normal. NECK: JVD not raised. Mass not palpable. RESPIRATORY: Respiratory effort normal. Lungs decreased breath sounds CARDIOVASCULAR: First and second sounds normal. No edema. ABDOMEN: Soft. Liver and spleen not palpable. No tenderness. No mass palpable. PSYCHIATRY: Alert and oriented x3. Mood and affect normal. INVESTIGATIONS, reviewed in the clinical context: November 07: White count 6.9 hemoglobin 7.7 platelets 92 sodium 131 potassium 3.7 creatinine 0.79 Hemoglobin [November 04] 12.2; 16.9 on [October 14] Assessment and plan: -Multivessel coronary disease, status post four-vessel bypass surgery involving CALVIN to LAD and diagonal and the radial artery graft to acute marginal and saphenous vein graft to descending, Plavix, Lopressor simvastatin -severe aortic stenosis status post Aortic valve replacement, 27 mm bovine pericardial valve, -Diabetes mellitus2, on oral hypoglycemic Resume farxiga and metformin . -Essential Hypertension Lopressor. Amlodipine -Hyperlipidemia Zocor -Acute postprocedure blood loss anemia, expected from surgery Ferrous sulfate -Acute thrombocytopenia, dilutional from surgery Follow-up patient Care was discussed with the patient. Resume oral hypoglycemics. Follow Accu- Cheks. Activity as tolerated. Doing well
[2022-11-07 16:59] LABS: Glucose,Whole Blood 188 mg/dL (70-110)
[2022-11-07] MEDS: metFORMIN 500 MG TAB PO SCH (17:06)
[2022-11-07 20:58] LABS: Glucose,Whole Blood 174 mg/dL (70-110)
[2022-11-07] MEDS: SIMVASTATIN 40MG TAB PO SCH (21:00)
[2022-11-07] MEDS: SENNOSIDES-DOCUSATE SODIUM 1 EACH TAB PO SCH (21:01)
[2022-11-07] MEDS ORDERED: ZOLPIDEM 5 MG TAB PO PRN (22:40)
[2022-11-08 06:22] LABS: HCT 24.4 % (39.0-53.0); HGB 8.4 gm/dL (13.0-17.5); MCH 30.3 pg (25.0-35.0); MCHC 34.5 g/dL (31.0-37.0); MCV 87.8 fL (80.0-100.0); Platelet Count 128 k/uL (150-450); RBC 2.79 m/uL (4.30-5.90); RDW 13.5 % (11.5-15.5); WBC 8.3 k/uL (3.8-10.6)
[2022-11-08 06:30] LABS: Glucose,Whole Blood 152 mg/dL (70-110)
[2022-11-08 06:36] LABS: African American GFR (CKD) >90 (>60 ml/min/1.73 sqM); Anion Gap 5 mmol/L; Blood Urea Nitrogen 19 mg/dL (9-20); Carbon Dioxide 28 mmol/L (22-30); Chloride 103 mmol/L (98-107); Glucose 139 mg/dL (74-99); Non-African American GFR(CKD) >90 (>60 ml/min/1.73 sqM); Potassium 4.1 mmol/L (3.5-5.1); Sodium 136 mmol/L (137-145)
[2022-11-08] MEDS: ASCORBIC ACID 500 MG TAB PO SCH (07:07)
[2022-11-08] MEDS: metFORMIN 500 MG TAB PO SCH (07:07)
[2022-11-08] MEDS: PANTOPRAZOLE 40 MG TABLET PO SCH (07:08)
[2022-11-08] MEDS: FERROUS SULFATE 325 MG TAB PO SCH (07:08)
[2022-11-08] MEDS: INSULIN ASPART (NovoLOG) 100 UNIT/ML VIAL SQ SCH (07:08)
[2022-11-08] MEDS: ASPIRIN 325 MG TAB PO SCH (08:20)
[2022-11-08] MEDS: GABAPENTIN 300 MG CAP PO SCH (08:20)
[2022-11-08] MEDS: CLOPIDOGREL 75 MG TAB PO SCH (08:20)
[2022-11-08] MEDS: TAMSULOSIN 0.4 MG CAP.ER.24H PO SCH (08:20)
[2022-11-08] MEDS: amLODIPine 2.5 MG TAB PO SCH (08:20)
[2022-11-08] MEDS: FONDAPARINUX 2.5 MG/0.5 ML SYRINGE SQ SCH (08:21)
[2022-11-08] MEDS: FLUTICASONE 50MCG/SPRAY NASAL 16GM EA NOSTRIL SCH (08:22)
[2022-11-08] MEDS: IPRATROPIUM-ALBUTEROL 3 ML NEB INHALATION SCH ×2 (08:42→08:44)
--- NOTE | 2022-11-08 08:59 | XR ---
EXAMINATION TYPE: XR chest 2V DATE OF EXAM: 11/08/2022 COMPARISON: 11/07/2022 INDICATION: Postcardiac surgery TECHNIQUE: Frontal and lateral views of the chest are obtained. FINDINGS: The heart size is normal. The pulmonary vasculature is normal. The lungs are clear. Sternotomy wires are present from prior CABG. EKG leads overlie the chest. IMPRESSION: 1. No acute pulmonary process.
[2022-11-08] MEDS ORDERED: METOPROLOL TARTRATE 50 MG TAB PO SCH (09:00)
[2022-11-08] MEDS ORDERED: DAPAGLIFLOZIN PROPANEDIOL 10 MG TABLET PO SCH (09:00)
--- NOTE | 2022-11-08 09:11 | P.PN ---
Subjective Progress Note Date: 11/08/22 I am seeing this 62-year-old male patient in the intensive care unit following his cardiac surgery. The patient is known to have symptomatic aortic stenosis and coronary artery disease. The patient underwent four-vessel bypass surgery including CALVIN to LAD and diagonal, radial graft to acute marginal, SVG to descending coronary artery and the patient also underwent a 27 mm bovine pericardial valve insertion. Currently the patient is in the intensive care unit. The patient is sedated on propofol. The patient has, comfortable and sickness a mechanical ventilator. The patient was assist-control at the rate of 14, tidal volume of 500, FiO2 of 100% with a PEEP of 5. The blood gas showed a pH of 7.33 with a pCO2 of 43 and pO2 of 242. FiO2 was dropped down to 50% and the patient's rate is currently at 20. Chest x-ray shows adequate expansion of both lungs clear no pneumothorax. [place]-Marnie catheter was advanced. ET tube is in a good location. The patient has mediastinal and left pleural chest tube. No pneumothorax and no air leak. The patient has put out approximately 200 mL from the mediastinal and the left pleural chest tubes. Estimated blood loss intraoperatively was 500 mL and the patient's current hemoglobin is at 10.9. The current hemodynamic parameters showed PEA pressures of 38/15, cardiac operative 5.4 with an index of 2.7. The patient is on a Cardizem drip at 5 mg an hour regarding the radial harvesting. The patient is producing adequate amount of urine output. Cardiac rhythm is sinus. On today's evaluation of 11/05/2022, the patient is doing extremely well, he is awake and oriented and is currently on room air oxygen. He was extubated yesterday without having any major difficulties and currently is sitting up on a recliner. Using the incentive spirometer. No issues with pain. He has 2 mediastinal chest tubes and 1 pleural chest tube. Output is quite minimal at this point in time. There is no evidence of air leak. Hemodynamically stable. Cardiac rhythm is sinus. The patient is off the Cardizem drip. [place]-Marnie catheter has been removed. The WBC count is at 9.1 with a hemoglobin of 10 and a platelet count of 130. Electrolyte are normal. Renal function is normal. The chest x-ray from today was reviewed. There was adequate expansion of both lungs. No evidence of any pneumothorax. Limited atelectatic changes in the left lung base. There is a gastric bubble. Chest tubes are all in place. The patient also has a Cordis in his right IJ. Adequate urine output. No nausea or emesis. Tolerating diet. 11/06/2022, the patient is on 2 L of oxygen by nasal cannula. Chest x-ray from this morning shows no significant abnormalities. No pneumothorax. Chest tubes are still in place and the patient is a mediastinal left pleural chest tube. Output from the chest tubes has been in the order of 2 90 mL and the mediastinum over the past 24 hours and 100 mL from the left lower chest tube over the past 24 hours. No evidence of any air leak. Hemodynamically stable on no pressors. Cardiac rhythm is sinus. Blood work from today shows a WBC count of 8.5 with a hemoglobin of 8.6 and a platelet count of 90. He is using the incentive spirometer. He is pulling approximately 1500 on his incentive spirometer. Adequate pain control. Ambulating. Tolerating diet. On today's evaluation of 11/07/2022, the patient is on room air oxygen. Chest x-ray shows some mild pulmonary vascular congestion. No evidence of any pneumothorax. Lungs are adequately expanded. The patient has a left pleural chest tube without evidence of air leak. Output from the chest tube has been in the order of 70 mL overnight. Output from the chest tube is diminished considerably. The patient is a normal sinus rhythm. Hemodynamically stable on no pressors. Hemoglobin today is at 7.7 with a white cell count of 6.9. Carotids are normal. BUN is 19 with a creatinine of 0.7. No other significant events overnight. The patient is tolerating his diet. Pain is under adequate control. The wound is dry clean and intact. He remains on aspirin. He remains on Plavix. He is on metoprolol 25 mg by mouth twice a day. He is on Norvasc. His blood pressures under adequate control for now. 11/08/2020, the patient is on room air oxygen. Ambulating. Chest x-ray shows no significant abnormalities and is consistent with postsurgical changes. The patient is hemodynamically stable. Cardiac rhythm is sinus. Hemoglobin is at 8.4. Normal renal function. Surgery was essentially uncomplicated in the surgical wound is dry clean and intact. The patient has no complaints. Using the incentive spirometer. He'll be discharged home today. Today, he is postop day #4. Objective - Vital Signs Vital signs: Vital Signs Temp 98.0 F 11/08/22 04:00 Pulse 80 11/08/22 04:00 Resp 14 11/08/22 04:00 BP 113/59 11/08/22 04:00 Pulse Ox 96 11/08/22 04:00 FiO2 40 11/04/22 19:45 Intake & Output 11/07/22 11/08/22 11/08/22 18:59 06:59 18:59 Intake Total 750 800 Output Total 1450 950 Balance -700 -150 Intake: Oral 750 800 Output: Urine 1450 950 Other: Voiding Method Toilet Toilet Urinal Urinal # Voids 1 0 # Bowel Movements 1 ABP, PAP, CO, CI - Last Documented Arterial Blood Pressure 115/44 Pulmonary Artery Pressure 21/6 Cardiac Output 6 Cardiac Index 3 - Exam CONSTITUTIONAL: Appears comfortable, cooperative, no acute distress RESPIRATORY: Lungs sounds diminished bilaterally. Respirations even, nonlabored. Currently on room air oxygen saturation 96%. Able to achieve 1250 mL on incentive spirometry. Strong cough. CARDIOVASCULAR: S1, S2 present. Regular rate and rhythm, sinus rhythm on telemetry. Sternum stable. Palpable peripheral pulses bilaterally. No edema present. No calf pain or tenderness noted. Heart hugger in place with patient demonstrating appropriate use. Antiembolism stockings, SCDs present. GASTROINTESTINAL: Abdomen soft, nontender, nondistended. Hypoactive bowel sounds present 4 quadrants. Tolerating clear liquid diet. Positive flatus GENITOURINARY: [place] catheter was removed INTEGUMENTARY: Skin is warm and dry with evidence of good perfusion. NEUROLOGIC: Cranial nerves II through XII intact MUSKULOSKELETAL: Able to move all extremities, strength equal bilaterally, gait normal PSYCHIATRIC: Alert and oriented to person place and time, appropriate affect, intact judgment and insight - Labs CBC & Chem 7: 11/08/22 06:07 11/08/22 06:07 Labs: Abnormal Lab Results - Last 24 Hours (Table) 11/07/22 11/07/22 11/07/22 Range/Units 11:57 16:58 20:56 RBC (4.30-5.90) m/uL Hgb (13.0-17.5) gm/dL Hct (39.0-53.0) % Plt Count (150-450) k/uL Sodium (137-145) mmol/L Creatinine (0.66-1.25) mg/dL Glucose (74-99) mg/dL POC Glucose (mg/dL) 187 H 188 H 174 H (70-110) mg/dL Calcium (8.4-10.2) mg/dL 11/08/22 11/08/22 11/08/22 Range/Units 06:07 06:07 06:30 RBC 2.79 L (4.30-5.90) m/uL Hgb 8.4 L (13.0-17.5) gm/dL Hct 24.4 L (39.0-53.0) % Plt Count 128 L (150-450) k/uL Sodium 136 L (137-145) mmol/L Creatinine 0.63 L (0.66-1.25) mg/dL Glucose 139 H (74-99) mg/dL POC Glucose (mg/dL) 152 H (70-110) mg/dL Calcium 8.0 L (8.4-10.2) mg/dL Assessment and Plan Plan: Multivessel coronary disease, post elective cardiac surgery which involved four- vessel bypass surgery involving CALVIN to LAD and diagonal and the radial artery graft to acute marginal and saphenous vein graft to descending, postop day #4. The patient is hemodynamically stable adequate cardiac output and index. The patient was extubated and the patient remains hemodynamically stable at this point in time. Aortic valve replacement, 27 mm bovine pericardial valve, post abdominal was 0. Surgery was done for severe aortic stenosis Postthoracotomy, currently intubated on a mechanical ventilator, chest tubes are in place output is minimal without evidence of any air leak, and the patient is extubated. The mediastinal chest tube is removed and the patient has a left pleural Chest tubes are still in place. Chest x-ray shows some limited atelectatic changes in the left lung base. Operative from the chest tube is minimal and there is no evidence of any air leak Diabetes mellitus2, currently off insulin drip and the patient is receiving sliding scale insulin coverage. Hypertension Hyperlipidemia Obstructive sleep apnea maintenance CPAP therapy. Plan From the pulmonary standpoint, the patient's respiratory status is stable. The patient will be discharged home today. He was encouraged to use incentive spirometer. Chest x-ray from today shows pneumonia. Abnormalities. Home medications are being ordered by the cardiothoracic team. No need for any respiratory medications for now. He has a CPAP with utilizes at home and he was encouraged utilize CPAP. No other issues for now. Therefore discharge from a pulmonary standpoint.
[2022-11-08 09:47] VITALS: BP 119/69; RESP 24; TEMP 99.4
[2022-11-08 09:50] VITALS: PULSE 80
--- NOTE | 2022-11-08 10:04 | P.DS ---
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 Course: FINAL DIAGNOSIS: Aortic valve stenosis, status post aortic valve replacement with a 27 mm Avalus bovine pericardial valve Coronary artery disease with previous myocardial infarction and PCI, status post four-vessel CABG History of hypertension Hyperlipidemia, treated, cholesterol 142, LDL 77, triglycerides 81 TIA in 2014 [id number] diabetes, hemoglobin A1c 6.2% Previous tobacco dependence, FEV1 100% of predicted Obstructive sleep apnea with home CPAP use Nightly marijuana use Postoperative acute blood loss anemia and thrombocytopenia, expected PRINCIPAL PROCEDURE: 1. Aortic valve replacement with a 27 mm Avalus bovine pericardial valve. 2. Coronary artery bypass grafting 4 with sequential left internal mammary artery to left anterior descending coronary artery and diagonal coronary artery, left radial artery to the third obtuse marginal coronary artery (distal circumflex), a reverse greater saphenous vein graft to the distal descending coronary artery. 3. Ligation of left atrial appendage with a 35 mm Atricure clip. 4. Endovascular left radial artery and left greater saphenous vein harvest. 5. Epi-aortic ultrasound. 6. Intraoperative transesophageal echocardiogram performed by anesthesia. HISTORY OF PRESENT ILLNESS: This is a 62-year-old gentleman who follows on an outpatient basis with Dr. Cassius Cruz for his primary care and with Dr. Partha Vargas for this cardiology care. Recently, the patient has had complaints of chest pain over a two-week period with has been associated with dyspnea and shortness of breath and states that his pain was radiating to his neck and jaw area. He also reports he could not climb a flight of stairs without getting short of breath. Due to the patient's complaints he underwent a stress test which demonstrated a fixed defect in the posterior lateral region. For further evaluation and heart catheterization was completed which showed a patent stent in the circumflex coronary artery, completely occluded right coronary artery, and a 40% stenosis in the circumflex coronary artery at the region of the previous stent. A transthoracic 2-D echocardiogram was also completed which showed severe aortic valve stenosis with normal aortic root, a velocity across the aortic valve of 414 cm/s with a peak gradient of 68 mmHg, a mean gradient of 39 mmHg and a calculated aortic valve area of 0.8 cm. Due to the findings on the transthoracic 2-D echocardiogram he subsequently underwent a transesophageal echocardiogram which demonstrated a severely calcified bicuspid possibly monocuspid aortic valve with a planimerty valve area of 0.5 cm, mild mitral valve regurgitation and his left ventricular size and function were normal. Subsequently, due to the patient's presenting symptoms and findings on the above-mentioned studies a consult was placed to Dr. Melquiades Wolf from cardiothoracic surgery for further evaluation and treatment recommendations including aortic valve replacement and myocardial revascularization surgery. Treatment options were discussed with the patient and risks and benefits of surgery including the STS risk score were discussed with the patient and knowing and understanding these risks the patient wished to proceed with the surgical option. HOSPITAL COURSE: The patient was brought to the hospital on 11/04/2022, taken to the preoperative area, prepared in the usual fashion and subsequently taken to the operating room where Dr. Melquiades Wolf performed an aortic valve replacement with a 27 mm Avalus bovine pericardial valve, and a coronary artery bypass grafting 4 vessels. Upon completion of the surgery the patient was transferred to the cardiovascular intensive care unit where he was recovered and monitored hemodynamically. He was extubated, all lines, tubes and supportive drips were discontinued when appropriate. Transfer orders were placed to the third floor cardiac stepdown unit, although due to lack of bed availability on the stepdown unit the patient was kept in the intensive care unit for further monitoring and rehabilitation. His oxygen was titrated down, he continued to work with physical, occupational therapy and cardiac rehab, he was tolerating normal diet, his pain was well controlled and he was ready to be discharged home with home health care on postoperative day #4. He has received written and verbal instructions regarding his medications, activity restrictions, signs and symptoms requiring physician notification and his follow-up appointments. He has been instructed to keep a log of his blood sugars and take his blood sugar log to his follow-up appointment. Plan - Discharge Summary Discharge Rx Participant: Yes New Discharge Prescriptions: New Aspirin 325 mg PO DAILY #30 tab Tamsulosin [Flomax] 0.4 mg PO PC-BRKFST #30 cap Sennosides-Docusate Sodium [Senokot-S] 2 each PO HS #14 tab Ferrous Sulfate [Iron (65 MG Elemental)] 325 mg PO BID-W/MEALS #14 tab Metoprolol Tartrate [Lopressor] 50 mg PO BID #60 tab amLODIPine [Norvasc] 2.5 mg PO DAILY #30 tab Clopidogrel [Plavix] 75 mg PO DAILY #30 tab Pantoprazole [Protonix] 40 mg PO AC-BRKFST #30 tab Acetaminophen Tab [Tylenol] 1,000 mg PO Q6HR PRN tab PRN Reason: Fever And/ Or Mild Pain (1-3) Ascorbic Acid [Vitamin C] 500 mg PO BID-W/MEALS #14 tab Continue metFORMIN HCL [Glucophage] 1,000 mg PO BID Gabapentin 300 mg PO TID Dapagliflozin Propanediol [Farxiga] 10 mg PO DAILY Simvastatin [Zocor] 40 mg PO HS Fexofenadine HCl [Nancy Allergy] 180 mg PO DAILY Fluticasone Nasal Murdock [Flonase Nasal Murdock] 1 spray EA NOSTRIL DAILY Fish Oil/Dha/Epa [Fish Oil 1,200 mg Fish Oil] 1 cap PO BID Discontinued Aspirin 81 mg PO DAILY Enalapril [Vasotec] 20 mg PO BID Isosorbide Mononitrate ER [Imdur] 15 mg PO DAILY Nitroglycerin Sl Tabs [Nitrostat] 0.4 mg SUBLINGUAL Q5M PRN #30 tab PRN Reason: Chest Pain Discharge Medication List Dapagliflozin Propanediol [Farxiga] 10 mg PO DAILY 03/22/20 [History] Gabapentin 300 mg PO TID 03/22/20 [History] metFORMIN HCL [Glucophage] 1,000 mg PO BID 03/22/20 [History] Simvastatin [Zocor] 40 mg PO HS 07/17/22 [History] Fish Oil/Dha/Epa [Fish Oil 1,200 mg Fish Oil] 1 cap PO BID 10/06/22 [History] Fluticasone Nasal Murdock [Flonase Nasal Murdock] 1 spray EA NOSTRIL DAILY 10/06/22 [History] Fexofenadine HCl [Nancy Allergy] 180 mg PO DAILY 10/29/22 [History] Acetaminophen Tab [Tylenol] 1,000 mg PO Q6HR PRN tab 11/08/22 [Rx] Ascorbic Acid [Vitamin C] 500 mg PO BID-W/MEALS #14 tab 11/08/22 [Rx] Aspirin 325 mg PO DAILY #30 tab 11/08/22 [Rx] Clopidogrel [Plavix] 75 mg PO DAILY #30 tab 11/08/22 [Rx] Ferrous Sulfate [Iron (65 MG Elemental)] 325 mg PO BID-W/MEALS #14 tab 11/08/22 [Rx] Metoprolol Tartrate [Lopressor] 50 mg PO BID #60 tab 11/08/22 [Rx] Pantoprazole [Protonix] 40 mg PO AC-BRKFST #30 tab 11/08/22 [Rx] Sennosides-Docusate Sodium [Senokot-S] 2 each PO HS #14 tab 11/08/22 [Rx] Tamsulosin [Flomax] 0.4 mg PO PC-BRKFST #30 cap 11/08/22 [Rx] amLODIPine [Norvasc] 2.5 mg PO DAILY #30 tab 11/08/22 [Rx] Follow up Appointment(s)/Referral(s): Rehab a[facility] SELLERS,Cardiac [NON-STAFF] - 4 Weeks (You will receive a phone call in approximately 4-6 weeks for evaluation for cardiac rehab) Cassius Cruz DO [Primary Care Provider] - 2 Weeks (Office will call with appointment when they have one available) Tex Gonzalez,Home Care [NON-STAFF] - (To be seen the day after discharge, then 2-3 times per week for 4 weeks) Partha Vargas MD [STAFF PHYSICIAN] - 11/20/22 4:30 pm Melquiades Wolf MD [STAFF PHYSICIAN] - 12/04/22 1:15 pm Dharmesh Yao NPC [Nurse Practitioner] - 11/14/22 1:00 pm (You will be seen in the surgeon's office behind the hospital in [facility], [address]. Office phone number is ) Demetrio Chapa MD [STAFF PHYSICIAN] - 11/18/22 9:00 am Ambulatory/Diagnostic Orders: Complete Blood Count w/diff [LAB.AMB] Time Frame: 11/11/22, Facility: [facility], Location: Laboratory [facility] Comprehensive Metabolic Panel [LAB.AMB] Time Frame: 11/11/22, Facility: [facility], Location: Laboratory [facility] Activity/Diet/Wound Care/Special Instructions: DISCHARGE INSTRUCTIONS: 1. No driving for 4 weeks, or until physician gives their ok. 2. The patient should sleep in their own bed, no medical bed needed. 3. Stairs are not an issue. If the bedroom is upstairs, it is advised that the patient go up at night and down in the morning for the first week. Go slowly, using handrail and take 1 step at a time. 4. STEVEN hose are to be worn for 30 days post surgery or until physician discontinues. 5. Heart hugger is to be worn 100% of the time until physician discontinues.(except when showering) 6. No lifting, pushing, or pulling more than 10 pounds for 12 weeks. The physician will advise of any restriction changes. 7. The patient is expected to continue the prescribed walking program. 8. Continue pain control per as needed orders. 9. Continue with incentive spirometry and splinting/heart hugger until otherwise directed by the physician. 10. Must shower daily using liquid antibacterial soap 11. Routine sternal incision care. No powders, lotions, ointments on incisions. No dressings are necessary on incisions unless they are draining. Dermabond tape is to remain on sternal incision until surgeon follow-up. 12. Please call surgeon/HOSPITALITY MANAGER for temp greater than 101 F or purulent drainage from incisions. 13. You should weigh yourself daily, record and bring log with you to follow up appointments. 14. All prescriptions given by surgeon for 30 days. Refills need to be filled through clinical support associate/primary care physician. 15. A Red armband has been placed on the patient. It should be worn for 30 days post discharge from surgery and will be removed by the cardiac surgeons. If an ER visit is necessary, please make sure the number on the Red armband is called before going to ER. 16. You have been referred to and are expected to begin Cardiac Rehab in approximately 4-6 weeks. HOME HEALTH SERVICES TO PROVIDE: RN SKILLED HOME CARE SERVICES FOR POST-OP SURGICAL PATIENTS WITH THE FOLLOWING: Coronary Artery Bypass Surgery (CABG), Mitral Valve Replacement/Repair ( MVR), Aortic Valve Replacement/Repair (AVR) RN TO CONTINUE EDUCATION FROM ``ROAD TO A HEALTH HEART PATIENT EDUCATION MANUAL (GIVEN TO PATIENT IN THE HOSPITAL) MEDICATION RECONCILIATION WITH EDUCATION NEEDED ON FIRST HOME VISIT EMPHASIZE IMPORTANCE OF WEARING BREAST SUPPORT/HEART HUGGER ENCOURAGE USE OF INCENTIVE SPIROMETER 10 X EVERY HOUR WHILE AWAKE ENCOURAGE UTILIZATION OF LOWER EXTREMITY COMPRESSION STOCKINGS/STEVEN HOSE and ELEVATE LEGS ABOVE LEVEL OF HEART WHILE AT REST. ENCOURAGE AMBULATION 3-5x/day INCREASING TOLERATES, WHILE AVOIDING EXTREMES IN TEMPERATURE FREQUENCY: RN TO OPEN THE PATIENT WITHIN 24 HOURS OF DISCHARGE FROM THE HOSPITAL WITH TELEHEALTH INSTALLED AT [facility], RN TO VISIT 2-3 X A WEEK FOR 4 WEEKS E STABLISHED BY PATIENT NEEDS. LABORATORY: CBC, CMP TO BE DRAWN ON THE THIRD DAY HOME, (RAN STAT) FAX RESULTS TO [phone]. TELEHEALTH PARAMETERS: WEIGHT: NOTIFY MD OF WEIGHT GAIN OF 2 LBS IN 24 HOURS OR 5 LBS IN ONE WEEK HR: NOTIFY MD OF HR <55 BPM OR HR>100 BPM BP: NOTIFY MD IF BP <90/55 OR BP>140/100 O2 SAT: NOTIFY MD IF PO2<93% ON ROOM AIR SEND TELEHEALTH REPORT TO ALLERGIST IMMUNOLOGIST AND CARDIOVASCULAR SURGEON THE FIRST WEEK OF CARE AND THEN BI-WEEKLY. PLEASE ADDITIONALLY COMMUNICATE ANY ABNORMALS AND NEW FINDINGS TO THE SURGEONS OFFICE. Discharge Disposition: HOME WITH HOME HEALTH SERVICES
[2022-11-08 11:35] LABS: Glucose,Whole Blood 146 mg/dL (70-110)
--- NOTE | 2022-11-08 21:57 | P.PN ---
Progress Note - Text Progress Note Date: 11/08/22 Hospital course: History of present illness; patient is a 62-year-old gentleman with past medical history significant for coronary artery disease, severe aortic stenosis who underwent four-vessel bypass surgery including CALVIN to LAD and diagonal, radial graft to acute marginal, SVG to descending coronary artery and the patient also underwent a 27 mm bovine aortic valve placement. Postoperatively patient was managed in the ICU, was initially intubated but later extubated. Patient Central-Marnie catheter has been discontinued. Continues to have chest tubes in. Labs this morning showed WBC 9.1, hemoglobin 10, platelet count 1:30, sodium 137, potassium 4.1, BUN 18, creatinine 0.76 . Vital signs this morning are heart rate, respiration rate 23, blood pressure 103/50, on 2 L of oxygen Internal medicine team were consulted for medical management. 11/06/2022 Patient is currently in the recliner. Awake alert and oriented x3. On oxygen at 2 L via nasal cannula. Mediastinal and left pleural chest tubes in place. Chest x-ray showed postsurgical changes with bilateral suspected postoperative atelectasis favored over infiltrate. Laboratory data showed WBC 8.5 hemoglobin 8.6 and platelets 90 sodium 134 potassium 4.1 chloride 104 bicarb is 23 BUN 21 creatinine 0.71 and albumin 3.0 blood sugar 183 this morning. 11/07/2022: I assumed care of the patient today from [facility] hospitalist. ICU: at sitting up in a chair. Did ambulate. Feeling well. Breathing is stable. Using ice. Oral intake good. No pain. On room air. Also chest tubes are out. November 08: Doing well. Had a bowel movement. Breathing stable. Up and about. Discussed with patient. Tolerating diet. Questions answered Past medical history to include: CAD with stent 2012, diabetes, hypertension, hyperlipidemia, sciatica, back surgery 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 No alcohol. Does take marijuana at night Medications reviewed On examination: VITAL SIGNS: Weight 8.5, 58, 16, 125/67, 95% room air GENERAL APPEARANCE: Sitting up in a chair, comfortable HEENT: Normal external appearance of nose and ear. Oral cavity normal EYES: Pupils equal. Conjunctiva normal. NECK: JVD not raised. Mass not palpable. RESPIRATORY: Respiratory effort normal. Lungs decreased breath sounds CARDIOVASCULAR: First and second sounds normal. No edema. ABDOMEN: Soft. Liver and spleen not palpable. No tenderness. No mass palpable. PSYCHIATRY: Alert and oriented x3. Mood and affect normal. INVESTIGATIONS, reviewed in the clinical context: November 07: White count 6.9 hemoglobin 7.7 platelets 92 sodium 131 potassium 3.7 creatinine 0.79 Hemoglobin [November 04] 12.2; 16.9 on [October 14] Assessment and plan: -Multivessel coronary disease, status post four-vessel bypass surgery involving CALVIN to LAD and diagonal and the radial artery graft to acute marginal and saphenous vein graft to descending, Plavix, Lopressor simvastatin -severe aortic stenosis status post Aortic valve replacement, 27 mm bovine pericardial valve, -Diabetes mellitus2, on oral hypoglycemic farxiga and metformin . -Essential Hypertension Lopressor. Amlodipine -Hyperlipidemia Zocor -Acute postprocedure blood loss anemia, expected from surgery Ferrous sulfate -Acute thrombocytopenia, dilutional from surgery Follow-up patient discussed with the patient. Follow Accu-Cheks. Follow up with PCP upon discharge.
== END 2022-11-08 11:55 | disposition home health service (06) | DRG 220 ==
LOC: 2ORMAIN 05:33 → 2SICU 14:16
PROVIDERS: ADMIT Thoracic Surgery (Cardiothoracic Vascular Surgery); ATTEND Thoracic Surgery (Cardiothoracic Vascular Surgery)
PROC: 02L70CK Occlusion of Left Atrial Appendage with Extraluminal Device, Open Approach (ICD-10-PCS; 2022-11-04)
PROC: 30233R1 Transfusion of Nonautologous Platelets into Peripheral Vein, Percutaneous Approach (ICD-10-PCS; 2022-11-04)
PROC: 021109W Bypass Coronary Artery, Two Arteries from Aorta with Autologous Venous Tissue, Open Approach (ICD-10-PCS; principal; 2022-11-04 08:00)
PROC: 02110Z9 Bypass Coronary Artery, Two Arteries from Left Internal Mammary, Open Approach (ICD-10-PCS; 2022-11-04 08:00)
PROC: 02RF08Z Replacement of Aortic Valve with Zooplastic Tissue, Open Approach (ICD-10-PCS; 2022-11-04 08:00)
PROC: 06BQ4ZZ Excision of Left Saphenous Vein, Percutaneous Endoscopic Approach (ICD-10-PCS; 2022-11-04 08:00)
PROC: 5A1221Z Performance of Cardiac Output, Continuous (ICD-10-PCS; 2022-11-04 08:00)
DX: I35.0 Nonrheumatic aortic (valve) stenosis (principal); D62 Acute posthemorrhagic anemia; I48.92 Unspecified atrial flutter; I48.91 Unspecified atrial fibrillation; I25.10 Atherosclerotic heart disease of native coronary artery without angina pectoris; I25.82 Chronic total occlusion of coronary artery; D69.6 Thrombocytopenia, unspecified; E11.9 Type 2 diabetes mellitus without complications; E78.5 Hyperlipidemia, unspecified; M54.30 Sciatica, unspecified side; G47.33 Obstructive sleep apnea (adult) (pediatric); I10 Essential (primary) hypertension; I25.2 Old myocardial infarction; Z95.5 Presence of coronary angioplasty implant and graft; Z87.891 Personal history of nicotine dependence; Z79.02 Long term (current) use of antithrombotics/antiplatelets; Z79.82 Long term (current) use of aspirin; Z79.84 Long term (current) use of oral hypoglycemic drugs; Z79.899 Other long term (current) drug therapy; Z82.49 Family history of ischemic heart disease and other diseases of the circulatory system; Z86.73 Personal history of transient ischemic attack (TIA), and cerebral infarction without residual deficits
CPT/HCPCS: 71045; 71046; 80048; 80053; 82330; 82805; 83036; 83735; 85025; 85027; 85384; 85610; 85730; 86022; 86850; 86891; 86900; 86901; 86920; 88305; 94002; 94640

== ENCOUNTER 2022-11-11 23:56 | Observation (INO) | payer BC ==
--- NOTE | 2022-11-12 00:35 | ED ---
General Adult HPI - General Chief complaint: Wound/Laceration Stated complaint: Post-Op Bleeding Time Seen by Provider: 11/12/22 00:08 Source: patient, family Mode of arrival: wheelchair Limitations: no limitations - History of Present Illness Initial comments: This is a 62-year-old male with a past medical history including recent quadruple bypass and aortic valve repair presents emergency department for bleeding from one of surgical sites on his chest wall. The patient stated that he was sitting watching TV when he noted that history was wet and looked down and the left side of his chest and short worse full of blood. He did note that he went to full towels soaked in blood and did note that the bleeding was initially pulsatile. He did state that when he places pressure on the wound the bleeding does stop however anytime he moves the bleeding begins once again. The patient denied any acute pain or distress as well as any shortness of breath. The patient came to the emergency department for evaluation. The surgical wound on the left anterior chest wall was open however was not bleeding currently. The patient remained stable. - Related Data Home Medications Medication Instructions Recorded Confirmed Dapagliflozin Propanediol [Farxiga] 10 mg PO DAILY 03/22/20 11/04/22 Gabapentin 300 mg PO TID 03/22/20 11/04/22 metFORMIN HCL [Glucophage] 1,000 mg PO BID 03/22/20 11/04/22 Simvastatin [Zocor] 40 mg PO HS 07/17/22 11/04/22 Fish Oil/Dha/Epa [Fish Oil 1,200 1 cap PO BID 10/06/22 11/04/22 mg Fish Oil] Fluticasone Nasal [place] [Flonase 1 spray EA NOSTRIL DAILY 10/06/22 11/04/22 Nasal [place]] Fexofenadine HCl [Nancy Allergy] 180 mg PO DAILY 10/29/22 11/04/22 Previous Rx's Medication Instructions Recorded Acetaminophen Tab [Tylenol] 1,000 mg PO Q6HR PRN tab 11/08/22 Ascorbic Acid [Vitamin C] 500 mg PO BID-W/MEALS #14 tab 11/08/22 Aspirin 325 mg PO DAILY #30 tab 11/08/22 Clopidogrel [Plavix] 75 mg PO DAILY #30 tab 11/08/22 Ferrous Sulfate [Iron (65 MG 325 mg PO BID-W/MEALS #14 tab 11/08/22 Elemental)] Metoprolol Tartrate [Lopressor] 50 mg PO BID #60 tab 11/08/22 Pantoprazole [Protonix] 40 mg PO AC-BRKFST #30 tab 11/08/22 Sennosides-Docusate Sodium 2 each PO HS #14 tab 11/08/22 [Senokot-S] Tamsulosin [Flomax] 0.4 mg PO PC-BRKFST #30 cap 11/08/22 amLODIPine [Norvasc] 2.5 mg PO DAILY #30 tab 11/08/22 Temazepam [Restoril] 15 mg PO HS PRN 3 Days #3 cap 11/10/22 Allergies Allergy/AdvReac Type Severity Reaction Status Date / Time atorvastatin [From Lipitor] AdvReac muscle Verified 11/11/22 23:57 aches Review of Systems ROS Statement: Those systems with pertinent positive or pertinent negative responses have been documented in the HPI. ROS Other: All systems not noted in ROS Statement are negative. Past Medical History Past Medical History: Coronary Artery Disease (CAD), Diabetes Mellitus, Hyperlipidemia, Hypertension, Myocardial Infarction ([place]) Additional Past Medical History / Comment(s): sciatica Last Myocardial Infarction Date:: 2012 History of Any Multi-Drug Resistant Organisms: None Reported Past Surgical History: Back Surgery, Heart Catheterization With Stent, Tonsillectomy Additional Past Surgical History / Comment(s): COLONOSCOPY Past Anesthesia/Blood Transfusion Reactions: No Reported Reaction Date of Last Stent Placement:: 2012 Past Psychological History: No Psychological Hx Reported Smoking Status: Former smoker Past Alcohol Use History: None Reported Past Drug Use History: None Reported - Past Family History Family Family Medical History: Coronary Artery Disease (CAD) General Exam Limitations: no limitations General appearance: alert, in no apparent distress Head exam: Present: atraumatic, normocephalic, normal inspection Eye exam: Present: normal appearance, PERRL Pupils: Present: normal accommodation ENT exam: Present: normal exam, normal oropharynx, mucous membranes moist Neck exam: Present: normal inspection, full ROM Respiratory exam: Present: normal lung sounds bilaterally Cardiovascular Exam: Present: regular rate, normal rhythm, normal heart sounds GI/Abdominal exam: Present: soft, normal bowel sounds Extremities exam: Present: normal inspection, full ROM Back exam: Present: normal inspection, full ROM Neurological exam: Present: alert, oriented X3, CN II-XII intact Psychiatric exam: Present: normal affect, normal mood Skin exam: Present: warm, dry, other (Midline chest incision clear, dry and intact. All other surgical wounds on the right side of the chest wall were intact, clear and without any erythema. The 1 cm surgical wound on the left anterior chest wall was open however was not actively bleeding at this time.) Course Vital Signs 11/11/22 11/12/22 11/12/22 23:58 00:21 01:39 Temperature 98.7 F Pulse Rate 66 65 69 Respiratory 18 16 18 Rate Blood Pressure 134/70 133/73 129/68 O2 Sat by Pulse 98 97 98 Oximetry Medical Decision Making - Medical Decision Making Was pt. sent in by a medical professional or institution (, VERONIKA, CASE SEALER, urgent care, hospital, or fci...) When possible be specific @ -No Did you speak to anyone other than the patient for history (EMS, parent, family, police, friend...)? What history was obtained from this source @ -No Did you review nursing and triage notes (agree or disagree)? Why? @ -I reviewed and agree with nursing and triage notes Were old charts reviewed (outside hosp., previous admission, EMS record, old EKG, old radiological studies, urgent care reports/EKG's, fci records)? Report findings @ -No old charts were reviewed Differential Diagnosis (chest pain, altered mental status, abdominal pain women, abdominal pain men, vaginal bleeding, weakness, fever, dyspnea, syncope, headache, dizziness, GI bleed, back pain, seizure, CVA, palpatations, mental health)? @ -Postop bleeding, wound dehiscence EKG interpreted by me (3pts min.). @ -None X-rays interpreted by me (1pt min.). @ -None done CT interpreted by me (1pt min.). @ -None done U/S interpreted by me (1pt. min.). @ -None done What testing was considered but not performed or refused? (CT, X-rays, U/S, labs)? Why? @ -None What meds were considered but not given or refused? Why? @ -None Did you discuss the management of the patient with other professionals (professionals i.e. VERONIKA Emery, CASE SEALER, lab, RT, psych nurse, psychologist social, incinerator operator, teacher, child support case officer, pillowcase cleaner)? Give summary @ -Yes, cardiothoracic surgeon on-call, Dr. Finney, was contacted regarding the patient. He did recommend putting the patient observation but wanted the patient admitted to answer medicine. Was smoking cessation discussed for >3mins.? @ -No Was critical care preformed (if so, how long)? @ -No Were there social determinants of health that impacted care today? How? (Homelessness, low income, unemployed, alcoholism, drug addiction, transportation, low edu. Level, literacy, decrease access to med. care, usp, rehab)? @ -No Was there de-escalation of care discussed even if they declined (Discuss DNR or withdrawal of care, Hospice)? DNR status @ -No What co-morbidities impacted this encounter? (DM, HTN, Smoking, COPD, CAD, Cancer, CVA, ARF, Chemo, Hep., AIDS, mental health diagnosis, sleep apnea, morbid obesity)? @ -Recent CABG and aortic valve repair Was patient admitted / discharged? Hospital course, mention meds given and route, prescriptions, significant lab abnormalities, going to OR and other pertinent info. @ -The patient was seen and evaluated emergency department. Physical exam, the patient was resting in bed without any acute distress. Vital signs admission were stable. Due to the nature the patient's complaints, laboratory workup was obtained and was within normal limits. Dr. Finney was contacted regarding the patient as he was the [facility] thoracic surgeon on-call. It was recommended the patient was to be placed observation under the interim medicine service with cardiothoracic surgery on consult. The patient was told this plan and was agreeable. The patient was placed in observation in stable condition. Undiagnosed new problem with uncertain prognosis? @ -No Drug Therapy requiring intensive monitoring for toxicity (Heparin, Nitro, Insulin, Cardizem)? @ -No Were any procedures done? @ -No Diagnosis/symptom? @ -Postop bleeding Acute, or Chronic, or Acute on Chronic? @ -Acute Uncomplicated (without systemic symptoms) or Complicated (systemic symptoms)? @ -Uncomplicated Side effects of treatment? @ -No Exacerbation, Progression, or Severe Exacerbation? @ -No Poses a threat to life or bodily function? How? (Chest pain, USA, AL, pneumonia, PE, COPD, DKA, ARF, appy, cholecystitis, CVA, Diverticulitis, Homicidal, Suicidal, threat to staff... and all critical care pts) @ -Yes, continued postop bleeding can lead to permanent damage and possible . - Lab Data Result diagrams: 11/12/22 00:23 11/12/22 00:23 Lab Results 11/12/22 11/12/22 Range/Units 00: 00:23 WBC 7.8 (3.8-10.6) k/uL RBC 3.02 L (4.30-5.90) m/uL Hgb 9.2 L (13.0-17.5) gm/dL Hct 27.4 L (39.0-53.0) % MCV 90.7 (80.0-100.0) fL MCH 30.5 (25.0-35.0) pg MCHC 33.6 (31.0-37.0) g/dL RDW 14.7 (11.5-15.5) % Plt Count 315 D (150-450) k/uL MPV 7.5 Neutrophils % 59 % Lymphocytes % 23 % Monocytes % 12 % Eosinophils % 4 % Basophils % 0 % Neutrophils # 4.6 (1.3-7.7) k/uL Lymphocytes # 1.8 (1.0-4.8) k/uL Monocytes # 0.9 (0-1.0) k/uL Eosinophils # 0.3 (0-0.7) k/uL Basophils # 0.0 (0-0.2) k/uL Hypochromasia Slight Poikilocytosis Slight Sodium 138 (137-145) mmol/L Potassium 3.9 (3.5-5.1) mmol/L Chloride 102 (98-107) mmol/L Carbon Dioxide 24 (22-30) mmol/L Anion Gap 12 mmol/L BUN 19 (9-20) mg/dL Creatinine 0.77 (0.66-1.25) mg/dL Est GFR (CKD-EPI)AfAm >90 (>60 ml/min/1.73 sqM) Est GFR (CKD-EPI)NonAf >90 (>60 ml/min/1.73 sqM) Glucose 102 H (74-99) mg/dL Calcium 8.7 (8.4-10.2) mg/dL Total Bilirubin 0.7 (0.2-1.3) mg/dL AST 42 (17-59) U/L ALT 28 (4-49) U/L Alkaline Phosphatase 41 (38-126) U/L Total Protein 6.1 L (6.3-8.2) g/dL Albumin 3.6 (3.5-5.0) g/dL Disposition Clinical Impression: Post-op bleeding Disposition: ADMITTED IP TO THIS [facility] Condition: Stable Is patient prescribed a controlled substance at d/c from ED?: No Referrals: Cassius Cruz DO [Primary Care Provider] - 1-2 days Time of Disposition: 01:00 Decision to Admit Reason: Admit from EC Decision Date: 11/12/22 Decision Time: 01:00
[2022-11-12 01:08] LABS: ALT 28 U/L (4-49); AST 42 U/L (17-59); African American GFR (CKD) >90 (>60 ml/min/1.73 sqM); Albumin 3.6 g/dL (3.5-5.0); Alkaline Phosphatase 41 U/L (38-126); Anion Gap 12 mmol/L; Blood Urea Nitrogen 19 mg/dL (9-20); Calcium 8.7 mg/dL (8.4-10.2); Carbon Dioxide 24 mmol/L (22-30); Chloride 102 mmol/L (98-107); Glucose 102 mg/dL (74-99); Non-African American GFR(CKD) >90 (>60 ml/min/1.73 sqM); Potassium 3.9 mmol/L (3.5-5.1); Sodium 138 mmol/L (137-145); Total Bilirubin 0.7 mg/dL (0.2-1.3); Total Protein 6.1 g/dL (6.3-8.2)
[2022-11-12 01:22] LABS: Basophils % (A) 0 %; Eosinophils # (A) 0.3 k/uL (0-0.7); Eosinophils % (A) 4 %; HCT 27.4 % (39.0-53.0); HGB 9.2 gm/dL (13.0-17.5); Hypochromasia Slight; Lymphocytes # (A) 1.8 k/uL (1.0-4.8); Lymphocytes % (A) 23 %; MCH 30.5 pg (25.0-35.0); MCHC 33.6 g/dL (31.0-37.0); MCV 90.7 fL (80.0-100.0); Mean Platelet Volume 7.5; Monocytes # (A) 0.9 k/uL (0-1.0); Monocytes % (A) 12 %; Neutrophils # (A) 4.6 k/uL (1.3-7.7); Neutrophils % (A) 59 %; Poikilocytosis Slight; RBC 3.02 m/uL (4.30-5.90); RDW 14.7 % (11.5-15.5); WBC 7.8 k/uL (3.8-10.6)
[2022-11-12 01:24] LABS: Platelet Count 315 k/uL (150-450)
[2022-11-12] MEDS ORDERED: NALOXONE 0.4 MG/ML 1 ML VIAL IV PRN (01:31)
[2022-11-12] MEDS ORDERED: TEMAZEPAM 15 MG CAP PO PRN (08:47)
[2022-11-12] MEDS ORDERED: ACETAMINOPHEN TAB 500 MG TAB PO PRN (08:47)
[2022-11-12] MEDS ORDERED: INSULIN ASPART (NovoLOG) 100 UNIT/ML VIAL SQ SCH (08:48)
[2022-11-12] MEDS ORDERED: DEXTROSE 50% SYRINGE 50 ML IVP PRN ×2 (08:48)
[2022-11-12] MEDS ORDERED: metFORMIN 500 MG TAB PO SCH (09:00)
[2022-11-12] MEDS ORDERED: ASPIRIN 325 MG TAB PO SCH (09:00)
[2022-11-12] MEDS ORDERED: GABAPENTIN 300 MG CAP PO SCH (09:00)
[2022-11-12] MEDS ORDERED: amLODIPine 2.5 MG TAB PO SCH (09:00)
[2022-11-12] MEDS ORDERED: CLOPIDOGREL 75 MG TAB PO SCH (09:00)
[2022-11-12] MEDS ORDERED: PANTOPRAZOLE 40 MG TABLET PO SCH (09:00)
[2022-11-12] MEDS ORDERED: ASCORBIC ACID 500 MG TAB PO SCH (09:00)
[2022-11-12] MEDS ORDERED: METOPROLOL TARTRATE 50 MG TAB PO SCH (09:00)
[2022-11-12] MEDS ORDERED: FERROUS SULFATE 325 MG TAB PO SCH (09:00)
[2022-11-12] MEDS ORDERED: TAMSULOSIN 0.4 MG CAP.ER.24H PO SCH (09:00)
[2022-11-12] MEDS ORDERED: FLUTICASONE 50MCG/SPRAY NASAL 16GM EA NOSTRIL SCH (09:00)
[2022-11-12] MEDS ORDERED: DAPAGLIFLOZIN PROPANEDIOL 10 MG TABLET PO SCH (09:00)
--- NOTE | 2022-11-12 09:19 | XR ---
EXAMINATION TYPE: XR chest 1V portable DATE OF EXAM: 11/12/2022 9:14 AM COMPARISON: Chest radiographs from 11/08/2022 TECHNIQUE: XR chest 1V portable Frontal view of the chest. CLINICAL INDICATION:Male, 62 years old with history of post op MVR/CABG; FINDINGS: Lungs/Pleura: There is small left pleural blunting. There is no evidence of right pleural effusion, f ocal consolidation, or pneumothorax. Pulmonary vascularity: Unremarkable. Heart/mediastinum: Cardiomediastinal silhouette is enlarged and stable. Atherosclerotic calcificatio ns are seen in the aorta. Left atrial appendage occlusion device is present. Musculoskeletal: No acute osseous pathology. Midline sternotomy wires are noted. IMPRESSION: Postsurgical changes no evidence for heart failure. Small left pleural effusion.
[2022-11-12 09:26] LABS: Glucose,Whole Blood 170 mg/dL (70-110)
--- NOTE | 2022-11-12 10:36 | US ---
EXAMINATION TYPE: US chest DATE OF EXAM: 11/12/2022 COMPARISON: NONE CLINICAL INDICATION: Male, 62 years old with history of poss effusion; Recent CABG this month. TECHNIQUE: Targeted ultrasound of the posterior lower bilateral hemithoraces EXAM MEASUREMENTS: Right Pleural Effusion pocket size: 1.7 cm Left Pleural Effusion pocket size: 1.3 cm Right side NOT marked for possible thoracentesis outside the dept. due to small fluid pocket. Left side NOT marked for possible thoracentesis outside the dept. due to small fluid pocket. Pulmonologists are able to review the images in the patient?s EMR. IMPRESSIONS: Small bilateral pleural effusion.
[2022-11-12 10:49] LABS: HCT 30.1 % (39.0-53.0); HGB 9.9 gm/dL (13.0-17.5); Hypochromasia Slight; MCH 29.8 pg (25.0-35.0); MCV 90.4 fL (80.0-100.0); Mean Platelet Volume 7.6; Platelet Count 352 k/uL (150-450); Poikilocytosis Moderate; RBC 3.34 m/uL (4.30-5.90); RDW 15.2 % (11.5-15.5); WBC 8.1 k/uL (3.8-10.6)
[2022-11-12 11:38] VITALS: BP 103/57; PULSE 66; RESP 18; TEMP 98.4
--- NOTE | 2022-11-12 13:05 | P.GSCN ---
History of Present Illness Consult date: 11/12/22 Reason for Consult: Postoperative cardiac surgery, knowing to cardiothoracic surgery service Requesting physician: Silvano Lindsay History of present illness: This is a 62-year-old gentleman who follows on an outpatient basis with Dr. Cassius Cruz for his primary care and Dr. Partha Vargas his cardiology care. He has a past medical history significant for severe aortic valve stenosis, status post aortic valve replacement, coronary artery disease status post four-vessel coronary artery bypass grafting surgery on 11/04/2022, hypertension, hyperlipidemia, TIA in 2014, [id number] diabetes with a hemoglobin A1c 6.2% preoperatively, previous tobacco dependence with a preoperative FEV1 100% of predicted value, obstructive sleep apnea with home CPAP use, and nightly marijuana use. The patient presented to the emergency department here at [facility] last evening due to draining from his previous left chest pleural chest tube insertion site. The patient reports he was watching TV and noted that his shirt was wet and 2 towels were soaked with thin blood colored drainage. He denies any recent fever, chills, nausea, vomiting, coughing, diarrhea, constipation, hemoptysis, hematemesis, headache, palpitations, lightheadedness, presyncope or syncope. He was concerned due to the drainage from his left chest pleural chest tube insertion incision and presented to the emergency department for further evaluation and treatment recommendations. Currently there is no drainage from the left chest pleural chest tube incision site and there is a dry 4 x 4 gauze to cover. Initial laboratory results showed a WBC count of 7.8, hemoglobin 9.2, hematocrit 27.4, platelets 315, sodium 138, potassium 3.9, BUN 19, creatinine 0.77, glucose 102, calcium 8.7 and albumin 3.6. A repeat hemoglobin this morning shows 9.9. A chest x-ray was completed which showed no evidence for heart failure and a small left pleural effusion. For further evaluation an ultrasound of his chest was completed which demonstrated a right pleural effusion pocket size of 1.7 cm and a left pleural effusion pocket size of 1.3 cm. Due to the patient's presenting symptoms and recent cardiac surgery a consult was placed to Dr. zurita of [facility] Ming Finney from cardiothoracic surgery for further evaluation and treatment recommendations. Review of Systems A 14 point review systems was completed and was negative except as mentioned in the HPI. Past Medical History Past Medical History: Coronary Artery Disease (CAD), CVA/TIA (TIA in 2015 with no residual deficits), Diabetes Mellitus, Hyperlipidemia, Hypertension, Myocardial Infarction ([place]), Sleep Apnea/CPAP/BIPAP Additional Past Medical History / Comment(s): sciatica Last Myocardial Infarction Date:: 2012 History of Any Multi-Drug Resistant Organisms: None Reported Past Surgical History: Back Surgery, Coronary Bypass/CABG (Aortic valve replacement and four-vessel coronary artery bypass grafting surgery on 11/04/2022), Heart Catheterization With Stent, Tonsillectomy Additional Past Surgical History / Comment(s): COLONOSCOPY Past Anesthesia/Blood Transfusion Reactions: No Reported Reaction Date of Last Stent Placement:: 2012 Past Psychological History: No Psychological Hx Reported Smoking Status: Former smoker Past Alcohol Use History: None Reported Past Drug Use History: Marijuana - Past Family History Family Family Medical History: Coronary Artery Disease (CAD) Medications and Allergies Home Medications Medication Instructions Recorded Confirmed Type Dapagliflozin Propanediol [Farxiga] 10 mg PO DAILY 03/22/20 11/12/22 History Gabapentin 300 mg PO TID 03/22/20 11/12/22 History metFORMIN HCL [Glucophage] 1,000 mg PO BID 03/22/20 11/12/22 History Simvastatin [Zocor] 40 mg PO HS 07/17/22 11/12/22 History Fish Oil/Dha/Epa [Fish Oil 1,200 1 cap PO BID 10/06/22 11/12/22 History mg Fish Oil] Fluticasone Nasal [place] [Flonase 1 spray EA NOSTRIL DAILY 10/06/22 11/12/22 History Nasal [place]] Fexofenadine HCl [Nancy Allergy] 180 mg PO DAILY 10/29/22 11/12/22 History Acetaminophen Tab [Tylenol] 1,000 mg PO Q6HR PRN tab 11/08/22 11/12/22 Rx Ascorbic Acid [Vitamin C] 500 mg PO BID-W/MEALS #14 tab 11/08/22 11/12/22 Rx Aspirin 325 mg PO DAILY #30 tab 11/08/22 11/12/22 Rx Clopidogrel [Plavix] 75 mg PO DAILY #30 tab 11/08/22 11/12/22 Rx Ferrous Sulfate [Iron (65 MG 325 mg PO BID-W/MEALS #14 tab 11/08/22 11/12/22 Rx Elemental)] Metoprolol Tartrate [Lopressor] 50 mg PO BID #60 tab 11/08/22 11/12/22 Rx Pantoprazole [Protonix] 40 mg PO AC-BRKFST #30 tab 11/08/22 11/12/22 Rx Tamsulosin [Flomax] 0.4 mg PO PC-BRKFST #30 cap 11/08/22 11/12/22 Rx amLODIPine [Norvasc] 2.5 mg PO DAILY #30 tab 11/08/22 11/12/22 Rx Sennosides-Docusate Sodium 2 tab PO HS 11/12/22 11/12/22 History [Senokot-S] Temazepam [Restoril] 15 mg PO HS PRN #30 cap 11/12/22 Rx Allergies Allergy/AdvReac Type Severity Reaction Status Date / Time atorvastatin [From Lipitor] AdvReac muscle Verified 11/12/22 06:51 aches Surgical - Exam Vital Signs Temp Pulse Resp BP Pulse Ox 98.7 F 66 18 134/70 98 11/11/22 23:58 11/11/22 23:58 11/11/22 23:58 11/11/22 23:58 11/11/22 23:58 - General well developed, well nourished, no distress, no pain, obese - Eyes PERRL, normal ocular movement, no pale, no icteric - ENT normal pinna, normal nares, normal mucosa, no hearing loss, no congestion - Neck Neck is supple, no lymphadenopathy. no masses, no bruits, trachea midline, no venous distension - Respiratory Lungs sounds essentially clear throughout, diminished to his bilateral bases. Respirations are symmetrical and nonlabored. No wheezes, rhonchi or crackles. - Cardiovascular Regular rhythm and rate. S1 and S2 present, negative for S3, gallop or murmur. - Abdomen Abdomen is soft, nontender and nondistended. Active bowel sounds present in all 4 abdominal quadrants. No guarding or rigidity. - Genitourinary Deferred - Rectum Deferred - Integumentary Midline sternal incision is clean dry and approximated. No drainage or redness is present. Mediastinal and left pleural chest tube insertion sites clean, dry, and without redness. No drainage at this time. Left arm radial artery harvest sites and right leg EVH harvest sites clean, dry and approximated. No drainage or redness present. Ecchymotic area to his left arm, soft and nontender to palpate. no rash, no growths, no abnormal pigmentation - Neurologic Cranial nerves II through XII intact. No focal deficits. normal coordination, normal sensation - Musculoskeletal normal gait, normal posture - Psychiatric oriented to time, oriented to person, oriented to place, speech is normal, memory intact Results - Labs 11/12/22 10:21 11/12/22 00:23 Abnormal Lab Results - Last 24 Hours (Table) 11/12/22 11/12/22 11/12/22 Range/Units 00:23 00:23 09:23 RBC 3.02 L (4.30-5.90) m/uL Hgb 9.2 L (13.0-17.5) gm/dL Hct 27.4 L (39.0-53.0) % Glucose 102 H (74-99) mg/dL POC Glucose (mg/dL) 170 H (70-110) mg/dL Total Protein 6.1 L (6.3-8.2) g/dL 11/12/22 Range/Units 10:21 RBC 3.34 L (4.30-5.90) m/uL Hgb 9.9 L (13.0-17.5) gm/dL Hct 30.1 L (39.0-53.0) % Glucose (74-99) mg/dL POC Glucose (mg/dL) (70-110) mg/dL Total Protein (6.3-8.2) g/dL Diabetes panel 11/12/22 Range/Units 00:23 Sodium 138 (137-145) mmol/L Potassium 3.9 (3.5-5.1) mmol/L Chloride 102 (98-107) mmol/L Carbon Dioxide 24 (22-30) mmol/L BUN 19 (9-20) mg/dL Creatinine 0.77 (0.66-1.25) mg/dL Glucose 102 H (74-99) mg/dL Calcium 8.7 (8.4-10.2) mg/dL AST 42 (17-59) U/L ALT 28 (4-49) U/L Alkaline Phosphatase 41 (38-126) U/L Total Protein 6.1 L (6.3-8.2) g/dL Albumin 3.6 (3.5-5.0) g/dL Calcium panel 11/12/22 Range/Units 00:23 Calcium 8.7 (8.4-10.2) mg/dL Albumin 3.6 (3.5-5.0) g/dL Pituitary panel 11/12/22 Range/Units 00:23 Sodium 138 (137-145) mmol/L Potassium 3.9 (3.5-5.1) mmol/L Chloride 102 (98-107) mmol/L Carbon Dioxide 24 (22-30) mmol/L BUN 19 (9-20) mg/dL Creatinine 0.77 (0.66-1.25) mg/dL Glucose 102 H (74-99) mg/dL Calcium 8.7 (8.4-10.2) mg/dL Adrenal panel 11/12/22 Range/Units 00:23 Sodium 138 (137-145) mmol/L Potassium 3.9 (3.5-5.1) mmol/L Chloride 102 (98-107) mmol/L Carbon Dioxide 24 (22-30) mmol/L BUN 19 (9-20) mg/dL Creatinine 0.77 (0.66-1.25) mg/dL Glucose 102 H (74-99) mg/dL Calcium 8.7 (8.4-10.2) mg/dL Total Bilirubin 0.7 (0.2-1.3) mg/dL AST 42 (17-59) U/L ALT 28 (4-49) U/L Alkaline Phosphatase 41 (38-126) U/L Total Protein 6.1 L (6.3-8.2) g/dL Albumin 3.6 (3.5-5.0) g/dL - Imaging Chest x-ray: report reviewed, image reviewed Additional studies: Ultrasound of the chest results reviewed. Assessment and Plan Assessment: Drainage of thin serosanguineous drainage from his previous left chest pleural chest tube insertion site, chest ultrasound showing a pleural fluid pocket of 1.3 cm on the left and a pleural fluid pocket 1. centimeters on the right, chest x-ray showed small left pleural effusion Aortic valve stenosis, status post aortic valve replacement with a 27 mm Avalus bovine pericardial valve Coronary artery disease with previous myocardial infarction and PCI, status post four-vessel CABG History of hypertension Hyperlipidemia, treated, cholesterol 142, LDL 77, triglycerides 81 TIA in 2015 [id number] diabetes, hemoglobin A1c 6.2% Previous tobacco dependence, FEV1 100% of predicted Obstructive sleep apnea with home CPAP use Nightly marijuana use Insomnia, taking Restoril as an outpatient Plan: The patient was seen and examined at his bedside in the emergency department. His chart and diagnostics reviewed. His case was discussed in detail with Dr. Ming Finney from cardiothoracic surgery. We will order a chest x-ray and an ultrasound of his left chest with markings. Current hemoglobin is 9.9. The patient remained hemodynamically stable. Per the cardiothoracic surgery standpoint the patient can be discharged home and follow-up as an outpatient as scheduled. Reviewed postop cardiac surgery discharge instructions with the patient, including sternal precautions and continue no lifting, pushing, or pulling anything greater than 10 pounds or jug of milk for 12 full weeks. Continue use heart hugger as instructed. Continue home health care. Please call for any further questions or concerns. Continue to maximize medical therapy with aspirin, statin, beta nubia and Plavix. Medical management other comorbidities per primary care service. Thank you for this consult and we look forward to working with you and following in the care of this patient. I have personally seen and examined the patient, performed the documentation and the assessment and plan as written. 30 minutes spent on the visit . Doc CANTU Attending Addendum: Pt seen and evaluated with STEREO COMPILER above. Agree with his assessment and plan. Pt is a 62 y/o M s/p recent AVR, CABG on 11/04 who presents to the ED with drainage from chest tube incision. No further work-up needed. I spent 35 minutes evaluating the findings and discussing with the STEREO COMPILER.
--- NOTE | 2022-11-12 16:38 | P.HPIM ---
History of Present Illness H&P Date: 11/12/22 Chief Complaint: Bleeding from operative site patient is a 62-year-old gentleman with past medical history significant for coronary artery disease, severe aortic stenosis who underwent four-vessel bypass surgery including CALVIN to LAD and diagonal, radial graft to acute mar ginal, SVG to descending coronary artery and the patient also underwent a 27 mm bovine aortic valve placement. Patient was discharged on November 08. Patient now presents with the showed dripping of blood he described. He then used to wash clothes and put pressure over the same. This was for operative access site. No chest pain or shortness breath. Has been active otherwise doing well. Presented to the ER. ER physician spoke to Dr. Finney from cardiothoracic team. Requested to patient to be admitted to our service. No fever no chills. No cough. Review of systems: GEN.: None EYES: None HEENT: None NECK: None RESPIRATORY: None CARDIOVASCULAR: None GASTROINTESTINAL: None GENITOURINARY: None MUSCULOSKELETAL: None LYMPHATICS: None HEMATOLOGICAL: As above PSYCHIATRY: None NEUROLOGICAL: None Past medical history to include: CAD with stent 2012, diabetes, hypertension, hyperlipidemia, sciatica, back surgery. 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 No alcohol. Does take marijuana at night Physical examination: VITAL SIGNS: 98.8, 74, 17, 143/73, 99% room air GENERAL: [BMI 30.4, sitting up in the recliner not in distress comfortable.. Chest brace EYES: [Pupils equal. Conjunctiva pale]l. HEENT: [External appearance of nose and ears normal, oral cavity grossly nor mal]. NECK: [JVD not raised; masses not palpable]. HEART: [First and second heart sounds are normal; no edema]. LUNGS:[ Respiratory rate normal; decreased breath sounds]. ABDOMEN: [Soft, nontender, liver spleen not palpable, no masses palpable]. PSYCH: [Alert and oriented x3; mood and affect danielle]l. MUSCULOSKELETAL:No Clubbing/cyanosis;muscles-grossly intact NEUROLOGICAL: [Cranial nerves grossly intact; no facial asymmetry, power and sensation grossly intact]. LYMPHATICS: [No lymph nodes palpable in the axilla and neck] INVESTIGATIONS, reviewed in the clinical context: White count 7.8 hemoglobin 9.2 platelets 315 potassium 3.9 creatinine 0.77 Chest x-ray film personally reviewed by me-possible left-sided pleural effusion Assessment and plan: -Like bloodstained pleural fluid that drained from operative site. Discussed with Doc Yao IN [employer] SAL[employer] REPRESENTATIVE from cardiothoracic service team. Ultrasound will be done. To see fluid further can be drained. -Multivessel coronary disease, status post four-vessel bypass surgery involving CALVIN to LAD and diagonal and the radial artery graft to acute marginal and saphenous vein graft to descending, Plavix, Lopressor simvastatin -severe aortic stenosis status post Aortic valve replacement, 27 mm bovine pericardial valve, -Diabetes mellitus2, on oral hypoglycemic farxiga and metformin . -Essential Hypertension Lopressor. Amlodipine -Hyperlipidemia Zocor -Acute postprocedure blood loss anemia, expected from surgery Ferrous sulfate Care was discussed with the patient. Home medications resumed. Discussed with cardiothoracic service team IN [employer] SALES REPRESENTATIVE. Chest ultrasound. Past Medical History Past Medical History: Coronary Artery Disease (CAD), Diabetes Mellitus, Hyperlipidemia, Hypertension, Myocardial Infarction (ND) Additional Past Medical History / Comment(s): sciatica Last Myocardial Infarction Date:: 2012 History of Any Multi-Drug Resistant Organisms: None Reported Past Surgical History: Back Surgery, Heart Catheterization With Stent, Tonsillectomy Additional Past Surgical History / Comment(s): COLONOSCOPY Past Anesthesia/Blood Transfusion Reactions: No Reported Reaction Date of Last Stent Placement:: 2012 Past Psychological History: No Psychological Hx Reported Smoking Status: Former smoker Past Alcohol Use History: None Reported Past Drug Use History: None Reported - Past Family History Family Family Medical History: Coronary Artery Disease (CAD) Medications and Allergies Home Medications Medication Instructions Recorded Confirmed Type Dapagliflozin Propanediol [Farxiga] 10 mg PO DAILY 03/22/20 11/12/22 History Gabapentin 300 mg PO TID 03/22/20 11/12/22 History metFORMIN HCL [Glucophage] 1,000 mg PO BID 03/22/20 11/12/22 History Simvastatin [Zocor] 40 mg PO HS 07/17/22 11/12/22 History Fish Oil/Dha/Epa [Fish Oil 1,200 1 cap PO BID 10/06/22 11/12/22 History mg Fish Oil] Fluticasone Nasal [place] [Flonase 1 spray EA NOSTRIL DAILY 10/06/22 11/12/22 History Nasal [place]] Fexofenadine HCl [Nancy Allergy] 180 mg PO DAILY 10/29/22 11/12/22 History Acetaminophen Tab [Tylenol] 1,000 mg PO Q6HR PRN tab 11/08/22 11/12/22 Rx Ascorbic Acid [Vitamin C] 500 mg PO BID-W/MEALS #14 tab 11/08/22 11/12/22 Rx Aspirin 325 mg PO DAILY #30 tab 11/08/22 11/12/22 Rx Clopidogrel [Plavix] 75 mg PO DAILY #30 tab 11/08/22 11/12/22 Rx Ferrous Sulfate [Iron (65 MG 325 mg PO BID-W/MEALS #14 tab 11/08/22 11/12/22 Rx Elemental)] Metoprolol Tartrate [Lopressor] 50 mg PO BID #60 tab 11/08/22 11/12/22 Rx Pantoprazole [Protonix] 40 mg PO AC-BRKFST #30 tab 11/08/22 11/12/22 Rx Tamsulosin [Flomax] 0.4 mg PO PC-BRKFST #30 cap 11/08/22 11/12/22 Rx amLODIPine [Norvasc] 2.5 mg PO DAILY #30 tab 11/08/22 11/12/22 Rx Sennosides-Docusate Sodium 2 tab PO HS 11/12/22 11/12/22 History [Senokot-S] Temazepam [Restoril] 15 mg PO HS PRN #30 cap 11/12/22 Rx Allergies Allergy/AdvReac Type Severity Reaction Status Date / Time atorvastatin [From Lipitor] AdvReac muscle Verified 11/12/22 06:51 aches Physical Exam Vitals: Vital Signs Temp Pulse Resp BP Pulse Ox 11/12/22 08:25 98.8 F 74 17 143/73 99 11/12/22 06:00 72 18 95 11/12/22 04:00 73 18 154/78 95 11/12/22 01:39 69 18 129/68 98 11/12/22 00:21 65 16 133/73 97 11/11/22 23:58 98.7 F 66 18 134/70 98 Intake and Output 11/11/22 11/12/22 11/12/22 22:59 06:59 14:59 Other: Weight 90.718 kg Results CBC & Chem 7: 11/12/22 10:21 11/12/22 00:23 Labs: Abnormal Lab Results - Last 24 Hours (Table) 11/12/22 11/12/22 Range/Units 00:23 RBC 3.02 L (4.30-5.90) m/uL Hgb 9.2 L (13.0-17.5) gm/dL Hct 27.4 L (39.0-53.0) % Glucose 102 H (74-99) mg/dL Total Protein 6.1 L (6.3-8.2) g/dL
--- NOTE | 2022-11-12 16:41 | P.DS ---
Providers Date of admission: 11/12/22 01:42 Expected date of discharge: 11/12/22 Attending physician: Kuldip Blankenship Consults: 11/12/22 01:36 Consult Physician Routine Consulting Provider: Ming Finney Consult Reason/Comments: Post op bleeding Do you want consulting provider notified?: Already Contacted Primary care physician: [facility] Course: Chief Complaint: Bleeding from chest tube insertion site patient is a 62-year-old gentleman with past medical history significant for coronary artery disease, severe aortic stenosis who underwent four-vessel bypass surgery including CALVIN to LAD and diagonal, radial graft to acute marginal, SVG to descending coronary artery and the patient also underwent a 27 mm bovine aortic valve placement. Patient was discharged on November 08. Patient now presents with the shirt dripping of blood he described. He then used wash clothes and put pressure over the same. This was for chest tube left chest wall access site. No chest pain or shortness breath. Has been active otherwise doing well. Presented to the ER. ER physician spoke to Dr. Finney from cardiothoracic team. Requested to patient to be admitted to our service. No fever no chills. No cough. Patient underwent ultrasound of the left chest. No significant fluid. Patient was cleared for discharge from cardiothoracic service team. No further intervention. Repeat hemoglobin remained stable. Past medical history to include: CAD with stent 2012, diabetes, hypertension, hyperlipidemia, sciatica, back surgery. 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 No alcohol. Does take marijuana at night Physical examination: VITAL SIGNS: 98.8, 74, 17, 143/73, 99% room air GENERAL: [BMI 30.4, sitting up in the recliner not in distress comfortable.. Chest brace EYES: [Pupils equal. Conjunctiva pale]l. HEENT: [External appearance of nose and ears normal, oral cavity grossly normal]. NECK: [JVD not raised; masses not palpable]. HEART: [First and second heart sounds are normal; no edema]. LUNGS:[ Respiratory rate normal; decreased breath sounds]. ABDOMEN: [Soft, nontender, liver spleen not palpable, no masses palpable]. PSYCH: [Alert and oriented x3; mood and affect danielle]l. MUSCULOSKELETAL:No Clubbing/cyanosis;muscles-grossly intact NEUROLOGICAL: [Cranial nerves grossly intact; no facial asymmetry, power and sensation grossly intact]. LYMPHATICS: [No lymph nodes palpable in the axilla and neck] INVESTIGATIONS, reviewed in the clinical context: Repeat hemoglobin 9.9 White count 7.8 hemoglobin 9.2 platelets 315 potassium 3.9 creatinine 0.77 Chest x-ray film personally reviewed by me-possible left-sided pleural effusion Assessment and plan: -Like bloodstained pleural fluid that drained from left chest tube insertion site Discussed with Doc Yao NP from cardiothoracic service team. Ultrasound unremarkable. No further intervention. -Multivessel coronary disease, status post four-vessel bypass surgery involving CALVIN to LAD and diagonal and the radial artery graft to acute marginal and saphenous vein graft to descending, Plavix, Lopressor simvastatin -severe aortic stenosis status post Aortic valve replacement, 27 mm bovine pericardial valve, -Diabetes mellitus2, on oral hypoglycemic farxiga and metformin . -Essential Hypertension Lopressor. Amlodipine -Hyperlipidemia Zocor -Acute postprocedure blood loss anemia, expected from surgery Ferrous sulfate Disposition: Home Plan - Discharge Summary New Discharge Prescriptions: Continue metFORMIN HCL [Glucophage] 1,000 mg PO BID Gabapentin 300 mg PO TID Dapagliflozin Propanediol [Farxiga] 10 mg PO DAILY Simvastatin [Zocor] 40 mg PO HS Fexofenadine HCl [Nancy Allergy] 180 mg PO DAILY Aspirin 325 mg PO DAILY #30 tab Tamsulosin [Flomax] 0.4 mg PO PC-BRKFST #30 cap Fluticasone Nasal [place] [Flonase Nasal [place]] 1 spray EA NOSTRIL DAILY Fish Oil/Dha/Epa [Fish Oil 1,200 mg Fish Oil] 1 cap PO BID Ferrous Sulfate [Iron (65 MG Elemental)] 325 mg PO BID-W/MEALS #14 tab Metoprolol Tartrate [Lopressor] 50 mg PO BID #60 tab amLODIPine [Norvasc] 2.5 mg PO DAILY #30 tab Clopidogrel [Plavix] 75 mg PO DAILY #30 tab Pantoprazole [Protonix] 40 mg PO AC-BRKFST #30 tab Acetaminophen Tab [Tylenol] 1,000 mg PO Q6HR PRN tab PRN Reason: Fever And/ Or Mild Pain (1-3) Ascorbic Acid [Vitamin C] 500 mg PO BID-W/MEALS #14 tab Sennosides-Docusate Sodium [Senokot-S] 2 tab PO HS Temazepam [Restoril] 15 mg PO HS PRN #30 cap PRN Reason: Insomnia Discharge Medication List Dapagliflozin Propanediol [Farxiga] 10 mg PO DAILY 03/22/20 [History] Gabapentin 300 mg PO TID 03/22/20 [History] metFORMIN HCL [Glucophage] 1,000 mg PO BID 03/22/20 [History] Simvastatin [Zocor] 40 mg PO HS 07/17/22 [History] Fish Oil/Dha/Epa [Fish Oil 1,200 mg Fish Oil] 1 cap PO BID 10/06/22 [History] Fluticasone Nasal [place] [Flonase Nasal [place]] 1 spray EA NOSTRIL DAILY 10/06/22 [History] Fexofenadine HCl [Nancy Allergy] 180 mg PO DAILY 10/29/22 [History] Acetaminophen Tab [Tylenol] 1,000 mg PO Q6HR PRN tab 11/08/22 [Rx] Ascorbic Acid [Vitamin C] 500 mg PO BID-W/MEALS #14 tab 11/08/22 [Rx] Aspirin 325 mg PO DAILY #30 tab 11/08/22 [Rx] Clopidogrel [Plavix] 75 mg PO DAILY #30 tab 11/08/22 [Rx] Ferrous Sulfate [Iron (65 MG Elemental)] 325 mg PO BID-W/MEALS #14 tab 11/08/22 [Rx] Metoprolol Tartrate [Lopressor] 50 mg PO BID #60 tab 11/08/22 [Rx] Pantoprazole [Protonix] 40 mg PO AC-BRKFST #30 tab 11/08/22 [Rx] Tamsulosin [Flomax] 0.4 mg PO PC-BRKFST #30 cap 11/08/22 [Rx] amLODIPine [Norvasc] 2.5 mg PO DAILY #30 tab 11/08/22 [Rx] Sennosides-Docusate Sodium [Senokot-S] 2 tab PO HS 11/12/22 [History] Temazepam [Restoril] 15 mg PO HS PRN #30 cap 11/12/22 [Rx] Follow up Appointment(s)/Referral(s): Cassius Cruz DO [Primary Care Provider] - 1-2 days Activity/Diet/Wound Care/Special Instructions: keep his previous appointments DISCHARGE INSTRUCTIONS: 1. No driving for 4 weeks, or until physician gives their ok. 2. The patient should sleep in their own bed, no medical bed needed. 3. Stairs are not an issue. If the bedroom is upstairs, it is advised that the patient go up at night and down in the morning for the first week. Go slowly, using handrail and take 1 step at a time. 4. STEVEN hose are to be worn for 30 days post surgery or until physician discontinues. 5. Heart hugger is to be worn 100% of the time until physician discontinues.(except when showering) 6. No lifting, pushing, or pulling more than 10 pounds for 12 weeks. The physician will advise of any restriction changes. 7. The patient is expected to continue the prescribed walking program. 8. Continue pain control per as needed orders. 9. Continue with incentive spirometry and splinting/heart hugger until otherwise directed by the physician. 10. Must shower daily using liquid antibacterial soap 11. Routine sternal incision care. No powders, lotions, ointments on incisions. No dressings are necessary on incisions unless they are draining. Dermabond tape is to remain on sternal incision until surgeon follow-up. 12. Please call surgeon/DIGITAL ACCOUNT EXECUTIVE for temp greater than 101 F or purulent drainage from incisions. 13. You should weigh yourself daily, record and bring log with you to follow up appointments. 14. All prescriptions given by surgeon for 30 days. Refills need to be filled through head teller/primary care physician. 15. A Red armband has been placed on the patient. It should be worn for 30 days post discharge from surgery and will be removed by the cardiac surgeons. If an ER visit is necessary, please make sure the number on the Red armband is called before going to ER. 16. You have been referred to and are expected to begin Cardiac Rehab in approximately 4-6 weeks. HOME HEALTH SERVICES TO PROVIDE: RN SKILLED HOME CARE SERVICES FOR POST-OP SURGICAL PATIENTS WITH THE FOLLOWING: Coronary Artery Bypass Surgery (CABG), Mitral Valve Replacement/Repair ( MVR), Aortic Valve Replacement/Repair (AVR) RN TO CONTINUE EDUCATION FROM ``ROAD TO A HEALTH HEART PATIENT EDUCATION MANUAL (GIVEN TO PATIENT IN THE HOSPITAL) MEDICATION RECONCILIATION WITH EDUCATION NEEDED ON FIRST HOME VISIT EMPHASIZE IMPORTANCE OF WEARING BREAST SUPPORT/HEART HUGGER ENCOURAGE USE OF INCENTIVE SPIROMETER 10 X EVERY HOUR WHILE AWAKE ENCOURAGE UTILIZATION OF LOWER EXTREMITY COMPRESSION STOCKINGS/STEVEN HOSE and ELEVATE LEGS ABOVE LEVEL OF HEART WHILE AT REST. ENCOURAGE AMBULATION 3-5x/day INCREASING TOLERATES, WHILE AVOIDING EXTREMES IN TEMPERATURE FREQUENCY: RN TO OPEN THE PATIENT WITHIN 24 HOURS OF DISCHARGE FROM THE HOSPITAL WITH TELEHEALTH INSTALLED AT [facility] [place], RN TO VISIT 2-3 X A WEEK FOR 4 WEEKS ESTABLISHED BY PATIENT NEEDS. LABORATORY: CBC, CMP TO BE DRAWN ON THE THIRD DAY HOME, (RAN STAT) FAX RESULTS TO [phone]. TELEHEALTH PARAMETERS: WEIGHT: NOTIFY MD OF WEIGHT GAIN OF 2 LBS IN 24 HOURS OR 5 LBS IN ONE WEEK HR: NOTIFY MD OF HR <55 BPM OR HR>100 BPM BP: NOTIFY MD IF BP <90/55 OR BP>140/100 O2 SAT: NOTIFY MD IF PO2<93% ON ROOM AIR SEND TELEHEALTH REPORT TO GRAIN PACKER AND CARDIOVASCULAR SURGEON THE FIRST WEEK OF CARE AND THEN BI-WEEKLY. PLEASE ADDITIONALLY COMMUNICATE ANY ABNORMALS AND NEW FINDINGS TO THE SURGEONS OFFICE. Discharge Disposition: HOME SELF-CARE
[2022-11-12] MEDS ORDERED: SENNOSIDES-DOCUSATE SODIUM 1 EACH TAB PO SCH (21:00)
[2022-11-12] MEDS ORDERED: SIMVASTATIN 40 MG PO SCH (21:00)
== END 2022-11-12 12:17 | disposition home or self-care (01) ==
LOC: EC 23:56 → 6NMEDSUR 11-12 01:42
PROVIDERS: ADMIT Hospitalist; ATTEND Hospitalist
DX: I97.611 Postprocedural hemorrhage of a circulatory system organ or structure following cardiac bypass (principal); D62 Acute posthemorrhagic anemia; J90 Pleural effusion, not elsewhere classified; I25.2 Old myocardial infarction; I25.10 Atherosclerotic heart disease of native coronary artery without angina pectoris; I10 Essential (primary) hypertension; E78.5 Hyperlipidemia, unspecified; M54.30 Sciatica, unspecified side; G47.33 Obstructive sleep apnea (adult) (pediatric); E66.9 Obesity, unspecified; I70.0 Atherosclerosis of aorta; F12.90 Cannabis use, unspecified, uncomplicated; G47.00 Insomnia, unspecified; Z95.5 Presence of coronary angioplasty implant and graft; Z79.84 Long term (current) use of oral hypoglycemic drugs; Z82.49 Family history of ischemic heart disease and other diseases of the circulatory system; Z68.30 Body mass index [BMI] 30.0-30.9, adult; Z95.1 Presence of aortocoronary bypass graft; Z95.3 Presence of xenogenic heart valve; Z86.73 Personal history of transient ischemic attack (TIA), and cerebral infarction without residual deficits; Z88.8 Allergy status to other drugs, medicaments and biological substances; Z79.899 Other long term (current) drug therapy; Z87.891 Personal history of nicotine dependence; Z79.02 Long term (current) use of antithrombotics/antiplatelets; Z79.82 Long term (current) use of aspirin; Y83.2 Surgical operation with anastomosis, bypass or graft as the cause of abnormal reaction of the patient, or of later complication, without mention of misadventure at the time of the procedure
CPT/HCPCS: 36415; 71045; 76604; 80053; 85025; 85027; 99284